=== PATIENT | female | born 1970 | race Caucasian/White ===

== ENCOUNTER → 2018-05-23 15:45 | Outpatient (CLI) | payer BC, SELFPAY ==
[2014-07-20 16:23] VITALS: BMI 32.9
--- NOTE | 2018-05-23 15:52 | RAD_ITS ---
STUDY: X-RAY - RIGHT KNEE REASON FOR EXAM: Female, 48 years old. Pain TECHNIQUE: Three view(s) of the knee were obtained. COMPARISON: None. FINDINGS: The distal femur is unremarkable. The proximal tibia is unremarkable. There is mild narrowing of the medial femorotibial compartment. Normal lateral femorotibial compartment. Normal patellofemoral articulation. There is no fullness above the patella. The soft tissue structures are unremarkable. RAD/Knee 4 or More Views IMPRESSION: There are mild degenerative changes in the medial compartment. No evidence of joint effusion. Electronically Signed: Katlyn Sands MD at 0:15 EST Tel Direct: [phone], Service support ,
--- NOTE | 2018-05-23 15:52 | RAD_ITS ---
STUDY: X-RAY - LEFT KNEE REASON FOR EXAM: Female, 48 years old. Pain TECHNIQUE: Three view(s) of the knee were obtained. COMPARISON: None. FINDINGS: The distal femur is unremarkable. The proximal tibia is unremarkable. There is mild narrowing of the medial femorotibial compartment. Normal lateral femorotibial compartment. Normal patellofemoral articulation. There is no fullness above the patella. The soft tissue structures are unremarkable. RAD/Knee 4 or More Views IMPRESSION: There are mild degenerative changes in the medial compartment. There is no evidence of joint effusion. Electronically Signed: Katlyn Sands MD at 0:16 EST Tel Direct: [phone], Service support ,
== END ==
PROVIDERS: Family Provider Family Medicine; PCP Family Medicine; Referring Provider Family Medicine; Visit Provider Family Medicine
DX: M23.8X2 Other internal derangements of left knee (principal); M23.8X1 Other internal derangements of right knee
CPT/HCPCS: 73564

== ENCOUNTER 2019-02-26 13:24 | Emergency (ER) | payer BC, SELFPAY ==
[2019-02-26 13:24] VITALS: BP 115/65; PULSE 103; RESP 18; TEMP 36.6; O2SAT 97; BMI 31.8
--- NOTE | 2019-02-26 13:52 | CT_ITS ---
STUDY: CT ABDOMEN AND PELVIS WITH CONTRAST REASON FOR EXAM: Female, 48 years old. Right lower quadrant pain. Prior tubal ligation. RADIATION DOSAGE (If Supplied By Facility): CTDIvol = ( 14.88 ) mGy, DLP = ( 1126.65 ) mGycm TECHNIQUE: Transaxial images were obtained from the dome of the diaphragm to the symphysis pubis with oral contrast. IV/Oral Isovue 300 100 was administered. Sagittal and coronal images were reconstructed. Individualized dose optimization techniques were used for this CT. COMPARISON: Comparison is made with prior study dated July 20, 2014. FINDINGS: The visualized lung bases are unremarkable. The visualized portions of the heart are within normal limits. Normal liver. Normal gallbladder and extrahepatic biliary system. Normal spleen. Normal pancreas. Normal bilateral adrenal glands. Normal right kidney. 2.9 cm x 2.9 cm cyst in the lower pole of the left kidney. Normal visualized stomach. Normal small intestine. Normal colon. The appendix is visualized and appears normal. Normal abdominal aorta. Normal inferior vena cava. There is borderline retroperitoneal lymphadenopathy with enlarged nodes no greater than 10mm in the short axis diameter. Normal urinary bladder. Normal abdominal wall. There are mild degenerative changes of the visualized lumbar spine. CT/Abdomen/Pelvis WITH Contrast IMPRESSION: Stable cyst in lower pole of the left kidney. Electronically Signed: Navjot Aldana, at 15:45 EDT , Service support ,
--- NOTE | 2019-02-26 13:54 | ED.DCSUM_ITS ---
History of Present Illness Informant: Patient Onset: Days Context: Gradual Onset Timing: Continuous Current Severity: Moderate Maximum Severity: Moderate Narrative: The patient presents to the emergency department abdominal pain. Patient was in her normal state of health. States on , she had a dull ache in her right lower quadrant. Over the weekend, is gotten worse. She states today, she began to have fever and chills. She has been nauseated with a few bouts of dry heaves. Patient does have a history of 3 prior C-sections and a tubal ligation. She had no other abdominal surgery. She is otherwise been in her normal state of health. She was seen by her primary care physician in the office today and sent over for further evaluation. Prior similar symptoms: No Recent Illness/Hospitalization: No <David Young - Last Filed: 02/26/19 13:54> <Jamar Tamayo - Last Filed: 02/26/19 15:59> Chief Complaint: Abd Pain Past Medical History Prior records reviewed: Yes Past Medical History: None Surgical History: - - by 3 Smoking Status: Never smoker <David Young - Last Filed: 02/26/19 13:54> <Jamar Tamayo - Last Filed: 02/26/19 15:59> - Allergies and Home Meds Allergies/Adverse Reactions: Allergies No Known Allergies Allergy (Verified 02/26/19 13:26) Primary Care Physician: Reilly Elena MD [Primary Care Provider] - Review of Systems General: Reports: Fever. Denies: Chills, Sweats Eyes: Denies: Visual changes - bilaterally, Diplopia ENT: Denies: Rhinorrhea, Sore throat Cardiovascular: Denies: Chest pain, Palpitations Respiratory: Denies: Dyspnea, Cough, Dyspnea on exertion Gastrointestinal: Reports: Abdominal pain, Nausea. Denies: Vomiting, Diarrhea, Melena, Hematochezia Genitourinary: Denies: Dysuria, Hematuria, Frequency Musculoskeletal: Denies: Back pain, Extremity Pain Skin: Denies: Rash, Wounds Neurological: Denies: Headache, Weakness, Numbness <David Young - Last Filed: 02/26/19 13:54> Physical Exam Vital Signs/Narrative: Vital Signs Temp Pulse Resp BP Pulse Ox 02/26/19 13:24 98 F 103 H 18 115/65 97 Inital Vital Signs reviewed: Yes General: Well nourished, Well developed, No Acute Distress Head: Normocephalic, Atraumatic Eyes: Perrl, EOMI ENT: Moist mucous membranes, No rhinorrhea Neck: Supple, Nontender Cardiovascular: Regular rate, Regular rhythm, No murmurs Respiratory: No distress, CTA bilaterally, Chest nontender Abdomen: Soft, Nondistended, Normal bowel sounds, Tender. Negative for: Guarding, Rebound tenderness Back: Nontender, Normal Inspection Extremities: Nontender, No edema Skin: Normal color, No rash Neurological: Alert, Oriented x3, Cranial nerves II-XII grossly intact, Normal Strength, Normal Sensation Psychological: Normal affect, Normal Mood <David Young - Last Filed: 02/26/19 13:54> Vital Signs/Narrative: Vital Signs Temp Pulse Resp BP Pulse Ox 02/26/19 13:24 98 F 103 H 18 115/65 97 <RoniJamar - Last Filed: 02/26/19 15:59> Diagnostic/Tx/Re-eval Impressions Abdomen/Pelvis CT 02/26/19 13:52 IMPRESSION: Stable cyst in lower pole of the left kidney. Electronically Signed: Navjot Aldana, at 15:45 EDT , Service support , 02/26/19 13:52 Abdomen/Pelvis WITH Contrast [CT] Stat Laboratory Results 02/26/19 02/26/19 02/26/19 14:05 14:05 15:20 WBC 5.7 RBC 4.80 Hgb 14.2 Hct 42.9 MCV 89.4 MCH 29.6 MCHC 33.1 RDW Std Deviation 43.4 RDW Coeff of David 13.2 Plt Count 210 MPV 9.7 Immature Gran % (Auto) 0.500 Neut % (Auto) 80.0 H Lymph % (Auto) 8.0 L [place] % (Auto) 9.2 Eos % (Auto) 1.9 Baso % (Auto) 0.4 Absolute Neuts (auto) 4.5 Absolute Lymphs (auto) 0.45 L Nucleated RBC % 0 Differential Comment SCANNED Sodium 136 Potassium 4.1 Chloride 103 Carbon Dioxide 25.0 Anion Gap 8 BUN 9 Creatinine 1.07 H Estim Creat Clear Calc 49.75 Est GFR (MDRD) Af Amer 70 Est GFR (MDRD) Non-Af 58 L BUN/Creatinine Ratio 8.4 L Glucose 96 Calcium 8.6 Total Bilirubin 0.30 AST 14 L ALT 29 Alkaline Phosphatase 79 Total Protein 7.7 Albumin 3.8 Globulin 3.9 Albumin/Globulin Ratio 1.0 Lipase 77 Urine Color Straw Urine Clarity Clear Urine pH 7.0 Ur Specific [place] 1.005 Urine Protein Negative Urine Glucose (UA) Normal Urine Ketones Negative Urine Occult Blood Negative Urine Nitrite Negative Urine Bilirubin Negative Urine Urobilinogen Normal Ur Leukocyte Esterase 25 H Urine RBC 0 SEEN Urine WBC 0 SEEN Ur Squamous Epith Cells 0 SEEN Urine Bacteria 0 SEEN Urine Mucus 0 SEEN CBC and differential are unremarkable. Comprehensive metabolic panel is unremarkable. UA is negative. CT reveals no acute pathology to explain patient's symptoms. Plan is to discharge to home with appropriate home-going instructions - Medical Decision Making Differential includes appendicitis, urologic pathology i.e. cystitis, ureteral stone also the differential is mesenteric adenitis. Did also consider malignancy. Since patient's work-up is negative she was discharged home. <Gianfranco Tamayoo - Last Filed: 02/26/19 15:59> ED Disposition <David Young - Last Filed: 02/26/19 13:54> <Jamar Tamayo - Last Filed: 02/26/19 15:59> - Plan for ED Patient: Disposition: Home or Assisted Living Diagnosis: Acute abdominal pain in right lower quadrant Instructions: ABDOMINAL PAIN, Unknown Cause, (Female) Referrals: Reilly Elena MD [Primary Care Provider] - As Needed
[2019-02-26] MEDS: 0.9% Normal Saline 1,000 ML 1000 ML IV (14:09)
[2019-02-26] MEDS: Ondansetron 4 MG/2 ML Vial IV (14:10)
[2019-02-26] MEDS: Morphine 4 MG/ML Syringe IV (14:11)
[2019-02-26 14:20] LABS: Absolute Lymphocyte Count 0.45 X10^3/uL (0.83-4.51); Absolute Neutrophil Count 4.5 X10^3/uL (2.0-7.7); Basophil# 0.02 X10^3/uL; Basophil% 0.4 % (0-1); Eosinophil# 0.11 X10^3/uL; Eosinophils% 1.9 % (0-5); Hematocrit 42.9 % (37-47); Hemoglobin 14.2 g/dL (12.0-15.0); Lymphocyte # 0.45 X10^3/ul (4.0); Mean Corp Hgb Conc 33.1 g/dL (32-36); Mean Corpuscular Hgb 29.6 pg (27.0-32.0); Mean Corpuscular Volume 89.4 fL (81-99); Mean Platelet Vol. 9.7 fl (6.2-12.0); Monocyte# 0.52 X10^3/uL; Monocyte% 9.2 % (0-10); NRBC Flagged by Analyzer 0 % (0-5); Neutrophil # 4.52 X10^3/uL (2.7-7.7); POSITIVE DIFFERENTIAL YES; Platelet Count 210 K/mm3 (150-450); RBC Distribution Width CV 13.2 % (11.6-14.6); RBC Distribution Width SD 43.4 fl (35.1-43.9); White Blood Count 5.7 K/mm3 (4.4-11.0)
[2019-02-26 14:22] LABS: Differential Indicated SCAN CRITERIA MET
[2019-02-26 14:38] LABS: AST(SGOT) 14 U/L (15-37); Alanine Aminotransfer ALT/SGPT 29 U/L (13-56); Albumin, Serum 3.8 g/dL (3.2-5.0); Alkaline Phosphatase 79 U/L (45-117); Anion Gap 8 (5-15); BUN 9 mg/dL (7-18); BUN/Creat Ratio 8.4 RATIO (10-20); Calcium,Total 8.6 mg/dL (8.5-10.1); Chloride 103 mmol/L (98-107); Creatinine, Serum 1.07 mg/dL (0.55-1.02); EST Glomerular Filtration Rate 58 mL/min (>60); Est Glom Filt Rate - Afr Amer 70 mL/min (>60); Estimated Creatinine Clearance 49.75 ml/min; Globulin 3.9 g/dL (2.2-4.2); Glucose 96 mg/dL (74-106); Lipase 77 U/L (73-393); Potassium 4.1 mmol/L (3.5-5.1); Protein, Total 7.7 g/dL (6.4-8.2); Sodium Level 136 mmol/L (136-145)
[2019-02-26 14:42] LABS: Differential Comment SCANNED
[2019-02-26 15:30] LABS: Bacteria 0 SEEN /hpf (None Seen); Mucous, Urine 0 SEEN /hpf (<or=2+); Red Blood Cells-Urine 0 SEEN /hpf (0-5); Squamous Epithelial Cells - UA 0 SEEN /hpf (5-10); White Blood Cells 0 SEEN /hpf (0-5)
[2019-02-26 15:40] LABS: Color, Urine Straw (Yellow); Glucose, Dipstick Normal (Normal); Ketone-Dipstick Negative (Negative); Leukocyte Esterase-Dipstick 25 /ul (Negative); Nitrite-Dipstick Negative (Negative); Occult Blood-Urine Negative /ul (Negative); Protein-Dipstick Negative (Negative); Specific Gravity, Urine 1.005 (1.002-1.030); Urine Bilirubin Dipstick Negative (Negative); Urine Clarity Clear (Clear); Urine Urobilinogen Normal (Normal)
[2019-02-26 16:33] VITALS: BP 111/64; PULSE 80; RESP 18; O2SAT 97
== END 2019-02-26 16:34 | disposition home or self-care (01) ==
PROVIDERS: Emergency Provider Emergency Medicine; Family Provider Family Medicine; PCP Family Medicine
DX: R10.31 Right lower quadrant pain (principal)
CPT/HCPCS: 74177; 80053; 81001; 83690; 85025; 96361; 96374; 96375; 99283; Q9967; J2405

== ENCOUNTER → 2020-06-15 12:55 | Outpatient (CLI) | payer BC, SELFPAY ==
--- NOTE | 2020-06-15 13:00 | RAD_ITS ---
STUDY: X-RAY CHEST REASON FOR EXAM: Female, 50 years old. COUGH AND CHEST CONGESTION, PAIN WHEN COUGHING -- SINUS DRAINAGE STARTED 1 MONTH AGO, NOW INTO CHEST TECHNIQUE: PA and lateral views of the chest. COMPARISON: None. FINDINGS: The lungs are clear and expanded. There is no demonstrated pleural abnormality. Normal size heart. Normal mediastinum and derik. Normal visualized pulmonary arteries. Normal visualized aortic arch and descending thoracic aorta. Normal visualized thoracic spine. Normal visualized ribs, clavicles, and shoulders. There is no demonstrated abnormality of the visualized soft tissue structures of the upper abdomen. RAD/Chest PA and Lateral IMPRESSION: Normal x-ray examination of the chest. Electronically Signed: Darci Lowe MD at 16:56 EST Tel , Service support ,
== END ==
PROVIDERS: PCP Family Medicine; Referring Provider Family Medicine; Visit Provider Family Medicine
DX: J40 Bronchitis, not specified as acute or chronic (principal)
CPT/HCPCS: 71046

== ENCOUNTER → 2021-05-05 | Outpatient (CLI) | payer BC, SELFPAY | END | disposition home or self-care (01) | LOC: LABSPEC 15:08 | PROVIDERS: PCP Family Medicine; Visit Provider Otolaryngology | DX: Z11.52 Encounter for screening for COVID-19 (principal) | CPT/HCPCS: 87635; U0005; U0003 ==

== ENCOUNTER → 2021-10-19 | Outpatient (CLI) | payer BC, SELFPAY | END | disposition home or self-care (01) | LOC: MFPLAB 08:23 | PROVIDERS: PCP Family Medicine; Visit Provider Family Medicine | DX: Z20.822 Contact with and (suspected) exposure to COVID-19 (principal) | CPT/HCPCS: 87635; U0003; U0005 ==

== ENCOUNTER → 2022-06-14 | Outpatient (CLI) | payer OTHER, SELFPAY ==
[2022-06-14 10:17] LABS: Absolute Lymphocyte Count 2.77 X10^3/uL (0.83-4.51); Absolute Neutrophil Count 6.1 X10^3/uL (2.0-7.7); Basophil# 0.02 X10^3/uL; Basophil% 0.2 % (0-1); Eosinophil# 0.08 X10^3/uL; Eosinophils% 0.8 % (0-5); Hemoglobin 13.5 g/dL (12.0-15.0); Lymphocyte # 2.77 X10^3/ul (0.83-4.51); Lymphocyte % 28.7 % (19-41); Mean Corp Hgb Conc 31.4 g/dL (32-36); Mean Corpuscular Hgb 28.8 pg (27.0-32.0); Mean Corpuscular Volume 91.7 fL (81-99); Mean Platelet Vol. 9.3 fl (6.2-12.0); Monocyte# 0.61 X10^3/uL; Monocyte% 6.3 % (0-10); NRBC Flagged by Analyzer 0 % (0-5); Neutrophil # 6.12 X10^3/uL (2.7-7.7); Neutrophil % 63.4 % (47-70); Platelet Count 274 K/mm3 (150-450); RBC Distribution Width CV 13.1 % (11.6-14.6); RBC Distribution Width SD 43.9 fl (35.1-43.9); Red Blood Count 4.69 M/mm3 (4.2-5.4); White Blood Count 9.7 K/mm3 (4.4-11.0)
[2022-06-14 10:52] LABS: Hemoglobin A1c 5.3 % (3.8-5.6)
[2022-06-14 11:15] LABS: AST(SGOT) 8 U/L (15-37); Alanine Aminotransfer ALT/SGPT 34 U/L (13-56); Albumin, Serum 3.4 g/dL (3.2-5.0); Alkaline Phosphatase 81 U/L (45-117); Anion Gap 9 (5-15); BUN 11 mg/dL (7-18); BUN/Creat Ratio 16.6 RATIO (10-20); Calcium,Total 8.4 mg/dL (8.5-10.1); Chloride 104 mmol/L (98-107); Cholesterol 267 mg/dL (200); Creatinine, Serum 0.66 mg/dL (0.55-1.02); EST Glomerular Filtration Rate 99 mL/min (>60); Est Glom Filt Rate - Afr Amer 119 mL/min (>60); Globulin 3.3 g/dL (2.2-4.2); Glucose 86 mg/dL (74-106); High Density Lipoprotein 71 mg/dL; Potassium 4.1 mmol/L (3.5-5.1); Protein, Total 6.7 g/dL (6.4-8.2); Sodium Level 140 mmol/L (136-145); Thyroid Stim Hormone (TSH) 3.43 uIU/mL (0.358-3.74); Triglycerides 110 mg/dL; Very Low Density Lipoprotein 22 mg/dL (5-40)
== END | disposition home or self-care (01) ==
PROVIDERS: PCP Family Medicine; Referring Provider Family Medicine; Visit Provider Family Medicine
DX: E78.00 Pure hypercholesterolemia, unspecified (principal); Z13.1 Encounter for screening for diabetes mellitus
CPT/HCPCS: 36415; 80053; 80061; 83036; 84443; 85025

== ENCOUNTER → 2022-07-01 | Outpatient (CLI) | payer OTHER, SELFPAY | END | disposition home or self-care (01) | LOC: LABSPEC 07-02 10:06 | PROVIDERS: PCP Family Medicine; Visit Provider Nurse Practitioner Family | DX: J02.9 Acute pharyngitis, unspecified (principal) ==

== ENCOUNTER → 2022-07-01 | Outpatient (CLI) | payer OTHER, SELFPAY | END | disposition home or self-care (01) | PROVIDERS: PCP Family Medicine; Visit Provider Nurse Practitioner Family | DX: J02.9 Acute pharyngitis, unspecified (principal) | CPT/HCPCS: 87070 ==

== ENCOUNTER → 2022-07-19 | Outpatient (CLI) | payer OTHER, SELFPAY ==
--- NOTE | 2022-07-19 14:37 | ECHOD_ITS ---
Reason For Study: Arrhythmia Procedure This was a 2D Doppler, Color Flow transthoracic echocardiogram. The exam was of adequate technical quality. Exam performed in department. Left Ventricle Normal left ventricle. Apical false tendon noted. Left ventricular systolic function is normal. The estimated ejection fraction is 60 %. No evidence for diastolic dysfunction. No regional wall motion abnormalities noted. Right Ventricle Normal RV size. Normal systolic function. Atria Normal left atrium. Normal right atrium. No doppler evidence for ASD. Mitral Valve There is no mitral annular calcification. Normal mitral valve. Trivial mitral valve insufficiency. Tricuspid Valve Normal tricuspid valve. Trivial tricuspid valve insufficiency. Unable to estimate RV systolic pressure due to insufficient tricuspid regurgitant envelope. Aortic Valve Trisinus/trileaflet aortic valve. Normal aortic valve. Pulmonic Valve The pulmonic valve is not well visualized. Great Vessels Normal sized aortic root. Pericardium/Pleural No pericardial effusion. MMode/2D Measurements & Calculations LVIDd: 4.3 cm IVSd: 1.0 cm Ao root diam: 3.2 cm LVIDs: 3.1 cm LVPWd: 0.91 cm LA dimension: 3.5 cm RVDd: 3.0 cm FS: 27.9 % LAV(MOD-bp): 30.3 ml LA A4 area: 12.9 cm2 RA A4 area: 10.2 cm2 LAV(MOD-bp) Indexed: 16.6 ml/m2 LAV(MOD-sp2): 31.8 ml LAV(MOD-sp4): 28.8 ml Time Measurements MV dec time: 0.15 sec Doppler Measurements & Calculations MV E max jan: 76.1 cm/sec Lat Peak E' Jan: 11.1 cm/sec Med Peak E' Jan: 9.4 cm/sec MV A max jan: 70.9 cm/sec E/E' lat: 6.8 E/E' med: 8.1 MV E/A: 1.1 MV V2 max: 93.9 cm/sec MV dec slope: 510.0 cm/sec2 Ao V2 max: 118.7 cm/sec MV max P.5 mmHg Ao max P.6 mmHg MV V2 mean: 57.9 cm/sec Ao V2 mean: 81.5 cm/sec MV mean P.5 mmHg Ao mean P.1 mmHg MV V2 VTI: 24.9 cm Ao V2 VTI: 27.5 cm AV (velocity ratio): 0.90 LV V1 max: 116.0 cm/sec PA V2 max: 104.9 cm/sec LV V1 max P.4 mmHg PA V2 mean: 68.6 cm/sec LV V1 mean P.6 mmHg LV V1 mean: 74.4 cm/sec LV V1 VTI: 24.8 cm ECHO/Echo Complete Interpretation Summary Left ventricular systolic function is normal. The estimated ejection fraction is 60 %. Apical false tendon noted. Trivial mitral valve insufficiency. Trivial tricuspid valve insufficiency. Unable to estimate RV systolic pressure due to insufficient tricuspid regurgita nt envelope. No evidence for diastolic dysfunction. Ordering Physician: Scarlett Barnhart Referring Physician: Scarlett Barnhart Performed By: Daniel Terry RCS
== END | disposition home or self-care (01) ==
LOC: CVS 14:35
PROVIDERS: PCP Family Medicine; Referring Provider Nurse Practitioner Family; Visit Provider Nurse Practitioner Family
DX: I49.8 Other specified cardiac arrhythmias (principal)
CPT/HCPCS: 93306

== ENCOUNTER → 2022-11-02 | Outpatient (CLI) | payer OTHER, SELFPAY ==
[2022-11-02 15:53] LABS: Cholesterol 220 mg/dL (200); High Density Lipoprotein 50 mg/dL; Triglycerides 113 mg/dL; Very Low Density Lipoprotein 23 mg/dL (5-40)
== END | disposition home or self-care (01) ==
LOC: LAB 14:09
PROVIDERS: PCP Family Medicine; Visit Provider Internal Medicine Cardiovascular Disease
DX: E78.5 Hyperlipidemia, unspecified (principal)
CPT/HCPCS: 36415; 80061

== ENCOUNTER → 2023-06-21 | Outpatient (CLI) | payer OTHER, SELFPAY ==
--- OUTSIDE RECORDS SUMMARY | 2023-06-21 11:18 | XMS RPT_ITS | CCD ---
Author Name Unknown Address [address] [place] [address] Organization [facility] Care Team Providers Care Production Checker Name Role Phone Reilly Elena MD Primary Care Provider [phone] Hang Ryan DO Primary Care Provider HANG RYAN Primary Care Unavailable HANG RYAN Primary Care Unavailable HANG RYAN Primary Care Unavailable Medications Current Medications Medication Drug Class(es) Dates Sig (Normalized) Sig (Original) cephalexin 500 mg oral capsule (2 sources) Cephalosporin Antibacterial Start: 05-08-2023 End: 05-15-2023 take 1 capsule by mouth three times daily cephALEXin (KEFLEX) 500 mg capsule Take 1 capsule by mouth three times a day for 7 days. 21 capsule 0 05/08/2023 05/15/2023 Active Completed/Discontinued Medications Medication Drug Class(es) Dates Sig (Normalized) Sig (Original) acetaminophen 250 mg / aspirin 250 mg / caffeine 65 mg oral tablet (4 sources) Platelet Aggregation Inhibitor, Nonsteroidal Anti-inflammatory Drug, Central Nervous System Stimulant, Methylxanthine take 1 tablet by mouth every six hours as needed Aspirin-Acetamino phen-Caffeine 250-250-65 mg per tablet Take 1 tablet by mouth every 6 hours as needed. 0 Active Problems Problem Classification Problem Date Documented Da te Episodic/Chronic Genitourinary symptoms and ill-defined conditions (1 source) Increased frequency of urination; Translations: [Frequency of micturition] 05-08-2023 Episodic Menstrual disorders (4 sources) Menorrhagia; Translations: [Excessive and frequent menstruation with regular cycle] Onset: 10-31-2012 10-31-2012 Chronic Other screening for suspected conditions (not mental disorders or infectious disease) (1 source) Patient encounter status; Translations: [Encounter for screening mammogram for malignant neoplasm of breast] Episodic Results Test Name Value Interpretation Reference Range Facil ity Vital Signs Date Time Vital Sign Value Performing Clinician Glenn masterson 05-08-2023 19:18-0500 Body temperature 97.81 [degF] William Echeverria BIT SHARPENER.TRUMPET TEACHER Work Phone: [facility] 05-08-2023 19:18-0500 Body weight 73.48 kg [facility] BIT [facility]ARPENER.TRUMPET TEACHER Work Phone: [facility] 05-08-2023 19:18-0500 Diastolic blood pressure 74 mm[Hg] [facility] BIT SHARPENER.TRUMPET TEACHER Work Phone: [facility] 05-08-2023 19:18-0500 Heart rate 76 /min Williammeaghan Pritcharddenisse BIT SHARPENER.TRUMPET TEACHER Work Phone: [facility] 05-08-2023 19:18-0500 Respiratory rate 16 /min [facility] BIT SHARPENER.TRUMPET TEACHER Work Phone: [facility] 05-08-2023 19:18-0500 SaO2% (BldA) [Mass fraction] 99 % [facility] BIT SHARPENER.TRUMPET TEACHER Work Phone: [facility] 05-08-2023 19:18-0500 Systolic blood pressure 122 mm[Hg] [facility] BIT SHARPENER.TRUMPET TEACHER Work Phone: [facility] Encounters Encounter Date Encounter Type Care Provider Facility Start: 05-10-2023 Telephone encounter Lianna Qiana Ingram BIT SHARPENER.TRUMPET TEACHER Work Phone: [facility] Procedures Date Procedure Procedure Detail Performing Clinician Start: 05-08-2023 Urnls dip stick/tabl et rgnt auto w/o microscopy Charu Baez PA-C Work Phone: Start: 09-01-2021 Mammography Mammograph y Coordinator Start: 06-28-2017 Mammography [facility] BIT SHARPENER.TRUMPET TEACHER Work Phone: Plan of Treatment Date Care Activity Detail Author Start: 02-03-2023 Influenza vaccination Influenza Vaccine (#1) [facility] Start: 09-01-2022 Mammography [facility] Start: 06-14-2022 HPV TESTING HPV TESTING [facility] Start: 06-14-2022 PAP TESTING PAP TESTING [facility] Start: 06-05-2022 Depression Assessment Depression Assessment [facility] Start: 02-03-2022 Influenza vaccination INFLUENZA (Season Ended) [facility] Start: 02-03-2021 Influenza vaccination INFLUENZA (#1) [facility] Start: 06-28-2018 Mammography MAMMOGRAM [facility] Start: 2018 SHINGRIX VACCINE (1 of 2) SHINGRIX VACCINE (1 of 2) [facility] Start: 2013 COLOGUARD (FIT-DNA) COLOGUARD (FIT-DNA) [facility] Start: 2013 Colonoscopy COLONOSCOPY [facility] Start: 2013 COLORECTAL CANCER SCREENING COLORECTAL CANCER SCREENING [facility] Start: [address] COLONOGRAPHY [facility] Start: 2013 DIABETES SCREEN DIABETES SCREEN [facility] Start: 2013 Diabetes Screening Diabetes Screening [facility] Start: 2013 FECAL OCCULT BLOOD FECAL OCCULT BLOOD [facility] Start: 2013 Lipid 1996 panel - Serum or Plasma Lipid Screening [facility] Start: 2013 LIPID SCREEN LIPID SCREEN [facility] Start: 2013 SIGMOIDOSCOPY SIGMOIDOSCOPY [facility] Start: 1987 Urine microalbumin profile [facility] Start: 1986 HEPATITIS C SCREENING HEPATITIS C SCREENING [facility] Start: 1986 HIV SCREENING HIV SCREENING [facility] Start: 1980 Adult depression screening assessment DEPRESSION SCREENING [facility] Start: 1973 COVID-19 VACCINE (1) COVID-19 VACCINE (1) [facility] Start: 1968 Covid-19 Vaccine (#1) Covid-19 Vaccine (#1) [facility] Start: 1968 Hepatitis B Vaccine (1 of 3 - 3-dose series) Hepatitis B Vaccine (1 of 3 - 3-dose series) [facility] Bacteria identified in Urine by Culture URINE CULTURE Microbiology Routine Urinary frequency 05/08/2023 7:43 PM EST [facility] Work Phone: End: 09-24-2022 YEIMY SCREENING W HYACINHT YEIMY SCREENING W HYACINTH Radiology Routine Encounter for screening mammogram for malignant neoplasm of breast 1 Occurrences starting 08/26/2021 until 09/24/2022 [facility] Work Phone: Payers Date Payer Category Payer Private Health Insurance YASMIN CALERO OAP [id number] 2022-Present [phone] [id number] [place] [id number] Open Access [id number] 2022 Private Health Insurance [id number] 2016 Unknown [id number] Social History Date Type Detail Facility Start: 11-19-2012 Tobacco smoking stat [facility] Never smoked tobacco [facility] Start: 06-14-2017 End: 05-08-2023 Alcohol intake Current non-drinker of alcohol (finding) [facility] Start: 1970 Sex Assigned At Not on file [facility] Start: 08-22-2021 End: 09-01-2021 Exposure to SARS-CoV-2 (event) Not sure [facility] Start: 11-19-2012 Tobacco use and exposure Smoke less tobacco non-user [facility] Start: 05-13-2020 End: 05-08-2023 History of Social function [facility] Start: 05-13-2020 End: 05-08-2023 Tobacco use panel [facility] National Score (1-10 0), lower number is lower risk Not on file [facility] Note 05-10-2023 Telephone Encounter - Emma Avila RN - 05/10/2023 3:51 PM ESTTelephone Encounter - Rachel Kaur - 05/10/2023 8:04 AM ESTTelephone Encounter - Sandra Alcazar MA - 05/10/2023 7:40 AM EST Note Date & Type Note Facility 05-10-2023 Miscellaneous Notes Formattin g of this note might be different from the original. Spoke with patient. Given message from provider's office. Patient verbalizes understanding. Emma Avila RN Left message for patient to call back and ask to talk to a triage nurse. Rachel Kaur ----- Message from Lianna Oropeza APRN.TRUMPET TEACHER sent at 05/10/2023 7:18 AM EST ----- Urine culture did not show clear evidence of infection. She may continue to take antibiotic if it has been helpful. If not improving, recommend follow up with PCP. Lianna Oropeza CNP documented in this encounter [facility] Progress note 05-08-2023 Note Date & Type Note Facility 05-08-2023 Note HNO ID: [id number] Author: William Echeverria APRN.JOANA Service: ? Author Type: Nurse Practitioner Type: Progress Notes Filed: 05/08/2023 7:39 PM Note Text: Subjective HPI Nontoxic-appearing female presents urgent care chief complaint possible UTI. Duration of symptoms 10 days. Associated symptoms urinary frequency and urgency. Has developed mild lower back discomfort in the last 2 days. Presents today to rule out UTI. States if she had a UTI it has been quite a few years. Has not used any OTC medications. Denies any trauma. No saddle anesthesia. No incontinence. Most bothersome symptom today is urinary frequency urgency. Has mild dysuria at times. Denies any fever body aches chills nausea vomiting abdominal pain or rashes. No vaginal discharge. Past medical history prescription medication use allergies reviewed. .Patient presents with: Urinary Frequency: x 10 days, low back pain x 2 days PAST MEDICAL HISTORY Diagnosis Date Migraines PAST SURGICAL HISTORY Procedure Laterality Date DELIVERY ONLY , low transverse DIVISN PLANTAR FASCIA/MUSCLE 1984 left HYSTEROSCOPY BX W/WO DANDC 11/2012 w/ polypectomy LIG/TRNSXJ FLP TUBE ABDL/VAG APPR UNI/BI Tubal ligation ALLERGIES Patient has no known allergies. MEDICATIONS psyllium husk (METAMUCIL ORAL) Take by mouth. (Patient not taking: Reported on 02/27/2023) loratadine (CLARITIN) 10 mg tablet Take 1 tablet by mouth once daily. (Patient not taking: Reported on 02/27/2023) clobetasol (TEMOVATE) 0.05 % ointment Apply 1 application to affected area twice daily. for 2 weeks then once a day for 1 week then 1-2 times/week (Patient not taking: Reported on 10/23/2022) Efyyvcu-Gugwwlkrlddin-Bueewxfe 250-250-65 mg per tablet Take 1 tablet by mouth every 6 hours as needed. (Patient not taking: Reported on 10/23/2022) ibuprofen (MOTRIN) 200 mg tablet Take 1-2 tablets by mouth every 2 hours as needed. FOR PAIN. (Patient not taking: Reported on 10/23/2022) FAMILY HISTORY Problem Relation Age of Onset Diabetes Mother Heart Father Cancer Maternal Grandfather leukemia Social History Tobacco Use Smoking status: Never Smokeless tobacco: Never Substance Use Topics Alcohol use: No Drug use: No BP 122/74 Pulse 76 Temp 36.6 ?C (97.8 ?F) Resp 16 Wt 73.5 kg (162 lb) LMP 05/19/2017 SpO2 99% BMI 30.61 kg/m? Review of Systems Constitutional: Negative for chills, fever and malaise/fatigue. HENT: Negative for congestion, ear discharge, ear pain, sinus pain and sore throat. Eyes: Negative for blurred vision, pain, discharge and redness. Respiratory: Negative for cough, hemoptysis, sputum production, shortness of breath, wheezing and stridor. Cardiovascular: Negative for chest pain. Gastrointestinal: Negative for abdominal pain, diarrhea, nausea and vomiting. Genitourinary: Positive for flank pain, frequency and urgency. Negative for dysuria and hematuria. Musculoskeletal: Negative for myalgias. Skin: Negative for itching and rash. Neurological: Negative for dizziness and headaches. Objective Physical Exam Constitutional: General: She is not in acute distress. Appearance: She is not diaphoretic. HENT: Head: Normocephalic. Jaw: No trismus, tenderness, swelling or pain on movement. Mouth/Throat: Mouth: Mucous membranes are moist. Pharynx: Oropharynx is clear. Uvula midline. No pharyngeal swelling, oropharyngeal exudate, posterior oropharyngeal erythema or uvula swelling. Eyes: Conjunctiva/sclera: Conjunctivae normal. Pupils: Pupils are equal, round, and reactive to light. Cardiovascular: Rate and Rhythm: Normal rate and regular rhythm. Heart sounds: Normal heart sounds. Pulmonary: Effort: Pulmonary effort is normal. No tachypnea, accessory muscle usage or respiratory distress. Breath sounds: Normal breath sounds. No stridor. No wheezing, rhonchi or rales. Abdominal: General: There is no distension. Palpations: Abdomen is soft. Tenderness: There is no abdominal tenderness. There is no right CVA tenderness, left CVA tenderness, guarding or rebound. Musculoskeletal: Cervical back: Normal range of motion and neck supple. No edema, erythema, rigidity or tenderness. No pain with movement. Normal range of motion. Lymphadenopathy: Cervical: No cervical adenopathy. Skin: General: Skin is warm and dry. Neurological: Mental Status: She is alert and oriented to person, place, and time. ASSESSMENT/PLAN: 1. Urinary frequency - ICD9: 788.41, ICD10: R35.0 - UA DIP, URINE (POC) - URINE CULTURE Small amount of leukocytes noted on urine dip. Treat for acute cystitis. No evidence of pyelonephritis noted. No evidence of acute abdomen. Patient was educated on supportive therapies. Patient will follow up with primary care provider as needed. Patient was instructed to immediately proceed to emergency room for any new, worsening, or symptoms lasting longer th (more content not included)... [facility] History of Present illness Narrative 05-08-2023 William Echeverria APRN.[facility] - 05/08/2023 7:24 PM EST Note Date & Type Note Facility 05-08-2023 History of Presen t illness Narrative Subjective HPI Nontoxic-appearing female presents urgent care chief complaint possible UTI. Duration of symptoms 10 days. Associated symptoms urinary frequency and urgency. Has developed mild lower back discomfort in the last 2 days. Presents today to rule out UTI. States if she had a UTI it has been quite a few years. Has not used any OTC medications. Denies any trauma. No saddle anesthesia. No incontinence. Most bothersome symptom today is urinary frequency urgency. Has mild dysuria at times. Denies any fever body aches chills nausea vomiting abdominal pain or rashes. No vaginal discharge. Past medical history prescription medication use allergies reviewed. .Patient presents with: Urinary Frequency: x 10 days, low back pain x 2 days PAST MEDICAL HISTORY Diagnosis Date Migraines PAST SURGICAL HISTORY Procedure Laterality Date DELIVERY ONLY , low transverse DIVISN PLANTAR FASCIA/MUSCLE 1984 left HYSTEROSCOPY BX W/WO D&C 11/2012 w/ polypectomy LIG/TRNSXJ FLP TUBE ABDL/VAG APPR UNI/BI Tubal ligation ALLERGIES Patient has no known allergies. MEDICATIONS psyllium husk (METAMUCIL ORAL) Take by mouth. (Patient not taking: Reported on 02/27/2023) loratadine (CLARITIN) 10 mg tablet Take 1 tablet by mouth once daily. (Patient not taking: Reported on 02/27/2023) clobetasol (TEMOVATE) 0.05 % ointment Apply 1 application to affected area twice daily. for 2 weeks then once a day for 1 week then 1-2 times/week (Patient not taking: Reported on 10/23/2022) Uqnvdep-Schzhsgpmumrb-Bhauwbdg 250-250-65 mg per tablet Take 1 tablet by mouth every 6 hours as needed. (Patient not taking: Reported on 10/23/2022) ibuprofen (MOTRIN) 200 mg tablet Take 1-2 tablets by mouth every 2 hours as needed. FOR PAIN. (Patient not taking: Reported on 10/23/2022) FAMILY HISTORY Problem Relation Age of Onset Diabetes Mother Heart Father Cancer Maternal Grandfather leukemia Social History Tobacco Use Smoking status: Never Smokeless tobacco: Never Substance Use Topics Alcohol use: No Drug use: No BP 122/74 Pulse 76 Temp 36.6 C (97.8 F) Resp 16 Wt 73.5 kg (162 lb) LMP 05/19/2017 SpO2 99% BMI 30.61 kg/m Review of Systems Constitutional: Negative for chills, fever and malaise/fatigue. HENT: Negative for congestion, ear discharge, ear pain, sinus pain and sore throat. Eyes: Negative for blurred vision, pain, discharge and redness. Respiratory: Negative for cough, hemoptysis, sputum production, shortness of breath, wheezing and stridor. Cardiovascular: Negative for chest pain. Gastrointestinal: Negative for abdominal pain, diarrhea, nausea and vomiting. Genitourinary: Positive for flank pain, frequency and urgency. Negative for dysuria and hematuria. Musculoskeletal: Negative for myalgias. Skin: Negative for itching and rash. Neurological: Negative for dizziness and headaches. Objective Physical Exam Constitutional: General: She is not in acute distress. Appearance: She is not diaphoretic. HENT: Head: Normocephalic. Jaw: No trismus, tenderness, swelling or pain on movement. Mouth/Throat: Mouth: Mucous membranes are moist. Pharynx: Oropharynx is clear. Uvula midline. No pharyngeal swelling, oropharyngeal exudate, posterior oropharyngeal erythema or uvula swelling. Eyes: Conjunctiva/sclera: Conjunctivae normal. Pupils: Pupils are equal, round, and reactive to light. Cardiovascular: Rate and Rhythm: Normal rate and regular rhythm. Heart sounds: Normal heart sounds. Pulmonary: Effort: Pulmonary effort is normal. No tachypnea, accessory muscle usage or respiratory distress. Breath sounds: Normal breath sounds. No stridor. No wheezing, rhonchi or rales. Abdominal: General: There is no distension. Palpations: Abdomen is soft. Tenderness: There is no abdominal tenderness. There is no right CVA tenderness, left CVA tenderness, guarding or rebound. Musculoskeletal: Cervical back: Normal range of motion and neck supple. No edema, erythema, rigidity or tenderness. No pain with movement. Normal range of motion. Lymphadenopathy: Cervical: No cervical adenopathy. Skin: General: Skin is warm and dry. Neurological: Mental Status: She is alert and oriented to person, place, and time. ASSESSMENT/PLAN: 1. Urinary frequency - ICD9: 788.41, ICD10: R35.0 - UA DIP, URINE (POC) - URINE CULTURE Small amount of leukocytes noted on urine dip. Treat for acute cystitis. No evidence of pyelonephritis noted. No evidence of acute abdomen. Patient was educated on supportive therapies. Patient will follow up with primary care provider as needed. Patient was instructed to immediately proceed to emergency room for any new, worsening, or symptoms lasting longer than anticipated. The patient's clinical presentation is otherwise unremarkable at this time. Based on exam and clinical finding, the patient is stable for discharge. Plan of care was discussed with patient. Patient verbalizes understanding and agrees to plan of care. This note was generated using Rise Art software. It may contain errors in wording, punctuation, or spelling. William Echeverria APRN.TRUMPET TEACHER documented in this encounter [facility] Progress note 02-27-2023 Note Date & Type Note Facility 02-27-2023 Note HNO ID: [id number] Author: Ivette Fam APRN.JOANA Service: ? Author Type: Nurse Practitioner Type: Progress Notes Filed: 02/27/2023 10:31 AM Note Text: This note was created using [employer]. Subjective Kanwal Johnston is a 52 year old female. 52 year old female with no PMH presents for complaints of illness. Acute onset 2 weeks ago +sinus pain +sinus pressure +drainage +mild non productive cough Denies SOB or dyspnea Denies CP. States 3 to 4 days ago developed left ear pain. Denies tobacco usage Has used OTC congestion medicines. History of recurrent sinus infection, has had balloon sinusplasty in past. The history is provided by the patient. No speech and language clinician was used. Sinus Problem This is a new problem. The current episode started 1 to 4 weeks ago. The problem occurs constantly. The problem has been gradually worsening. Associated symptoms include congestion, headaches and a sore throat. Pertinent negatives include no abdominal pain, anorexia, arthralgias, change in bowel habit, chest pain, chills, coughing, diaphoresis, fatigue, fever, joint swelling, myalgias, nausea, neck pain, numbness, rash, swollen glands, urinary symptoms, vertigo, visual change, vomiting or weakness. Nothing aggravates the symptoms. Treatments tried: OTC medicines. The treatment provided mild relief. PAST MEDICAL HISTORY Diagnosis Date Migraines PAST SURGICAL HISTORY Procedure Laterality Date DELIVERY ONLY , low transverse DIVISN PLANTAR FASCIA/MUSCLE 1984 left HYSTEROSCOPY BX W/WO DANDC 11/2012 w/ polypectomy LIG/TRNSXJ FLP TUBE ABDL/VAG APPR UNI/BI Tubal ligation ALLERGIES Patient has no known allergies. MEDICATIONS amoxicillin-clavulanic acid (AUGMENTIN) 875-125 mg per tablet Take 1 tablet by mouth twice daily for 7 days. psyllium husk (METAMUCIL ORAL) Take by mouth. (Patient not taking: Reported on 02/27/2023) loratadine (CLARITIN) 10 mg tablet Take 1 tablet by mouth once daily. (Patient not taking: Reported on 02/27/2023) clobetasol (TEMOVATE) 0.05 % ointment Apply 1 application to affected area twice daily. for 2 weeks then once a day for 1 week then 1-2 times/week (Patient not taking: Reported on 10/23/2022) Fiwgyaa-Ulcscptjbqgmi-Cvdiltzd 250-250-65 mg per tablet Take 1 tablet by mouth every 6 hours as needed. (Patient not taking: Reported on 10/23/2022) ibuprofen (MOTRIN) 200 mg tablet Take 1-2 tablets by mouth every 2 hours as needed. FOR PAIN. (Patient not taking: Reported on 10/23/2022) FAMILY HISTORY Problem Relation Age of Onset Diabetes Mother Heart Father Cancer Maternal Grandfather leukemia Social History Tobacco Use Smoking status: Never Smokeless tobacco: Never Substance Use Topics Alcohol use: No Drug use: No Review of Systems Constitutional: Negative for chills, diaphoresis, fatigue and fever. HENT: Positive for congestion, ear pain, postnasal drip, rhinorrhea, sinus pressure, sinus pain and sore throat. Negative for ear discharge. Eyes: Negative for photophobia, pain, discharge, redness, itching and visual disturbance. Respiratory: Negative for apnea, cough and chest tightness. Cardiovascular: Negative for chest pain. Gastrointestinal: Negative for abdominal pain, anorexia, change in bowel habit, nausea and vomiting. Musculoskeletal: Negative for arthralgias, joint swelling, myalgias and neck pain. Skin: Negative for color change, pallor and rash. Allergic/Immunologic: Negative for environmental allergies, food allergies and immunocompromised state. Neurological: Positive for headaches. Negative for dizziness, vertigo, facial asymmetry, weakness and numbness. Hematological: Negative for adenopathy. Does not bruise/bleed easily. Psychiatric/Behavioral: Negative for agitation and behavioral problems. Objective BP 108/68 Pulse 70 Temp 36.2 ?C (97.2 ?F) Resp 16 Wt 66.7 kg (147 lb) LMP 05/19/2017 SpO2 99% BMI 27.78 kg/m? Physical Exam Vitals and nursing note reviewed. Constitutional: General: She is not in acute distress. Appearance: Normal appearance. She is normal weight. She is not ill-appearing, toxic-appearing or diaphoretic. HENT: Head: Normocephalic and atraumatic. Comments: +frontal sinus pressure +maxillary sinus pressure Right Ear: Ear canal and external ear normal. Left Ear: Ear canal and external ear normal. Ears: Comments: TM's bilaterally with mild erythema. Nose: Nose normal. No congestion or rhinorrhea. Mouth/Throat: Mouth: Mucous membranes are moist. Pharynx: Posterior oropharyngeal erythema present. No oropharyngeal exudate. Eyes: General: Right eye: No discharge. Left eye: No discharge. Extraocular Movements: Extraocular movements intact. Conjunctiva/sclera: Conjunctivae normal. Pupils: Pupils are equal, round, and reactive to light. Cardiovascular: Rate and Rhythm: Normal rate and regular rhythm. Pulses: Normal pulse (more content not included)... [facility] Progress note 10-23-2022 Note Date & Type Note Facility 10-23-2022 Note HNO ID: [id number] Author: Teresa Mack APRN.TRUMPET TEACHER Service: ? Author Type: Nurse Practitioner Type: Progress Notes Filed: 10/23/2022 10:19 AM Note Text: CC: Patient presents with: Chest Congestion: cough, headache and chills x 4 days HPI: Kanwal Johnston is a 52 year old female who presents to the office with complaint of head congestion, cough, nonproductive, and chills for a few days. Symptoms are staying the same. Associated symptoms includes nasal congestion and facial pain/pressure, ear pain. Denies fever, nausea, vomiting , and diarrhea. Treatments tried include nothing so far. with no relief of symptoms. Sick contacts: unknown. History of asthma, frequent episodes of bronchitis, chronic bronchitis, bronchiectasis or COPD: No Smoker: No Seasonal/environmental allergies: No The ROS is otherwise negative. The patient's pmh, medications, allergies, and past visits are reviewed. PHYSICAL EXAM: BP 126/80 Pulse 68 Temp 37.1 ?C (98.7 ?F) Resp 16 Wt 78.9 kg (174 lb) LMP 05/19/2017 SpO2 96% BMI 32.88 kg/m? General appearance: alert, cooperative, pleasant, in no acute distress Head: Normocephalic Eyes: EOM's intact, conjunctiva pink and moist, no icterus, sclera white, non-injected Ears: Right ear: External ear/canal- Normal, TM - erythematous, bulging. Left ear: External ear/canal- Normal, TM - clear with good landmarks Oropharynx:moist without lesions, No erythema, exudates or tonsillar hypertrophy. Heart: Negative. RRR without obvious murmur, gallop, or rubs. No ectopy. Lungs: clear to auscultation, without rales or wheeze, good air exchange PAST MEDICAL HISTORY Diagnosis Date Migraines PAST SURGICAL HISTORY Procedure Laterality Date DELIVERY ONLY , low transverse DIVISN PLANTAR FASCIA/MUSCLE 1984 left HYSTEROSCOPY BX W/WO DANDC 11/2012 w/ polypectomy LIG/TRNSXJ FLP TUBE ABDL/VAG APPR UNI/BI Tubal ligation ALLERGIES Patient has no known allergies. MEDICATIONS psyllium husk (METAMUCIL ORAL) Take by mouth. amoxicillin (AMOXIL) 875 mg tablet Take 1 tablet by mouth twice daily for 7 days. benzonatate (TESSALON PERLES) 100 mg capsule Take 1 capsule by mouth three times daily as needed for up to 7 days. loratadine (CLARITIN) 10 mg tablet Take 1 tablet by mouth once daily. clobetasol (TEMOVATE) 0.05 % ointment Apply 1 application to affected area twice daily. for 2 weeks then once a day for 1 week then 1-2 times/week (Patient not taking: Reported on 10/23/2022) Bbduzmj-Cwhdkfuovqlgg-Ejefkymm 250-250-65 mg per tablet Take 1 tablet by mouth every 6 hours as needed. (Patient not taking: Reported on 10/23/2022) ibuprofen (MOTRIN) 200 mg tablet Take 1-2 tablets by mouth every 2 hours as needed. FOR PAIN. (Patient not taking: Reported on 10/23/2022) FAMILY HISTORY Problem Relation Age of Onset Diabetes Mother Heart Father Cancer Maternal Grandfather leukemia Social History Tobacco Use Smoking status: Never Smokeless tobacco: Never Substance Use Topics Alcohol use: No Drug use: No ASSESSMENT/PLAN: 1. Acute otitis media, right - ICD9: 382.9, ICD10: H66.91 (primary diagnosis) - AMOXICILLIN 875 MG TABLET 2. Acute cough - ICD9: 786.2, ICD10: R05.1 - BENZONATATE 100 MG CAPSULE 3. Sinus congestion - ICD9: 478.19, ICD10: R09.81 - LORATADINE 10 MG TABLET Teresa Mack APRN.CNP Prescription instructions reviewed with patient as applicable. Potential red flag symptoms discussed with the patient. Reviewed appropriate action plan to take if red flag symptoms occur. Patient agreeable to treatment plan. Teresa Mack APRN.CNP [facility] Note 09-02-2021 Letter - Mammography Coordinator - 09/02/2021 7:52 AM EDT Note Date & Type Note Facility 09-02-2021 Miscellaneous Notes September 02, 2021 PID: [id number] [place] Far[place] [address] [place] [id number] Dear Ms. Johnston, We are pleased to inform you that the results of your recent breast imaging exam on 09/01/2021 are normal. Early detection of cancer is very important. We also understand recommendations regarding breast cancer screening are controversial. Please discuss with your primary care provider which strategy is best for you and whether a mammogram is right for you. Your imaging studies and report will be kept on file at [facility] as part of your permanent medical record and are available for your continuing care. Thank you for allowing us to help in meeting your health care needs. Sincerely, Dr. Galdamez Interpreting Radiologist [facility] (Normal over 40) documented in this encounter [facility] Note 08-26-2021 Telephone Encounter - Linda Chirinos APRN.CNP - 08/26/2021 10:20 AM EDTTelephone Encounter - Araceli Da Silva - 08/25/2021 10:45 AM EDT Note Date & Type Note Facility 08-26-2021 Miscellaneous Notes Order filed. Linda Chirinos APRN.CNP Patient called in to schedule her annual mammogram screening, stating she knew it had been a while. Her last screening was in June of 2017. I scheduled her for 09/01/21 and have pending the order to Linda Chirinos because she order her last screening. Please contact patient is anything further is needed. Thank you Araceli Guerra Pss documented in this encounter [facility] Evaluation note Note Date & Type Note Facility documented in this encounter [facility] Evaluation note Note Date & Type Note Facility documented in this encounter [facility] Reason for referral (narrative) Diagnostic Procedure Only (Routine) - Authorized Note Date & Type Note Facility Referral ID Status Reason Start Date Expiration Date Visits Requested Visits Authorized [id number] Authorized Auto-Generat ed Referral 08/26/2021 09/24/2022 1 1 [facility] Summary Purpose Family History No Family History Records Found Advance Directives No Advanced Directives Records Found Additional Source Comments Source Comments (unrecognize d section and content) In the event this informatio n is protected by the Federal Confidentiality of Alcohol and Drug Abuse Patient Records regulations: The Federal rules restrict any use of the information to criminally investigate or prosecute any alcohol or drug abuse patient.[facility] the event this information is protected by the Federal Confidentiality of Alcohol and Drug Abuse Patient Records regulations: The Federal rules restrict any use of the information to criminally investigate or prosecute any alcohol or drug abuse patient.[facility] the event this information is protected by the Federal Confidentiality of Alcohol and Drug Abuse Patient Records regulations: The Federal rules restrict any use of the information to criminally investigate or prosecute any alcohol or drug abuse patient.[facility] the event this information is protected by the Federal Confidentiality of Alcohol and Drug Abuse Patient Records regulations: The Federal rules restrict any use of the information to criminally investigate or prosecute any alcohol or drug abuse patient.[facility] Reason for Visit (unrecogniz ed section and content) Reason Comments Urinary Frequency x 10 days, low back pain x 2 days Reason Comments Results Care Teams (unrecognized sec tion and content) Production Checker Relationship Specialty Start Date End Date Reilly Elena MD PCP - General 12/31/04 Production Checker Relationship Specialty Start Date End Date Hang Ryan DO [address] [phone] PCP - General Family Medicine 10/23/22 Production Checker Relationship Specialty Start Date End Date Hang Ryan DO [address] [facility] [address], [place] [phone] PCP - General Family Medicine 10/23/22 INFORMATION SOURCE (unrecogn ized section and content) FOR RECORDS PERTAINING TO PATIENTS WHO ARE OR HAVE BEEN ENROLLED IN A CHEMICAL DEPENDENCY/SUBSTANCEABUSE PROGRAM, SOME INFORMATION MAY BE OMITTED. This clinical summary was aggregated from multiple sources. Caution should be exercised in using it in the provision of clinical care. This summary normalizes information from multiple sources, and as a consequence, information in this document may materially change the coding, format and clinical context of patient data. In addition, data may be omitted in some cases. CLINICAL DECISIONS SHOULD BE BASED ON THE PRIMARY CLINICAL RECORDS. [facility] [employer] [facility]. provides no warranty or guarantee of the accuracy or completeness of information in this document.
--- NOTE | 2023-06-21 11:20 | RAD_ITS ---
HISTORY: osteoarthritis. TECHNIQUE: XR Knee Complete 4 Views or More. COMPARISON: 05/23/2018. FINDINGS: BONES : No acute fracture identified. Mineralization unremarkable. JOINTS: No dislocation. Small tricompartmental osteophytes. Moderate medial compartment joint space narrowing, progressed from prior. Mild joint effusion. RAD/Knee 4 or More Views IMPRESSION: Progression of osteoarthritis in the right knee . Mild joint effusion. Electronically Signed: Charu Britt MD at 13:47 EST ,
== END | disposition home or self-care (01) ==
PROVIDERS: PCP Family Medicine; Referring Provider Family Medicine; Visit Provider Family Medicine
DX: M17.11 Unilateral primary osteoarthritis, right knee (principal); M25.561 Pain in right knee
CPT/HCPCS: 73564

== ENCOUNTER 2024-04-19 07:30 | Outpatient (RCR) | payer OTHER, SELFPAY ==
--- NOTE | 2024-03-29 08:01 | HP.PTEVAL_ITS ---
Patient's Visit Information Visit Information Visit Information: VINH MARTINEZ is a 53 year old F referred to Physical Therapy by Dr. Jose J Murphy DO with a diagnosis of R IT band syndrome. Date of Evaluation: 03/29/24 Physical Therapist: Ag Anaya, PT, ATC Visit Plan Frequency: 2x /Week Duration: 3 Weeks Plan: R IT band DTR, stick rollout, Hawks spinning doffer tools. R LE stretching and strengthening, and core stab ex's Subjective Subjective: Pt reports she has had R leg pain for approximately 3 months. Pt notes she has had R knee pain for years, and has received many cortisone injections for her knee pain. Pt believes that because her knee is bone on bone, she has been walking differently which may have caused her R IT band to become sore. Pt reports she is unable to squat secondary to pain. Pt also notes she has to go down her stairs once per day to take care of her cat, which she has to negotiate one step at a time. 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 Pt denies any tingling or numbness in R LE. Pt notes she has a hard time getting to sleep at night secondary to pain. Pt reports she has had x-rays recently which shows significant degenerative changes in her R knee. Pt reports R leg pain ranges from 1-8/10. Pain R leg pain: Pain Intensity (Out of 10): 1 Pain Intensity Range: 8 Objective Objective: Neuro: B LE sensation is WNL to light touch. B patellar reflex= 1/3 Palpation: Pt is very sore along the middle portion of her R IT band. No obvious deformity noted at this date. ROM: R knee 0-10-112 degrees ; L knee 0-140 degrees MMT: R knee flex= 11, ext= 11 #F; L knee flex= 17, ext= 22 #F Special tests: Pos IT band test Balance/Special Test Scores Lower Extremity Functional Score: 51 Goals Goal 1:: Decrease R leg pain x 50% to aid with sleep Goal Time Frame: 2-4 Weeks Goal 2:: Increase R knee ROM x 20 degrees to aid with squatting Goal Time Frame: 2-4 Weeks Goal 3:: Increase R knee strength x 10 #F to aid with stair negotiation Goal Time Frame: 2-4 Weeks Goal 4:: I with HEP Goal Time Frame: 2-4 Weeks Rehabilitation Potential Physical Therapy Diagnosis: Pt has R leg pain, limited flexibility, and difficulty with stairs secondary to IT band syndrome Rehabilitation Potential: Good Anticipated Interventions Patient/Client Instruction: Educate patient on: Condition and Plan of Care For the Purpose of:: To improve self management Therapeutic Exercise to Include: Strength training, Flexibilty training and Dynamic Lumbar Stabilization For the Purpose of:: To decrease pain, To increase ROM and To improve muscle performance and motor function Manual Therapy Techniques to Include: Soft tissue mobilization For the Purpose of:: To decrease pain and To increase ROM Text: Thank you for the opportunity to evaluate your patient. For Medicare and Medicare HMO plans, please review the plan of care and approve it. It will need to be FAXED BACK to us at [phone] for Medicare purposes. For Medicare only, by signing this I certify the plan of care. Please let me know if there are questions or concerns regarding this plan of care. Physician Signature: Date:
--- NOTE | 2024-04-19 07:55 | HP.PTDCSUM_ITS ---
Discharge Summary D/C summary: It has been my pleasure to treat VINH MARTINEZ referred by Dr. Jose J Murphy DO, with the diagnosis of R IT band syndrome for a total of 6 visit(s). Discharge Date: Please see the following information for a summary of their discharge status. Subjective Subjective: Pt reports she is doing much better now. Pain R leg pain: Pain Intensity (Out of 10): 1 Overall Improvement % Improvement: 80 Objective Objective/Function: R leg pain is 1/10 today. Pt feels 80% improved Pt is I with HEP R knee ROM: 0-125 degrees R knee MMT: flex= 21, ext= 28 #F Goals Goal 1:: Decrease R leg pain x 50% to aid with sleep Goal Progress: Goal Met Goal 2:: Increase R knee ROM x 20 degrees to aid with squatting Goal Progress: Goal Met Goal 3:: Increase R knee strength x 10 #F to aid with stair negotiation Goal Progress: Goal Met Goal 4:: I with HEP Goal Progress: Goal Met Plan Plan: [facility]charge to [facility] D/C Information d/c sentence: If there are questions or concerns regarding this patient's physical therapy, please feel free to call me at [phone]. Thank you for the referral of this patient. Sincerely, Ag Anaya, PT, ATC Balance/Gait/Functional tests Balance/Special Test Scores Lower Extremity Functional Score: 73 Improvement % Improvement: 80
== END 2024-04-19 19:00 | disposition home or self-care (01) ==
LOC: PT 07:30
PROVIDERS: Referring Provider Orthopaedic Surgery; Visit Provider Orthopaedic Surgery
DX: M76.30 Iliotibial band syndrome, unspecified leg (principal)
CPT/HCPCS: 97110; 97140; 97161; 97530

== ENCOUNTER → 2024-09-23 | Outpatient (CLI) | payer BC, SELFPAY ==
[2024-09-23 12:19] LABS: Absolute Lymphocyte Count 3.21 X10^3/uL (0.83-4.51); Absolute Neutrophil Count 4.5 X10^3/uL (2.0-7.7); Basophil# 0.04 X10^3/uL; Basophil% 0.5 % (0-1); Eosinophil# 0.09 X10^3/uL; Eosinophils% 1.1 % (0-5); Hematocrit 41.5 % (37-47); Hemoglobin 13.8 g/dL (12.0-15.0); Lymphocyte # 3.21 X10^3/ul (0.83-4.51); Lymphocyte % 38.4 % (19-41); Mean Corp Hgb Conc 33.3 g/dL (32-36); Mean Corpuscular Hgb 29.4 pg (27.0-32.0); Mean Corpuscular Volume 88.3 fL (81-99); Mean Platelet Vol. 9.6 fl (6.2-12.0); Monocyte# 0.47 X10^3/uL; Monocyte% 5.6 % (0-10); NRBC Flagged by Analyzer 0 % (0-5); Neutrophil # 4.52 X10^3/uL (2.7-7.7); Platelet Count 270 K/mm3 (150-450); RBC Distribution Width CV 13.1 % (11.6-14.6); RBC Distribution Width SD 42.5 fl (35.1-43.9); White Blood Count 8.4 K/mm3 (4.4-11.0)
[2024-09-23 13:28] LABS: ALB/GLOB Ratio 1.5 RATIO (0.9-2.4); AST(SGOT) 17 U/L (<=31); Alanine Aminotransfer ALT/SGPT 19 U/L (<=34); Alkaline Phosphatase 72 U/L (35-104); Anion Gap 9 (5-15); BUN 13 mg/dL (4-19); BUN/Creat Ratio 19.8 RATIO (10-20); Calcium,Total 8.8 mg/dL (7.6-11.0); Carbon Dioxide 27.2 mmol/L (21.0-32.0); Chloride 105 mmol/L (98-108); Cholesterol 243 mg/dL (<=200); Creatinine, Serum 0.67 mg/dL (0.70-1.20); EST Glomerular Filtration Rate 102 (>60); Globulin 2.7 g/dL (2.2-4.2); Glucose 88 mg/dL (70-99); High Density Lipoprotein 63 mg/dL; Low Density Lipoprotein Calc. 164 mg/dL; Potassium 3.9 mmol/L (3.3-5.1); Protein, Total 6.7 g/dL (5.9-8.4); Sodium Level 141 mmol/L (133-145); Total Bilirubin 0.27 mg/dL (0.00-1.30); Triglycerides 76 mg/dL; Very Low Density Lipoprotein 15 mg/dL (5-40); Vitamin D,25 Hydroxy 13.9 ng/mL (30-100); cholesterol:hdl ratio screen 3.83
[2024-09-23 13:48] LABS: Hemoglobin A1c 5.3 % (<=5.6)
== END | disposition home or self-care (01) ==
LOC: MFPLAB 10:37
PROVIDERS: PCP Family Medicine; Referring Provider Family Medicine; Visit Provider Family Medicine
DX: Z13.1 Encounter for screening for diabetes mellitus (principal); E78.00 Pure hypercholesterolemia, unspecified; I49.8 Other specified cardiac arrhythmias
CPT/HCPCS: 36415; 80053; 80061; 82306; 83036; 85025

== ENCOUNTER → 2024-09-26 | Outpatient (CLI) | payer BC, SELFPAY ==
[2024-09-26 08:52] LABS: International Normalized Ratio 0.9; Partial Thromboplast Time 25.1 Seconds (24.1-36.2); Prothrombin Time (Protime)PT. 12.4 SECONDS (11.7-14.9)
[2024-09-26 09:23] LABS: Magnesium 2.2 mg/dL (1.5-2.2)
[2024-09-27 05:07] LABS: Fructosamine 198 umol/L (0-285)
== END | disposition home or self-care (01) ==
LOC: LAB 08:03
PROVIDERS: PCP Family Medicine; Referring Provider Orthopaedic Surgery; Visit Provider Orthopaedic Surgery
DX: Z01.818 Encounter for other preprocedural examination (principal)
CPT/HCPCS: 36415; 82985; 83735; 85610; 85730; 86850; 86900; 86901; 87081

== ENCOUNTER → 2024-10-01 | Outpatient (CLI) | payer BC, SELFPAY ==
--- NOTE | 2024-10-01 07:55 | CT_ITS ---
PROCEDURE: EXTREMITY LOWER WITHOUT CONTRA 10/01/2024 REASON FOR EXAM: TEMPLATING FOR RIGHT TKA TECHNIQUE: Axial CT images of the right knee obtained without intravenous contrast. Coronal and Sagittal reconstruction series were provided. CONTRAST: None One or more dose reduction techniques were used (e.g., Automated exposure control, adjustment of the mA and/or kV according to patient size, use of iterative reconstruction technique). RADIATION DOSE SUMMARY: DLP: 1147.39 mGycm COMPARISON: None FINDINGS: There is severe osteoarthritis in the medial compartment of the right knee with loss of the joint space, subcortical cyst formation, and marginal osteophytes. There is no acute fracture or dislocation. There is a large joint effusion. Muscular structures appear intact. There is no visible atherosclerosis. CT/Extremity Lower without Contra IMPRESSION: There is osteoarthritis which is most severe in the medial compartment. There is a large joint effusion. Reading Location: [facility]
== END | disposition home or self-care (01) ==
LOC: CT 07:55
PROVIDERS: PCP Family Medicine; Referring Provider Orthopaedic Surgery; Visit Provider Orthopaedic Surgery
DX: M17.11 Unilateral primary osteoarthritis, right knee (principal); Z96.651 Presence of right artificial knee joint
CPT/HCPCS: 73700

== ENCOUNTER 2024-10-08 05:24 | Day surgery (SDC) | payer BC, SELFPAY ==
--- NOTE | 2024-09-24 18:19 | PAT.ANE_ITS ---
Pre-Assessment Diagnosis/Proposed Procedure Planned Operative Procedure(s): R KNEE REPLACEMENT, ROBOT ASSISTED Anesthesia History Anesthesia History - analytical research program manager: Anesthesia History - analytical research program manager Hx Hospitalization No 09/24/24 09:14 Any Problems With Anesthesia No 09/24/24 09:14 Cholinesterase deficiency No 09/24/24 09:14 You/Your Family Experience No 09/24/24 09:14 fever (hyperthermia) with Relationship Recent Exposure to Contagious Disease Does patient have nerve No 09/24/24 09:14 stimulator Patient instructed to have device shut off --Does patient have Pacemaker or ICD? When Was Last Pacemaker Check QUESTION #4 FULL TEXT: You/Your Family Experience fever (hyperthermia) with Anesthesia Last Oral Intake Last Oral intake: Last Oral Intake NPO since Meds taken in AM with sips of water? Meds patient instructed to take am of surgery PONV PONV - analytical research program manager: PONV - analytical research program manager Female No 09/24/24 09:14 HX of Motion Sickness Yes 09/24/24 09:14 HX of N/V After Surgery No 09/24/24 09:14 Non-Smoker Yes 09/24/24 09:14 Duration of Surgery greater No 09/24/24 09:14 than 60 minutes Number of Risk Factors 2 09/24/24 09:14 PONV Score Moderate Risk 09/24/24 09:14 Height & Weight Height & Weight: Anesthesia: Height & Weight Height 5 ft 2 in 09/09/24 13:36 Respiratory Assessment Respiratory Assessment - analytical research program manager: Respiratory Tract Infection Hx - analytical research program manager Hx Respiratory Tract Infection No 09/24/24 09:14 STOP Sleep Apnea STOP Sleep Apnea - analytical research program manager: STOP Sleep Apnea - analytical research program manager Hx Hypertension No 09/24/24 09:14 Hx Sleep Apnea No 09/24/24 09:14 CPAP BIPAP Do you snore loudly (louder No 09/24/24 09:14 than talking or can be heard Do you often feel tired/ No 09/24/24 09:14 fatigued/ sleepy during daytime? Has anyone observed you stop No 09/24/24 09:14 breathing during sleep? STOP Results Negative 09/24/24 09:14 QUESTION #5 FULL TEXT : Do you snore loudly (louder than talking or can be heard through closed doors)? Tobacco Use History Tobacco Use History - analytical research program manager: Tobacco Use History - analytical research program manager Tobacco Use Smoking Status Never smoker 09/24/24 09:14 Hx Tobacco Use No 09/24/24 09:14 Years Smoking Packs Smoked per Day Smoking Cessation Date was within the last 15 years Hx Smoking Cessation Date Hx Smoking Cessation Counseling Hematologic Medial History Hematologic Hx - analytical research program manager: Hematologic Medical Hx - data management engineer Hx of Blood Transfusion No 09/24/24 09:14 Hx of Transfusion in last 3 No 09/24/24 09:14 Months Date of Last Transfusion (if within last 3 months) Ever experience any problems No 09/24/24 09:14 with transfusion(s)? Specify any problems Hx of Preganancy in last 3 No 09/24/24 09:14 Months Nurse Filling Out Transfusion VLEHMAN 09/24/24 09:14 & Questions: Date: 09/24/24 09/24/24 09:14 Time: :09/24/24 09:14 Patient unable to answer at this time (ie. confused, unrespo /Reproduction History /Reproductive History - analytical research program manager: /Reproductive Hx- analytical research program manager Hx Now No 09/24/24 09:14 Gestational Age (in weeks): EDC: Hx Hx Para Hx Section SAB No 09/24/24 09:14 [facility] Medical History (Updated 09/24/24 @ 09:22 by Johana Chávez) Wears glasses Cancer Arthritis High cholesterol Migraine headache Non-smoker History of echocardiogram Cardiology follow-up encounter Sinus arrhythmia Palpitations Home Medications ?Medication ?Instructions ?Recorded ?Last Taken ?Type NK 03/25/24 Unknown History Allergy/AdvReac Type Severity Reaction Status Date / Time No Known Allergies Allergy Verified 09/24/24 09:13 Family History Father Atrial fibrillation Cardiomegaly Heart disease Surgical History (Updated 09/24/24 @ 09:14 by Johana Chávez) History of tubal ligation History of Social History Smoking Status: Never smoker alcohol intake: never substance use type: does not use Audit: Pertinent Findings Pertinent Findings EKG Perinent findings: November 02, 2022. Sinus rhythm within normal limits. Echo (EF%) pertinent findings: July 19, 2022. Ejection fraction 60%. Normal tricuspid valve. Normal aortic valve. Consult pertinent findings: November 02, 2022. Dr. Ceja. 1. Njkmejotxqxu-eklrg-kgjvqk due to stress and sinus arrhythmia. Reassured patient continue medical therapy. Recommendation Anesthesia Recommendation Anesthesia recommendation: OPTIMIZED for anesthesia
[2024-10-08] VITALS (12 sets, daily range): BP systolic 92–114; BP diastolic 39–66; PULSE 59–87; RESP 14–18; TEMP 36–36.9; O2SAT 97–100; BMI 32.2
[2024-10-08] MEDS: Lactated Ringers 1,000 ML 15 ML IV (06:11)
[2024-10-08] MEDS: Scopolamine 1mg/72hr Patch 1 PATCH TD (06:16)
[2024-10-08] MEDS: Celecoxib 200 MG Capsule 400 MG PO (06:16)
[2024-10-08] MEDS: Gabapentin 600 MG Tablet PO (06:16)
[2024-10-08] MEDS: Acetaminophen 500 MG Tablet 1000 MG PO ×2 (06:16→13:54)
[2024-10-08] MEDS: Magnesium 1 GM over 15 mins IV (06:19)
--- NOTE | 2024-10-08 06:59 | PCM.PRE.AN2 ---
ASA Classification* ASA Classification ASA Classification: 2 Assessment & Plan Anesthesia* Anesthesia Assessment Anesthesia Assessment: Discussed sedation and/or anesthesia options, risks, benefits, and alternatives with patient/parents/legal guardian/POA. Questions invited. The patient/parents/legal guardian/POA seems to understand and agrees to proceed with anesthesia plan. Reviewed the physical assessment, medical history, allergy history and patient home medications list prior to surgery/procedure/anesthetic and documented any changes. Performed airway and anesthesia risk assessments. Anesthesia Type Anesthesia Type: Spinal and Block (Patient is consented for adductor canal block.) History Source History Obtained from:: Patient and Chart Anesthesia Focused Assessment* Temperature: 97.7 F Pulse Rate: 79 Blood Pressure: 110/66 Respiratory Rate: 18 Pulse Ox: 100 Oxygen Delivery Method: Room Air Airway Assessment Mouth opens: >3 cm Mallampati Score: III Teeth Condition: Intact Neck Range of motion (ROM): Full ROM Focused Labs Anesthesia Preop lab: CBC WBC 8.4 K/mm3 (4.4-11.0) 09/23/24 10:37 09/23/24 RBC 4.70 M/mm3 (4.2-5.4) 09/23/24 10:37 09/23/24 Hgb 13.8 g/dL (12.0-15.0) 09/23/24 10:37 09/23/24 Hct 41.5 % (37-47) 09/23/24 10:37 09/23/24 Plt Count 270 K/mm3 (150-450) 09/23/24 10:37 09/23/24 CHEMISTRY Potassium 3.9 mmol/L (3.3-5.1) 09/23/24 10:37 09/23/24 Sodium 141 mmol/L (133-145) 09/23/24 10:37 09/23/24 Magnesium 2.2 mg/dL (1.5-2.2) 09/26/24 08:09 09/26/24 BUN 13 mg/dL (4-19) 09/23/24 10:37 09/23/24 Creatinine 0.67 mg/dL (0.70-1.20) L 09/23/24 10:37 09/23/24 Glucose 88 mg/dL (70-99) 09/23/24 10:37 09/23/24 TSH 3.43 uIU/mL (0.358-3.74) 06/14/22 07:36 06/14/22 COAG PT 12.4 SECONDS (11.7-14.9) 09/26/24 08:09 09/26/24 Pre-Assessment Diagnosis/Proposed Procedure Planned Operative Procedure(s): R KNEE REPLACEMENT, ROBOT ASSISTED Anesthesia History 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 When Was Last Pacemaker Check QUESTION #4 FULL TEXT: You/Your Family Experience fever (hyperthermia) with Anesthesia Last Oral Intake Last Oral intake: Last Oral Intake NPO since 03:30 10/08/24 06:00 Meds taken in AM with sips of No 10/08/24 06:00 water? Meds patient instructed to take am of surgery Any additional information?: Yes NPO since: 03:30 (Patient had preop Ensure at 3:30 AM.) Meds taken in AM with sips of water?: Yes PONV PONV - general merchandise salesperson: PONV - general merchandise salesperson Female No 09/24/24 09:14 HX of Motion Sickness Yes 09/24/24 09:14 HX of N/V After Surgery No 09/24/24 09:14 Non-Smoker Yes 09/24/24 09:14 Duration of Surgery greater No 09/24/24 09:14 than 60 minutes Number of Risk Factors 2 09/24/24 09:14 PONV Score Moderate Risk 09/24/24 09:14 Height & Weight Height & Weight: Anesthesia: Height & Weight Height 5 ft 2 in 10/08/24 06:00 Weight: 80 kg 10/08/24 06:00 Body Mass Index (BMI) 32.2 10/08/24 06:00 Respiratory Assessment Respiratory Assessment - general merchandise salesperson: Respiratory Tract Infection Hx - general merchandise salesperson Hx Respiratory Tract Infection No 09/24/24 09:14 STOP Sleep Apnea STOP Sleep Apnea - general merchandise salesperson: STOP Sleep Apnea - general merchandise salesperson Hx Hypertension No 09/24/24 09:14 Hx Sleep Apnea No 09/24/24 09:14 CPAP BIPAP Do you snore loudly (louder No 09/24/24 09:14 than talking or can be heard Do you often feel tired/ No 09/24/24 09:14 fatigued/ sleepy during daytime? Has anyone observed you stop No 09/24/24 09:14 breathing during sleep? STOP Results Negative 09/24/24 09:14 QUESTION #5 FULL TEXT : Do you snore loudly (louder than talking or can be heard through closed doors)? Tobacco Use History Tobacco Use History - general merchandise salesperson: Tobacco Use History - general merchandise salesperson Tobacco Use Smoking Status Never smoker 09/24/24 09:14 Hx Tobacco Use No 09/24/24 09:14 Years Smoking Packs Smoked per Day Smoking Cessation Date was within the last 15 years Hx Smoking Cessation Date Hx Smoking Cessation Counseling Hematologic Medial History Hematologic Hx - general merchandise salesperson: Hematologic Medical Hx - general merchandise salesperson Hx of Blood Transfusion No 09/24/24 09:14 Hx of Transfusion in last 3 No 09/24/24 09:14 Months Date of Last Transfusion (if within last 3 months) Ever experience any problems No 09/24/24 09:14 with transfusion(s)? Specify any problems Hx of Preganancy in last 3 No 09/24/24 09:14 Months Nurse Filling Out Transfusion VLEHLARSLAN 09/24/24 09:14 & Questions: Date: 09/24/24 09/24/24 09:14 Time: 09:26 09/24/24 09:14 Patient unable to answer at this time (ie. confused, unrespo /Reproduction History /Reproductive History - general merchandise salesperson: /Reproductive Hx- general merchandise salesperson Hx Now No 09/24/24 09:14 Gestational Age (in weeks): EDC: Hx Hx Para Hx Section SAB No 09/24/24 09:14 Active Medications Active Medications: Current Medications Generic Name Dose Route Start Last Admin Trade Name Freq PRN Reason Stop Dose Admin Acetaminophen 1,000 mg 10/08/24 07:30 10/08/24 06:16 Acetaminophen 500 Mg Tablet PO 10/08/24 07:31 1,000 mg PREOP ONE Administration Celecoxib 400 mg 10/08/24 07:30 10/08/24 06:16 Celecoxib 200 Mg Capsule PO 10/08/24 07:31 400 mg PREOP ONE Administration Dexamethasone Sodium Phosphate 10 mg 10/08/24 07:30 Dexamethasone 10 Mg/Ml Vial IV 10/08/24 07:31 INTRAOP ONE Gabapentin 600 mg 10/08/24 07:30 10/08/24 06:16 Gabapentin 600 Mg Tablet PO 10/08/24 07:31 600 mg PREOP ONE Administration Cefazolin Sodium 2 gm/ Sodium 110 mls @ 150 mls/hr 10/08/24 07:30 Chloride IV 10/08/24 08:13 INTRAOP ONE Tranexamic Acid 1,000 mg/ 110 mls @ 660 mls/hr 10/08/24 07:30 Sodium Chloride IV 10/08/24 07:39 X1 ONE Tranexamic Acid 1,000 mg/ 110 mls @ 660 mls/hr 10/08/24 07:30 Sodium Chloride IV 10/08/24 07:39 X1 ONE Lactated Ringer's 1,000 mls @ 125 mls/hr 10/08/24 07:30 IV 10/08/24 15:29 .Q8H BRONSON Magnesium Sulfate 1 gm/ 102 mls @ 408 mls/hr 10/08/24 07:30 10/08/24 06:19 Dextrose IV 10/08/24 07:44 408 mls/hr INTRAOP ONE Administration Lactated Ringer's 1,000 mls @ 15 mls/hr 10/08/24 05:45 10/08/24 06:11 IV 15 mls/hr .Q48H BRONSON Administration Insulin Human Lispro 1 - 6 unit 10/08/24 07:30 Insulin Lispro 100 Unit/Ml Insuln.Pen SC 10/08/24 18:00 Q4H PRN PRN BG>/= 180, SEE PROTOCOL Protocol Scopolamine HBr 1 patch 10/08/24 07:30 10/08/24 06:16 Scopolamine 1mg/72hr Patch TD 10/08/24 07:31 1 patch PREOP ONE Administration PFSH Medical History Wears glasses Cancer Arthritis High cholesterol Migraine headache Non-smoker History of echocardiogram Cardiology follow-up encounter Sinus arrhythmia Palpitations Home Medications ?Medication ?Instructions ?Recorded ?Last Taken ?Type cholecalciferol (vitamin D3) 1,250 1,250 mcg PO QMONTH 10/08/24 10/03/24 History mcg (50,000 unit) tablet Allergy/AdvReac Type Severity Reaction Status Date / Time No Known Allergies Allergy Verified 10/08/24 05:53 Family History Father Atrial fibrillation Cardiomegaly Heart disease Surgical History (Updated 10/08/24 @ 07:[address] Mehran Robbins MD) History of ankle surgery History of tubal ligation History of Social History Smoking Status: Never smoker alcohol intake: never substance use type: does not use Review of Systems (Anesthesia) ROS Narrative System reviewed and no additional complaints, except as documented.
--- NOTE | 2024-10-08 07:17 | PCM.HP.BLA ---
History and Physical Date of Admission: 10/08/24 [facility] [address] [place] [address] OFFICE VISIT Date of Service: 09/09/24 MR#: [id number] Acct: [id number] Name: VINH MARTINEZ Rep #: [id number] : 1970 Provider: Dr. Jose J Murphy DO Age/Sex: 54/F Location: [facility] [place] Status: Signed Intake Vital Signs 03/25/2413:28 09/09/2512:36 Height 5 ft 2 in 5 ft 2 in Weight: 171 lb 6 oz BMI 31.3 Intake Visit Reasons: RIGHT KNEE Chief Complaint: Right Knee Pain Accompanied by: Self Is patient in pain?: Yes Pain scale (1-10): 4 Allergies No Known Allergies Allergy (Verified 09/09/24 13:36) Medications ?Medication ?Instructions ?Recorded ?Confirmed ?Type NK 03/25/24 09/09/24 History PFSH Medical History Sinus arrhythmia Palpitations Surgical History History of Family History Father Atrial fibrillation Cardiomegaly Heart disease Social History Smoking Status: Never smoker alcohol intake: never substance use type: does not use HPI RIGHT KNEE Details: This documentation accurately reflects the service provided and the decisions made by me, Dr. Jose J Murphy, 09/09/24 0756. Part of today?s visit was documented by [ ], acting as scribe. VINH MARTINEZ is a 54 year old F here today for right knee pain. Patient rates her pain a 4/10 today and wants to discuss the next steps. Patient did have Euflexxa injections and states they gave her some mild relief. Patient denies any recent falls or injuries to the knee. She describes the pain around the patella and over the lateral aspect of the top of the knee. She states the knee will occasionally grind and pinch. She states when she is walking it feels like the knee wants to go the wrong direction. Patient finished physical therapy and the pain/inflammation she was having with the IT band is gone and she states feels great. She states they didn't focus much on the knee they specifically focused on the IT band. She will take Tylenol/Ibuprofen PRN for the pain. 05/31/2024: Third Euflexxa right knee 1216 2023: second Euflexxa right knee 05/13/2024: First Euflexxa right knee 03/25/2024 visit:53 year old F here today NEW patient for her right knee. She states that she has had pain for a years but recently it it has gotten worse. She has been getting injections by Dr. Hirsch which use to help but they no longer help. Her last injection was about 4 months ago and it didn't give her any relief. Her pain is mostly anterior and is tender to touch. She states that the pain radiates up into her hip and low back that she thinks is from compensating. The knee pain started first and she started having lateral thigh pain. Denies numbness, tingling or other associated symptoms. She denies previous surgery on the knee. She does have Ibuprofen 600mg that Dr Hirsch gave her that she takes when the pain gets really bad. She does feel a grinding in the knee. She denies instability. She has tried an OTC velcro hinged knee brace that wasn't helpful. She denies PT. Plan: Patient is here today for the right knee pain. Educated patient on anatomy and etiology. Reviewed xrays that she does have advanced arthritis of the knee, however this is mostly medial. Spoke with her that her treatment options are do nothing, steroid injection, viscosupplementation injection, weight loss, glucosamine chondroitin, knee bracing, physical therapy, anti-inflammatories, or a TKA. Spoke with patient that I do have a concern of her IT band being inflamed. And explained she could continue to have this pain after surgery and the recommended treatment for it would be formal physical therapy she thinks it started after her gait was altered from her knee pain which is very possible. She would like us to submit for the gel injections along with physical therapy and a steroid injection today. Follow up after approval for viscosupplementation injections or sooner if pain, swelling, numbness or associated symptoms, or concerns develop. All questions answered. Patient in agreement of plan. Ortho Exam General General: Yes no acute distress and Yes well groomed Neurologic: Yes alert and Yes oriented x3 Psychologic: Yes reasonable and appropriate Right Knee Skin/Wound: Yes CDI, No erythema, No ecchymosis and No swelling Knee ROM: Yes ROM-Extension -20 to 0 and No ROM-Flexion 0-140 (115) Examination: No Med jt line tenderness and Yes Crepitus Stability: NML: Anterior Drawer, NML: Posterior Drawer, NML: Valgus 0, NML: Valgus 30, NML: Varus 0 and NML: Varus 30 Patella Translation: 1 KNEE: loose body shifting on the upper anterior lateral aspect of the knee painful when snapping no joint effusion Head: Normocephalic Atraumatic Chest: symmetrical rise, non-labored breathing, no audible wheeze Abdomen: no guarding, non-rigid Left Knee Patella Translation: 1 Supplemental Info 09/09/2024 x-ray right knee:advanced medial compartment narrowing [id number], moderate patellofemoral spurring 06/21/2023 x-ray right knee: advanced medial compartment narrowing [id number], moderate patellofemoral spurring Coding Level of Care Code Off vis,est,level 4 Diagnoses Primary osteoarthritis of right knee M17.11 Osteoarthritis type: primary Loose body in knee, right knee M23.41 Assessment and Plan Assessment and Plan (1) Osteoarthritis of right knee: Status: Acute Qualifiers: Osteoarthritis type: primary Qualified Code(s): M17.11 - Unilateral primary osteoarthritis, right knee (2) Loose body in knee, right knee: Status: Acute Orders: Orders Knee 4 or More Views Today M17.11 - Unilateral primary osteoarthritis, right knee Plan Reviewed imaging with the patient. She does have advanced knee arthrosis particularly of the medial compartment [id number] she does have pain mostly however over the superior lateral knee with what feels like a loose body. Her options would be: do nothing, continue with nonoperative treatment options, knee MRI to evaluate for any loose body that may be present in the knee, arthroscopic procedure to clean out the knee or TKA. Risks, benefits and alternatives of surgery reviewed including but not limited to bleeding, infection, nerve, artery and/or tissue damage, fracture, VTE, mechanical feel of the knee, continued pain, stiffness and expected post-operative course. Explained the importance of physical therapy after surgery. Spoke to patient about the Iovera treatment that is offered and it is recommended if it is approved with insurance. Patient would like to proceed with a right TKA. Explained that she cannot take any Ibuprofen/Aleve 7 days prior to surgery. She will need medical clearance and CT scan prior to surgery she will need medical clearance and CT scan prior to surgery Tentative surgery date October 08, 2024 same-day surgery Follow up for the Iovera treatment if approved with insurance or sooner if pain, swelling, numbness or associated symptoms, or concerns develop. All questions answered. Patient in agreement of plan. 09/09/24 1629 <Electronically signed by Jose J Murphy DO> Date Jose J Murphy DO I have examined the patient and the H&P has been reviewed. There are no clinical changes since date of exam.
--- NOTE | 2024-10-08 07:30 | KNEE_PTH ---
PATIENT: VINH MARTINEZ [place] [facility] [place][id number] AGE/SX: 54/F ROOM: RE10/08/[address]: Dr. Jose J Murphy DO : 1970 BED: DIS: 10/08/2024 SPEC #: [id number] RECD: 10/08/24 11:20 STATUS: REESE REAnshu #: [id number] RUBY: 10/08/24 07:[address]: Jose J Murphy DEPT: SURGICAL PATHOLOGY RECD BY: Eliceo Delgado ENTERED: 10/08/24 11:39 SP TYPE: TOTAL KNEE OTHR DR: Adelina Torres MD Tissues: A - Knee, NOS Procedures: Decalcification bone/plaque Surgery Specimen Level III HEADER OPERATION: ERAS, right total knee replacement robotic arm assisted PRE-OP DIAGNOSIS: Osteoarthritis of right knee TISSUE SUBMITTED: A- Debrided right knee bone and tissue MICROSCOPIC DIAGNOSIS A. Right knee, total arthroplasty: * Benign cartilage and bone with degenerative changes MICROSCOPIC DESCRIPTION Slides are reviewed. GROSS DESCRIPTION A. Received in formalin in a container labeled with the patient's name, date of , and debrided bone and tissue right knee are multiple red-robledo, firm, and irregular fragments of bone with minimal soft tissue measuring 7.8 x 6.7 x 3.5 cm in aggregate. The specimen consists of, but is not limited to, medial/lateral condyle and tibial plateau. The resection margins are smooth and firm and the cortical surfaces are pitted and granular with smooth areas of eburnation. Sectioning reveals unremarkable firm surfaces. Lab Specialist sections submitted in A1 following decalcification. [facility] 10-08-2024 CPT:26358,67631
[2024-10-08] MEDS: Cefazolin 2 GM in 0.9% Normal Saline (100mL Bag) 100 ML IV ×2 (07:42→14:26)
[2024-10-08] MEDS: dexAMETHasone 10 MG/ML Vial IV (07:45)
[2024-10-08] MEDS: TXA 1000mg in NS100 100ml (IVPB at Incision) 660 MG IV (07:50)
[2024-10-08 07:54] LABS: Bedside Glucose 81 mg/dL (74-106)
[2024-10-08] MEDS: TXA 1000mg in NS100 100ml (IVPB at Closure) 660 MG IV (08:15)
[2024-10-08] MEDS: dexAMETHasone 4 MG/ML Vial (08:44)
[2024-10-08] MEDS: Epinephrine (1 mg/ml) 1 MG/ML VIAL (08:44)
[2024-10-08] MEDS: Bupivacaine 0.5% PF 10 ML VIAL (08:44)
[2024-10-08] MEDS: 0.9% Normal Saline (Pres. free 10 ML Vial (08:44)
--- NOTE | 2024-10-08 09:49 | RAD_ITS ---
PROCEDURE: KNEE 1 OR 2 VIEWS 10/08/2024 REASON FOR EXAM: POSTOP PACU TECHNIQUE: Two views right knee FINDINGS: Status post right knee replacement appears intact and anatomic without fracture or dislocation. Intra-articular and soft tissue air with overlying skin marley. RAD/Knee 1 or 2 Views IMPRESSION: Study appears within limits as above. Reading Location: [id number]
--- NOTE | 2024-10-08 09:51 | PCM.OPRPT ---
Operative Report (Standard) Operative Information Date of Procedure: 10/08/24 Pre-Operative Diagnosis: Right knee DJD Post-Operative Diagnosis: Same Surgery/Procedure Performed: Right total knee arthroplasty logistics engineering manager: Yes Rocket Engine Tester: Marck Tidwell Tasks completed by promotional advertising assistant: Opening & closing Type of Anesthesia: Spinal RN Documented Start/Stop Times: Operation Date: 10/08/24 07:30 Case Time Into Pre-Op 10/08/24 05:43 Anesthesia Start 10/08/24 07:37 Into Room 10/08/24 07:37 Out of Pre-Op 10/08/24 07:38 Procedure Start 10/08/24 08:03 Procedure End 10/08/24 09:44 Procedure Start Time: 08:03 Procedure Stop Time: 09:44 Select all DRAINS/GRAFTS/IMPLANTS that apply: Prosthetic device Prosthetic device details: Ale triathlon Estimated Blood Loss: 150 Specimen collected: Yes Description of specimen(s) removed: Bone and soft tissue Description of surgery: Preoperative diagnosis: Right knee DJD Postoperative diagnosis: Same Procedure: Right total knee arthroplasty CT guided Robotic Assisted Implant: Ale triathlon press fit, femoral component size2, tibial baseplate size 2, asymmetric patella size 29, polyethylene X3 size 9 CS Anesthesia: Spinal with adductor canal block Tourniquet time: 11 minutes at 300 mmHg Complications: None Condition: Stable to PACU Estimated blood loss: 150 cc Indication for procedure: This is a 54-year-old female with long standing degenerative joint disease of the knee who has failed conservative treatment and wished to proceed with elective total knee arthroplasty. In addition the patient felt she had a loose body in the superior lateral portion of her knee it was not identified on preoperative CT scan. .risk benefits and alternatives were reviewed including; risk of bleeding, infection, nerve artery and tissue damage, continued pain, postoperative stiffness, venous thromboembolism, need for postoperative rehabilitation, mechanical feel to the knee, and expected postoperative course. The pre- operative CT and templating was performed with component sizing. Procedure: The patient was met in the preoperative holding area. The operative extremity was identified by both patient and physician and was marked. Patient was met by anesthesia. An adductor canal block was placed by anesthesia postoperatively the patient was brought back to the operating room on a wheeled cart and transferred to the operating table in the supine position. Anesthesia was started. A well-padded tourniquet was placed on the operative extremity. The patient was prepped and draped in the usual sterile fashion. A timeout was called to ensure the proper patient procedure and extremity were being contemplated. An esmarch was used to exsanguinate the extremity. The tourniquet was inflated. A 10 blade scalpel was used to make a midline incision down through the skin and subcutaneous tissue. Skin retractors placed. Bovie and Aquamantis were used to perform meticulous hemostasis. full-thickness flaps were elevated medial and lateral along the joint capsule. A deep blade scalpel was used to perform a medial parapatellar arthrotomy. The knee was brought to full extension. A bovie was used to release the soft tissues off the most proximal aspect of the medial tibial plateau, a three-quarter inch curved osteotome was also used in this process. The infrapatellar fat pad was excised. The suprapatellar fat pad was excised partially anteriorolateraly and portion the anterioromedial pad was elevated from the femur. Thorough investigation of the synovium around the patella and the lateral side of the knee did not reveal any loose body or intrasynovial body this was checked now and throughout the case there was some thickening of the synovium in this area which may be what patient interpreted as a loose body the plica band was removed. With electrocautery. at this point our intra-articular femoral array was placed at a 45 degree angle proximal and posterior to the medial epicondyle. femoral checkpoint was placed at this time. Our tibial array was placed partially intra incisional 1 stab incision was made for the inferior pin with a 15 blade scaple, and pins were placed and attached to the tibial array , tibial checkpoint was placed in the proximal tibial metaphysis. Tourniquet was let down. At this point registration chin were taken throughout the knee . Once the knee was registered we then tensioned the medial and lateral ligaments in extension and 90 degrees of flexion. We then used these numbers to adjust our components within parameters to balance the knee in both flexion and extension once this was done on our monitor we then proceeded with using the robotic arm to make our tibial plateau cut, anterior and posterior chamfer and distal femur cuts. we removed the cut fragments with the use of a bovie and Bubba, we did use a lamina food trades assistants to insure we visualized and removed all posterior osteophytes and at this time also used the Aquamantis on the posterior joint capsule. we then trialed and achieved the desired plan with a well-balanced knee. we used the green probe to ervin the corresponding tibial rotation based on our CT template. Lug holes were drilled in the femur the tibia preparation was completed with the appropriate sized base plate pinned based on previous rotation ervin. An appropriate sized fin punch was used on the tibia and 4 corner drill was used for the press fit component and the patella was prepared by first using a caliper to ensure sufficient bone stock and a patellar reamer to remove the desired amount of bone. lug holes drilled for an asymmetric poly. We then brought the knee through range of motion with excellent patellar tracking. We thoroughly irrigated the knee. Trial components were removed a posterior capsular injection was preformed with our standard cocktail. In addition the aqua Mantis was also used to aid in hemostasis. Betadine rinse was allowed to sit and washed out completely. Components were press-fit into place. Aricept rinse was then used followed by several more liters of irrigation after it was allowed to sit. The joint capsule was closed with #1 Ethibond [id number] in the upper part of the arthrotomy and #1 Vicryl in the lower part of the arthrotomy. , Followed by 2-0 Vicryl in the subcutaneous tissues with marley in the skin. Arrays and checkpoints were removed prior to closure all counts were correct stab incisions were closed with a staple standard dressing in the form of Mepilex AG for the main incision and a small Mepilex over the pin holes. Thigh-high WILLIAMS hose applied over top of dressing. Patient tolerated the procedure well and was directed to PACU in stable condition . There were no intraoperative complications. Surgical Findings: DJD knee Complications Complications: No
--- NOTE | 2024-10-08 09:57 | DCINST_ITS ---
Discharge Instructions Diet Discharge Diet: No restrictions Dressing / Incision Call your doctor if you observe: Shortness of breath and Chest pain Additional Dressing/Incision Instructions:: Ice and elevate lower extremities 2 weeks while not ambulating. Ambulation is encouraged. Weight bearing as tolerated. Use assistive devise for stability. Encourage FULL knee extension and flexion 1 time EVERY time you get up and down and MULTIPLE times per day. No showering until 72 hours after surgery. May begin showering postop day #3. Remove the dressing prior to shower and gently wash with warm water and antibacterial soap then pat dry and place abdominal pad (or plain gauze) and WILLIAMS hose over top. If you decide not to begin showering 72 hrs post operatively and wish to sponge bath only, then you may leave dressing undisturbed for up to 1 week, but must remove prior to first shower. Do not submerge for 3 weeks. If not showering daily after the initial dressing is removed you must clean incision and change dressing daily after the dressing comes off, must come off by 7 days postop. Do not allow animals near the incision area. Keep clean. Follow anti-coagulation recommendations as prescribed. Do not take any NSAIDs while on blood thinner. Do not take any additional narcotic pain medication other than what was prescribed on your surgery day without discussing with physician. Narcotic medication can be addictive. Do not drink alcohol while taking narcotics. Supplement narcotic prescription with acetaminophen 1000 mg 4 times a day. Start physical therapy. If you are not currently scheduled for physical therapy or you are unsure of appointment time please call office [facility] to arrange. Call Dr. Murphy's office ) with any concerns. Follow Up Care Please Follow Up With: Jose J Murphy DO When: 2 weeks Test Results: Test results from this visit will be discussed in further detail at your follow- up appointment, if applicable. Discharge Plan Admission Primary Reason for Your Visit: Right total knee arthroplasty Attending Provider: Jose J Murphy Primary Care Provider: Adelina Torres Instructions Print Language: Egyptian Discharge Orders/Prescriptions Prescriptions: New acetaminophen 500 mg tablet 1,000 mg PO Q6H Qty: 100 0RF cephalexin 500 mg capsule 1,000 mg PO Q8H Qty: 4 0RF Rx Instructions: Take 2 tabs before you go to bed and 2 tabs after 5 AM morning after surgery when you wake up Eliquis 2.5 mg tablet 2.5 mg PO BID Qty: 28 0RF Rx Instructions: Begin morning after surgery. oxycodone 5 mg tablet 5 - 10 mg PO Q4H PRN (Reason: pain) 7 Days Qty: 60 0RF Continued cholecalciferol (vitamin D3) 1,250 mcg (50,000 unit) tablet 1,250 mcg PO QMONTH Referrals / Follow Up: Adelina Torres MD [Primary Care Provider] - Disposition Disposition (needs filled in before D/C Order can be placed): Home, Self Care
--- NOTE | 2024-10-08 10:01 | PCM.POST.ANE ---
Anesthesia: Postop Eval I Current Vital Signs Temperature: 97 F Pulse Rate: 75 Blood Pressure: 114/54 Respiratory Rate: 16 Pulse Ox: 100 Oxygen Delivery Method: Room Air Assessment Airway patent: Yes Spontaneous unlabored respirations: Yes Mental status: Awake and Calm nausea: No Vomiting: No Anesthesia Complication: No Fluid Hydration Crystalloid volume administer (ml): 800 Total IV fluid infused: 800 Progress Note Anesthesia document: Postop Eval 1 completed: Yes
--- NOTE | 2024-10-08 11:59 | POSTOPAN2_ITS ---
Anesthesia Postop Eval I Sum Postop Eval Completion status Anesthesia document: Postop Eval 1 completed: Yes Anesthesia Postop Eval I Summary Anesthesia Postop Eval I Summary: Anesthesia Postop Eval I: Assessment Summary Airway patent Yes 10/08/24 10:02 FOAM [email or web address] [email or web address] Spontaneous unlabored Yes 10/08/24 10:02 FOAM RUBBER [email or web address] respirations Mental status Awake,Calm 10/08/24 10:02 FOAM RUBBER [email or web address].SOBR nausea No 10/08/24 10:02 FOAM RUBBER [email or web address].SOBR Vomiting No 10/08/24 10:02 FOAM RUBBER [email or web address].SOBR Anesthesia Postop Eval I: Fluid Summary Crystalloid volume administer 800 10/08/24 10:02 FOAM RUBBER [email or web address].SOBR (ml) Colloids volume administered ( ml) Blood Product volume administered (ml) Total IV fluid infused 800 10/08/24 10:02 FOAM RUBBER [email or web address] Anesthesia Postop Eval I: Summary Notes Anesthesia Complication No 10/08/24 10:02 FOAM RUBBER [email or web address].SOBR Anesthesia Complication Comment: Post-operative progress note Anesthesia: Postop Eval II Evaluation Mental status: Awake and Calm Pain Level: 0 nausea: No Vomiting: No Complications Anesthesia Complication: No
--- NOTE | 2024-10-08 11:59 | PCM.POSTANE2 ---
Anesthesia Postop Eval I Sum Postop Eval Completion status Anesthesia document: Postop Eval 1 completed: Yes Anesthesia Postop Eval I Summary Anesthesia Postop Eval I Summary: Anesthesia Postop Eval I: Assessment Summary Airway patent Yes 10/08/24 10:02 INSPECTOR [email or web address] Spontaneous unlabored Yes 10/08/24 10:02 INSPECTOR [email or web address] respirations Mental status Awake,Calm 10/08/24 10:02 INSPECTOR [email or web address] nausea No 10/08/24 10:02 INSPECTOR [email or web address] Vomiting No 10/08/24 10:02 INSPECTOR [email or web address] Anesthesia Postop Eval I: Fluid Summary Crystalloid volume administer 800 10/08/24 10:02 INSPECTOR [email or web address] (ml) Colloids volume administered ( ml) Blood Product volume administered (ml) Total IV fluid infused 800 10/08/24 10:02 INSPECTOR [email or web address] Anesthesia Postop Eval I: Summary Notes Anesthesia Complication No 10/08/24 10:02 INSPECTOR [email or web address] Anesthesia Complication Comment: Post-operative progress note Anesthesia: Postop Eval II Evaluation Mental status: Awake and Calm Pain Level: 0 nausea: No Vomiting: No Complications Anesthesia Complication: No
[2024-10-08] MEDS: Ketorolac 15 MG/ML Vial IV (14:26)
== END 2024-10-08 16:37 | disposition home or self-care (01) ==
LOC: SDC 05:25 → AC 05:28
PROVIDERS: PCP Family Medicine; Referring Provider Orthopaedic Surgery; Visit Provider Orthopaedic Surgery
PROC: 0SRC0JZ Replacement of Right Knee Joint with Synthetic Substitute, Open Approach (ICD-10-PCS; CPT 27447; principal; 2024-10-08 07:00)
DX: M17.11 Unilateral primary osteoarthritis, right knee (principal); M23.41 Loose body in knee, right knee; E78.00 Pure hypercholesterolemia, unspecified
CPT/HCPCS: 27447; S2900; 01402; 64447; 73560; 82962; 88304; 88305; 88311; 97162; C1776; J2405; J3475

== ENCOUNTER → 2024-10-14 | Outpatient (CLI) | payer BC, SELFPAY ==
--- NOTE | 2024-10-14 15:06 | VDLE_ITS ---
Reason For Study Reason For Study: Pain RIGHT LEFT GSV is normal. CFV is compressible, spontaneous, phasic, competent, CFV is compressible, spontaneous, phasic, competent and demonstrates normal augmentation. and demonstrates normal augmentation. FV is compressible, spontaneous, phasic, competent and demonstrates normal augmentation. POP V is compressible, spontaneous, phasic, competent and demonstrates normal augmentation. T/P Trunk is compressible. PTV is compressible. RT PerV is compressible. Procedure This is a venous duplex using B-mode, color flow and spectral Doppler. Exam performed in department. A preliminary report was called and/or faxed to Renetta Roque NP. VL/Venous Duplex US, Unilateral Interpretation Summary Deep veins of the right lower extremity are patent and compressible segmentally . There is no evidence of right lower extremity deep vein thrombosis. The right great saphenous vein appears patent a nd compressible segmentally. Ordering Physician: Renetta Roque Referring Physician: Renetta Roque Performed By: Tracie Stevens RVT
== END | disposition home or self-care (01) ==
LOC: CVS 15:04
PROVIDERS: PCP Family Medicine; Referring Provider Nurse Practitioner Family; Visit Provider Nurse Practitioner Family
DX: M79.89 Other specified soft tissue disorders (principal); G89.18 Other acute postprocedural pain
CPT/HCPCS: 93971

== ENCOUNTER 2024-11-19 05:47 | Day surgery (SDC) | payer BC, SELFPAY ==
--- NOTE | 2024-11-18 13:33 | PAT.ANESEVAL ---
Pre-Assessment Diagnosis/Proposed Procedure Planned Operative Procedure(s): MANIPULATION KNEE UNDER ANERSTHESIA Anesthesia History Anesthesia History - research specialist: Anesthesia History - research specialist Hx Hospitalization No 11/18/24 12:16 Any Problems With Anesthesia No 11/18/24 12:16 Cholinesterase deficiency No 11/18/24 12:16 You/Your Family Experience No 11/18/24 12:16 fever (hyperthermia) with Relationship Recent Exposure to Contagious No 10/14/24 14:04 Disease Does patient have nerve No 11/18/24 12:16 stimulator Patient instructed to have device shut off --Does patient have Pacemaker or ICD? When Was Last Pacemaker Check QUESTION #4 FULL TEXT: You/Your Family Experience fever (hyperthermia) with Anesthesia Last Oral Intake Last Oral intake: Last Oral Intake NPO since Meds taken in AM with sips of water? Meds patient instructed to take am of surgery PONV PONV - research specialist: PONV - research specialist Female Yes 11/18/24 12:16 HX of Motion Sickness Yes 11/18/24 12:16 HX of N/V After Surgery No 11/18/24 12:16 Non-Smoker Yes 11/18/24 12:16 Duration of Surgery greater No 11/18/24 12:16 than 60 minutes Number of Risk Factors 3 11/18/24 12:16 PONV Score Moderate Risk 11/18/24 12:16 Height & Weight Height & Weight: Anesthesia: Height & Weight Height 5 ft 2 in 10/21/24 11:25 Respiratory Assessment Respiratory Assessment - research specialist: Respiratory Tract Infection Hx - research specialist Hx Respiratory Tract Infection No 11/18/24 12:16 STOP Sleep Apnea STOP Sleep Apnea - research specialist: STOP Sleep Apnea - research specialist Hx Hypertension No 11/18/24 12:16 Hx Sleep Apnea No 11/18/24 12:16 CPAP BIPAP Do you snore loudly (louder No 11/18/24 12:16 than talking or can be heard Do you often feel tired/ No 11/18/24 12:16 fatigued/ sleepy during daytime? Has anyone observed you stop No 11/18/24 12:16 breathing during sleep? STOP Results Negative 11/18/24 12:16 QUESTION #5 FULL TEXT : Do you snore loudly (louder than talking or can be heard through closed doors)? 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 Specify any problems Hx of Preganancy in last 3 No 11/18/24 12:16 Months Nurse Filling Out Transfusion VCHRISTIN 11/18/24 12:16 & Questions: Date: 11/18/24 11/18/24 12:16 Time: 12:17 11/18/24 12:16 Patient unable to answer at this time (ie. confused, unrespo /Reproduction History /Reproductive History - research specialist: /Reproductive Hx- research specialist Hx Now No 11/18/24 12:16 Gestational Age (in weeks): EDC: Hx Hx Para Hx Section SAB No 11/18/24 12:16 PFSH Medical History (Updated 11/18/24 @ 08:[address] Jose J Murphy, DO) Wears glasses Cancer Arthritis High cholesterol Migraine headache Non-smoker History of echocardiogram Cardiology follow-up encounter Sinus arrhythmia Palpitations Home Medications ?Medication ?Instructions ?Recorded ?Last Taken ?Type cholecalciferol (vitamin D3) 1,250 1,250 mcg PO QMONTH 10/08/24 10/03/24 History mcg (50,000 unit) tablet oxycodone 5 mg tablet 5 - 10 mg (1 - 2 x 5 mg) PO Q4H 10/08/24 Unknown Rx PRN pain 7 days #60 tabs acetaminophen 500 mg tablet 1,000 mg PO Q6H PRN pain 11/18/24 Unknown History Allergy/AdvReac Type Severity Reaction Status Date / Time No Known Allergies Allergy Verified 11/18/24 12:14 Family History Father Atrial fibrillation Cardiomegaly Heart disease Surgical History (Updated 11/18/24 @ 12:16 by Annamaria Freeman) History of total knee replacement (TKR) History of ankle surgery History of tubal ligation History of Social History Smoking Status: Never smoker alcohol intake: never substance use type: does not use Audit: Pertinent Findings Pertinent Findings EKG Perinent findings: November 02, 2022. Sinus rhythm within normal limits. Echo (EF%) pertinent findings: July 19, 2022. Ejection fraction 60%. No aortic stenosis noted. Consult pertinent findings: November 02, 2022. Dr. Ceja. 1. Palpitations?acute-likely due to stress and sinus arrhythmia. Patient reassured. Continue current medications. Additional pertinent findings: July 01, 2022. Event recorder. Predominant rhythm is normal sinus rhythm. 2 episodes of atrial tachycardia. PAC burden was 1.32%. PVC burden is 0.01%. Recommendation Anesthesia Recommendation Anesthesia recommendation: OPTIMIZED for anesthesia
[2024-11-19] VITALS (10 sets, daily range): BP systolic 96–115; BP diastolic 53–70; PULSE 57–82; RESP 14–18; TEMP 36.5–36.9; O2SAT 91–100; BMI 31.8
--- OUTSIDE RECORDS SUMMARY | 2024-11-19 05:49 | XMS RPT_ITS | CCD ---
Author Organization [facility] Care Team Providers Care Direct Support Professional Name Role Phone Reilly Elena MD Primary Care Provider DO Hang Ryan Primary Care Provider Dr. Sung Frias Attending Provider Hang Ryan DO Primary Care Provider [phone] Hang Ryan DO Primary Care Provider [phone] Hang Ryan DO Primary Care Provider Hang Ryan DO Primary Care Provider JAIRON KINNEY Referring Unavailable CONNORHANG HERNANDEZ Primary Care Unavailabl e CONNOR, HANG TYESHA Primary Care Unavailabl e CONNOR, HANG TYESHA Primary Care Unavailabl e JAIRON KINNEY Attending Unavailable SELF Referring Unavailable CONNOR, HANG ARAMBULA Primary Care Unavailabl e CONNOR, HANG ARAMBULA Primary Care Unavailabl e CONNOR, HANG TYESHA Primary Care Unavailabl e CONNOR, HANG TYESHA Primary Care Unavailabl e Care Physician, No Primary Primary Care Provider Unavailable Care Physician, No Primary Referring Provider Un available Dr. Jose J Murphy DO Attending Provider Dr. Tad Ceja MD Attending Provider [phone] Adelina Torres MD Primary Care Provider [phone] Adelina Torres MD Attending Provider [phone] Adelina Torres MD Referring Provider [phone] Dr. Jose J Murphy DO Referring Provider Care Physician, No Primary Primary Care Provider Unavailable Care Physician, No Primary Referring Provider Un available Jeffrey NOLAND, Dr. Lux Attending Provider Dr. Jose J Murphy DO Other Provider Jude RESIDENTIAL [employer] ESTATE SALES MANAGER-C, Renetta Attending Provider Jude [employer]IDENTIAL [employer] ESTATE SALES MANAGER-C, Renetta Referring Provider [phone] Elizabeth KLEIN, Dr. Beckman Attending Provider Jose J Murphy Attending Unavailable Melissa, Chalon Referring Unavailable Melissa, Chalon Primary Care Unavailable Renetta Roque Attending Unavailable Melissa, Chalon Primary Care Unavailable Melissa, Chalon Referring Unavailable Melissa, Chalon Primary Care Unavailable Melissa, Chalon Referring Unavailable Borlowell, Jose J Attending Unavailable Jose J Murphy Referring Unavailable Melissa, Chalon Primary Care Unavailable Jose J Murphy Attending Unavailable Jose J Murphy Consulting Unavailable Care Physician, No Primary Primary Care Unava ilable Care Physician, No Primary Referring Unava ilable Jose J Murphy Attending Unavailable Tad Ceja Attending Unavailable Care Physician, No Primary Primary Care Unava ilable Jose J Murphy Attending Unavailable Renetta Roque Referring Unavailable Rk Johnson Attending Unavailable Melissa, Chalon Primary Care Unavailable Jose J Murphy Referring Unavailable Melissa, Chalon Primary Care Unavailable Jose J Murphy Attending Unavailable Tad Ceja Attending Unavailable Melissa, Chalon Primary Care Unavailable BorJose J etienne Attending Unavailable Jose J Murphy Referring Unavailable Melissa, Chalon Primary Care Unavailable Melissa, Chalon Referring Unavailable Melissa, Sujeyon Attending Unavailable Renetta Roque Attending Unavailable Melissa, Chalon Primary Care Unavailable Renetta Roque Referring Unavailable Jose J Murphy Referring Unavailable Jose J Murphy Attending Unavailable Care Physician, No Primary Primary Care Unava ilable Melissa, Chalon Primary Care Unavailable Jose J Murphy Attending Unavailable Jose J Murphy Referring Unavailable Melissa, Chalon Primary Care Unavailable Jose J Murphy Attending Unavailable Jose J Murphy Referring Unavailable Care Physician, No Primary Referring Unava ilable Jose J Murphy Attending Unavailable Care Physician, No Primary Primary Care Unava ilable Care Physician, No Primary Referring Unava ilable Jose J Murphy Attending Unavailable Care Physician, No Primary Primary Care Unava ilable Care Physician, No Primary Primary Care Unava ilable Care Physician, No Primary Referring Unava ilable Jose J Murphy Attending Unavailable Adelina Torres Primary Care Unavailable Adelina Torres Referring Unavailable Jose J Murphy Attending Unavailable Medications Current Medications Medication Drug Class(es) Dates Sig (Normalized) Sig (Original) acetaminophen 500 mg oral tablet (6 sources) Start: 10-08-2024 take 2 tablets by mouth every six hours Acetaminophen 500 mg tablet Active 1000 mg PO EVERY 6 HOURS 100 October 08, 2024 12:00am benzonatate 100 mg oral capsule (4 sources) Non-narcotic Antitussive Start: 04-20-2024 take 1 capsule by mouth every eight hours as needed benzonatate (TESSALON PERLE) 100 mg capsule Take 1 capsule by mouth three times a day as needed. 21 capsule 04/20/2024 Active Start: 10-14-2023 End: 10-24-2023 take 2 capsules by mouth every eight hours as needed for cough and cough benzonatate (TESSALON PERLE) 100 mg capsule Indications: Acute cough Take 2 capsules by mouth three times a day as needed for up to 10 days. 60 capsule 10/14/2023 10/24/2023 Cholecalciferol (6 sources) Vitamin D Start: 10-08-2024 take 1 tablet by mouth every month Cholecalciferol (Vitamin D3) 1,250 mcg (50,000 unit) tablet Active 1250 ug PO EVERY MONTH October 08, 2024 12:00am doxycycline hyclate 100 mg oral tablet (2 sources) Tetracycline-c lass Drug Start: 04-20-2024 End: 04-27-2024 take 1 tablet by mouth twice daily doxycycline (VIBRA-TABS) 100 mg tablet Take 1 tablet by mouth two times a day for 7 days. 14 tablet 04/20/2024 04/27/2024 Active Start: 07-22-2023 End: 07-29-2023 take 1 tablet by mouth twice daily doxycycline (VIBRA-TABS) 100 mg tablet Take 1 tablet by mouth two times a day for 7 days. 14 tablet 0 07/22/2023 07/29/2023 Active Comment on above: Take 1 tablet by garett two times a day for 7 days. Dickson (Nk) (1 source) Start: 03-25-2024 Dickson (Nk) Active March 25, 2024 12:00am oxyCODONE hydrochloride 5 mg oral tablet (6 sources) Opioid Agonist Start: 10-08-2024 take 5-10 mg by mouth every four hours as needed for pain Oxycodone 5 mg tablet Active 5 - 10 mg PO Q4H as needed for pain 60 7 October 08, 2024 predniSONE 20 mg oral tablet (1 source) Start: 10-21-2023 End: 10-26-2023 take 2 tablets by mouth once daily predniSONE (DELTASONE) 20 mg tablet Indications: Acute cough Take 2 tablets by mouth once daily for 5 days. 10 tablet 0 10/21/2023 10/26/2023 Active Completed/Discontinued Medications Medication Drug Class(es) Dates [...] every 6 hours as needed. 0 Active Comment on above: Take 1 tablet by garett th every 6 hours as needed. acetaminophen 325 mg / HYDROcodone bitartrate 5 mg oral tablet (20 sources) Opioid Agonist Start: 04-13-2013 End: 09-19-2022 Hydrocodone-Aceta minophen 1 TABLET tablet Discontinued 1 - 2 {tbl} PO EVERY 4 HOURS NEEDED as needed for Pain July 20, 2014 1:00am September 19, 2022 11:24am Start: 04-13-2013 End: 09-19-2022 take 1 tablet by mouth every four hours as needed Hydrocodone-Acetaminophen Discontinued 1 - 2 TABLET PO EVERY 4 HOURS NEEDED July 20, 2014 12:00am September 19, 2022 10:24am amoxicillin 875 mg / clavulanate 125 mg oral tablet (3 sources) Penicillin-class Antibacterial Start: 10-14-2023 End: 10-21-2023 take 1 tablet by mouth twice daily amoxicillin-clavulanate potassium (AUGMENTIN) 875-125 mg per tablet Indications: Bacterial sinusitis Take 1 tablet by mouth two times a day for 7 days. 14 tablet 10/14/2023 10/21/2023 apixaban 2.5 mg oral tablet (6 sources) Factor Xa Inhibitor Start: 10-08-2024 End: 11-18-2024 take 1 tablet by mouth twice daily in the morning Apixaban (Eliquis) 2.5 mg tablet Discontinued 2.5 mg PO TWICE A DAY October 08, 2024 12:00am November 18, 2024 8:04am Begin morning after surgery. cephalexin 500 mg oral capsule (8 sources) Cephalosporin Antibacterial Start: 10-08-2024 End: 11-18-2024 Cephalexin 500 mg capsule Discontinued 1000 mg PO Q8H October 08, 2024 12:00am November 18, 2024 8:05am Take 2 tabs before you go to bed and 2 tabs after 5 AM morning after surgery when you wake up Start: 05-08-2023 End: 05-15-2023 take 1 capsule by mouth three times daily cephALEXin (KEFLEX) 500 mg capsule Take 1 capsule by mouth three times a day for 7 days. 21 capsule 0 05/08/2023 05/15/2023 Active Comment on above: Take 1 capsule by mo [facility] three times a day for 7 days. clobetasol propionate 0.0005 mg/mg topical ointment (4 sources) Corticosteroid Start: 06-14-19 18 clobetasol (TEMOVATE) 0.05 % ointment Apply 1 application to affected area twice daily. for 2 weeks then once a day for 1 week then 1-2 times/week 30 g 1 06/14/2017 Active Comment on above: Apply 1 application to affected area twice daily. for 2 weeks then once a day for 1 week then 1-2 times/week ibuprofen 200 mg oral tablet (4 sources) Nonsteroidal Anti-inflammatory Drug Start: 12-08-19 11 take 200-400 mg by mouth every two hours as needed ibuprofen (MOTRIN) 200 mg tablet Take 1-2 tablets by mouth every 2 hours as needed. FOR PAIN. 0 12/07/2010 Active Comment on above: Take 1-2 tablets by mouth every 2 hours as needed. FOR PAIN. loratadine 10 mg oral tablet (2 sources) Start: 10-24-19 23 take 1 tablet by mouth once daily loratadine (CLARITIN) 10 mg tablet Indications: Sinus congestion Take 1 tablet by mouth once daily. 30 tablet 11 10/23/2022 Active Comment on above: Take 1 tablet by garett th once daily. ondansetron 4 mg disintegrating oral tablet (13 sources) Serotonin-3 Receptor Antagonist Start: 07-20-19 End: 09-20-19 take 1 tablet by mouth every eight hours as needed for nausea Ondansetron 4 MG tablet Discontinued 4 mg PO EVERY 8 HOURS NEEDED as needed for Nausea July 20, 2014 1:00am September 19, 2022 11:24am psyllium husk (METAMUCIL ORAL) (2 sources) psyllium husk (METAMUCIL ORAL) Take by mouth. 0 Active Comment on above: Take by mouth. Problems Active Problems Problem Classification Problem Date Documented Date Episodic/Chronic Abdominal pain (13 sources) Right lower quadrant pain; Translations: [Right lower quadrant pain] 02-27-2019 Episodic Cardiac dysrhythmias (8 sources) Kandi rhythm disorder; Translations: [Other specified cardiac arrhythmias] 09-19-2022 Chronic Cardiac dysrhythmias (8 sources) Palpitations; Translations: [Palpitations] 09-19-2022 Episodic Disorders of lipid metabolism (8 sources) Hyperlipidemia; Translations: [Hyperlipidemia, unspecified] 11-02-2022 Chronic Genitourinary symptoms and ill-defined conditions (1 source) Increased frequency of urination; Translations: [Frequency of micturition] 05-08-2023 Episodic Joint disorders and dislocations; trauma-related (14 sources) Loose body in knee; Translations: [Loose body in knee, right knee] 09-09-2024 Chronic Menstrual disorders (9 sources) Menorrhagia; Translations: [Excessive and frequent menstruation with regular cycle] Onset: 10-31-2012 10-31-2012 Chronic Osteoarthritis (16 sources) Osteoarthritis of right knee joint; Translations: [Unilateral primary osteoarthritis, right knee] Onset: 10-09-2024 03-25-2024 Chronic Other aftercare (4 sources) Follow-up status; Translations: [Encounter for other orthopedic aftercare] 10-21-2024 Episodic Other connective tissue disease (8 sources) History of total knee arthroplasty; Translations: [Presence of right artificial knee joint] 10-14-2024 Chronic Other connective tissue disease (7 sources) Iliotibial band friction syndrome; Translations: [Iliotibial band syndrome, unspecified leg] 03-25-2024 Episodic Other connective tissue disease (8 sources) Pain of right lower leg; Translations: [Pain in right lower leg] 10-14-2024 Episodic Other connective tissue disease (1 source) Other specified soft tissue disorders; Translations: [Other specified soft tissue disorders] Onset: 10-18-2024 Episodic Other lower respiratory disease (3 sources) Cough; Translations: [Acute cough] 10-14-2023 Episodic Other nervous system disorders (1 source) Other chronic pain; Translations: [Other chronic pain] Onset: 09-24-2024 Chronic Other nervous system disorders (10 sources) Acute postoperative pain; Translations: [Other acute postprocedural pain] 10-08-2024 Episodic Other non-traumatic joint disorders (15 sources) Pain in right knee; Translations: [Chronic pain of right knee] Onset: 10-22-2024 09-23-2024 Episodic Other screening for suspected conditions (not mental disorders or infectious disease) (2 sources) Patient encounter status; Translations: [Encounter for screening mammogram for malignant neoplasm of breast] Onset: 09-26-2024 Episodic Other upper respiratory infections (3 sources) Frontal sinusitis; Translations: [Chronic frontal sinusitis] 07-22-2023 Chronic Unclassified (1 source) Acute cough; Translations: [Acute cough] Onset: 10-21-2023 Past or Other Problems Problem Classification Problem Date Documented Da te Episodic/Chronic Other connective tissue disease (1 source) Iliotibial band syndrome, unspecified leg; Translations: [Iliotibial band syndrome, unspecified leg] Onset: 04-23-2024 Episodic Results Test Name Value Interpretation Reference Range Facility Re-Evaluation - PT (1)on Re-Evaluation - PT (1) [facility] Physical [facility] [address] [place] [address]. [address] [place] [address] / REEVALUATION / MEDICARE RECERTIFICATION PHYSICAL THERAPY MR#: [id number] Acct: [id number] Name: KANWAL MARTINEZ Rep #: [id number] : 1970 54 From: Reji Browning DPT Referring Dr.: Dr. Jose J Murphy, DO Status:REG RCR Insurance: [employer] SELF PAY INSURANCE Re-Evaluation Intro: Dr. Jose J Murphy, DO, It has been my pleasure to treat KANWAL MARTINEZ over the last 12 visits for R TKA DOS: 10/08/24. Please see the progress note below for an update on the physical therapy plan of care! Subjective Subjective: Pt. is here today for her re assessment. Pt. reports being sore after last visit during deep squats. Pt. reports have 3/10 pain currently. Pt. reports being 80% better overall. Objective Objective/Function: ROM: PROM: 0-0-113deg, AROM; 0-3-105 MMT: R knee: ext 13.1#, flex 17.8#. L knee: ext 36.7#, flex 27.3# GAIT: Pt. ambulates with out AD. Pt. has lack TKE during stance phase with RLE. STAIRS: Pt. does well with reciprocal pattern with 2 HR TU.1 sec Functionally she is doing well. I would like her to have better knee flexion and extension during her gait pattern as well as better ROM both into extension and flexion. Once we have improved her ROM progress strengthening. Plan Plan Plan: I am extending her POC for another 4 weeks. Work on restoring ROM to 0-0-120deg then progress strengthening as able. Balance/Gait/Functional tests Balance/Special Test Scores Lower Extremity Functional Score: 22 TUG Test Time Seconds: 28.3 Tug Test: 20-30sec.=variable mobility 30 Second Chair Rise Test Seconds: 10 Goals Goals Goal 1:: LTG: Pt. to be I with HEP. Goal Time Frame: 4-6 Weeks Goal Progress: Progressing Goal 2:: STG: Pt. to have increased R knee ROM to 0-0-120deg. Goal Time Frame: 2-4 Weeks Goal Progress: Progressing Goal 3:: LTG: Pt. to ambulate without AD with normal gait pattern and no increase in R knee pain. Goal Time Frame: 6-8 Weeks Goal Progress: Progressing Goal 4:: LTG: pt. to have symmetrical strength of BLEs. Goal Time Frame: 4-6 Weeks Goal Progress: Progressing Goal 5:: LTG: Pt. to have TUG time less than 10seconds. Goal Time Frame: 4-6 Weeks Goal Progress: Goal Met Goal 6:: LTG: Pt. to negotiate 1 flight of stairs with 1 HR with reciprocal pattern. Goal Time Frame: 4-6 Weeks Goal Progress: Progressing Anticipated Interventions Anticipated Interventions Patient/Client Instruction: Educate patient on: Condition, Plan of Care, Risk Factors and Benefits of Fitness Program For the Purpose of:: To facilitate caregiver knowledge, To improve self management, To prevent re- injury, To improve ability to perform tasks related to life management and To improve tolerance to ADL's Therapeutic Exercise to Include: Strength training, Power training, Endurance training, Passive ROM and Active ROM For the Purpose of:: To foster healthy habits, To improve decision making, To facilitate caregiver knowledge, To improve self management, To prevent re-injury and To improve ability to perform tasks related to life management Manual Therapy Techniques to Include: Mobilization and Soft tissue mobilization For the Purpose of:: To decrease pain, To decrease swelling/inflammation, To increase ROM, To improve nutrient delivery to tissue and To increase oxygenation perfusion Cryotherapy (ice pack, ice massage): Yes Vasopneumatic device: Yes For the Purpose of:: To decrease pain, To decrease swelling/inflammation and To increase ROM Re-Evaluation Ending Re-evaluation ending: Please do not hesitate to contact me at [phone] by phone or if you have questions or concerns regarding this new plan of care! Sincerely, Reji Browning, DPT 11/08/24 7583 CC: Dr. Adelina Torres MD; Dr. Jose J Murphy DO CLS Signed For Medicare only, by signing this I certify the plan of care. Physicians Signature Date Normal [facility] Orthopedic Visit Reporton Orthopedic Visit Report [facility] [address] [place] [id number] OFFICE VISIT Date of Service: 10/21/24 MR#: [id number] Acct: [id number] Name: KANWAL MARTINEZ Rep #: [id number] : 1970 Provider: Dr. Jose J Borru so, DO Age/Sex: 54/F Location: [facility] Status: Signed Intake Vital Signs 09/09/24 13:36 10/14/24 14:06 10/21/24 11:25 Height 5 ft 2 in 5 ft 2 in 5 ft 2 in Weight: 175 lb BMI 32.0 Intake Visit Reasons: right knee Chief Complaint: 2 week post op right knee Accompanied by: Self Is patient in pain?: Yes Pain scale (1-10): 3 Allergies No Known Allergies Allergy (Verified 10/21/24 11:27) Medications ???Medication ???Instructions ???Recorded ???Confirmed ???Type acetaminophen 500 mg tablet 1,000 mg (2 x 500 mg) PO Q6H #100 10/08/24 10/21/24 Rx tabs apixaban 2.5 mg tablet (Eliquis) 2.5 mg PO BID #28 tabs 10/08/24 Rx cephalexin 500 mg capsule 1,000 mg (2 x 500 mg) PO Q8H #4 10/21/24 Rx caps cholecalciferol (vitamin D3) 1,250 1,250 mcg PO QMONTH 10/08/24 History mcg (50,000 unit) tablet oxycodone 5 mg tablet 5 - 10 mg (1 - 2 x 5 mg) PO Q4H 10/21/24 Rx PRN pain 7 days #60 tabs Have you fallen in the past year?: No PFSH Medical History Wears glasses Cancer Arthritis High cholesterol Migraine headache Non-smoker History of echocardiogram Cardiology follow-up encounter Sinus arrhythmia Palpitations Surgical History History of ankle surgery History of tubal ligation History of Family History Father Atrial fibrillation Cardiomegaly Heart disease Social History Smoking Status: Never smoker alcohol intake: never substance use type: does not use HPI right knee Details: This documentation accurately reflects the service provided and the decisions made by me, Dr. Jose J Murphy, DO 10/21/24 0803. Part of today???s visit was documented by Claude Mccormack MA, acting as scribe. KANWAL MARTINEZ is a 54 year old F here today for 2 week post op right total knee arthroplasty. Patient is currently doing physical therapy at [facility]. She states that that she is improving and getting her strength back. Patient has been doing physical therapy for 2 weeks now. She would like to know when he can drive again. Patient would like to know when she can get rid of the tight socks. She ices her knee at home sometimes when it gets sore. She states she is doing very well in physical therapy is very impressed with her progress. Ortho Exam General General: Yes no acute distress Neurologic: Yes alert and Yes oriented x3 Psychologic: Yes reasonable and appropriate Right Knee Skin/Wound: No erythema, Yes ecchymosis and Yes swelling Homans Sign: No Knee ROM: Yes ROM-Extension -20 to 0 and No ROM-Flexion 0-140 (95) Stability: NML: Valgus 0, NML: Valgus 30, NML: Varus 0 and NML: Varus 30 KNEE: Incision well-approximated no signs of infection or DVT your marley were removed today. She is neurovascular intact her compartments are soft Supplemental Info 10/08/2024 right total knee arthroplasty: Dr. Murphy 09/09/2024 x-ray right knee:advanced medial compartment narrowing [id number], moderate patellofemoral spurring 06/21/2023 x-ray right knee: advanced medial compartment narrowing [id number], moderate patellofemoral spurring Coding Level of Care Code Global Post Op Diagnoses Orthopedic aftercare Z47.89 Assessment and Plan Assessment and Plan (1) Orthopedic aftercare: Status: Acute Plan Patient is 2-week status post right total knee arthroplasty she is doing well she is not taking any pain medication and does not need any more. She we will continue with physical therapy her marley were removed today I encouraged her to work on her knee range of motion to obtain at least 120 degrees of knee flexion she will follow-up in 4 weeks or sooner if there is any questions or concerns. Counseled her that she should continue to wash incision daily but refrain from any lotions directly on the incision for another 10 days. Follow-up in 4 weeks with x-rays Clinical Quality Measures Falls Risk Screening/Assistive Devices Have you fallen in the past year?: No 10/21/24 1250 Date Jose J Murphy DO Cosigner Signature: Date (if applicable) CC: Normal [facility] Venous duplex ultrasound rep ortOrdered By: Rk Johnson on 10-15-2024 US Vein [facility] [address] [place] [address] Venous Duplex US, Unilateral 10/14/24 1511 MR#: [id number] Acct: [id number] Name: KANWAL MARTINEZ Rep #:[id number] : 1970 54 From: Rk Durán Attending Dr: ELÍAS StoneC Status: REG CLI Ordering Dr: Renetta Roque Date: 10/14/24 Location: [facility] Sex: F C Admitted: Reason For Study Reason For Study: Pain RIGHT LEFT GSV is normal. CFV is compressible, spontaneous, phasic, competent, CFV is compressible, spontaneous, phasic, competent and demonstrates normal augmentation. and demonstrates normal augmentation. FV is compressible, spontaneous, phasic, competent and demonstrates normal augmentation. POP V is compressible, spontaneous, phasic, competent and demonstrates normal augmentation. T/P Trunk is compressible. PTV is compressible. RT PerV is compressible. Procedure This is a venous duplex using B-mode, color flow and spectral Doppler. Exam performed in department. A preliminary report was called and/or faxed to Renetta Roque NP. VL/Venous Duplex US, Unilateral Interpretation Summary Deep veins of the right lower extremity are patent and compressible segmentally.There is no evidence of right lower extremity deep vein thrombosis. The right great saphenous vein appears patent and compressible segmentally. Ordering Physician: Renetta Roque Referring Physician: Renetta Roque Performed By: Tracie Stevens RVT 10/15/24728 Date _ Rk Johnson MD CC: RESIDENTIAL REAL ESTATE SALES MANAGERSuzie Roque; Dr. Adelina Torres MD ~ Date Dictated: 10/14/24 1511 Date Transcribed: 10/15/24728 Medical Records Administrator: Signed [facility] Work Phone: Inital Evaluation (1) - PTon 10-14-2024 Inital Evaluation (1) - PT [facility] Physical Therapy [address] [place] [address] / REHABILITATION SERVICES INITIAL EVALUATION MR#: [id number] Acct: [id number] Name: KANWAL MARTINEZ Rep #: [id number] : 1970 54 From: Reji LAINEZT Referring DrFanny: Dr. Jose J Murphy DO Status: R EG RCR Insurance: [employer] SELF PAY INSURANCE Patient's Visit Information Visit Information Visit Information: KANWAL MARTINEZ is a 54 year old F referred to Physical Therapy by Dr. Jose J Murphy DO with a diagnosis of R TKA DOS: 10/08/24. Date of Evaluation: 10/11/24 Physical Therapist: MIGEL De PazT Visit Plan Frequency: 2x /Week Duration: 6 Weeks Plan: 1) R knee ROM progressing towards end ranges 2) vaso and ice for edema control. 3) quad and glute strengthening 4) functional mobility, stair negotiation Subjective Subjective: Pt. is here today for her initial evaluation with diagnosis of R TKA, DOS: 10/08/24. Pt. reports tolerating the surgery well. No major issues currently. 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 Pt. reports no N/T, no calf pain and no chest pain. Pt. has been doing her HEP as prescribed, but is having issues iwth SLR. Pt. is sleeping okay. Icing frequently. I saw a picture of her knee with good healing, no signs of infection. Knee was bandaged up today. Pt. is hopeful to increase her ROM and strenght in order to get back to all work and recreational activiteis without limitations. Pain R knee: Pain Intensity (Out of 10): 4 Pain Intensity Range: 2 and 6 Objective Objective: POSTURE: Pt. has increased wt. shift to L side in stance. Off loading RLE. PALPATUON: Pt. has marked swelling, 3 cm difference at mid patella. NEURO: normal achilles DTR. Normal sensation throughout. ROM: R knee: 0-5-91deg. Pt. has empty end feel, pain as limiting factor. Tightness noted in B HS. MMT: RLE: ankle 5/5 throughout; knee: ext 3#, flexion 7#; hip: 0#. GAIT: pt. is able to ambulate with FWW with good tolerance. She does lack TKE during stance phase and limited swing phase noted. Balance/Special Test Scores Lower Extremity Functional Score: 22 TUG Test Time Seconds: 28.3 30 Second Chair Rise Test Seconds: 10 Goals Goal 1:: LTG: Pt. to be I with HEP. Goal Time Frame: 4-6 Weeks Goal 2:: STG: Pt. to have increased R knee ROM to 0-0-120deg. Goal Time Frame: 2-4 Weeks Goal 3:: LTG: Pt. to ambulate without AD with normal gait pattern and no increase in R knee pain. Goal Time Frame: 6-8 Weeks Goal 4:: LTG: pt. to have symmetrical strength of BLEs. Goal Time Frame: 4-6 Weeks Goal 5:: LTG: Pt. to have TUG time less than 10seconds. Goal Time Frame: 4-6 Weeks Goal 6:: LTG: Pt. to negotiate 1 flight of stairs with 1 HR with reciprocal pattern. Goal Time Frame: 4-6 Weeks Rehabilitation Potential Physical Therapy Diagnosis: Pt. has signs and symptoms consistent with R TKA, DOS: 10/08/24. Pt. has marked hypomobility, weakness, increased swelling, difficulty walking and increased pain. Pt. would benefit from PT to address the above limitations progressing back to all previous levels of function. Rehabilitation Potential: Excellent Anticipated Interventions Patient/Client Instruction: Educate patient on: Condition, Plan of Care, Risk Factors and Benefits of Fitness Program For the Purpose of:: To facilitate caregiver knowledge, To improve self management, To prevent re- injury, To improve ability to perform tasks related to life management and To improve tolerance to ADL's Therapeutic Exercise to Include: Strength training, Power training, Endurance training, Passive ROM and Active ROM For the Purpose of:: To foster healthy habits, To improve decision making, To facilitate caregiver knowledge, To improve self management, To prevent re-injury and To improve ability to perform tasks related to life management Manual Therapy Techniques to Include: Mobilization and Soft tissue mobilization For the Purpose of:: To decrease pain, To decrease swelling/inflammation, To increase ROM, To improve nutrient delivery to tissue and To increase oxygenation perfusion Cryotherapy (ice pack, ice massage): Yes Vasopneumatic device: Yes For the Purpose of:: To decrease pain, To decrease swelling/inflammation and To increase ROM Text: Thank you for the opportunity to evaluate your patient. For Medicare and Medicare HMO plans, please review the plan of care and approve it. It will need to be FAXED BACK to us at [phone] for Medicare purposes. For Medicare only, by signing this I certify the plan of care. Please let me know if there are questions or concerns regarding this plan of care. Physician Signature: Date: 10/14/24 1130 CC: Dr. Adelina Torres MD; Dr. Jose J Murphy DO DT: 10/03 (more content not included)... [facility] Orthopedic Visit Reporton Orthopedic Visit Report [facility] [facility] [facility] [address] [place] [address] OFFICE VISIT Date of Service: 10/14/24 MR#: [id number] Acct: [id number] Name: KANWAL MARTINEZ Rep #: [id number] : 1970 Provider: MEGHAN solorio Age/Sex: 54/F Location[place] [facility] [place] [facility] [place] Status: Signed Intake Vital Signs 10/08/24 06:00 10/14/24 14:04 10/14/24 14:06 Height 5 ft 2 in 5 ft 2 in 5 ft 2 in Weight: 175 lb BMI 32.0 Intake Visit Reasons: RIGHT KNEE Chief Complaint: Right calf pain Accompanied by: Self Is patient in pain?: Yes Pain scale (1-10): 7 Allergies No Known Allergies Allergy (Verified 10/14/24 14:08) Medications ???Medication ???Instructions ???Recorded ???Confirmed ???Type acetaminophen 500 mg tablet 1,000 mg (2 x 500 mg) PO Q6H #100 10/08/24 10/14/24 Rx tabs apixaban 2.5 mg tablet (Eliquis) 2.5 mg PO BID #28 tabs 10/08/24 Rx cephalexin 500 mg capsule 1,000 mg (2 x 500 mg) PO Q8H #4 10/14/24 Rx caps cholecalciferol (vitamin D3) 1,250 1,250 mcg PO QMONTH 10/08/2405/29 History mcg (50,000 unit) tablet oxycodone 5 mg tablet 5 - 10 mg (1 - 2 x 5 mg) PO Q4H 10/14/24 Rx PRN pain 7 days #60 tabs Have you fallen in the past year?: No PFSH Medical History Wears glasses Cancer Arthritis High cholesterol Migraine headache Non-smoker History of echocardiogram Cardiology follow-up encounter Sinus arrhythmia Palpitations Surgical History History of ankle surgery History of tubal ligation History of Family History Father Atrial fibrillation Cardiomegaly Heart disease Social History Smoking Status: Never smoker alcohol intake: never substance use type: does not use HPI RIGHT KNEE Details: This documentation accurately reflects the service provided and the decisions made by me, Renetta Roque, RESIDENTIAL REAL ESTATE SALES MANAGER-C 10/14/24 7372. Part of today???s visit was documented by Claude Mccormack MA, acting as scribe. KANWAL MARTINEZ is a 54 year old F here today for right calf pain. Patient states that she was in physical therapy today. She was having rally bad calf pain today. This pain in the calf has been going on since surgery. The physical therapist was feeling her calf, and they stated that it was warm. Patient states that she feels tingly around the leg. Agree with above. Kanwal is a pleasant 54-year-old female presenting today from outpatient PT where she was recommended to come for evaluation of leg swelling and pain. She is status post right TKA from 10/08/[address] Murphy. Patient states she has had swelling and pain since surgery. Pain is also present in the calf with a tight sensation. No recent changes but symptoms are aggravated with PT today and 3 days ago was the initial PT eval and treat. Slightly more activity over the weekend but continues with frequent rest and elevation, icing the anterior portion of the knee. No history of DVT and is compliant with twice daily Eliquis postop. ROS Const All systems reviewed are unremarkable except as noted in H and other (A O x 3, no apparent distress. No recent illness.) ENT Denies dizziness Card Denies chest pain, Denies dyspnea, Denies edema and Reports other (No palpitations) Resp Denies cough, Denies dyspnea and Reports other (No recent URI) GI Reports system reviewed and no additional complaints, except as documented, Denies nausea and Denies vomiting Musc Reports as per HPI and Reports arthralgias Neuro No dizziness Psych Reports system reviewed and no additional complaints, except as documented Brady/Lymph Denies easy bleeding and Denies easy bruising Ortho Exam Right Knee Date of Surgery: 10/08/24 Skin/Wound: Yes CDI Contralateral Normal: Yes KNEE: Left knee with moderate amount of swelling and deep purpleish brownish ecchymosis most noted at the medial aspect and extending approximately mid lower leg. He has a dressing to the right knee that is clean dry and intact, wearing thigh-high compression stockings. There is no redness, warmth, streaking, fever or chills Range of motion 0 to 90 degree with mild aggravation of symptoms Tender on palpation over popliteal fossa through lower calf as well as medial joint line. Homans indeterminate, positive increased tightness with performing Opposite knee at baseline Full range of distal joints with no symptom aggravation Distal motor or sensory intact with brisk cap refill at 2 seconds Supplemental Info Reviewed operative note from 10/08/2024 and today's PT note on date of visi (more content not included)... Normal [facility] Venous Duplex US, Unilateral on 10-14-2024 Venous Duplex US, Unilateral [facility] [address] [place] [address] Venous Duplex US, Unilateral 10/14/24 1511 MR#: [id number] Acct: [id number] Name: KANWAL MARTINEZ Rep #: [id number] : 1970 54 From: Rk Johnson MD Attending Dr: MEGHAN Stone Status: REG CLI Ordering Dr: Renetta Roque Date: 10/14/24 Location: [facility] Sex: F C Admitted: Reason For Study Reason For Study: Pain RIGHT LEFT GSV is normal. CFV is compressible, spontaneous, phasic, competent, CFV is compressible, spontaneous, phasic, competent and demonstrates normal augmentation. and demonstrates normal augmentation. FV is compressible, spontaneous, phasic, competent and demonstrates normal augmentation. POP V is compressible, spontaneous, phasic, competent and demonstrates normal augmentation. T/P Trunk is compressible. PTV is compressible. RT PerV is compressible. Procedure This is a venous duplex using B-mode, color flow and spectral Doppler. Exam performed in department. A preliminary report was called and/or faxed to Renetta Roque NP. VL/Venous Duplex US, Unilateral Interpretation Summary Deep veins of the right lower extremity are patent and compressible segmentally. There is no evidence of right lower extremity deep vein thrombosis. The right great saphenous vein appears patent and compressible segmentally. Ordering Physician: Renetta Roque Referring Physician: Renetta Roque Performed By: Tracie Stevens RVT 10/15/24728 Date Rk Johnson MD CC: RESIDENTIAL REAL ESTATE SALES MANAGER-C Renetta Roque; Dr. Adelina Torres MD Date Dictated: 10/14/24 1511 Date Transcribed: 10/15/24728 Medical Records Administrator: Signed Normal [facility] Bedside Glucoseon 10-08-2024 FINGERSTICK GLU 81 mg/dL Normal 74-106 [facility] Comment on above: Result Comment: MARYCARMEN RICH OF PATIENT CARE PER NURSING PROTOCOL Performed By: #### L 501.080 ####[facility] [id number] [place], [address] Decalcification bone/plaqueo n 10-08-2024 Decalcification bone/plaque Patient Age/Sex Location Account Attending Physician ROMANKANWAL MARCIAL 54/F [facility] [id number] Dr. Jose J Murphy, Specimen: [id number] Received: 10/08/24 Status: REESE Lila Num: [id number] Spec Type: TOTAL KNEE Subm Dr: Dr. Jose J Murphy DO HEADER OPERATION: ERAS, right total knee replacement robotic arm assisted PRE-OP DIAGNOSIS: Osteoarthritis of right knee TISSUE SUBMITTED: A- Debrided right knee bone and tissue MICROSCOPIC DIAGNOSIS A. Right knee, total arthroplasty: * Benign cartilage and bone with degenerative changes MICROSCOPIC DESCRIPTION Slides are reviewed. GROSS DESCRIPTION A. Received in formalin in a container labeled with the patient's name, date of , and debrided bone and tissue right knee are multiple red-robledo, firm, and irregular fragments of bone with minimal soft tissue measuring 7.8 x 6.7 x 3.5 cm in aggregate. The specimen consists of, but is not limited to, medial/lateral condyle and tibial plateau. The resection margins are smooth and firm and the cortical surfaces are pitted and granular with smooth areas of eburnation. Sectioning reveals unremarkable firm surfaces. Manager Sharepoint sections submitted in A1 following decalcification. [facility] 10-08-2024 CPT:75869,57664 Patient Age/Sex Location Account Attending Physician KANWAL MARTINEZ 54/F [facility] [id number] Dr. Jose J Murphy, Signed (signature on file) Dr. Kiki Inman DO 10/10/24 1310 Normal [facility] Comment on above: Performed By: #### P DEC ####[facility] [id number] [place], [address] Discharge Instructionon 05-0 Discharge Instruction [facility] Medical Records Department [address] [place] [address] Instructions for Home/Discharge Instructions 10/08/24 0957 MR#: [id number] Acct: [id number] Name: KANWAL MARTINEZ Rep #: [id number] : 1970 54 From: Jose J Murphy DO PCP: Dr. Adelina Torres MD Status:REG [facility] Discharge Instructions Diet Discharge Diet: No restrictions Dressing / Incision Call your doctor if you observe: Shortness of breath and Chest pain Additional Dressing/Incision Instructions:: Ice and elevate lower extremities 2 weeks while not ambulating. Ambulation is encouraged. Weight bearing as tolerated. Use assistive devise for stability. Encourage FULL knee extension and flexion 1 time EVERY time you get up and down and MULTIPLE times per day. No showering until 72 hours after surgery. May begin showering postop day #3. Remove the dressing prior to shower and gently wash with warm water and antibacterial soap then pat dry and place abdominal pad (or plain gauze) and WILLIAMS hose over top. If you decide not to begin showering 72 hrs post operatively and wish to sponge bath only, then you may leave dressing undisturbed for up to 1 week, but must remove prior to first shower. Do not submerge for 3 weeks. If not showering daily after the initial dressing is removed you must clean incision and change dressing daily after the dressing comes off, must come off by 7 days postop. Do not allow animals near the incision area. Keep clean. Follow anti-coagulation recommendations as prescribed. Do not take any NSAIDs while on blood thinner. Do not take any additional narcotic pain medication other than what was prescribed on your surgery day without discussing with physician. Narcotic medication can be addictive. Do not drink alcohol while taking narcotics. Supplement narcotic prescription with acetaminophen 1000 mg 4 times a day. Start physical therapy. If you are not currently scheduled for physical therapy or you are unsure of appointment time please call office COR[facility] to arrange. Call Dr. Murphy's office ) with any concerns. Follow Up Care Please Follow Up With: Jose J Murphy DO When: 2 weeks Test Results: Test results from this visit will be discussed in further detail at your follow-up appointment, if applicable. Discharge Plan Admission Primary Reason for Your Visit: Right total knee arthroplasty Attending Provider: Jose J Murphy Primary Care Provider: Adelina Torres Instructions Print Language: Vietnamese Discharge Orders/Prescriptions Prescriptions: New acetaminophen 500 mg tablet 1,000 mg PO Q6H Qty: 100 0RF cephalexin 500 mg capsule 1,000 mg PO Q8H Qty: 4 0RF Rx Instructions: Take 2 tabs before you go to bed and 2 tabs after 5 AM morning after surgery when you wake up Eliquis 2.5 mg tablet 2.5 mg PO BID Qty: 28 0RF Rx Instructions: Begin morning after surgery. oxycodone 5 mg tablet 5 - 10 mg PO Q4H PRN (Reason: pain) 7 Days Qty: 60 0RF Continued cholecalciferol (vitamin D3) 1,250 mcg (50,000 unit) tablet 1,250 mcg PO QMONTH Referrals / Follow Up: Adelina Torres MD [Primary Care Provider] - Disposition Disposition (needs filled in before D/C Order can be placed): Home, Self Care 10/08/24 1000 Jose J Murphy DO CC: Dr. Adelina Torres MD Signed Normal [facility] deOrdered By: Jose J Murphy on 10-08-2024 [facility] 81 mg/dL 74-106 [facility] Comment on above: MANAGEMENT OF PATIEN T CARE PER NURSING PROTOCOL Glucose [Mass/Vol] 81 mg/dL 74-106 [facility] Comment on above: MANAGEMENT OF PATIEN T CARE PER NURSING PROTOCOL Knee 1 or 2 Viewson 10-09-19 25 Knee 1 or 2 Views [facility] Imaging Services [address] [place], [place] [id number] Knee 1 or 2 Views MR#: [id number] Acct: [id number] Name: KANWAL MARTINEZ Rep #: [id number] : 1970 F 54 From: Niels Rutledge MD PCP: Dr. Adelina Torres MD Status: [facility] Study: Knee 1 or 2 Views Date of Exam: 10/08/24 Exam# [id number] Ordering Dr: Jose J Murphy DO PROCEDURE: KNEE 1 OR 2 VIEWS 10/08/2024 REASON FOR EXAM: POSTOP PACU TECHNIQUE: Two views right knee FINDINGS: Status post right knee replacement appears intact and anatomic without fracture or dislocation. Intra-articular and soft tissue air with overlying skin marley. RAD/Knee 1 or 2 Views IMPRESSION: Study appears within limits as above. Reading Location: [id number] CC: Dr. Adelina Torres MD; Dr. Jose J Murphy DO Medical Records Administrator: Signed [facility] MR/POSTOP.[facility] 10-08-2024 MR/POSTOP.[facility] Medical Records Department [address] [place] [address] Anesthesia Postop Eval I 10/08/24 1001 MR#: [id number] Acct: [id number] Name: KANWAL MARTINEZ Rep #: [id number] : 1970 54 From: Ag Avery MUD MIXER PCP: Dr. Adelina Torres MD Status:REG SDC Y Race: C Location: [place] [address] Anesthesia: Postop Eval I Current Vital Signs Temperature: 97 F Pulse Rate: 75 Blood Pressure: 114/54 Respiratory Rate: 16 Pulse Ox: 100 Oxygen Delivery Method: Room Air Assessment Airway patent: Yes Spontaneous unlabored respirations: Yes Mental status: Awake and Calm nausea: No Vomiting: No Anesthesia Complication: No Fluid Hydration Crystalloid volume administer (ml): 800 Total IV fluid infused: 800 Progress Note Anesthesia document: Postop Eval 1 completed: Yes 10/08/24 1002 Date Ag Avery MUD MIXER Cosigner Signature: Date CC: Signed [facility] MR/IHFCBNHA0rd 10-08-2024 MR/POSTOPAN2 [facility] Medical Records Department [address] [place] [address] Anesthesia Postop Eval II 10/08/24 1159 MR#: [id number] Acct: [id number] Name: KANWAL MARTINEZ Rep #: [id number] : 1970 54 From: Iwona Ruiz PCP: Dr. Adelina Torres MD Status:REG SDC Y Race: C Location: [facility] Anesthesia Postop Eval I Sum Postop Eval Completion status Anesthesia document: Postop Eval 1 completed: Yes Anesthesia Postop Eval I Summary Anesthesia Postop Eval I Summary: Anesthesia Postop Eval I: Assessment Summary Airway patent Yes 10/08/24 10:02 MUD [email or web address] Spontaneous unlabored Yes 10/08/24 10:02 MUD [email or web address].SOBR respirations Mental status Awake,Calm 10/08/24 10:02 MUD [email or web address].SOBR nausea No 10/08/24 10:02 MUD [email or web address].SOBR Vomiting No 10/08/24 10:02 MUD [email or web address].SOBR Anesthesia Postop Eval I: Fluid Summary Crystalloid volume administer 800 10/08/24 10:02 MUD [email or web address].SOBR (ml) Colloids volume administered ( ml) Blood Product volume administered (ml) Total IV fluid infused 800 10/08/24 10:02 MUD [email or web address].SOBR Anesthesia Postop Eval I: Summary Notes Anesthesia Complication No 10/08/24 10:02 MUD [email or web address].SOBR Anesthesia Complication Comment: Post-operative progress note Anesthesia: Postop Eval II Evaluation Mental status: Awake and Calm Pain Level: 0 nausea: No Vomiting: No Complications Anesthesia Complication: No 10/08/24 1159 Date Iwona Joel Signature: Date CC: Signed Normal [facility] Operative Reporton Operative Report [facility] Medical Records Department [address] [place] [address] Operative Report 10/08/24 0951 MR#: [id number] Acct: [id number] Name: KANWAL MARTINEZ Rep #: [id number] : 1970 54 From: Jose J Murphy DO PCP: Dr. Adelina Torres MD Status:[facility] Location: [place] [address] Operative Report (Standard) Operative Information Date of Procedure: 10/08/24 Pre-Operative Diagnosis: Right knee DJD Post-Operative Diagnosis: Same Surgery/Procedure Performed: Right total knee arthroplasty hazardous materials waste technician: Yes Department Store General Manager: Marck Tidwell Tasks completed by lpn medical assistant: Opening closing Type of Anesthesia: Spinal RN Documented Start/Stop Times: Operation Date: 10/08/24 07:30 Case Time Into Pre-Op 10/08/24 05:43 Anesthesia Start 10/08/24 07:37 Into Room 10/08/24 07:37 Out of Pre-Op 10/08/24 07:38 Procedure Start 10/08/24 08:03 Procedure End 10/08/24 09:44 Procedure Start Time: 08:03 Procedure Stop Time: 09:44 Select all DRAINS/GRAFTS/IMPLANTS that apply: Prosthetic device Prosthetic device details: Ale triathlon Estimated Blood Loss: 150 Specimen collected: Yes Description of specimen(s) removed: Bone and soft tissue Description of surgery: Preoperative diagnosis: Right knee DJD Postoperative diagnosis: Same Procedure: Right total knee arthroplasty CT guided Robotic Assisted Implant: Packwood triathlon press fit, femoral component size2, tibial baseplate size 2, asymmetric patella size 29, polyethylene X3 size 9 CS Anesthesia: Spinal with adductor canal block Tourniquet time: 11 minutes at 300 mmHg Complications: None Condition: Stable to PACU Estimated blood loss: 150 cc Indication for procedure: This is a 54-year-old female with long standing degenerative joint disease of the knee who has failed conservative treatment and wished to proceed with elective total knee arthroplasty. In addition the patient felt she had a loose body in the superior lateral portion of her knee it was not identified on preoperative CT scan. .risk benefits and alternatives were reviewed including; risk of bleeding, infection, nerve artery and tissue damage, continued pain, postoperative stiffness, venous thromboembolism, need for postoperative rehabilitation, mechanical feel to the knee, and expected postoperative course. The pre- operative CT and templating was performed with component sizing. Procedure: The patient was met in the preoperative holding area. The operative extremity was identified by both patient and physician and was marked. Patient was met by anesthesia. An adductor canal block was placed by anesthesia postoperatively the patient was brought back to the operating room on a wheeled cart and transferred to the operating table in the supine position. Anesthesia was started. A well-padded tourniquet was placed on the operative extremity. The patient was prepped and draped in the usual sterile fashion. A timeout was called to ensure the proper patient procedure and extremity were being contemplated. An esmarch was used to exsanguinate the extremity. The tourniquet was inflated. A 10 blade scalpel was used to make a midline incision down through the skin and subcutaneous tissue. Skin retractors placed. Bovie and Aquamantis were used to perform meticulous hemostasis. full-thickness flaps were elevated medial and lateral along the joint capsule. A deep blade scalpel was used to perform a medial parapatellar arthrotomy. The knee was brought to full extension. A bovie was used to release the soft tissues off the most proximal aspect of the medial tibial plateau, a three-quarter inch curved osteotome was also used in this process. The infrapatellar fat pad was excised. The suprapatellar fat pad was excised partially anteriorolateraly and portion the anterioromedial pad was elevated from the femur. Thorough investigation of the synovium around the patella and the lateral side of the knee did not reveal any loose body or intrasynovial body this was checked now and throughout the case there was some thickening of the synovium in this area which may be what patient interpreted as a loose body the plica band was removed. With electrocautery. at this point our intra-articular femoral array was placed at a 45 degree angle proximal and posterior to the medial epicondyle. femoral checkpoint was placed at this time. Our tibial array was placed partially intra incisional 1 stab incision was made for the inferior pin with a 15 blade scaple, and pins were placed and attached to the tibial array , tibial checkpoint was placed in the proximal tibial metaphysis. Tourniquet was let down. At this point registration chin were taken throughout the knee . Once the knee was registered we then tensioned the medial and lateral ligaments in extension and 90 degrees of flexion. We then used these numb (more content not included)... Normal [facility] Extremity Lower without Cont raon 10-01-2024 Extremity Lower without Contra [facility] Imaging Services [address] [place] [address] Extremity Lower without Contra MR#: [id number] Acct: [id number] Name: KANWAL MARTINEZ Rep #: [id number] : 1970 F 54 From: Jeffrey Oshea MD PCP: Dr. Adelina Torres MD Status: REG CLI Study: Extremity Lower without Contra Date of Exam: 0 10/01/24 Exam# [id number] Ordering Dr: Jose J Murphy DO PROCEDURE: EXTREMITY LOWER WITHOUT CONTRA 10/01/2024 REASON FOR EXAM: TEMPLATING FOR RIGHT TKA TECHNIQUE: Axial CT images of the right knee obtained without intravenous contrast. Coronal and Sagittal reconstruction series were provided. CONTRAST: None One or more dose reduction techniques were used (e.g., Automated exposure control, adjustment of the mA and/or kV according to patient size, use of iterative reconstruction technique). RADIATION DOSE SUMMARY: DLP: 1147.39 mGycm COMPARISON: None FINDINGS: There is severe osteoarthritis in the medial compartment of the right knee with loss of the joint space, subcortical cyst formation, and marginal osteophytes. There is no acute fracture or dislocation. There is a large joint effusion. Muscular structures appear intact. There is no visible atherosclerosis. CT/Extremity Lower without Contra IMPRESSION: There is osteoarthritis which is most severe in the medial compartment. There is a large joint effusion. Reading Location: [facility] CC: Dr. Adelina Torres MD; Dr. Jose J Murphy DO Medical Records Administrator: Signed Normal [facility] Fructosamineon 09-27-2024 FRUCTOSAMINE 198 umol/L Normal 0-285 [facility] Comment on above: Result Comment: Publ ished reference interval for apparently healthy subjects between age 20 and 60 is 205 - 285 umol/L and in a poorly controlled diabetic population is 228 - 563 umol/L with a mean of 396 umol/L. Performed at: [facility] [address] [place], [place] [id number] Still Runner: Real Patel PhD, Phone: [phone] Performed By: #### L 300.4310, L501.5200, M100.651, L300.3900, L3400.0100, BTSPAT ####[facility] [address] [place], [address] MRSA/SAID NASAL SCREENon MRSA+SAID SCRN Reason for Exam: SURGERY MRSA MRSA Negative S. AUREUS S. aureus Negative Normal [facility] Comment on above: Performed By: #### L 300.4310, L501.5200, M100.651, L300.3900, L3400.0100, BTSPAT ####[facility] [address] [facility] [place], [address] Activated partial thrombopla stin time (aPTT) in platelet poor plasma by coagulation aOrdered By: Jose J Murphy on 09-26-2024 aPTT Coag (PPP) [Time] 25.1 s 24.1-36.2 [facility] FructosamineOrdered By: Jovani Murphy on 09-26-2024 Fructosamine 198 umol/L 0-285 [facility] Comment on above: Published reference interval for apparently healthysubjects between age 20 and 60 is 205 - 285 umol/L and in apoorly controlled diabetic population is 228 - 563 umol/Lwith a mean of 396 umol/L.Performed at: [facility] [place], [place] [id number] Director: Real Patel PhD, Phone: [phone] International normalized rat io (INR) calculationOrdered By: Jose J Murphy on 09-26-2024 INR Coag (Bld) [Relative time] 0.9 {INR} [facility] MRSA screenOrdered By: Joseph Murphy on 09-26-2024 MRSA DNA JUANY+probe Ql (Unsp spec) [facility] Nasal Screen MRSA/MSSA [facility] Magnesiumon 09-26-2024 Magnesium [Mass/Vol] 2.2 mg/dL Normal 1.5-2.2 [facility] Comment on above: Performed By: #### L 300.4310, L501.5200, M100.651, L300.3900, L3400.0100, BTSPAT ####[facility] [address] [place], [address] Magnesium (Unsp spec) [Mass/ Vol]Ordered By: Jose J Murphy on 09-26-2024 Magnesium [Mass/Vol] 2.2 mg/dL 1.5-2.2 [facility] Magnesium measurement (mass/ volume)Ordered By: Jose J Murphy on 09-26-2024 Magnesium (Unsp spec) [Mass/Vol] 2.2 mg/dL 1.5-2.2 [facility] Partial Thromboplast Timeon 09-26-2024 aPTT Coag (Bld) [Time] 25.1 s Normal 24.1-36.2 [facility] Comment on above: Performed By: #### L 300.4310, L501.5200, M100.651, L300.3900, L3400.0100, BTSPAT ####[facility] [address] [place], [address] Prothrombin Time w/INRon INR Coag (PPP) [Relative time] 0.9 {INR} Normal [facility] Comment on above: Performed By: #### L 300.4310, L501.5200, M100.651, L300.3900, L3400.0100, BTSPAT ####[facility] [address] [place], [address] PT Coag (PPP) [Time] 12.4 s Normal 11.7-14.9 [facility] Comment on above: Performed By: #### L 300.4310, L501.5200, M100.651, L300.3900, L3400.0100, BTSPAT ####[facility] [address] [place], [address] Prothrombin timeOrdered By: Jose J Murphy on 09-26-2024 PT Coag (PPP) [Time] 12.4 s 11.7-14.9 [facility] Type AND Screen - PAT ONLYon 09-26-2024 Ab SCREEN GEL Negative Normal [facility] Comment on above: Order Comment: Surge ry Date: 10/08/24Reason for Laboratory Test [id number] Performed By: #### L 300.4310, L501.5200, M100.651, L300.3900, L3400.0100, BTSPAT ####[facility] [address] [place], [address] aPTT Coag (PPP) [Time]Ordere d By: Jose J Murphy on 09-26-2024 aPTT Coag (Bld) [Time] 25.1 s 24.1-36.2 [facility] MR/PAT.ANEon 09-24-2024 MR/PAT.ANE [facility] Medical Records Department [address] [place] [address] PAT - Anesthesia 09/24/24 1819 MR#: [id number] Acct: [id number] Name: KANWAL MARTINEZ Rep #: [id number] : 1970 54 From: Mehran Robbins MD PCP: Dr. 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 When Was Last Pacemaker Check QUESTION #4 FULL TEXT: You/Your Family Experience fever (hyperthermia) with Anesthesia Last Oral Intake Last Oral intake: Last Oral Intake NPO since Meds taken in AM with sips of water? Meds patient instructed to take am of surgery PONV PONV - press brake operator: PONV - press brake operator Female No 09/24/24 09:14 HX of Motion Sickness Yes 09/24/24 09:14 HX of N/V After Surgery No 09/24/24 09:14 Non-Smoker Yes 09/24/24 09:14 Duration of Surgery greater No 09/24/24 09:14 than 60 minutes Number of Risk Factors 2 09/24/24 09:14 PONV Score Moderate Risk 09/24/24 09:14 Height Weight Height Weight: Anesthesia: Height Weight Height 5 ft 2 in 09/09/24 13:36 Respiratory Assessment Respiratory Assessment - press brake operator: Respiratory Tract Infection Hx - press brake operator Hx Respiratory Tract Infection No 09/24/24 09:14 STOP Sleep Apnea STOP Sleep Apnea - press brake operator: STOP Sleep Apnea - press brake operator Hx Hypertension No 09/24/24 09:14 Hx Sleep Apnea No 09/24/24 09:14 CPAP BIPAP Do you snore loudly (louder No 09/24/24 09:14 than talking or can be heard Do you often feel tired/ No 09/24/24 09:14 fatigued/ sleepy during daytime? Has anyone observed you stop No 09/24/24 09:14 breathing during sleep? STOP Results Negative 09/24/24 09:14 QUESTION #5 FULL TEXT : Do you snore loudly (louder than talking or can be heard through closed doors)? 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 Specify any problems Hx of Preganancy in last 3 No 09/24/24 09:14 Months Nurse Filling Out Transfusion [facility] 09/24/24 09:14 Questions: Date: 09/24/24 09/24/24 09:14 Time: 09/24/24 09:14 Patient unable to answer at this time (ie. 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 Now No 09/24/24 09:14 Gestational Age (in weeks): EDC: Hx Hx Para Hx Section SAB No 09/24/24 09:14 [facility], [facility] Medical History (Updated 09/24/24 @ 09:22 by Johana Chávez) Wears glasses Cancer Arthritis High cholesterol Migraine headache Non-smoker History of echocardiogram Cardiology follow-up encounter Sinus arrhythmia Palpitations Home Medications ???Medication ???Instructions ???Recorded ???Last Taken ???Type NK 03/25/24 Unknown History Allergy/AdvReac Type Severity Reaction Status Date / Time No Known Allergies Allergy Verified 09/24/24 09:13 Family History Father Atrial fibrillation Cardiomegaly Heart disease Surgical History (Updated 09/24/24 @ 09:14 by Johana Chávez) History of tubal ligation History of Social History Smoking Status: Never smoker alcohol intake: never substance use type: does not use Audit: Pertinent Findings Pertinent Findings EKG Perinent findings: November 02, 2022. Sinus rhythm (more content not included)... Normal [facility] Absolute lymphocyte countOrd ered By: Adelina Torres on 09-23-2024 Lymphocytes Auto (Unsp spec) [#/Vol] 3.21 10*3/uL 0.83-4.51 [facility] Absolute neutrophil countOrd ered By: Adelina Torres on 09-23-2024 Neutrophils (Bld) [#/Vol] 4.5 10*3/uL 2.0-7.7 [facility] Anion gap in Serum or Plasma Ordered By: Adelina Torres on 09-23-2024 Anion gap [Moles/Vol] 9 mmol/L 5-15 [facility] Automated lymphocyte count a s percentage of total leukocytesOrdered By: Adelina Torres on 09-23-2024 Lymphocytes/100 WBC Auto (Unsp spec) 38.4 % - [facility] BUN/creatinine ratioOrdered By: [facility]ika Torres on 09-23-2024 Urea nitrogen/Creatinine [Mass ratio] 19.8 mg/mg 10- [facility] Basophil percentageOrdered B y: Adelina Torres on 09-23-2024 Basophils/100 WBC (Bld) 0.5 % 0-1 [facility] Bilirubin, totalOrdered By: [facility] Hamilton[facility]ika Trores on 09-23-2024 Bilirubin [Mass/Vol] 0.27 mg/dL 0.00-1.30 [facility] CBC W/Diff, Automatedon 09-04 Absolute Lymph 3.21 X10 3/uL Normal 0.83-4.51 [facility] Comment on above: Order Comment: Order Date: 09/23/24 Order Info: [id number] - CBCD Performed By: #### L 501.9985, L100.0100, L500.4100, L500.4050 #### [facility] [address] [place], [address] Absolute Neut 4.5 X10 3/uL Normal 2.0-7.7 [facility] Comment on above: Order Comment: Order Date: 09/23/24 Order Info: [id number] - CBCD Performed By: #### L 501.9985, L100.0100, L500.4100, L500.4050 #### [facility] [address] [place], [address] Basophils/100 WBC (Bld) 0.5 % Normal 0-1 [facility] Comment on above: Order Comment: Order Date: 09/23/24 Order Info: [id number] - CBCD Performed By: #### L 501.9985, L100.0100, L500.4100, L500.4050 #### [facility] [address] [place], [address] Eosinophils/100 WBC (Bld) 1.1 % Normal 0-5 [facility] Comment on above: Order Comment: Order Date: 09/23/24 Order Info: 0184-1 - CBCD Performed By: #### L 501.9985, L100.0100, L500.4100, L500.4050 #### [facility] [address] [place], [address] Erythrocyte distribution width (RBC) [Ratio] 13.1 % Normal 11.6-14.6 [facility] Comment on above: Order Comment: Order Date: 09/23/24 Order Info: 0184-1 - CBCD Performed By: #### L 501.9985, L100.0100, L500.4100, L500.4050 #### [facility] [address] [place], [address] Hematocrit (Bld) [Volume fraction] 41.5 % Normal 37-47 [facility] Comment on above: Order Comment: Order Date: 09/23/24 Order Info: 0184-1 - CBCD Performed By: #### L 501.9985, L100.0100, L500.4100, L500.4050 #### [facility] [address] [place], [address] Hemoglobin (Bld) [Mass/Vol] 13.8 g/dL Normal 12.0-15.0 [facility] Comment on above: Order Comment: Order Date: 09/23/24 Order Info: 0184-1 - CBCD Performed By: #### L 501.9985, L100.0100, L500.4100, L500.4050 #### [facility] [address] [place], [address] IG% 0.400 Normal 0.0-0.9 [facility] Comment on above: Order Comment: Order Date: 09/23/24 Order Info: [id number] - CBCD Result Comment: IG% - Immature Granulocytes (promyelocytes, myelocytes and metamyelocytes) > 1% indicates that a LEFT SHIFT is Present. Performed By: #### L 501.9985, L100.0100, L500.4100, L500.4050 #### [facility] [address] [place], [address] Lymphocytes/100 WBC (Bld) 38.4 % Normal 19-41 [facility] Comment on above: Order Comment: Order Date: 09/23/24 Order Info: 0184-1 - CBCD Performed By: #### L 501.9985, L100.0100, L500.4100, L500.4050 #### [facility] [address] [place], [address] MCH (RBC) [Entitic mass] 29.4 pg Normal 27.0-32.0 [facility] Comment on above: Order Comment: Order Date: 09/23/24 Order Info: [id number]- - CBCD Performed By: #### L 501.9985, L100.0100, L500.4100, L500.4050 #### [facility] [address] [place], [address] MCHC (RBC) [Mass/Vol] 33.3 g/dL Normal 32-36 [facility] Comment on above: Order Comment: Order Date: 09/23/24 Order Info: 0184-1 - CBCD Performed By: #### L 501.9985, L100.0100, L500.4100, L500.4050 #### [facility] [address] [place], [address] MCV (RBC) [Entitic vol] 88.3 fL Normal 81-99 [facility] Comment on above: Order Comment: Order Date: 09/23/24 Order Info: 0184-1 - CBCD Performed By: #### L 501.9985, L100.0100, L500.4100, L500.4050 #### [facility] [address] [place], [address] Monocytes/100 WBC (Bld) 5.6 % Normal 0-10 [facility] Comment on above: Order Comment: Order Date: 09/23/24 Order Info: 0184-1 - CBCD Performed By: #### L 501.9985, L100.0100, L500.4100, L500.4050 #### [facility] [address] [place], [address] Neutrophils/100 WBC (Bld) 54.0 % Normal 47-70 [facility] Comment on above: Order Comment: Order Date: 09/23/24 Order Info: 0184-1 - CBCD Performed By: #### L 501.9985, L100.0100, L500.4100, L500.4050 #### [facility] [address] [place], [address] Nucleated RBC (Bld) [#/Vol] 0 10*3/uL Normal 0-5 [facility] Comment on above: Order Comment: Order Date: 09/23/24 Order Info: 0184-1 - CBCD Performed By: #### L 501.9985, L100.0100, L500.4100, L500.4050 #### [facility] [address] [place], [address] Platelet mean volume (Bld) [Entitic vol] 9.6 fL Normal 6.2-12.0 [facility] Comment on above: Order Comment: Order Date: 09/23/24 Order Info: 0184-1 - CBCD Performed By: #### L 501.9985, L100.0100, L500.4100, L500.4050 #### [facility] [address] [place], [address] Platelets (Bld) [#/Vol] 270 10*3/uL Normal 150-450 [facility] Comment on above: Order Comment: Order Date: 09/23/24 Order Info: 0184-1 - CBCD Performed By: #### L 501.9985, L100.0100, L500.4100, L500.4050 #### [facility] [address] [place], [address] RBC (Bld) [#/Vol] 4.70 10*6/uL Normal 4.2-5.4 [facility] Comment on above: Order Comment: Order Date: 09/23/24 Order Info: 0184-1 - CBCD Performed By: #### L 501.9985, L100.0100, L500.4100, L500.4050 #### [facility] [address] [place], [address] RDW SD 42.5 fl Normal 35.1-43.9 [facility] Comment on above: Order Comment: Order Date: 09/23/24 Order Info: 0184-1 - CBCD Performed By: #### L 501.9985, L100.0100, L500.4100, L500.4050 #### [facility] [address] [place], [address] WBC (Bld) [#/Vol] 8.4 10*3/uL Normal 4.4-11.0 [facility] Comment on above: Order Comment: Order Date: 09/23/24 Order Info: [id number] - CBCD Performed By: #### L 501.9985, L100.0100, L500.4100, L500.4050 #### [facility] [address] [place], [address] Calculated very low density lipoprotein (VLDL) cholesterol measurementOrdered By: Adelina Torres on 09-23-2024 Calculated very low density lipoprotein (VLDL) cholesterol measurement 15 mg/dL 5-40 [facility] VLDL Cholesterol 15 mg/dL -40 [facility] Carbon dioxide, total [Moles /volume] in Central venous bloodOrdered By: Adelina Torres on 09-23-2024 CO2 [Moles/Vol] 27.2 mmol/L 21.0-32.0 [facility] Chloride assayOrdered By: Kimberley Torres on 09-23-2024 Chloride [Moles/Vol] 105 mmol/L 98-108 [facility] Comprehensive Metabolic Prof ilon 09-23-2024 Albumin [Mass/Vol] 4.0 g/dL Normal 3.5-5.0 [facility] Comment on above: Order Comment: Order Date: 09/23/24 Order Info: [id number] - CMP Order Info: [id number] - LIPID Performed By: #### L 501.9985, L100.0100, L500.4100, L500.4050 #### [facility] [address] [place], [address] Albumin/Globulin [Mass ratio] 1.5 {ratio} Normal 0.9-2.4 [facility] Comment on above: Order Comment: Order Date: 09/23/24 Order Info: [id number] - CMP Order Info: [id number] - LIPID Performed By: #### L 501.9985, L100.0100, L500.4100, L500.4050 #### [facility] [address] [place], [address] ALK PHOS 72 U/L Normal 35-104 [facility] Comment on above: Order Comment: Order Date: 09/23/24 Order Info: [id number] - CMP Order Info: [id number] - LIPID Performed By: #### L 501.9985, L100.0100, L500.4100, L500.4050 #### [facility] [address] [place], [address] ALT [Catalytic activity/Vol] 19 U/L Normal <=34 [facility] Comment on above: Order Comment: Order Date: 09/23/24 Order Info: [id number] - CMP Order Info: [id number] - LIPID Performed By: #### L 501.9985, L100.0100, L500.4100, L500.4050 #### [facility] [address] [place], [address] AST [Catalytic activity/Vol] 17 U/L Normal <=31 [facility] Comment on above: Order Comment: Order Date: 09/23/24 Order Info: [id number] - CMP Order Info: [id number] - LIPID Performed By: #### L 501.9985, L100.0100, L500.4100, L500.4050 #### [facility] [address] [place], [address] Bilirubin [Mass/Vol] 0.27 mg/dL Normal 0.00-1.30 [facility] Comment on above: Order Comment: Order Date: 09/23/24 Order Info: [id number] - CMP Order Info: [id number] - LIPID Performed By: #### L 501.9985, L100.0100, L500.4100, L500.4050 #### [facility] [address] [place], [address] BUN/CRE 19.8 RATIO Normal 10-20 [facility] Comment on above: Order Comment: Order Date: 09/23/24 Order Info: [id number]- - CMP Order Info: [id number] - LIPID Performed By: #### L 501.9985, L100.0100, L500.4100, L500.4050 #### [facility] [address] [place], [address] Calcium [Mass/Vol] 8.8 mg/dL Normal 7.6-11.0 [facility] Comment on above: Order Comment: Order Date: 09/23/24 Order Info: [id number] - CMP Order Info: [id number] - LIPID Performed By: #### L 501.9985, L100.0100, L500.4100, L500.4050 #### [facility] [address] [place], [address] Chloride [Moles/Vol] 105 mmol/L Normal 98-108 [facility] Comment on above: Order Comment: Order Date: 09/23/24 Order Info: [id number] - CMP Order Info: [id number] - LIPID Performed By: #### L 501.9985, L100.0100, L500.4100, L500.4050 #### [facility] [address] [place], [place], [address] CO2 [Moles/Vol] 27.2 mmol/L Normal 21.0-32.0 [facility] Comment on above: Order Comment: Order Date: 09/23/24 Order Info: [id number] - CMP Order Info: [id number] - LIPID Performed By: #### L 501.9985, L100.0100, L500.4100, L500.4050 #### [facility] [address] [place], [address] Creatinine [Mass/Vol] 0.67 mg/dL Low 0.70-1.20 [facility] Comment on above: Order Comment: Order Date: 09/23/24 Order Info: [id number] - CMP Order Info: [id number] - LIPID Performed By: #### L 501.9985, L100.0100, L500.4100, L500.4050 #### [facility] [address] [place], [place], [address] GAP 9 Normal 5-15 [facility] Comment on above: Order Comment: Order Date: 09/23/24 Order Info: [id number] - CMP Order Info: [id number] - LIPID Performed By: #### L 501.9985, L100.0100, L500.4100, L500.4050 #### [facility] [address] [place], [place], [address] GFR/1.73 sq M.predicted among non-blacks MDRD (S/P/Bld) [Vol rate/Area] 102 mL/min/{1.73_m2} Normal >60 [facility] Comment on above: Order Comment: Order Date: 09/23/24 Order Info: [id number] - CMP Order Info: [id number] - LIPID Result Comment: mL/m in/1.73m2 CKD-EPI Creatinine Equation (2020) Performed By: #### L 501.9985, L100.0100, L500.4100, L500.4050 #### [facility] [address] [place], [address] Globulin (S) [Mass/Vol] 2.7 g/dL Normal 2.2-4.2 [facility] Comment on above: Order Comment: Order Date: 09/23/24 Order Info: [id number]- - CMP Order Info: [id number] - LIPID Performed By: #### L 501.9985, L100.0100, L500.4100, L500.4050 #### [facility] [address] [place], [address] Glucose [Mass/Vol] 88 mg/dL Normal 70-99 [facility] Comment on above: Order Comment: Order Date: 09/23/24 Order Info: [id number] - CMP Order Info: [id number] - LIPID Performed By: #### L 501.9985, L100.0100, L500.4100, L500.4050 #### [facility] [address] [place], [address] Potassium [Moles/Vol] 3.9 mmol/L Normal 3.3-5.1 [facility] Comment on above: Order Comment: Order Date: 09/23/24 Order Info: [id number] - CMP Order Info: [id number] - LIPID Performed By: #### L 501.9985, L100.0100, L500.4100, L500.4050 #### [facility] [address] [place], [address] Sodium [Moles/Vol] 141 mmol/L Normal 133-145 [facility] Comment on above: Order Comment: Order Date: 09/23/24 Order Info: [id number] - CMP Order Info: [id number] - LIPID Performed By: #### L 501.9985, L100.0100, L500.4100, L500.4050 #### [facility] [address] [place], [place], [address] T PROT 6.7 g/dL Normal 5.9-8.4 [facility] Comment on above: Order Comment: Order Date: 09/23/24 Order Info: [id number] - CMP Order Info: [id number] - LIPID Performed By: #### L 501.9985, L100.0100, L500.4100, L500.4050 #### [facility] [address] [place], [address] Urea nitrogen [Mass/Vol] 13 mg/dL Normal 4-19 [facility] Comment on above: Order Comment: Order Date: 09/23/24 Order Info: [id number] - CMP Order Info: [id number] - LIPID Performed By: #### L 501.9985, L100.0100, L500.4100, L500.4050 #### [facility] [address] [place], [address] Eosinophil percentageOrdered By: Adelina Torres on 09-23-2024 Eosinophils/100 WBC (Bld) 1.1 % 0-5 [facility] Erythrocyte distribution wid th (RBC) [Ratio]Ordered By: Adelina Torres on 09-23-2024 Erythrocyte distribution width (RBC) [Entitic vol] 42.5 fL 35.1-43.9 [facility] Erythrocyte distribution wid th ratioOrdered By: Adelina Torres on 09-23-2024 Erythrocyte distribution width (RBC) [Ratio] 13.1 % 11.6-14.6 [facility] Erythrocyte distribution wid th standard deviationOrdered By: Adelina Torres on 09-23-2024 Erythrocyte distribution width (RBC) [Ratio] 42.5 fl 35.1-43.9 [facility] GFR/1.73 sq M.predicted umair g non-blacks MDRD (S/P/Bld) [Vol rate/Area]Ordered By: Adelina Torres on 09-23-2024 Estimated GFR (MDRD) Non-Af Amer 102 >60 [facility] Comment on above: mL/min/1.73m2 CKD-EP I Creatinine Equation (2020) Glomerular filtration rate ( GFR) estimation/1.73 sq m using serum, plasma, or whole bOrdered By: Adelina Torres on 09-23-2024 GFR/1.73 sq M.predicted among non-blacks MDRD (S/P/Bld) [Vol rate/Area] 102 mL/min/{1.73_m2} >60 [facility] Comment on above: mL/min/1.73m2 CKD-EP I Creatinine Equation (2020) Hematocrit Auto (Bld) [Volum e fraction]Ordered By: Adelina Torres on 09-23-2024 Hematocrit (Bld) [Volume fraction] 41.5 % 37-47 [facility] Hemoglobin A1con 09-23-2024 HbA1c (Bld) [Mass fraction] 5.3 % Normal <=5.6 [facility] Comment on above: Order Comment: Order Date: 09/23/24Order Info: [id number] - A1C Result Comment: Norm al < 5.7 % Prediabetic 5.7 - 6.4 % Diabetic >or= 6.5 % Please note range changes. Performed By: #### L 501.9985, L100.0100, L500.4100, L500.4050 ####[facility] [id number] [place], [place], [id number] Hemoglobin A1c percentageOrd ered By: Adelina Torres on 09-23-2024 HbA1c (Bld) [Mass fraction] 5.3 % <5.7 [facility] Comment on above: Normal < 5.7 % Predi abetic 5.7 - 6.4 % Diabetic >or= 6.5 % Please note range changes. Hemoglobin measurementOrdere d By: Adelina Torres on 09-23-2024 Hemoglobin (Bld) [Mass/Vol] 13.8 g/dL 12.0-15.0 [facility] Immature granulocytes/100 WB C Auto (Bld)Ordered By: Adelina Torres on 09-23-2024 Immature granulocytes/100 WBC (Bld) 0.400 % 0.0-0.9 [facility] Comment on above: IG% - Immature Granu locytes (promyelocytes, myelocytes and metamyelocytes) > 1% indicates that a LEFT SHIFT is Present. LDL calc ser/plasOrdered By: Adelina Torres on 09-23-2024 Cholesterol in LDL [Mass/Vol] 164 mg/dL [facility] Comment on above: Rkilzczlkc=105-445 m g/dL & Higher Bgxr=082 mg/dL or greater LDL Cholesterol, Calculated 164 mg/dL [facility] Comment on above: Tfnrvfowcq=036-735 m g/dL & Higher Sjyg=175 mg/dL or greater Laboratory - Chemistry and C hemistry - challengeOrdered By: Adelina Torres on 09-23-2024 AST [Catalytic activity/Vol] 17 U/L <32 [facility] Lipid Profileon 09-23-2024 CHOL:HDL 3.83 Normal [facility] Comment on above: Order Comment: Order Date: 09/23/24 Order Info: [id number] - CMP Order Info: [id number] - LIPID Performed By: #### L 501.9985, L100.0100, L500.4100, L500.4050 #### [facility] [address] [place], [address] Cholesterol [Mass/Vol] 243 mg/dL High <=200 [facility] Comment on above: Order Comment: Order Date: 09/23/24 Order Info: [id number] - CMP Order Info: [id number] - LIPID Result Comment: Chol esterol level, Desirable <200 mg/dL Borderline high cholesterol 200-239 mg/dL High cholesterol >=240 mg/dL Recommendations of the NCEP Adult Treatment Panel for the following risk-cutoff thresholds for the [place] population. Performed By: #### L 501.9985, L100.0100, L500.4100, L500.4050 #### [facility] [address] [place], [address] Cholesterol in HDL [Mass/Vol] 63 mg/dL Normal [facility] Comment on above: Order Comment: Order Date: 09/23/24 Order Info: [id number] - CMP Order Info: [id number] - LIPID Result Comment: Shayna onal Cholesterol Education Program (NCEP) guidelines: <40 mg/dL: Low HDL-cholesterol (major risk factor for CHD) >= 60 mg/dL: High HDL-cholesterol (negative risk factor for CHD) HDL-cholesterol is affected by a number of factors, e.g. smoking, exercise, hormones, sex and age. Performed By: #### L 501.9985, L100.0100, L500.4100, L500.4050 #### [facility] [address] [place], [address] Cholesterol in LDL [Mass/Vol] 164 mg/dL Normal [facility] Comment on above: Order Comment: Order Date: 09/23/24 Order Info: [id number] - CMP Order Info: [id number] - LIPID Result Comment: Bord wqymvv=728-547 mg/dL Higher Vuzg=160 mg/dL or greater Performed By: #### L 501.9985, L100.0100, L500.4100, L500.4050 #### [facility] [address] [place], [address] Cholesterol in VLDL [Mass/Vol] 15 mg/dL Normal 5-40 [facility] Comment on above: Order Comment: Order Date: 09/23/24 Order Info: [id number] - CMP Order Info: [id number] - LIPID Performed By: #### L 501.9985, L100.0100, L500.4100, L500.4050 #### [facility] [address] [place], [address] Triglyceride [Mass/Vol] 76 mg/dL Normal [facility] Comment on above: Order Comment: Order Date: 09/23/24 Order Info: [id number] - CMP Order Info: [id number] - LIPID Result Comment: The drugs N-Acetylcysteine and Metamizole may falsely depress this assay. Normal range: <150 mg/dL Borderline High: 150-199 mg/dL High: 200-499 mg/dL Very High: >500 mg/dL Performed By: #### L 501.9985, L100.0100, L500.4100, L500.4050 #### [facility] [address] [place], [address] Lymphocytes Auto (Unsp spec) [#/Vol]Ordered By: Adelina Torres on 09-23-2024 Lymphocytes (Bld) [#/Vol] 3.21 10*3/uL 0.83-4.51 [facility] Lymphocytes/100 WBC Auto (Un sp spec)Ordered By: Adelina Torres on 09-23-2024 Lymphocytes/100 WBC (Bld) 38.4 % 19-41 [facility] MCV (mean corpuscular volume ) determinationOrdered By: Adelina Torres on 09-23-2024 MCV (RBC) [Entitic vol] 88.3 fL 81-99 [facility] Mean corpuscular hemoglobin (MCH) determinationOrdered By: Adelina Torres on 09-23-2024 MCH (RBC) [Entitic mass] 29.4 pg 27.0-32.0 [facility] Mean corpuscular hemoglobin concentration (MCHC) determinationOrdered By: Adelina Torres on 09-23-2024 MCHC (RBC) [Mass/Vol] 33.3 g/dL 32-36 [facility] Mean platelet volume determi nationOrdered By: Adelina Torres on 09-23-2024 Platelet mean volume (Bld) [Entitic vol] 9.6 fL 6.2-12.0 [facility] Monocyte percentageOrdered B y: Adelina Torres on 09-23-2024 Monocytes/100 WBC (Bld) 5.6 % 0-10 [facility] Neutrophil percentageOrdered By: Adelina Torres on 09-23-2024 Neutrophils/100 WBC (Bld) 54.0 % 47-70 [facility] Nucleated red blood cell per centageOrdered By: Adelina Torres on 09-23-2024 Nucleated RBC/100 WBC (Bld) [Ratio] 0 % 0-5 [facility] Orthopedic Visit Reporton Orthopedic Visit Report [facility] [address] [place] [address] OFFICE VISIT Date of Service: 09/23/24 MR#: [id number] Acct: [id number] Name: KANWAL MARTINEZ Rep #: [id number] : 1970 Provider: Dr. Jose J dinh DO Age/Sex: 54/F Location: [facility] [place] [facility] [place] Status: Signed Intake Vital Signs 09/09/24 13:36 Height 5 ft 2 in Weight: 171 lb 6 oz BMI 31.3 Intake Visit Reasons: right knee Chief Complaint: Right Knee Pain Allergies No Known Allergies Allergy (Verified 09/23/24 14:58) Medications ???Medication ???Instructions ???Recorded ???Confirmed ???Type NK 03/25/24 09/23/24 History PFSH Medical History Sinus arrhythmia Palpitations Surgical History History of Family History Father Atrial fibrillation Cardiomegaly Heart disease Social History Smoking Status: Never smoker alcohol intake: never substance use type: does not use HPI right knee Details: This documentation accurately reflects the service provided and the decisions made by me, Dr. Jose J Murphy, 09/23/24 0805. Part of today???s visit was documented by Sara HOLMAN, acting as scribe. KANWAL MARTINEZ is a 54 year old F here today for right knee Iovera procedure. Ortho Exam General General: Yes no acute distress and Yes well groomed Neurologic: Yes alert and Yes oriented x3 Psychologic: Yes reasonable and appropriate Right Knee Skin/Wound: Yes CDI, No erythema, No ecchymosis and No swelling Knee ROM: Yes ROM-Extension -20 to 0 and No ROM-Flexion 0-140 (115) Examination: No Med jt line tenderness and Yes Crepitus Stability: NML: Anterior Drawer, NML: Posterior Drawer, NML: Valgus 0, NML: Valgus 30, NML: Varus 0 and NML: Varus 30 Patella Translation: 1 KNEE: loose body shifting on the upper anterior lateral aspect of the knee painful when snapping no joint effusion Left Knee Patella Translation: 1 Office Procedures Iovera Procedure Details:: Preoperative diagnosis :chronic knee pain Postoperative diagnosis: Same Procedure: Cryotherapy with Iovera device to anterior femoral cutaneous nerve and 2 branches of the infrapatellar saphenous nerve. Three nerves in total. Description of procedure: Patient was brought back to the procedure room the operative extremity was identified by both patient and physician. Entire extremity was cleaned with alcohol. The superior inferior and medial lateral borders of the patella were marked followed by the center of the patella. We then measured 12 cm proximal to this and with the knee in flexion marked the medial and lateral edges of the patella continuing proximally to give us our proximal treatment line.This was our treatment line for the anterior femoral cutaneous nerve. A second treatment line was made 5 cm medial to the inferior pole of the patella and 5 cm distally. The treatment lines were then prepped with Betadine and 1 last time with alcohol. Lidocaine 1% with epi was injected subcutaneously along the treatment lines. Using the Iovera device on the marked treatment lines device was activated allowing it to freeze and defrost with 1 minute cycles. Once all 3 nerve branches were treated across the 2 treatment lines patient was cleaned and a light dressing with 4 x 4 and Humphrey wrap was applied. Patient tolerated the procedure without complication. Supplemental Info 09/09/2024 x-ray right knee:advanced medial compartment narrowing [id number], moderate patellofemoral spurring 06/21/2023 x-ray right knee: advanced medial compartment narrowing [id number], moderate patellofemoral spurring Coding Level of Care Code Attention Aleksandra Diagnoses Chronic pain of right knee M25.561; G89.29 Assessment and Plan Assessment and Plan (1) Chronic pain of right knee: Status: Chronic Orders: Orders Iovera Today M17.11 - Unilateral primary osteoarthritis, right knee Plan Iovera procedure performed today. 09/23/24 1542 Date Jose J Lopez Signature: Date (if applicable) CC: Normal [facility] Platelet countOrdered By: Kimberley Torres on 09-23-2024 Platelets (Bld) [#/Vol] 270 10*3/uL 150-450 [facility] Potassium (Unsp spec) [Mass/ Vol]Ordered By: Adelina Torres on 09-23-2024 Potassium [Moles/Vol] 3.9 mmol/L 3.3-5.1 [facility] Potassium measurement (mass/ volume)Ordered By: Adelina Torres on 09-23-2024 Potassium (Unsp spec) [Mass/Vol] 3.9 mmol/L 3.3-5.1 [facility] RBC Auto (Bld) [#/Vol]Ordere d By: Adelina Torres on 09-23-2024 RBC (Bld) [#/Vol] 4.70 10*6/uL 4.2-5.4 [facility] Screening total cholesterol/ high density lipoprotein (HDL) cholesterol ratioOrdered By: Adelina Torres on 09-23-2024 Cholesterol.total/Trixie sterol in HDL [Mass ratio] 3.83 {ratio} [facility] Serum creatinine measurement (mass/volume)Ordered By: Adelina Torres on 09-23-2024 Creatinine [Mass/Vol] 0.67 mg/dL Low 0.70-1.20 [facility] Serum globulin measurementOr dered By: Adelina Torres on 09-23-2024 Globulin (S) [Mass/Vol] 2.7 g/dL 2.2-4.2 [facility] Serum glucose measurement (m ass/volume)Ordered By: Adelina Torres on 09-23-2024 Glucose [Mass/Vol] 88 mg/dL 70-99 [facility] Serum or plasma alanine garcia otransferase (ALT) measurementOrdered By: Adelina Torres on 09-23-2024 ALT [Catalytic activity/Vol] 19 U/L <35 [facility] Serum or plasma albumin caren urement (mass/volume)Ordered By: Adelina Torres on 09-23-2024 Albumin [Mass/Vol] 4.0 g/dL 3.5-5.0 [facility] Serum or plasma albumin/glob ulin mass ratioOrdered By: Adelina Torres on 09-23-2024 Albumin/Globulin [Mass ratio] 1.5 {ratio} 0.9-2.4 [facility] Serum or plasma alkaline suzie sphatase measurementOrdered By: Adelina Torres on 09-23-2024 ALP [Catalytic activity/Vol] 72 U/L 35-104 [facility] Serum or plasma calcium caren urement (mass/volume)Ordered By: Adelina Torres on 09-23-2024 Calcium [Mass/Vol] 8.8 mg/dL 7.6-11.0 [facility] Serum or plasma cholesterol in HDL measurement (mass/volume)Ordered By: Adelina Torres on 09-23-2024 Cholesterol in HDL [Mass/Vol] 63 mg/dL >40 [facility] Comment on above: National Cholesterol Education Program (NCEP) guidelines:<40 mg/dL: Low HDL-cholesterol (major risk factor for CHD)>= 60 mg/dL: High HDL-cholesterol (negative risk factor for CHD)HDL-cholesterol is affected by a number of factors, e.g. smoking, exercise, hormones, sex and age. Serum or plasma cholesterol measurement (mass/volume)Ordered By: Adelina Torres on 09-23-2024 Cholesterol [Mass/Vol] 243 mg/dL High <201 [facility] Comment on above: Cholesterol level, D esirable <200 mg/dLBorderline high cholesterol 200-239 mg/dLHigh cholesterol >=240 mg/dLRecommendations of the NCEP Adult Treatment Panel for the following risk-cutoff thresholds for the [place] population. Serum or plasma urea nitroge n measurement (mass/volume)Ordered By: Adelina Torres on 09-23-2024 Urea nitrogen [Mass/Vol] 13 mg/dL 4-19 [facility] Sodium levelOrdered By: Sujey Torres on 09-23-2024 Sodium [Moles/Vol] 141 mmol/L 133-145 [facility] Total proteinOrdered By: Kady Torres on 09-23-2024 Protein [Mass/Vol] 6.7 g/dL 5.9-8.4 [facility] Triglycerides measurementOrd ered By: Adelina Torres on 09-23-2024 Triglyceride [Mass/Vol] 76 mg/dL <199 [facility] Comment on above: The drugs N-Acetylcy steine and Metamizole may falsely depress this assay. Normal range: <150 mg/dLBorderline High: 150-199 mg/dLHigh: 200-499 mg/dLVery High: >500 mg/dL Vitamin D, 25-hydroxyOrdered By: Adelina Torres on 09-23-2024 Vitamin D 25-Hydroxy 13.9 ng/mL Low 30-100 [facility] Comment on above: Vitamin D StatusDefi ciency: <20 ng/mL (50nmol/L)Insufficiency: 20-30 ng/mL (50-75 nmol/L)Sufficiency: 30-100 ng/mL (75-250 nmol/L)Toxicity: >100 ng/mL (>250 nmol/L) Vitamin D,25 Hydroxyon 09-23 Vitamin D 25-OH 13.9 ng/mL Low 30-100 [facility] Comment on above: Order Comment: Order Date: 09/23/24Order Info: [id number] - CMPOrder Info: [id number] - LIPID Result Comment: Sallie min D Status Deficiency: <20 ng/mL (50nmol/L) Insufficiency: 20-30 ng/mL (50-75 nmol/L) Sufficiency: 30-100 ng/mL (75-250 nmol/L) Toxicity: >100 ng/mL (>250 nmol/L) Performed By: #### L 506.1001 ####[facility] [address] [place], [address] White blood cell (WBC) count Ordered By: Adelina Torres on 09-23-2024 WBC (Bld) [#/Vol] 8.4 10*3/uL 4.4-11.0 [facility] Knee 4 or More Viewson 09-09 Knee 4 or More Views [facility] Imaging Services [address] [place], [place] [id number] Knee 4 or More Views MR#: [id number] Acct: [id number] Name: KANWAL MARTINEZ Rep #: [id number] : 1970 F 54 From: Les Jordan i, DO PCP: Care Physician,No Primary Status: DEP AMB Study: Knee 4 or More Views Date of Exam: 09/09/24 Exam# [id number] Ordering Dr: Jose J Murphy DO PROCEDURE: Right knee radiographs, four views 09/09/2024 REASON FOR EXAM: KNEE ARTHRITIS, CONTINUED PAIN TECHNIQUE: Four views of the right knee were obtained. COMPARISON: None available FINDINGS: Four views of the right knee were obtained. Bones are osteopenic. No acute fracture or dislocation of the right knee. Moderate tricompartmental degenerative changes of the right knee, greatest involving the medial compartment. Small suprapatellar effusion. RAD/Knee 4 or More Views IMPRESSION: Osteopenia. No acute bony abnormality of the right knee. Moderate tricompartmental degenerative changes of the right knee, greatest involving the medial compartment. Small suprapatellar effusion. Reading Location: [facility] CC: Dr. Jose J Murphy DO; No Primary Care Physician Medical Records Administrator: Signed Normal [facility] Orthopedic Visit Reporton Orthopedic Visit Report [facility] [address] [place] [address] OFFICE VISIT Date of Service: 09/09/24 MR#: [id number] Acct: [id number] Name: KANWAL MARTINEZ Rep #: [id number] : 1970 Provider: Dr. Jose J dinh DO Age/Sex: 54/F Location: [facility] [place] Status: Signed Intake Vital Signs 03/25/24 13:28 09/09/24 13:36 Height 5 ft 2 in 5 ft 2 in Weight: 171 lb 6 oz BMI 31.3 Intake Visit Reasons: RIGHT KNEE Chief Complaint: Right Knee Pain Accompanied by: Self Is patient in pain?: Yes Pain scale (1-10): 4 Allergies No Known Allergies Allergy (Verified 09/09/24 13:36) Medications ???Medication ???Instructions ???Recorded ???Confirmed ???Type NK 03/25/24 09/09/24 History PFSH Medical History Sinus arrhythmia Palpitations Surgical History History of Family History Father Atrial fibrillation Cardiomegaly Heart disease Social History Smoking Status: Never smoker alcohol intake: never substance use type: does not use HPI RIGHT KNEE Details: This documentation accurately reflects the service provided and the decisions made by me, Dr. Jose J Murphy, DO 09/09/24 0756. Part of today???s visit was documented by [ ], acting as scribe. KANWAL MARTINEZ is a 54 year old F here today for right knee pain. Patient rates her pain a 4/10 today and wants to discuss the next steps. Patient did have Euflexxa injections and states they gave her some mild relief. Patient denies any recent falls or injuries to the knee. She describes the pain around the patella and over the lateral aspect of the top of the knee. She states the knee will occasionally grind and pinch. She states when she is walking it feels like the knee wants to go the wrong direction. Patient finished physical therapy and the pain/inflammation she was having with the IT band is gone and she states feels great. She states they didn't focus much on the knee they specifically focused on the IT band. She will take Tylenol/Ibuprofen PRN for the pain. 05/31/2024: Third Euflexxa right knee 1216 2023: second Euflexxa right knee 05/13/2024: First Euflexxa right knee 03/25/2024 visit:53 year old F here today NEW patient for her right knee. She states that she has had pain for a years but recently it it has gotten worse. She has been getting injections by Dr. Hirsch which use to help but they no longer help. Her last injection was about 4 months ago and it didn't give her any relief. Her pain is mostly anterior and is tender to touch. She states that the pain radiates up into her hip and low back that she thinks is from compensating. The knee pain started first and she started having lateral thigh pain. Denies numbness, tingling or other associated symptoms. She denies previous surgery on the knee. She does have Ibuprofen 600mg that Dr Hirsch gave her that she takes when the pain gets really bad. She does feel a grinding in the knee. She denies instability. She has tried an [facility] velcro hinged knee brace that wasn't helpful. She denies PT. Plan: Patient is here today for the right knee pain. Educated patient on anatomy and etiology. Reviewed xrays that she does have advanced arthritis of the knee, however this is mostly medial. Spoke with her that her treatment options are do nothing, steroid injection, viscosupplementation injection, weight loss, glucosamine chondroitin, knee bracing, physical therapy, anti- inflammatories, or a TKA. Spoke with patient that I do have a concern of her IT band being inflamed. And explained she could continue to have this pain after surgery and the recommended treatment for it would be formal physical therapy she thinks it started after her gait was altered from her knee pain which is very possible. She would like us to submit for the gel injections along with physical therapy and a steroid injection today. Follow up after approval for viscosupplementation injections or sooner if pain, swelling, numbness or associated symptoms, or concerns develop. All questions answered. Patient in agreement of plan. Ortho Exam General General: Yes no acute distress and Yes well groomed Neurologic: Yes alert and Yes oriented x3 Psychologic: Yes reasonable and appropriate Right Knee Skin/Wound: Yes CDI, No erythema, No ecchymosis and No swelling Knee ROM: Yes ROM-Extension -20 to 0 and No ROM-Flexion 0-140 (115) Examination: No Med jt line tenderness and Yes Crepitus Stability: NML: Anterior Drawer, NML: Posterior Drawer, NML: Valgus 0, NML: Valgus 30, NML: Varus 0 and NML: Varus 30 Patella Translation: 1 KNEE: loose body shifting (more content not included)... Normal [facility] Orthopedic Visit Reporton Orthopedic Visit Report [facility] [place] [address] OFFICE VISIT Date of Service: 05/31/24 MR#: [id number] Acct: [id number] Name: KANWAL MARTINEZ Rep #: [id number] : 1970 Provider: Dr. Jose J dinh DO Age/Sex: 54/F Location: [facility] [place] Status: Signed Intake Vital Signs 03/25/24 13:28 Height 5 ft 2 in Intake Visit Reasons: RIGHT KNEE Chief Complaint: Right Knee 3rd Euflexxa Allergies No Known Allergies Allergy (Verified 05/31/24 08:05) Medications ???Medication ???Instructions ???Recorded ???Confirmed ???Type NK 03/25/24 05/31/24 History PFSH Medical History Sinus arrhythmia Palpitations Surgical History History of Family History Father Atrial fibrillation Cardiomegaly Heart disease Social History Smoking Status: Never smoker alcohol intake: never substance use type: does not use HPI RIGHT KNEE Details: This documentation accurately reflects the service provided and the decisions made by me, Dr. Jose J Murphy, DO 05/31/24 0801. Part of today???s visit was documented by Sara HOLMAN, acting as scribe. KANWAL MARTINEZ is a 54 year old F here today for her 3rd right knee Euflexxa injection. Ortho Exam General General: Yes no acute distress Neurologic: Yes alert and Yes oriented x3 Psychologic: Yes reasonable and appropriate Right Knee Skin/Wound: No erythema, No ecchymosis and No swelling Homans Sign: No Knee ROM: Yes ROM-Extension -20 to 0 (-3) and Yes ROM-Flexion 0-140 (120) Examination: No Med jt line tenderness, No Lat jt line tenderness, Yes Crepitus, Yes Pain with flexion, No TTP Tibial tubercle, No TTP Pes Anserine and Yes Illiotibial band tenderness Stability: NML: Anterior Drawer, NML: Posterior Drawer, NML: Valgus 0, NML: Valgus 30, NML: Varus 0 and NML: Varus 30 Patella Translation: 1 Patellar Tilt Normal: No Patella Grind: Yes KNEE: tenderness over lateral femoral condyle there is some crepitation over the lateral patella with knee range of motion Left Knee Patella Translation: 1 Office Procedures Euflexxa Procedure Details:: Obtained consent for injection. Under sterile conditions, injected the patients right knee with 20mg/2mL. The patient tolerated the injection well without any noted complication. Patient should call our office if redness develops, pain worsens or if they have any concerns. Is this Buy Bill?: Yes Office Meds Euflexxa 10 mg/mL (mw 2.4-3.6 million) intra-articular syringe Performing Provider: Jose J Murphy DO Performing Location: [facility] Administered by: Jose J Murphy DO on 05/31/24 08:09 Dose Route Admin Location Dispensed Lot Number Expiration Date [facility] Man ufacturer 20 mg intra-articular right knee 2 mL [id number] 04/27/25 [address]-4 [employer] Supplemental Info 06/21/2023 x-ray right knee advanced medial compartment narrowing [id number], moderate patellofemoral spurring Coding Level of Care Code Off vis,est,level 3 Diagnoses Primary osteoarthritis of right knee M17.11 Osteoarthritis type: primary Assessment and Plan Assessment and Plan (1) Osteoarthritis of right knee: Status: Acute Qualifiers: Osteoarthritis type: primary Qualified Code(s): M17.11 - Unilateral primary osteoarthritis, right knee Orders: Orders Euflexxa Injection Today M17.11 - Unilateral primary osteoarthritis, right knee Plan Explained it may take up to 6 weeks after the last injection for her to know if she will have any relief from the visco injections. Follow up in 1 week for 3rd Euflexxa injection or sooner if pain, swelling, numbness or associated symptoms, or concerns develop. All questions answered. Patient in agreement of plan. 05/31/24 0914 Date Jose J Murphy DO Cosigner Signature: Date (if applicable) CC: Normal [facility] Orthopedic Visit Reporton Orthopedic Visit Report [facility] [address] [place] [address] [address] [place] [address] OFFICE VISIT Date of Service: 05/20/24 MR#: [id number] Acct: [id number] Name: KANWAL MARTINEZ Rep #: [id number] : 1970 Provider: Dr. Jose J dinh DO Age/Sex: 54/F Location: [facility] [place] [facility] [place] Status: Signed Intake Vital Signs 03/25/24 13:28 Height 5 ft 2 in Weight: 171 lb 6 oz BMI 31.3 Intake Visit Reasons: RIGHT KNEE Is patient in pain?: Yes Allergies No Known Allergies Allergy (Verified 05/13/24 08:38) FOR[facility] Medical History Sinus arrhythmia Palpitations Surgical History History of Family History Father Atrial fibrillation Cardiomegaly Heart disease Social History Smoking Status: Never smoker alcohol intake: never substance use type: does not use HPI RIGHT KNEE Details: This documentation accurately reflects the service provided and the decisions made by me, Dr. Jose J Murphy, 05/20/24 0730. Part of today???s visit was documented by [ ], acting as scribe. KANWAL MRATINEZ is a 54 year old F here today for right knee 2nd Euflexxa injection. Patient states that she has had no improvement but denies any adverse reactions. She notes that she might have some increased stiffness in her knee. She continues to ambulate with an antalgic gait. Ortho Exam General General: Yes no acute distress Neurologic: Yes alert and Yes oriented x3 Psychologic: Yes reasonable and appropriate Right Knee Skin/Wound: No erythema, No ecchymosis and No swelling Homans Sign: No Knee ROM: Yes ROM-Extension -20 to 0 (-3) and Yes ROM-Flexion 0-140 (120) Examination: No Med jt line tenderness, No Lat jt line tenderness, Yes Crepitus, Yes Pain with flexion, No TTP Tibial tubercle, No TTP Pes Anserine and Yes Illiotibial band tenderness Stability: NML: Anterior Drawer, NML: Posterior Drawer, NML: Valgus 0, NML: Valgus 30, NML: Varus 0 and NML: Varus 30 Patella Translation: 1 Patellar Tilt Normal: No Patella Grind: Yes KNEE: tenderness over lateral femoral condyle there is some crepitation over the lateral patella with knee range of motion Left Knee Patella Translation: 1 Office Procedures Euflexxa Procedure Details:: Obtained consent for injection. Under sterile conditions, injected the patients right knee with 2nd Euflexxa injection. The patient tolerated the injection well without any noted complication. Patient should call our office if redness develops, pain worsens or if they have any concerns. Is this Buy Bill?: Yes Office Meds Euflexxa 10 mg/mL (mw 2.4-3.6 million) intra-articular syringe Performing Provider: Jose J Murphy DO Performing Location: [facility] Administered by: Jose J Murphy DO on 05/20/24 08:05 Dose Route Admin Location Dispensed Lot Number Expiration Date N[facility] Man ufacturer 20 mg intra-articular right knee 2 mL [id number] 04/27/25 [address]-6 [employer] Supplemental Info 06/21/2023 x-ray right knee advanced medial compartment narrowing [id number], moderate patellofemoral spurring Coding Level of Care Code Off vis,est,level 3 Diagnoses Primary osteoarthritis of right knee M17.11 Osteoarthritis type: primary Assessment and Plan Assessment and Plan (1) Osteoarthritis of right knee: Status: Acute Qualifiers: Osteoarthritis type: primary Qualified Code(s): M17.11 - Unilateral primary osteoarthritis, right knee Orders: Orders Euflexxa Injection Today Plan Explained it may take up to 6 weeks after the last injection for her to know if she will have any relief from the visco injections. Follow up in 1 week for 3rd Euflexxa injection or sooner if pain, swelling, numbness or associated symptoms, or concerns develop. All questions answered. Patient in agreement of plan. 05/20/24 0843 Date Jose J Murphy DO Cosigner Signature: Date (if applicable) CC: Normal [facility] Orthopedic Visit Reporton Orthopedic Visit Report [facility] [address] [place] [address] OFFICE VISIT Date of Service: 05/13/24 MR#: [id number] Acct: [id number] Name: KANWAL MARTINEZ Markie Rep #: [id number] : 1970 Provider: Dr. Jose J dinh DO Age/Sex: 54/F Location: [facility] [place] Status: Signed Intake Vital Signs 03/25/24 13:28 Height 5 ft 2 in Weight: 171 lb 6 oz BMI 31.3 Intake Visit Reasons: RIGHT KNEE Chief Complaint: Right Knee 1st Euflexxa Accompanied by: Self Is patient in pain?: Yes Pain scale (1-10): 3 Allergies No Known Allergies Allergy (Verified 05/13/24 08:38) Medications ???Medication ???Instructions ???Recorded ???Confirmed ???Type NK 03/25/24 05/13/24 History PFSH Medical History Sinus arrhythmia Palpitations Surgical History History of Family History Father Atrial fibrillation Cardiomegaly Heart disease Social History Smoking Status: Never smoker alcohol intake: never substance use type: does not use HPI RIGHT KNEE Details: This documentation accurately reflects the service provided and the decisions made by me, Dr. Jose J Murphy DO 05/13/24 0747. Part of today???s visit was documented by Marisol Herman ATC, acting as scribe. KANWAL MARTINEZ is a 54 year old F here today for right knee 1st Euflexxa injection. Patient rates her pain a 3/10 today and says the knee always bothers her especially when walking on uneven surfaces. Ortho Exam General General: Yes no acute distress Neurologic: Yes alert and Yes oriented x3 Psychologic: Yes reasonable and appropriate Right Knee Skin/Wound: No erythema, No ecchymosis and No swelling Homans Sign: No Knee ROM: Yes ROM-Extension -20 to 0 (-3) and Yes ROM-Flexion 0-140 (120) Examination: No Med jt line tenderness, No Lat jt line tenderness, Yes Crepitus, Yes Pain with flexion, No TTP Tibial tubercle, No TTP Pes Anserine and Yes Illiotibial band tenderness Stability: NML: Anterior Drawer, NML: Posterior Drawer, NML: Valgus 0, NML: Valgus 30, NML: Varus 0 and NML: Varus 30 Patella Translation: 1 Patellar Tilt Normal: No Patella Grind: Yes KNEE: tenderness over lateral femoral condyle there is some crepitation over the lateral patella with knee range of motion Left Knee Patella Translation: 1 Office Procedures Euflexxa Procedure Details:: Obtained consent for injection. Under sterile conditions, injected the patients right knee with 1st Euflexxa injection. The patient tolerated the injection well without any noted complication. Patient should call our office if redness develops, pain worsens or if they have any concerns. Is this Buy Bill?: Yes Office Meds Euflexxa 10 mg/mL (mw 2.4-3.6 million) intra-articular syringe Performing Provider: Jose J Murphy DO Performing Location: [facility] Administered by: Jose J Murphy DO on 05/13/24 08:41 Dose Route Admin Location Dispensed Lot Number Expiration Date NDC Man ufacturer 20 mg intra-articular Right Knee 2 mL [id number] 04/27/25 [address]-7 [employer] Supplemental Info 06/21/2023 x-ray right knee advanced medial compartment narrowing [id number], moderate patellofemoral spurring Coding Level of Care Code Off vis,est,level 3 Diagnoses Primary osteoarthritis of right knee M17.11 Osteoarthritis type: primary Iliotibial band syndrome of right side M76.31 Laterality: right Assessment and Plan Assessment and Plan (1) Osteoarthritis of right knee: Status: Acute Qualifiers: Osteoarthritis type: primary Qualified Code(s): M17.11 - Unilateral primary osteoarthritis, right knee (2) IT band syndrome: Status: Acute Qualifiers: Laterality: right Qualified Code(s): M76.31 - Iliotibial band syndrome, right leg Orders: Orders Euflexxa Injection Today M17.11 - Unilateral primary osteoarthritis, right knee Plan Follow up in a week for the second Euflexxa injection or sooner if pain, swelling, numbness or associated symptoms, or concerns develop. All questions answered. Patient in agreement of plan. 05/13/24 0900 Date Jose J Murphy DO [facility] Signature: Date (if applicable) CC: [facility] 04-20-2024 [facility] Office Visit (UCWSTR ) KANWAL MARTINEZ ([id number]) 1970 F Date Time Provider Department 04/20/24 8:30 AM [facility] During your visit today, we recorded the following information about you: Temperature Pulse Respiration Blood pressure 98.6 degrees 75/minute 16/minute 115/80 Weight 78.7 kg Ludy Ferrer PA 04/20/2024 8:29 AM Signed This note was created using NuoDB. Subjective Kanwal Martinez is a 54 year old female. HPI 54-year-old female presents for cough, nasal congestion, sinus headache, sinus pain for over 1 week. Patient states she is taking sick a little over a week ago with sinus congestion. She has having yellow nasal drainage. She states she has a lot of sinus pain in her face and under her eyes. She has had a cough that got worse yesterday. She states that she has a little bit of sore throat with coughing. Cough is dry. She denies any chest pain or shortness of breath. No history of COPD or asthma. She is also reporting left ear pain. She has been taking DayQuil and NyQuil with minimal improvement in symptoms. PAST MEDICAL HISTORY Diagnosis Date Migraines PAST SURGICAL HISTORY Procedure Laterality Date DELIVERY ONLY , low transverse DIVISN PLANTAR FASCIA/MUSCLE 1984 left HYSTEROSCOPY BX W/WO DANDC 11/2012 w/ polypectomy LIG/TRNSXJ FLP TUBE ABDL/VAG APPR UNI/BI Tubal ligation ALLERGIES Patient has no known allergies. MEDICATIONS doxycycline (VIBRA-TABS) 100 mg tablet Take 1 tablet by mouth two times a day for 7 days. benzonatate (TESSALON PERLE) 100 mg capsule Take 1 capsule by mouth three times a day as needed. FAMILY HISTORY Problem Relation Age of Onset Diabetes Mother Heart Father Cancer Maternal Grandfather leukemia Social History Tobacco Use Smoking status: Never Smokeless tobacco: Never Substance Use Topics Alcohol use: No Drug use: No Review of Systems Constitutional: Negative for chills and fever. HENT: Positive for congestion, ear pain, sinus pressure and sinus pain. Negative for sore throat. Respiratory: Positive for cough. Negative for shortness of breath. Cardiovascular: Negative for chest pain. Gastrointestinal: Negative for diarrhea and vomiting. Neurological: Positive for headaches. Objective BP 115/80 Pulse 75 Temp 37 ?C (98.6 ?F) (Right Tympanic) Resp 16 Wt 78.7 kg (173 lb 8 oz) LMP 06/20/2023 (Exact Date) SpO2 98% BMI 32.78 kg/m? Physical Exam Vitals and nursing note reviewed. Constitutional: General: She is not in acute distress. Appearance: Normal appearance. She is not toxic-appearing. HENT: Right Ear: Tympanic membrane and ear canal normal. Tympanic membrane is not erythematous. Left Ear: Tympanic membrane and ear canal normal. Tympanic membrane is not erythematous. Ears: Comments: Mild amount of clear fluid behind TMs bilaterally Nose: Mucosal edema and congestion present. Right Sinus: Maxillary sinus tenderness present. Left Sinus: Maxillary sinus tenderness present. Mouth/Throat: Mouth: Mucous membranes are moist. Eyes: Conjunctiva/sclera: Conjunctivae normal. Cardiovascular: Rate and Rhythm: Normal rate and regular rhythm. Pulmonary: Effort: Pulmonary effort is normal. Breath sounds: Normal breath sounds. No wheezing, rhonchi or rales. Skin: General: Skin is warm and dry. Neurological: Mental Status: She is alert. Assessment and Plan ASSESSMENT/PLAN: 1. Sinobronchitis - ICD9: 473.9, 490, ICD10: J32.9, J40 - Will begin treatment with Doxycycline - rx tessalon perles - The patient should also be given OTC cough and cold meds as needed for the first 5-7 days of treatment. - Supportive care with plenty of fluids, rest, and analgesia prn. Diagnosis and treatment plan were discussed and questions were answered to the patient's satisfaction. Pt acknowledged understanding of concepts and follow up plan. Specific signs and symptoms that would indicate the need for higher level of care were discussed in detail warranting prompt ER evaluation. CLAUDIA Khan Allergies As of Date: 04/20/2024 (No Known Allergies) Date Reviewed: 04/20/2024 Reviewed by: Saba Sanders MA - Fully Assessed Reason for Visit: Cough [28] Cmt: sinus congestion, left ear pain x1 week with sore throat x1 day Primary Visit Diagnosis:Sinobronchiti s [J32.9, J40] Order(s):doxycycline (VIBRA-TABS) 100 mg tabletTake 1 tablet by mouth two times a day for 7 days.Disp: 14 tabletRfl: 0 benzonatate (TESSALON PERLE) 100 mg capsuleTake 1 capsule by mouth three times a day as needed.Disp: 21 capsuleRfl: 0 Prescriptions as of 04/20/2024 - doxycycline (VIBRA-TABS) 100 mg tablet Take 1 tablet by mouth two times a day for 7 days. - benzonatate (TESSALON PERLE) 100 mg capsule Take 1 capsule by mouth three times a day as needed. Pro (more content not included)... Normal [facility] PT D/C Summary (1)on 024 PT D/C Summary (1) [facility] Physical Therapy [facility] [address] [place] [address] / REHABILITATION SERVICES DISCHARGE SUMMARY MR#: [id number] Acct: [id number] Name: KANWAL MARTINEZ Rep #: [id number] : 1970 54 From: Ag Anaya PT, ATC Referring Dr.: Dr. Jose J Murphy DO Status: R EG RCR Insurance: [employer] SELF PAY INSURANCE Discharge Summary D/C summary: It has been my pleasure to treat KANWAL MARTINEZ referred by Dr. Jose J Murphy DO, with the diagnosis of R IT band syndrome for a total of 6 visit(s). Discharge Date: Please see the following information for a summary of their discharge status. Subjective Subjective: Pt reports she is doing much better now. Pain R leg pain: Pain Intensity (Out of 10): 1 Overall Improvement % Improvement: 80 Objective Objective/Function: R leg pain is 1/10 today. Pt feels 80% improved Pt is I with HEP R knee ROM: 0-125 degrees R knee MMT: flex= 21, ext= 28 #F Goals Goal 1:: Decrease R leg pain x 50% to aid with sleep Goal Progress: Goal Met Goal 2:: Increase R knee ROM x 20 degrees to aid with squatting Goal Progress: Goal Met Goal 3:: Increase R knee strength x 10 #F to aid with stair negotiation Goal Progress: Goal Met Goal 4:: I with HEP Goal Progress: Goal Met Plan Plan: Discharge to HEP D/C Information d/c sentence: If there are questions or concerns regarding this patient's physical therapy, please feel free to call me at [phone]. Thank you for the referral of this patient. Sincerely, Ag Anaya, PT, ATC Balance/Gait/Functional tests Balance/Special Test Scores Lower Extremity Functional Score: 73 Improvement % Improvement: 80 04/19/24 1495 CC: Dr. Jose J Murphy DO; No Primary Care Physician [facility] Signed Normal [facility] Inital Evaluation (1) - PTon 03-29-2024 Inital Evaluation (1) - PT [facility] [address] [place] [address] / REHABILITATION SERVICES INITIAL EVALUATION MR#: [id number] Acct: [id number] Name: KANWAL MARTINEZ Rep #: [id number] : 1970 53 From: Ag Anaya PT, ATC Referring Dr.: Dr. Jose J Murphy DO Status: R EG RCR Insurance: [employer] SELF PAY INSURANCE Patient's Visit Information Visit Information Visit Information: KANWAL MARTINEZ is a 53 year old F referred to Physical Therapy by Dr. Jose J Murphy DO with a diagnosis of R IT band syndrome. 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 R LE stretching and strengthening, and core stab ex's Subjective Subjective: Pt reports she has had R leg pain for approximately 3 months. Pt notes she has had R knee pain for years, and has received many cortisone injections for her knee pain. Pt believes that because her knee is bone on bone, she has been walking differently which may have caused her R IT band to become sore. Pt reports she is unable to squat secondary to pain. Pt also notes she has to go down her stairs once per day to take care of her cat, which she has to negotiate one step at a time. 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 Pt denies any tingling or numbness in R LE. Pt notes she has a hard time getting to sleep at night secondary to pain. Pt reports she has had x-rays recently which shows significant degenerative changes in her R knee. Pt reports R leg pain ranges from 1-8/10. Pain R leg pain: Pain Intensity (Out of 10): 1 Pain Intensity Range: 8 Objective Objective: Neuro: B LE sensation is WNL to light touch. B patellar reflex= 1/3 Palpation: Pt is very sore along the middle portion of her R IT band. No obvious deformity noted at this date. ROM: R knee 0-10-112 degrees ; L knee 0-140 degrees MMT: R knee flex= 11, ext= 11 #F; L knee flex= 17, ext= 22 #F Special tests: Pos IT band test Balance/Special Test Scores Lower Extremity Functional Score: 51 Goals Goal 1:: Decrease R leg pain x 50% to aid with sleep Goal Time Frame: 2-4 Weeks Goal 2:: Increase R knee ROM x 20 degrees to aid with squatting Goal Time Frame: 2-4 Weeks Goal 3:: Increase R knee strength x 10 #F to aid with stair negotiation Goal Time Frame: 2-4 Weeks Goal 4:: I with HEP Goal Time Frame: 2-4 Weeks Rehabilitation Potential Physical Therapy Diagnosis: Pt has R leg pain, limited flexibility, and difficulty with stairs secondary to IT band syndrome Rehabilitation Potential: Good Anticipated Interventions Patient/Client Instruction: Educate patient on: Condition and Plan of Care For the Purpose of:: To improve self management Therapeutic Exercise to Include: Strength training, Flexibilty training and Dynamic Lumbar Stabilization For the Purpose of:: To decrease pain, To increase ROM and To improve muscle performance and motor function Manual Therapy Techniques to Include: Soft tissue mobilization For the Purpose of:: To decrease pain and To increase ROM Text: Thank you for the opportunity to evaluate your patient. For Medicare and Medicare HMO plans, please review the plan of care and approve it. It will need to be FAXED BACK to us at [phone] for Medicare purposes. For Medicare only, by signing this I certify the plan of care. Please let me know if there are questions or concerns regarding this plan of care. Physician Signature: Date: 03/29/24 0801 CC: Dr. Jose J Murphy, DO; No Primary Care Physician [facility] Signed Normal [facility] Knee 4 or More Viewson 03-25 Knee 4 or More Views [facility] [address] [place] [address] Knee 4 or More Views MR#: [id number] Acct: [id number] Name: KANWAL MARTINEZ Rep #: [id number] : 1970 F 53 From: Abdoul Tolentino DO PCP: Status: DEP AMB Study: Knee 4 or More Views Date of Exam: 03/25/24 Exam# [id number] Ordering Dr: [place] [id number] INDICATION: pain EXAMINATION/TECHNIQUE: X-RAY - RIGHT XR Knee Complete 4 Views or More 4 VIEWS COMPARISON: FINDINGS: SOFT TISSUES: No soft tissue swelling or gas. No radiopaque foreign body. Mild suprapatellar effusion. BONES/JOINTS: No acute fracture or subluxation.. Degenerative spurring and narrowing of the medial femoral tibial compartment. .. No sclerotic or destructive changes observed. RAD/Knee 4 or More Views IMPRESSION: Degenerative changes and mild effusion. Electronically Signed: Abdoul Tolentino DO at 16:16 EDT Reading Location ID and State: [facility] / [place] Tel [phone], Service support , CC: Dr. Jose J Murphy DO Medical Records Administrator: Signed Normal [facility] Orthopedic Visit Reporton Orthopedic Visit Report [facility] [place] [address] OFFICE VISIT Date of Service: 03/25/24 MR#: [id number] Acct: [id number] Name: KANWAL MARTINEZ Rep #: [id number] : 1970 Provider: Dr. Jose J Borru so, DO Age/Sex: 53/F Location: [facility] Status: Signed Intake Vital Signs 11/02/22 08:37 03/04/24 10:23 03/25/24 13:28 Height 5 ft 2 in 5 ft 2 in 5 ft 2 in Weight: 171 lb 6 oz BMI 31.3 Intake Visit Reasons: RIGHT KNEE Allergies No Known Allergies Allergy (Verified 03/25/24 13:29) Medications ???Medication ???Instructions ???Recorded ???Confirmed ???Type NK 03/25/24 03/25/24 History PFSH Medical History Sinus arrhythmia Palpitations Surgical History History of Family History Father Atrial fibrillation Cardiomegaly Heart disease Social History Smoking Status: Never smoker alcohol intake: never substance use type: does not use HPI RIGHT KNEE Details: This documentation accurately reflects the service provided and the decisions made by me, Dr. Jose J Murphy, DO 03/25/24 0957. Part of today???s visit was documented by Sara HOLMAN, acting as scribe. KANWAL MARTINEZ is a 53 year old F here today NEW patient for her right knee. She states that she has had pain for a years but recently it it has gotten worse. She has been getting injections by Dr. Hirsch which use to help but they no longer help. Her last injection was about 4 months ago and it didn't give her any relief. Her pain is mostly anterior and is tender to touch. She states that the pain radiates up into her hip and low back that she thinks is from compensating. The knee pain started first and she started having lateral thigh pain. Denies numbness, tingling or other associated symptoms. She denies previous surgery on the knee. She does have Ibuprofen 600mg that Dr Hirsch gave her that she takes when the pain gets really bad. She does feel a grinding in the knee. She denies instability. She has tried an OTC velcro hinged knee brace that wasn't helpful. She denies PT. Ortho Exam General General: Yes no acute distress Neurologic: Yes alert and Yes oriented x3 Psychologic: Yes reasonable and appropriate Right Knee Skin/Wound: No erythema, No ecchymosis and No swelling Homans Sign: No Knee ROM: Yes ROM-Extension -20 to 0 (-3) and Yes ROM-Flexion 0-140 (120) Examination: No Med jt line tenderness, No Lat jt line tenderness, Yes Crepitus, Yes Pain with flexion, No TTP Tibial tubercle, No TTP Pes Anserine and Yes Illiotibial band tenderness Stability: NML: Anterior Drawer, NML: Posterior Drawer, NML: Valgus 0, NML: Valgus 30, NML: Varus 0 and NML: Varus 30 Patella Translation: 1 Patellar Tilt Normal: No Patella Grind: Yes KNEE: tenderness over lateral femoral condyle there is some crepitation over the lateral patella with knee range of motion Left Knee Patella Translation: 1 Office Procedures Ortho Injections Injections Yes Knee Right Is this a patient provided medication?: No Details: Obtained consent for injection. Under sterile conditions, injected the patients right knee with 1.5cc bupivacaine 1.5cc lidocaine 1.5cc depo-medrol. The patient tolerated the injection well without any noted complication. Patient should call our office if redness develops, pain worsens or if they have any concerns. Office Meds Depo-Medrol 40 mg/mL suspension for injection Performing Provider: Jose J Murphy DO Performing Location: [facility] Administered by: Makayla Earl on 03/25/24 14:14 Dose Route Admin Location Dispensed Lot Number Expiration Date [facility] Man ufacturer 60 mg intra-articular right knee 1.5 mL [id number] 03/05/25 1069-7030-95 [facility] Supplemental Info 06/21/2023 x-ray right knee advanced medial compartment narrowing [id number], moderate patellofemoral spurring Coding Level of Care Code Off vis,new,level 3 Diagnoses Primary osteoarthritis of right knee M17.11 Osteoarthritis type: primary Iliotibial band syndrome of right side M76.31 Laterality: right 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 [facility] 10-21-2023 [facility] Office Visit ([facility]WSTR ) KANWAL MARTINEZ ([id number]) 1970 F Date Time Provider Department 10/21/23 10:30 AM JAIRON KINNEY [facility] During your visit today, we recorded the following information about you: Temperature Pulse Respiration Blood pressure 97.4 degrees 76/minute 16/minute 110/72 Weight 80.2 kg Jairon Kinney APRN.WIRE BRUSH OPERATOR 10/21/2023 11:18 AM Signed CC: Patient presents with: Cough: treated last week with augmentin for sinus infection still has cough HPI: Kanwal Martinez is a 53 year old female who presents to the office with complaint of chest congestion and cough, nonproductive for 2 weeks. Symptoms are staying the same. Associated symptoms includes cough. Denies fever, nausea, vomiting , and diarrhea. Treatments tried include nothing so far. with no relief of symptoms. Sick contacts: unknown. History of asthma, frequent episodes of bronchitis, chronic bronchitis, bronchiectasis or COPD: No Smoker: No Seasonal/environmental allergies: No The ROS is otherwise negative. The patient's pmh, medications, allergies, and past visits are reviewed. PHYSICAL EXAM: BP 110/72 Pulse 76 Temp 36.3 ?C (97.4 ?F) Resp 16 Wt 80.2 kg (176 lb 12.9 oz) LMP 06/20/2023 (Exact Date) SpO2 98% BMI 33.41 kg/m? General appearance: alert, cooperative, pleasant, in no acute distress Head: Normocephalic Eyes: EOM's intact, conjunctiva pink and moist, no icterus, sclera white, non-injected Ears: Right ear: External ear/canal- Normal, TM - clear with good landmarks. Left ear: External ear/canal- Normal, TM - clear with good landmarks Oropharynx:moist without lesions, No erythema, exudates or tonsillar hypertrophy. Heart: Negative. RRR without obvious murmur, gallop, or rubs. No ectopy. Lungs: wheezing left, lower base PAST MEDICAL HISTORY Diagnosis Date Migraines PAST SURGICAL HISTORY Procedure Laterality Date DELIVERY ONLY , low transverse DIVISN PLANTAR FASCIA/MUSCLE 1984 left HYSTEROSCOPY BX W/WO DANDC 11/2012 w/ polypectomy LIG/TRNSXJ FLP TUBE ABDL/VAG APPR UNI/BI Tubal ligation ALLERGIES Patient has no known allergies. MEDICATIONS amoxicillin-clavulanate potassium (AUGMENTIN) 875-125 mg per tablet Take 1 tablet by mouth two times a day for 7 days. benzonatate (TESSALON PERLE) 100 mg capsule Take 2 capsules by mouth three times a day as needed for up to 10 days. FAMILY HISTORY Problem Relation Age of Onset Diabetes Mother Heart Father Cancer Maternal Grandfather leukemia Social History Tobacco Use Smoking status: Never Smokeless tobacco: Never Substance Use Topics Alcohol use: No Drug use: No ASSESSMENT/PLAN: 1. Acute cough - ICD9: 786.2, ICD10: R05.1 - XR CHEST 2V FRONTAL/LAT * * * * Physician Interpretation * * * * EXAMINATION: CHEST RADIOGRAPH (2 VIEW FRONTAL AND LATERAL) CLINICAL HISTORY: Acute cough MQ: XC2_6 EXAM DATE/TIME: 10/21/2023 11:08 AM COMPARISON: No relevant prior studies available. RESULT: Lines, tubes, and devices: None. Lungs and pleura: No consolidation. No lung mass. No pleural effusion. No pneumothorax. Cardiomediastinal silhouette: Normal cardiomediastinal silhouette. Bones and soft tissues: Unremarkable. IMPRESSION IMPRESSION: No acute radiographic abnormality. Medical Records Administrator: DOMINGUEZ Transcribe Date/Time: Oct 21 2023 11:14A Dictated by : ANASTACIO BUSTILLO MD - PREDNISONE 20 MG TABLET Prescription instructions reviewed with patient as applicable. Potential red flag symptoms discussed with the patient. Reviewed appropriate action plan to take if red flag symptoms occur. Patient agreeable to treatment plan. Jairon Kinney APRN.WIRE BRUSH OPERATOR Allergies As of Date: 10/21/2023 (No Known Allergies) Date Reviewed: 10/21/2023 Reviewed by: Angelica Huff MA - Fully Assessed Reason for Visit: Cough [28] Cmt: treated last week with augmentin for sinus infection still has cough Primary Visit Diagnosis:Acute cough [R05.1] Order(s):XR CHEST 2V FRONTAL/LAT [[id number]] Order #: [id number] FUTURE predniSONE (DELTASONE) 20 mg tabletTake 2 tablets by mouth once daily for 5 days.Disp: 10 tabletRfl: 0 Prescriptions as of 10/21/2023 - predniSONE (DELTASONE) 20 mg tablet Take 2 tablets by mouth once daily for 5 days. - amoxicillin-clavulanate potassium (AUGMENTIN) 875-125 mg per tablet Take 1 tablet by mouth two times a day for 7 days. - benzonatate (TESSALON PERLE) 100 mg capsule Take 2 capsules by mouth three times a day as needed for up to 10 days. Problem List As Of Date 10/21/2023 Noted Resolved Heavy menses [N92.0] 10/31/2012 Prescriptions ordered this encounter Disp Refills Start End PREDNISONE 20 MG TABLET 10 t* 0 10/21/2023 10/26/2023 Route: ORAL Sig: Take 2 tablets by mouth once daily for 5 days. Encounter Status:Closed by JAIRON KINNEY on 10/21/23 Normal [facility] XR CHEST 2V FRONTAL/LATon XR CHEST 2V FRONTAL/LAT * * *Final Repor t* * * DATE OF EXAM: Oct 21 2023 11:08AM WOX [id number] - XR CHEST 2V FRONTAL/LAT / PROCEDURE REASON: Acute cough * * * * Physician Interpretation * * * * EXAMINATION: CHEST RADIOGRAPH (2 VIEW FRONTAL and LATERAL) CLINICAL HISTORY: Acute cough MQ: XC2_6 EXAM DATE/TIME: 10/21/2023 11:08 AM COMPARISON: No relevant prior studies available. RESULT: Lines, tubes, and devices: None. Lungs and pleura: No consolidation. No lung mass. No pleural effusion. No pneumothorax. Cardiomediastinal silhouette: Normal cardiomediastinal silhouette. Bones and soft tissues: Unremarkable. IMPRESSION: No acute radiographic abnormality. Medical Records Administrator: [facility] Transcribe Date/Time: Oct 21 2023 11:14A Dictated by : ANASTACIO BUSTILLO MD This examination was interpreted and the report reviewed and electronically signed by: ANASTACIO BUSTILLO MD on Oct 21 2023 11:14AM EST [id number] Normal [facility] XR Chest PA and Lateralon IMPRESSION: No acute radiographic abnormality. Medical Records Administrator: [facility] Transcribe Date/Time: Oct 21 2023 11:14A Dictated by : ANASTACIO BUSTILLO MD This examination was interpreted and the report reviewed and electronically signed by: ANASTACIO BUSTILLO MD on Oct 21 2023 11:14AM EST DIVISION OF RADIOLOGY * * *Final Report* * * DATE OF EXAM: Oct 21 2023 11:08AM WOX [id number] - XR CHEST 2V FRONTAL/LAT / PROCEDURE REASON: Acute cough * * * * Physician Interpretation * * * * EXAMINATION: CHEST RADIOGRAPH (2 VIEW FRONTAL & LATERAL) CLINICAL HISTORY: Acute cough MQ: XC2_6 EXAM DATE/TIME: 10/21/2023 11:08 AM COMPARISON: No relevant prior studies available. RESULT: Lines, tubes, and devices: None. Lungs and pleura: No consolidation. No lung mass. No pleural effusion. No pneumothorax. Cardiomediastinal silhouette: Normal cardiomediastinal silhouette. Bones and soft tissues: Unremarkable. DIVISION OF RADIOLOGY Provider, [facility] - 10/21/2023 * * *Final Report* * * DATE OF EXAM: Oct 21 2023 11:08AM WOX [id number] - XR CHEST 2V FRONTAL/LAT / PROCEDURE REASON: Acute cough * * * * Physician Interpretation * * * * EXAMINATION: CHEST RADIOGRAPH (2 VIEW FRONTAL & LATERAL) CLINICAL HISTORY: Acute cough MQ: XC2_6 EXAM DATE/TIME: 10/21/2023 11:08 AM COMPARISON: No relevant prior studies available. RESULT: Lines, tubes, and devices: None. Lungs and pleura: No consolidation. No lung mass. No pleural effusion. No pneumothorax. Cardiomediastinal silhouette: Normal cardiomediastinal silhouette. Bones and soft tissues: Unremarkable. IMPRESSION IMPRESSION: No acute radiographic abnormality. Medical Records Administrator: [facility] Transcribe Date/Time: Oct 21 2023 11:14A Dictated by : ANASTACIO BUSTILLO MD This examination was interpreted and the report reviewed and electronically signed by: ANASTACIO BUSTILLO MD on Oct 21 2023 11:14AM EST [facility] Radiology Study observation (narrative) Irasema durán [facility] XR Chest PA and LateralOrder ed By: [facility] Provider on 10-21-2023 [facility] CNOVon 10-14-2023 CNOV Office Visit (UCWSTR ) KANWAL MARTINEZ ([id number]) 1970 F Date Time Provider Department 10/14/23 8:15 AM LIANNA OROPEZA [facility] During your visit today, we recorded the following information about you: Temperature Pulse Respiration Blood pressure 97.9 degrees 85/minute 18/minute 118/80 Weight Last Period 79 kg 06/20/23 Lianna Oropeza APRN.[facility] 10/14/2023 8:33 AM Signed ASSESSMENT/PLAN: 1. Bacterial sinusitis - ICD9: 473.9, 041.9, ICD10: J32.9, B96.89 (primary diagnosis) - Will begin treatment with as per antibiotic as written, see orders - The patient should also be given flonase nasal spray for the first 5-7 days of treatment. - Supportive care with plenty of fluids, rest, and analgesia prn. - AMOXICILLIN 875 MG-POTASSIUM CLAVULANATE 125 MG TABLET 2. Acute cough - ICD9: 786.2, ICD10: R05.1 - BENZONATATE 100 MG CAPSULE - Follow-up with your PCP in 3-5 days if symptoms have not improved or sooner if symptoms worsen - Discussed red flags and need for immediate medical evaluation if any occur. - Discussed supportive care treatment with fluids, rest and analgesia. - Discussed expected course of illness Lianna Oropeza APRN.WIRE BRUSH OPERATOR [facility] C[facility] PATIENT INFO ACUTE SINUSITIS OVERVIEW Rhinosinusitis, or more commonly sinusitis, is the medical term for inflammation (swelling) of the lining of the sinuses and nose. The sinuses are the hollow areas within the facial bones that are connected to the nasal openings. The sinuses are lined with mucous membranes, similar to the inside of the nose. There are two main types of sinusitis: acute and chronic. Acute sinusitis is inflammation that lasts for less than four weeks while chronic sinusitis lasts for more than 12 weeks. Acute sinusitis is common, affecting approximately one million people per year in the [place]. ACUTE SINUSITIS CAUSES The most common cause of acute sinusitis is a viral infection associated with the common cold. Bacterial sinusitis occurs much less commonly, in only 0.5 to 2 percent of cases, usually as a complication of viral sinusitis. Because antibiotics are effective only against bacterial, and not viral, infections, most people do not need antibiotics for acute sinusitis. ACUTE SINUSITIS SYMPTOMS Symptoms of acute sinusitis include: Nasal congestion or blockage Thick, yellow to green discharge from the nose Pain in the teeth Pain or pressure in the face that is worse when bending forwards Other acute sinusitis symptoms can include fever (temperature greater than 100.4?F or 38?C), fatigue, cough, difficulty or inability to smell, ear pressure or fullness, headache, and bad breath. In most cases, these symptoms develop over the course of one day and begin to improve within seven to 10 days. DO I NEED TO BE EXAMINED? It is difficult to know if you have a viral or bacterial sinus infection initially. However, most people with a viral infection improve without treatment within seven to 10 days after symptoms begin. Bacterial sinusitis also sometimes improves without treatment, although it can also worsen and require treatment. If one or more of the following bothersome symptoms last more than seven days, an examination by a healthcare provider is recommended: Thick, yellow to green discharge from the nose Face or tooth pain, especially if it is only on one side Tenderness over the maxillary sinuses (located on the left and right side of the nose, inside the cheekbones) Symptoms that initially improve and then worsen When to seek immediate help -- If you have one or more of the following symptoms, you should seek medical attention immediately (even if symptoms have been present for less than seven days): High fever (>102.5? F or 39.2? C) Sudden, severe pain in the face or head Double vision or difficulty seeing Confusion or difficulty thinking clearly Swelling or redness around one or both eyes Stiff neck, shortness of breath ACUTE SINUSITIS TREATMENT Initial treatment of a sinus infection aims to relieve symptoms since almost everyone will improve within the first seven to 10 days. Experts recommend avoiding antibiotics during this time unless there is clear evidence of a severe bacterial infection. Initial treatment Pain relief -- Non-prescription pain medications, such as acetaminophen (eg, Tylenol?) or ibuprofen (eg, Motrin?, Advil?) are recommended for pain. Nasal irrigation and saline sprays -- Rinsing the nose with a salt-water (saline) solution is called nasal irrigation or nasal lavage. Saline is also available in a standard nasal spray, although this is not as effective as using larger amounts of water in an irrigation. Nasal irrigation is particularly useful for treating drainage down the back of the throat, sneezing, nasal dryness, and congestion. The treatment helps (more content not included)... Normal [facility] CNOVon 07-22-2023 CNOV Office Visit (UCWSTR ) KANWAL MARTINEZ Markie ([id number]) 1970 F Date Time Provider Department 07/22/23 9:15 AM LUDY FERRER [facility] During your visit today, we recorded the following information about you: Temperature Pulse Respiration Blood pressure 97.3 degrees 77/minute 20/minute 114/74 Weight Last Period 76.7 kg 06/20/23 Ludy Ferrer PA 07/22/2023 9:30 AM Signed This note was created using StepOner[employer]. Subjective Kanwal Martinez is a 53 year old female. HPI 53-year-old female presents for sinus congestion, cough., Chills. Patient states that she has had nasal congestion for a few weeks now. She was seen here 07/01 and diagnosed with sinusitis. She was treated with Augmentin. She states that she feels like the congestion never fully went away. She states that this week this congestion started getting worse. She has frontal sinus pressure and pain. She states that she has had a cough. She feels like she has some congestion in her chest. No fevers. She has had some chills. PAST MEDICAL HISTORY Diagnosis Date Migraines PAST SURGICAL HISTORY Procedure Laterality Date DELIVERY ONLY , low transverse DIVISN PLANTAR FASCIA/MUSCLE 1984 left HYSTEROSCOPY BX W/WO DANDC 11/2012 w/ polypectomy LIG/TRNSXJ FLP TUBE ABDL/VAG APPR UNI/BI Tubal ligation ALLERGIES Patient has no known allergies. MEDICATIONS doxycycline (VIBRA-TABS) 100 mg tablet Take 1 tablet by mouth two times a day for 7 days. FAMILY HISTORY Problem Relation Age of Onset Diabetes Mother Heart Father Cancer Maternal Grandfather leukemia Social History Tobacco Use Smoking status: Never Smokeless tobacco: Never Substance Use Topics Alcohol use: No Drug use: No Review of Systems Constitutional: Positive for chills. Negative for fever. HENT: Positive for congestion and sinus pressure. Negative for ear pain and sore throat. Respiratory: Positive for cough. Negative for shortness of breath. Cardiovascular: Negative for chest pain. Gastrointestinal: Negative for diarrhea and vomiting. Objective BP 114/74 Pulse 77 Temp 36.3 ?C (97.3 ?F) Resp 20 Wt 76.7 kg (169 lb) LMP 06/20/2023 (Exact Date) SpO2 98% BMI 31.93 kg/m? Physical Exam Vitals and nursing note reviewed. Constitutional: General: She is not in acute distress. Appearance: Normal appearance. She is not toxic-appearing. HENT: Right Ear: Tympanic membrane and ear canal normal. Left Ear: Tympanic membrane and ear canal normal. Nose: Congestion present. Right Sinus: Frontal sinus tenderness present. Left Sinus: Frontal sinus tenderness present. Mouth/Throat: Mouth: Mucous membranes are moist. Pharynx: No oropharyngeal exudate or posterior oropharyngeal erythema. Eyes: Conjunctiva/sclera: Conjunctivae normal. Cardiovascular: Rate and Rhythm: Normal rate and regular rhythm. Pulmonary: Effort: Pulmonary effort is normal. Breath sounds: Normal breath sounds. No wheezing, rhonchi or rales. Neurological: Mental Status: She is alert. Assessment and Plan ASSESSMENT/PLAN: 1. Frontal sinusitis, unspecified chronicity - ICD9: 473.1, ICD10: J32.1 -Treated with Augmentin 2 weeks ago. Patient states congestion never went away. Will treat with doxycycline. -Recommend using Flonase. -Follow-up with PCP in 5 to 7 days if no improvement. -Declines COVID/flu/RSV swab. - Supportive care with plenty of fluids, rest, and analgesia prn. Diagnosis and treatment plan were discussed and questions were answered to the patient's satisfaction. Pt acknowledged understanding of concepts and follow up plan. Specific signs and symptoms that would indicate the need for higher level of care were discussed in detail warranting prompt ER evaluation. CLAUDIA Khan Referring Provider: SELF [200] Allergies As of Date: 07/22/2023 (No Known Allergies) Date Reviewed: 07/22/2023 Reviewed by: Yennifer Shell LPN - Fully Assessed Reason for Visit: Nasal Congestion [235] Cmt: Chest congestion, cough, fatigue, nausea, body aches, chills x 3 days Primary Visit Diagnosis:Frontal sinusitis, unspecified chronicity [J32.1] Order(s):doxycycline (VIBRA-TABS) 100 mg tabletTake 1 tablet by mouth two times a day for 7 days.Disp: 14 tabletRfl: 0 Prescriptions as of 07/22/2023 - doxycycline (VIBRA-TABS) 100 mg tablet Take 1 tablet by mouth two times a day for 7 days. Problem List As Of Date 07/22/2023 Noted Resolved Heavy menses [N92.0] 10/31/2012 Prescriptions ordered this encounter Disp Refills Start End DOXYCYCLINE HYCLATE 100 MG TABLET 14 t* 0 07/22/2023 07/29/2023 Route: ORAL Sig: Take 1 tablet by mouth two times a day for 7 days. Encounter Status:Closed by LUDY FERRER on 07/22/23 [facility] CNOVon 07-01-2023 CNOV Office Visit (UCWSTR ) KANWAL MARTINEZ ([id number]) 1970 F Date Time Provider Department 07/01/23 1:15 PM LINDA LAURENT [facility] During your visit today, we recorded the following information about you: Temperature Pulse Respiration Blood pressure 97.5 degrees 72/minute 16/minute 126/80 Weight 76.2 kg Linda Luarent APRN.CNP 07/01/2023 1:30 PM Signed This note was created using [employer] Mobile [employer]. Subjective Kanwal Martinez is a 53 year old female. HPI pt states that she started with symptoms about 7 days ago. She has been using OTC cough/cold/congestion meds with no relief. She denies any fevers. Review of Systems HENT: Positive for congestion, postnasal drip, rhinorrhea, sinus pressure and sore throat. Respiratory: Positive for chest tightness. Objective BP 126/80 Pulse 72 Temp 36.4 ?C (97.5 ?F) Resp 16 Wt 76.2 kg (168 lb) LMP 05/19/2017 SpO2 97% BMI 31.74 kg/m? Physical Exam HENT: Nose: Congestion and rhinorrhea present. Mouth/Throat: Mouth: Mucous membranes are moist. Cardiovascular: Rate and Rhythm: Normal rate. Pulmonary: Effort: Pulmonary effort is normal. Skin: General: Skin is warm. Neurological: Mental Status: She is alert. Assessment and Plan ASSESSMENT/PLAN: 1. Bacterial sinusitis - ICD9: 473.9, 041.9, ICD10: J32.9, B96.89 - Will begin treatment with Augmentin 875 mg PO BID for 5 days - The patient should also be given OTC cough and cold meds as needed, behind the counter Pseudoephedrine, warm salt water gargles, throat lozenges and/or OTC throat spray as needed, and nasal saline gtts and suction prn for the first 5-7 days of treatment. - Supportive care with plenty of fluids, rest, and analgesia prn. - Follow up in 3-5 days if symptoms persist or worsen. Linda Laurent APRN.CNP Medical Decision Making: Problems: Low: Acute, uncomplicated illness or injury Risk: Moderate: Drug management Medical Decision Making Level: 3 - Low Allergies As of Date: 07/01/2023 (No Known Allergies) Date Reviewed: 07/01/2023 Reviewed by: Angelica Huff - Fully Assessed Reason for Visit: Pain, Sinus [857] Cmt: sinus pressure x 1 week Primary Visit Diagnosis:Bacterial sinusitis [J32.9, B96.89] Order(s):amoxicillin-cl avulanate potassium (AUGMENTIN) 875-125 mg per tabletTake 1 tablet by mouth two times a day for 5 days.Disp: 10 tabletRfl: 0 Prescriptions as of 07/01/2023 - amoxicillin-clavulanate potassium (AUGMENTIN) 875-125 mg per tablet Take 1 tablet by mouth two times a day for 5 days. Problem List As Of Date 07/01/2023 Noted Resolved Heavy menses [N92.0] 10/31/2012 Prescriptions ordered this encounter Disp Refills Start End AMOXICILLIN 875 MG-POTASSIUM CLAVULA* 10 t* 0 07/01/2023 07/06/2023 Route: ORAL Sig: Take 1 tablet by mouth two times a day for 5 days. Medications Discontinued During This Encounter Prescriptions - clobetasol (TEMOVATE) 0.05 % ointment (Discontinued) Reported on 10/23/2022 - Aycrcgx-Qddslsqjntayt-Z affeine 250-250-65 mg per tablet (Discontinued) Reported on 10/23/2022 - loratadine (CLARITIN) 10 mg tablet (Discontinued) Reported on 02/27/2023 - ibuprofen (MOTRIN) 200 mg tablet (Discontinued) Reported on 10/23/2022 - psyllium husk (METAMUCIL ORAL) (Discontinued) Reported on 02/27/2023 Encounter Status:Closed by LINDA LAURENT on 07/01/23 [facility] ROMANKANWAL MARCIAL ([id number]) 1970 F Date Time Provider Department 05/10/23 LIANNA OROPEZA During your visit today, we recorded the following information about you: Sandra Alcazar MA 05/10/2023 7:40 AM Signed ----- Message from Lianna Oropeza APRN.WIRE BRUSH OPERATOR sent at 05/10/2023 7:18 AM EST ----- Urine culture did not show clear evidence of infection. She may continue to take antibiotic if it has been helpful. If not improving, recommend follow up with PCP. JOANA Austin Roxann 05/10/2023 8:04 AM Signed Left message for patient to call back and ask to talk to a triage nurse. Jhoana ePdroza RN 05/10/2023 3:51 PM Signed Spoke with patient. Given message from provider's office. Patient verbalizes understanding. Jhoana Avila RN Allergies As of Date: 05/10/2023 (No Known Allergies) Date Reviewed: 05/08/2023 Reviewed by: William Echeverria APRN.WIRE BRUSH OPERATOR - Fully Assessed Reason for Visit: Results [95] Prescriptions as of 05/10/2023 - cephALEXin (KEFLEX) 500 mg capsule Take 1 capsule by mouth three times a day for 7 days. - psyllium husk (METAMUCIL ORAL) Take by mouth. - loratadine (CLARITIN) 10 mg tablet Take 1 tablet by mouth once daily. - clobetasol (TEMOVATE) 0.05 % ointment Apply 1 application to affected area twice daily. for 2 weeks then once a day for 1 week then 1-2 times/week - Ncbvfds-Rncxakpsvctit-U affeine 250-250-65 mg per tablet Take 1 tablet by mouth every 6 hours as needed. - ibuprofen (MOTRIN) 200 mg tablet Take 1-2 tablets by mouth every 2 hours as needed. FOR PAIN. Problem List As Of Date 05/10/2023 Noted Resolved Heavy menses [N92.0] 10/31/2012 Encounter Status:Closed by JHOANA AVILA on 05/10/23 Normal [facility] Bacteria Ur Culton 3 Bacteria identified Cx Nom (U) CULTURE, URINE: No growth (<1,000 CFU/ml) Normal [facility] Comment on above: Performed By: #### 6 30-4 ####[facility] LABCLIA [id number] [address] STATES OF [facility] CNOVon 05-08-2023 CNOV Office Visit (UCWSTR ) KANWAL MARTINEZ ([id number]) 1970 F Date Time Provider Department 05/08/23 7:15 PM [facility] During your visit today, we recorded the following information about you: Temperature Pulse Respiration Blood pressure 97.8 degrees 76/minute 16/minute 122/74 Weight 73.5 kg William Echeverria APRN.WIRE BRUSH OPERATOR 05/08/2023 7:39 PM Signed Subjective HPI Nontoxic-appearing female presents urgent care [...] times/week (Patient not taking: Reported on 10/23/2022) Mmwkbwm-Fyvqvrdytrhwg-N affeine 250-250-65 mg per tablet Take 1 tablet [...] urine dip. Treat for acute cystitis. No evidenc (more content not included)... Normal [facility] UA DIP, URINE (POC)on 2022 BILIRUBIN UA (POCT) Negative Negative [facility] CLARITY UA (POCT) Clear [facility] COLOR UA (POCT) Yellow [facility] GLUCOSE UA (POCT) Negative Negative mg/dL [facility] Hemoglobin Ql (U) Negative Negative [facility] KETONE UA (POCT) Negative Negative mg/dL [facility] LEUKOCYTES UA (POCT) Small Abnormal Negative [facility] NITRITE UA (POCT) Negative [facility] UA (POCT) 6.5 4.5 - 8.0 [facility] Protein Ql (U) Negative Negative mg/dL [facility] SPECIFIC GRAVITY UA (POCT) 1.010 1.005 - 1.030 [facility] UROBILINOGEN UA (POCT) 0.2 E.U./dL Nicki l E.U./dL [facility] Throat specimen bacteria yon ntification by cultureOrdered By: Scarlett Barnhart on 07-03-2022 Bacteria identified Cx Nom (Throat) streptococcus isolated. [facility] Absolute lymphocyte countOrd ered By: Hang Ryan on 06-14-2022 Lymphocytes Auto (Unsp spec) [#/Vol] 2.77 10*3/uL 0.83-4.51 [facility] Basophil percentageOrdered B y: Hang Connor on 06-14-2022 Basophils/100 WBC (Bld) 0.2 % 0-1 [facility] Bilirubin [Mass/Vol] 0.40 mg/dL 0.20-1.00 [facility] Comment on above: For patients on eltr ombopag therapy, use of Dimension [place] TBIL is not recommended. Chloride [Moles/Vol] 104 mmol/L 98-107 [facility] Cholesterol [Mass/Vol] 267 mg/dL <200 [facility] Comment on above: <200 mg/dL Desirable 200-240 mg/dL Borderline >240 mg/dL High Risk Eosinophils/100 WBC (Bld) 0.8 % 0-5 [facility] Glucose [Mass/Vol] 86 mg/dL 74-106 [facility] Neutrophils (Bld) [#/Vol] 6.1 10*3/uL 2.0-7.7 [facility] Neutrophils/100 WBC (Bld) 63.4 % 47-70 [facility] Potassium [Moles/Vol] 4.1 mmol/L 3.5-5.1 [facility] Protein [Mass/Vol] 6.7 g/dL 6.4-8.2 [facility] Sodium [Moles/Vol] 140 mmol/L 136-145 [facility] Triglyceride [Mass/Vol] 110 mg/dL <199 [facility] Comment on above: The drugs N-Acetylcy steine and Metamizole may falsely depress this assay.Serum Triglycerides Reference Interval Normal <150 mg/dL Borderline high 150 - 199 mg/dL High 200 - 499 mg/dL Very High > or = 500 mg/dL WBC (Bld) [#/Vol] 9.7 10*3/uL 4.4-11.0 [facility] Blood erythrocytes count (nu mber/volume)Ordered By: Hang Ryan on 06-14-2022 RBC (Bld) [#/Vol] 4.69 10*6/uL 4.2-5.4 [facility] Blood hemoglobin measurement (mass/volume)Ordered By: Hang Ryan on 06-14-2022 Hemoglobin (Bld) [Mass/Vol] 13.5 g/dL 12.0-15.0 [facility] Blood lymphocytes/100 leukoc ytesOrdered By: Hang Ryan on 06-14-2022 Lymphocytes/100 WBC (Bld) 28.7 % 19-41 [facility] Blood monocytes/100 leukocyt esOrdered By: Hang Ryan on 06-14-2022 Monocytes/100 WBC (Bld) 6.3 % 0-10 [facility] Blood platelet mean volumeOr dered By: Hang Ryan on 06-14-2022 Platelet mean volume (Bld) [Entitic vol] 9.3 fL 6.2-12.0 [facility] Determination of erythrocyte mean corpuscular volume (MCV)Ordered By: Hang Ryan on 06-14-2022 MCV (RBC) [Entitic vol] 91.7 fL 81-99 [facility] Hematocrit Auto (Bld) [Volum e fraction]Ordered By: Hang Ryan on 06-14-2022 Hematocrit (Bld) [Volume fraction] 43.0 % 37-47 [facility] Laboratory - Chemistry and C hemistry - challengeOrdered By: Hang Ryan on 06-14-2022 ALP [Catalytic activity/Vol] 81 U/L 45-117 [facility] ALT [Catalytic activity/Vol] 34 U/L 13-56 [facility] CO2 [Moles/Vol] 27.0 mmol/L 21.0-32.0 [facility] Globulin (S) [Mass/Vol] 3.3 g/dL 2.2-4.2 [facility] Urea nitrogen/Creatinine [Mass ratio] 16.6 mg/mg 10-20 [facility] Laboratory - Hematology and Cell countsOrdered By: Hang Ryan on 06-14-2022 Erythrocyte distribution width (RBC) [Entitic vol] 43.9 fL 35.1-43.9 [facility] Erythrocyte distribution width (RBC) [Ratio] 13.1 % 11.6-14.6 [facility] Immature granulocytes/100 WBC (Bld) 0.600 % 0.0-0.9 [facility] Comment on above: IG% - Immature Granu locytes (promyelocytes, myelocytes and metamyelocytes) > 1% indicates that a LEFT SHIFT is Present. MCH (RBC) [Entitic mass] 28.8 pg 27.0-32.0 [facility] Nucleated RBC/100 WBC (Bld) [Ratio] 0 % 0-5 [facility] MCHC Auto (RBC) [Mass/Vol]Or dered By: Hang Ryan on 06-14-2022 MCHC (RBC) [Mass/Vol] 31.4 g/dL 32-36 [facility] No Panel InformationOrdered By: Hang Ryan on 06-14-2022 Estimated GFR (MDRD) Amer 119 mL/min >60 [facility] Comment on above: GFR Calc Estimated GFR (MDRD) Non-Af Amer 99 mL/min >60 [facility] Comment on above: Non- GFR Calc Thyroid Stimulating Hormone (TSH) 3.43 uIU/mL 0.358-3.74 [facility] Platelets bldOrdered By: Baldemar Ryan on 06-14-2022 Platelets (Bld) [#/Vol] 274 10*3/uL 150-450 [facility] Serum or plasma albumin caren urement (mass/volume)Ordered By: Hang Ryan on 06-14-2022 Albumin [Mass/Vol] 3.4 g/dL 3.2-5.0 [facility] Serum or plasma albumin/glob ulin mass ratioOrdered By: Hang Ryan on 06-14-2022 Albumin/Globulin [Mass ratio] 1.0 {ratio} 0.9-2.4 [facility] Serum or plasma calcium caren urement (mass/volume)Ordered By: Hang Ryan on 06-14-2022 Calcium [Mass/Vol] 8.4 mg/dL 8.5-10.1 [facility] Serum or plasma cholesterol in HDL measurement (mass/volume)Ordered By: Hang Ryan on 06-14-2022 Cholesterol in HDL [Mass/Vol] 71 mg/dL >40 [facility] Comment on above: The drugs N-Acetylcy steine and Metamizole may falsely depress this assay. Reference Range HDL <40 mg/dL Low HDL Cholesterol HDL >or= 60 mg/dL High HDL Cholesterol Serum or plasma cholesterol in VLDL measurement (mass/volume)Ordered By: Hang Ryan on 06-14-2022 Cholesterol in VLDL [Mass/Vol] 22 mg/dL 5-40 [facility] Serum or plasma creatinine m easurement (mass/volume)Ordered By: aHng Ryan on 06-14-2022 Creatinine [Mass/Vol] 0.66 mg/dL 0.55-1.02 [facility] Comment on above: The validity of the calculated GFR & GFRAA in patients over 70 years has not been determined. Clinical correlation is essential. Serum or plasma low density lipoprotein (LDL) cholesterol measurement (mass/volume)Ordered By: Hang Ryan on 06-14-2022 Cholesterol in LDL [Mass/Vol] 174 mg/dL 0-130 [facility] Serum or plasma urea nitroge n measurement (mass/volume)Ordered By: Hang Ryan on 06-14-2022 Urea nitrogen [Mass/Vol] 11 mg/dL 7-18 [facility] Thin prep Papanicolaou smear with manual screeningOrdered By: Hang Ryan on 06-14-2022 Thin prep Papanicolaou smear with manual screening 8 U/L 15-37 [facility] Thin prep Papanicolaou smear with manual screening 9 5-15 [facility] Whole blood hemoglobin A1c/t otal hemoglobin ratio (mass fraction)Ordered By: Hang Ryan on 06-14-2022 HbA1c (Bld) [Mass fraction] 5.3 % 3.8-5.6 [facility] Comment on above: Normal < 5.7 % Predi abetic 5.7 - 6.4 % Diabetic >or= 6.5 % Please note range changes. Laboratory - Microbiology an d Antimicrobial susceptibilityon 10-18-2021 SARS-CoV-2 (COVID-19) RNA JUANY+probe Ql (Unsp spec) Not detected Not Detect [facility] Work Phone: Comment on above: Normal Reference Ran ge: Not DetectedMethod:(RT-PCR) real-time reverse transcriptase PCRLuminex KYLEIGH Instrument*The Food and Drug Administration (FDA) has issued an Emergency Use Authorization (EAU) for the KYLEIGH SARS-CoV-2 Assay for the rapid detection of the virus that causes COVID-19. This test has been validated, but the FDAs independent review of this validation is pending.*Negative results do not preclude infection and should not be used as the sole basis for treatment or patient management. Optimum specimen types and timing for peak viral levels during infections caused by SARS-CoV-2 have not been determined. Collection of multiple specimens from the same patient may be necessary to detect the virus. The possibility of a false negative result should be considered if the patient has clinical presentation or has had recent exposure. Vital Signs Date Time Vital Sign Value Performing Clinician Facility 10-21-2024 11:25-0400 Body height 157.48 cm No Primary Care Physician [facility] 10-21-2024 11:25-0400 Body mass index (BMI) [Ratio] 32 kg/m2 No Primary Care Physician [facility] 10-21-2024 11:25-0400 Body weight 79.37 kg No Primary Care Physician [facility] 10-14-2024 14:06-0400 Body height 157.48 cm No Primary Care Physician [facility] 10-14-2024 14:06-0400 Body mass index (BMI) [Ratio] 32 kg/m2 No Primary Care Physician [facility] 10-14-2024 14:06-0400 Body weight 79.37 kg No Primary Care Physician [facility] 10-08-2024 16:30-0400 Body temperature 98.5 [degF] No Primary Care Physician [facility] 10-08-2024 16:30-0400 Diastolic blood pressure 60 mm[Hg] No Primary Care Physician [facility] 10-08-2024 16:30-0400 Heart rate 87 /min No Primary Care Physician [facility] 10-08-2024 16:30-0400 Respiratory rate 16 /min No Primary Care Physician [facility] 10-08-2024 16:30-0400 SaO2% (BldA) [Mass fraction] 97 % No Primary Care Physician [facility] 10-08-2024 16:30-0400 Systolic blood pressure 92 mm[Hg] No Primary Care Physician [facility] 10-08-2024 10:30-0400 Inhaled oxygen flow rate 4 L/min No Primary Care Physician [facility] 10-08-2024 06:00-0400 Body height 157.48 cm No Primary Care Physician [facility] 10-08-2024 06:00-0400 Body mass index (BMI) [Ratio] 32.2 kg/m2 No Primary Care Physician [facility] 10-08-2024 06:00-0400 Body weight 80 kg No Primary Care Physician [facility] 09-09-2024 13:36-0400 Body height 157.48 cm No Primary Care Physician [facility] 09-09-2024 13:36-0400 Body mass index (BMI) [Ratio] 31.3 kg/m2 No Primary Care Physician [facility] 09-09-2024 13:36-0400 Body weight 77.73 kg No Primary Care Physician [facility] 04-20-2024 08:19-0500 Body mass index (BMI) [Ratio] 32.78 kg/m2 Krislyn Aberegg PA Work Phone: [facility] 04-20-2024 08:19-0500 Body temperature 98.6 [degF] Krislyn Aberegg PA Work Phone: [facility] 04-20-2024 08:19-0500 Body weight 78.7 kg Krislyn Aberegg PA Work Phone: [facility] 04-20-2024 08:19-0500 Diastolic blood pressure 80 mm[Hg] Krislyn Aberegg PA Work Phone: [facility] 04-20-2024 08:19-0500 Heart rate 75 /min Krislyn Aberegg PA Work Phone: [facility] 04-20-2024 08:19-0500 Respiratory rate 16 /min Krislyn Aberegg PA Work Phone: [facility] 04-20-2024 08:19-0500 SaO2% (BldA) [Mass fraction] 98 % Ludy TAYLOR Work Phone: [facility] 04-20-2024 08:19-0500 Systolic blood pressure 115 mm[Hg] Ludy Ferrer PA Work Phone: [facility] 10-21-2023 10:47-0400 Body mass index (BMI) [Ratio] 33.41 kg/m2 Jairon Kinney APRN.WIRE BRUSH OPERATOR Work Phone: [facility] 10-21-2023 10:47-0400 Body temperature 97.39 [degF] Jairon Kinney APRN.WIRE BRUSH OPERATOR Work Phone: [facility] 10-21-2023 10:47-0400 Body weight 80.2 kg Jairon Kinney APRN.WIRE BRUSH OPERATOR Work Phone: [facility] 10-21-2023 10:47-0400 Diastolic blood pressure 72 mm[Hg] Jairon Kinney APRN.WIRE BRUSH OPERATOR Work Phone: [facility] 10-21-2023 10:47-0400 Heart rate 76 /min Jairon Kinney APRN.WIRE BRUSH OPERATOR Work Phone: [facility] 10-21-2023 10:47-0400 Respiratory rate 16 /min Jairon Kinney APRN.WIRE BRUSH OPERATOR Work Phone: [facility] 10-21-2023 10:47-0400 SaO2% (BldA) [Mass fraction] 98 % Jairon Kinney APRN.WIRE BRUSH OPERATOR Work Phone: [facility] 10-21-2023 10:47-0400 Systolic blood pressure 110 mm[Hg] Jairon Kinney APRN.WIRE BRUSH OPERATOR Work Phone: [facility] 10-14-2023 08:19-0400 Body mass index (BMI) [Ratio] 32.91 kg/m2 Lianna Oropeza APRN.WIRE BRUSH OPERATOR Work Phone: [facility] 10-14-2023 08:19-0400 Body temperature 97.9 [degF] Lianna Praisler-Wood ELECTRICAL ENGINEERING TECHNOLOGIST.WIRE BRUSH OPERATOR Work Phone: [facility] 10-14-2023 08:19-0400 Body weight 79 kg Lianna Praisler-Wood ELECTRICAL ENGINEERING TECHNOLOGIST.WIRE BRUSH OPERATOR Work Phone: [facility] 10-14-2023 08:19-0400 Diastolic blood pressure 80 mm[Hg] Lianna Praisler-Wood ELECTRICAL ENGINEERING TECHNOLOGIST.WIRE BRUSH OPERATOR Work Phone: [facility] 10-14-2023 08:19-0400 Heart rate 85 /min Lianna Praisler-Wood ELECTRICAL ENGINEERING TECHNOLOGIST.WIRE BRUSH OPERATOR Work Phone: [facility] 10-14-2023 08:19-0400 Respiratory rate 18 /min Lianna Praisler-Wood ELECTRICAL ENGINEERING TECHNOLOGIST.WIRE BRUSH OPERATOR Work Phone: [facility] 10-14-2023 08:19-0400 SaO2% (BldA) [Mass fraction] 97 % Lianna Praisler-Wood ELECTRICAL ENGINEERING TECHNOLOGIST.WIRE BRUSH OPERATOR Work Phone: [facility] 10-14-2023 08:19-0400 Systolic blood pressure 118 mm[Hg] Lianna Praisler-Wood ELECTRICAL ENGINEERING TECHNOLOGIST.WIRE BRUSH OPERATOR Work Phone: [facility] 07-22-2023 09:07-0500 Body temperature 97.3 [degF] Krislyn Aberegg PA Work Phone: [facility] 07-22-2023 09:07-0500 Body weight 76.66 kg Krislyn Aberegg PA Work Phone: [facility] 07-22-2023 09:07-0500 Diastolic blood pressure 74 mm[Hg] Krislyn Aberegg PA Work Phone: [facility] 07-22-2023 09:07-0500 Heart rate 77 /min Krislyn Aberegg PA Work Phone: [facility] 07-22-2023 09:07-0500 Respiratory rate 20 /min Krislyn Aberegg PA Work Phone: [facility] 07-22-2023 09:07-0500 SaO2% (BldA) [Mass fraction] 98 % Ludy Ferrer PA Work Phone: [facility] 07-22-2023 09:07-0500 Systolic blood pressure 114 mm[Hg] Ludy Ferrer PA Work Phone: [facility] 05-08-2023 19:18-0500 Body temperature 97.81 [degF] William Pendlebury ELECTRICAL ENGINEERING TECHNOLOGIST.WIRE BRUSH OPERATOR Work Phone: [facility] 05-08-2023 19:18-0500 Body weight 73.48 kg William Pendlebury ELECTRICAL ENGINEERING TECHNOLOGIST.WIRE BRUSH OPERATOR Work Phone: [facility] 05-08-2023 19:18-0500 Diastolic blood pressure 74 mm[Hg] William Pendlebury ELECTRICAL ENGINEERING TECHNOLOGIST.WIRE BRUSH OPERATOR Work Phone: [facility] 05-08-2023 19:18-0500 Heart rate 76 /min William Pendlebury ELECTRICAL ENGINEERING TECHNOLOGIST.WIRE BRUSH OPERATOR Work Phone: [facility] 05-08-2023 19:18-0500 Respiratory rate 16 /min William Pendlebury ELECTRICAL ENGINEERING TECHNOLOGIST.WIRE BRUSH OPERATOR Work Phone: [facility] 05-08-2023 19:18-0500 SaO2% (BldA) [Mass fraction] 99 % [facility] ELECTRICAL ENGINEERING TECHNOLOGIST.WIRE BRUSH OPERATOR Work Phone: [facility] 05-08-2023 19:18-0500 Systolic blood pressure 122 mm[Hg] [facility] ELECTRICAL ENGINEERING TECHNOLOGIST.WIRE BRUSH OPERATOR Work Phone: [facility] Encounters Encounter Date Encounter Type Care Provider Facility Start: 11-18-2024 End: 11-18-2024 ambulatory Chalon Melissa Facility:[facility] Start: 11-18-2024 End: 11-18-[address] Tad Ceja MD -[facility] Start: 11-18-[address] Jose J parsons DO -Physical Therapy Work Phone: Start: 11-15-2024 ambulatory Chalon Melissa Facility:[facility] Start: 10-22-2024 Encounter for other preprocedural examination [facility] Start: 10-21-2024 End: 10-21-[address] Jose J Murphy DO -[facility] Work Phone: Start: 10-21-2024 End: 10-21-2024 ambulatory No Primary Care Physician [facility] Work Phone: Start: 10-21-[address] Jose J parsons DO -Physical Therapy Work Phone: Start: 10-18-[address] Jose J parsons DO -Physical Therapy Work Phone: Start: 10-14-2024 Non-patient / Non-visit Dr. Rk ortiz MD -[facility] Start: 10-14-2024 End: 10-14-2024 Patient encounter procedure Renetta Roque RESIDENTIAL REAL ESTATE SALES MANAGER-C -[facility] Work Phone: Start: 10-14-2024 End: 10-14-2024 ambulatory No Primary Care Physician [facility] Work Phone: Start: 10-14-2024 End: 10-14-2024 ambulatory Renetta Roque Facility:[facility] Start: 10-08-2024 ambulatory Jose J Murphy Facility :[facility] Start: 10-08-2024 Non-patient / Non-visit Dr. Jose J ross DO -[facility] Start: 10-08-2024 End: 10-08-2024 Admission to same day surgery center Dr. Jose J Murphy DO -[facility] Start: 10-08-2024 End: 10-08-2024 ambulatory No Primary Care Physician [facility] Work Phone: Start: 10-02-2024 Encounter for other preprocedural examination [facility] Start: 10-01-2024 End: 10-01-2024 ambulatory No Primary Care Physician [facility] Work Phone: Start: 10-01-2024 End: 10-01-[address] Jose J Murphy DO -[facility] Andre, [facility] Work Phone: Start: 10-01-2024 End: 10-01-2024 ambulatory Chalyesika Melissa Facility:[facility] Start: 09-26-2024 End: 09-26-[address] Jose J Murphy DO -Laboratory Work Phone: Start: 09-26-2024 End: 09-26-2024 ambulatory Jose J Bannerlowell Facility:[facility] Start: 09-23-2024 End: 09-23-[address] Jose J Murphy DO -[facility] Work Phone: Start: 09-23-2024 End: 09-23-2024 ambulatory [facility] Facility:[facility] Start: 09-23-2024 End: 09-23-2024 ambulatory No Primary Care Physician [facility] Work Phone: Start: 09-23-2024 End: 09-23-[address] [facility] Start: 09-23-2024 End: 09-23-2024 [facility] Start: 09-09-2024 End: 09-09-[address] Tad Ceja MD -[facility] Start: 09-09-2024 End: 09-09-2024 ambulatory Tad Ceja Facility:[facility] Start: 05-31-2024 End: 05-31-[address] Jose J Murphy DO -[facility] Work Phone: Start: 05-31-2024 End: 05-31-2024 ambulatory No Primary Care Physician Facility:[facility] Start: 05-20-2024 End: 05-20-2024 ambulatory No Primary Care Physician Facility:[facility] Start: 05-13-2024 End: 05-13-2024 ambulatory No Primary Care Physician Facility:[facility] Start: 04-20-2024 End: 04-20-2024 Patient encounter procedure Ludy TAYLOR Work Phone: [facility] Comment on above: Sinobronchitis (Prim bev Dx) Start: 04-20-2024 End: 04-20-2024 ambulatory [facility] Facility:[facility] Start: 04-19-2024 End: 04-19-2024 ambulatory [facility] Facility:[facility] Start: 03-25-2024 End: 03-25-2024 ambulatory [facility] Facility:[facility] [place] Start: 10-21-2023 End: 10-21-2023 Subsequent hospital visit by physician [facility] Work Phone: Radiology Comment on above: Acute cough [R05.1] Start: 10-21-2023 End: 10-21-2023 ambulatory [facility] Facility:[facility] Start: 10-21-2023 End: 10-21-2023 Patient encounter procedure Jairon Kinney APRN.WIRE BRUSH OPERATOR Work Phone: [facility] Comment on above: Acute cough (Primary Dx) Start: 10-14-2023 End: 10-14-2023 ambulatory [facility] Facility:[facility] Start: 10-14-2023 End: 10-14-2023 Patient encounter procedure Lianna Oropeza APRN.WIRE BRUSH OPERATOR Work Phone: [facility] Comment on above: Bacterial sinusitis (Primary Dx); Acute cough Start: 07-22-2023 End: 07-22-2023 ambulatory JAIRON KINNEY Facility:[facility] Start: 07-22-2023 End: 07-22-2023 Patient encounter procedure Ludy TAYLOR Work Phone: [facility] Comment on above: Frontal sinusitis, u nspecified chronicity (Primary Dx) Start: 07-01-2023 End: 07-01-2023 [facility] Start: 06-21-2023 End: 06-21-2023 ambulatory [facility] Work Phone: Start: 06-21-2023 End: 06-21-2023 Patient encounter procedure [facility]-Radiology, [place] Work Phone: Start: 05-10-2023 Telephone encounter Lianna Ingram APRN.WIRE BRUSH OPERATOR Work Phone: [facility] Comment on above: Results Start: 05-08-2023 End: 05-08-2023 ambulatory HANG RYAN Facility:[facility] Start: 05-08-2023 End: 05-08-2023 Office outpatient visit 25 minutes William Nationdenisse ELECTRICAL ENGINEERING TECHNOLOGIST.WIRE BRUSH OPERATOR Work Phone: [facility] Comment on above: Urinary frequency (P rimary Dx) Start: 07-19-2022 Non-patient / Non-visit DO Baldemar polo Connor Work Phone: [facility] Start: 07-19-2022 End: 07-19-2022 ambulatory DO Hang Aden Connor Work Phone: [facility] Work Phone: Start: 07-19-2022 End: 07-19-2022 Patient encounter procedure DO Hang Ryan Work Phone: [facility]-Cardiovascul ar Services Start: 07-01-2022 End: 07-01-2022 ambulatory [facility] Work Phone: Start: 07-01-2022 End: 07-01-2022 Patient encounter procedure [facility]-Laboratory, Specimen Start: 07-01-2022 End: 07-01-2022 ambulatory DO Hang Oropezanger Work Phone: [facility] Work Phone: Start: 07-01-2022 End: 07-01-2022 Patient encounter procedure [facility]-Cardiovascul ar Services Start: 06-14-2022 End: 06-14-2022 ambulatory [facility] Work Phone: Start: 06-14-2022 End: 06-14-2022 Patient encounter procedure [facility] Start: 10-19-2021 End: 10-19-2021 Patient encounter procedure [facility] Start: 09-02-2021 Documentation procedure Mammog michelle Coordinator [facility] Start: 09-02-2021 Letter encounter Mammography Coordinator [facility] Department Start: 08-25-2021 Telephone encounter Linda Albarran viraj GONZALEZ Work Phone: Hematology/Oncology Comment on above: Orders (screening ma mmogram order) Procedures Date Procedure Procedure Detail Performing Clinician Start: 10-08-2024 X-ray of knee, one o r two views No Primary Care Physician Start: 10-08-2024 Total replacement of right knee joint No Primary Care Physician Start: 10-01-2024 MRI of lower extremity No Primary Care Physician Start: 09-26-2024 Methicillin resistan t Staphylococcus aureus screening test No Primary Care Physician Start: 09-26-2024 Serum fructosamine measurement No Primary Care Physician Comment on above: Published reference interval for apparently healthysubjects between age 20 and 60 is 205 - 285 umol/L and in apoorly controlled diabetic population is 228 - 563 umol/Lwith a mean of 396 umol/L.Performed at: [facility] Director: Real Patel PhD, Phone: [phone] Start: 09-23-2024 Vitamin D, 25-hydrox y measurement No Primary Care Physician Comment on above: Vitamin D StatusDefi ciency: <20 ng/mL (50nmol/L)Insufficiency: 20-30 ng/mL (50-75 nmol/L)Sufficiency: 30-100 ng/mL (75-250 nmol/L)Toxicity: >100 ng/mL (>250 nmol/L) Start: 09-09-2024 X-ray of knee, four or more views No Primary Care Physician Start: 10-21-2023 Radiologic exam ches t 2 views Jairon Kinney APRN.CNP Work Phone: Start: 06-21-2023 Radiologic examinati on of knee Start: 05-08-2023 Urnls dip stick/tabl et rgnt auto w/o microscopy Charu Baez PA-C Work Phone: Start: 09-01-2021 Mammography Mammograph y Coordinator Start: 06-28-2017 Mammography Linda Albarran viraj GONZALEZ Work Phone: Bacteria identificat ion test Bacteria identificat ion test Plan of Treatment Date Care Activity Detail Author Start: 11-18-2024 XR Knee 3 Views [facility] Start: 11-18-2024 XR knee, 3 views Knee 3 Views [facility] Start: 10-08-2024 Anesth open/surg art hrs total knee arthroplasty ANESTH KNEE ARTHROPLASTY [facility] Start: 10-08-2024 Arthrp kne condyle&p latu medial&lat compartments TOTAL KNEE ARTHROPLASTY [facility] Start: 10-08-2024 Injection aa&/strd femoral nerve NJX AA&/STRD FEMORAL NRV IMG [facility] Start: 10-08-2024 X-ray of knee, one o r two views Knee 1 or 2 Views [facility] Start: 10-08-2024 XR Knee 1 or 2 Views [facility] Start: 10-08-2024 Application of ice collar, cap or bag [facility] Start: 10-08-2024 Exercises [facility] Start: 10-08-2024 Incentive spirometry [facility] Start: 10-08-2024 Neurovascular assessment [facility] Start: 10-08-2024 Patient discharge [facility] Start: 10-08-2024 Patient education [facility] Start: 10-08-2024 Provision of activit y privileges [facility] Start: 10-08-2024 Recommendation to continue with treatment [facility] Start: 10-08-2024 Referral to service [facility] Start: 10-08-2024 Vital signs measurements [facility] Start: 10-08-2024 Wound care [facility] Start: 10-08-2024 [facility] Start: 09-26-2024 Nasal Screen MRSA/MSSA Nasal Screen MRSA/MSSA [facility] Start: 02-04-2024 Covid-19 Vaccine ( season) Covid-19 Vaccine ( season) [facility] Start: 02-04-2024 Covid-19 Vaccine ( season) Covid-19 Vaccine ( season) [facility] Start: 02-04-2024 Influenza vaccination C [facility] Start: 06-05-2023 Behavioral Health Screening Behavioral Health Screening [facility] Start: 06-05-2023 Depression Assessment Depression Ass essment [facility] Start: 02-03-2023 Covid-19 Vaccine ( season) Covid-19 Vaccine ( season) [facility] Start: 02-03-2023 Influenza vaccination Influenza Vacc ine (#1) [facility] Start: 09-01-2022 Mammography [facility] Start: 09-01-2022 Screening for malign ant neoplasm of breast Mammogram Screening [facility] Start: 06-14-2022 HPV TESTING HPV TESTING [facility] Start: 06-14-2022 PAP TESTING PAP TESTING [facility] Start: 06-14-2022 Screening for malign ant neoplasm of cervix [facility] Start: 06-05-2022 Depression Assessment [facility] Start: 02-03-2022 Influenza vaccination INFLUENZ A (Season Ended) [facility] Start: 02-03-2021 Influenza vaccination INFLUENZA (#1) [facility] Start: 06-28-2018 Mammography MAMMOGRAM [facility] Start: 2018 SHINGRIX VACCINE (1 of 2) SHINGRIX VACCINE (1 of 2) [facility] Start: 2013 COLOGUARD (FIT-DNA) COLOGUARD (FIT-D NA) [facility] Start: 2013 Colonoscopy COLONOSCOPY [facility] Start: 2013 COLORECTAL CANCER SCREENING COLORECTAL CANCER SCREENING [facility] Start: [address] COLONOGRAPHY [facility] Start: 2013 DIABETES SCREEN DIABETES SCREEN [facility] Start: 2013 Diabetes Screening Diabetes Screenin g [facility] Start: 2013 FECAL OCCULT BLOOD FECAL OCCULT BLOO D [facility] Start: 2013 Lipid 1996 panel - S michel or Plasma Lipid Screening [facility] Start: 2013 Lipid panel Lipid Screening [facility] Start: 2013 LIPID SCREEN LIPID SCREEN [facility] Start: 2013 Screening for malign ant neoplasm of colon [facility] Start: 2013 [facility] Start: 1987 Hepatitis B Vaccine (1 of 3 - 19+ 3-dose series) Hepatitis B Vaccine (1 of 3 - 19+ 3-dose series) [facility] Start: 1987 Urine microalbumin profile [facility] Start: 1986 Anxiety Screening Anxiety Screening [facility] Start: 1986 Depression Screening Depression Scre ening [facility] Start: 1986 HEPATITIS C SCREENING HEPATITIS C [facility] Start: 1986 Hepatitis C screening Hepatitis C [facility] Start: 1986 HIV SCREENING HIV SCREENING [facility] Start: 1986 HIV screening HIV Screening [facility] Start: 1980 Adult depression screening assessment DEPRESSION SCREENING [facility] Start: 1973 COVID-19 VACCINE (1) COVID-19 VACCIN E (1) [facility] Start: 1968 Covid-19 Vaccine (#1) Covid-19 Vacci ne (#1) [facility] Start: 1968 Hepatitis B Vaccine (1 of 3 - 3-dose series) Hepatitis B Vaccine (1 of 3 - 3-dose series) [facility] Bacteria identified in Urine by Culture URINE CULTURE Microbiology Routine Urinary frequency 05/08/2023 7:43 PM EST [facility] Work Phone: Fructosamine [Moles/volume] in Serum or Plasma [facility] End: 09-24-2022 YEIMY SCREENING W HYACINTH YEIMY SCREENING W HYACINTH Radiology Routine Encounter for screening mammogram for malignant neoplasm of breast 1 Occurrences starting 08/26/2021 until 09/24/2022 [facility] Work Phone: Comment on above: 1 Occurrences starti ng 08/26/2021 until 09/24/2022 Methicillin resistan t Staphylococcus aureus screening test [facility] Patient referral [facility] Work Phone: [facility] Payers Date Payer Category Payer Self-pay [id number] 2022 Private Health Insurance YASMIN CALERO OAP [id number] 2022-Present [phone] [facility] [id number] [place] [address] Open Access [id number] 2022 Private Health Insurance [id number] 2021 Unknown [id number] 2016 Unknown [id number] 2003 Unknown [id number] 2003 Unknown [id number] Unknown [id number] [id number] .462 Unknown [id number] 2.16.840.1.611950.3.579.2 .462 Unknown [id number] 2.16.840.1.081113.3.579.2 .462 Unknown [id number] 2.16.840.1.726429.3.579.2 .462 Unknown [id number] 2.16.840.1.177521.3.579.2 .462 Unknown [id number] 2.16.840.1.803402.3.579.2 .462 Unknown [id number] 2.16.840.1.952402.3.579.2 .462 Unknown [id number] 2.16.840.1.805033.3.579.2 .462 Unknown [id number] 2.16.840.1.239776.3.579.2 .462 Unknown [id number] 2.16.840.1.391886.3.579.2 .462 Unknown [id number] 2.16.840.1.520351.3.579.2 .462 Unknown [id number] 2.16.840.1.354506.3.579.2 .462 Unknown [id number] 2.16.840.1.314181.3.579.2 .462 Unknown [id number] 2.16.840.1.421952.3.579.2 .462 Unknown [id number] 2.16.840.1.193922.3.579.2 .462 Unknown [id number] 2.16.840.1.201867.3.579.2 .462 Unknown [id number] 2.16.840.1.712000.3.579.2 .462 Unknown [id number] 2.16.840.1.276224.3.579.2 .462 Unknown [id number] 2.16.840.1.206872.3.579.2 .462 Unknown [id number] 2.16.840.1.399703.3.579.2 .462 Social History Date Type Detail Facility Start: 11-19-2012 End: 10-14-2024 Tobacco smoking status NHIS Never smoked tobacco [facility] Start: 06-14-2017 End: 04-20-2024 Alcohol intake Current non-drinker of alcohol (finding) [facility] Start: 1970 Sex Assigned At Not on file [facility] Start: 08-22-2021 End: 09-01-2021 Exposure to SARS-CoV-2 (event) Not sure [facility] Start: 02-26-2019 End: 11-02-2022 Tobacco smoking status ILIS Unknown if ever smoked [facility] Start: 1970 Sex Assigned At Female [facility] Start: 11-19-2012 Tobacco use and exposure Smokeless tobacco non-user [facility] Start: 05-13-2020 End: 05-08-2023 History of Social function [facility] Start: 05-13-2020 End: 05-08-2023 Tobacco use panel [facility] National Score (1-100), lower number is lower risk Not on file [facility] Start: 09-26-2024 End: 10-08-2024 Sex Female (finding) [facility] NEGATED: Highlighted row Not [facility] Medical Equipment Procedure Code Equipment Code Equipment Origin al Text Equipment Identifier Dates ([id number]) Metal-backed pat leopoldo prosthesis [id number] FDA Start: 10-08-2024 ([id number]) Coated knee femu r prosthesis [id number] FDA Start: 10-08-2024 ([id number]) Coated knee tibi a prosthesis [id number] FDA Start: 10-08-2024 ([id number]) Tibial insert [id number] FDA Start: 10-08-2024 Goals Date Patient Goal Desired Activity /State Mental Status Date Assessment Result Facility 10-08-2024 Cognitive function Level Of Consciousness Sedated [facility] Work Phone: Clinical Notes 08-26-2021 to 10-08-2024 Note Date & Type Note Facility 10-08-2024 Consult note [facility] 10-08-2024 Consult note Note Date/Time October 08, 2024 4:37pm [facility] Medical Records Department [address] [place] [address] Anesthesia Postop Eval II 10/08/24 1159 MR#: [id number] Acct: [id number] Name: KANWAL MARTINEZ Rep #:[id number] : 1970 54 From: Iwona Ruiz PCP: Dr. Adelina Torres MD Status:REG SD C Y Race: C Location: [place] [address] Anesthesia Postop Eval I Sum Postop Eval Completion status Anesthesia document: Postop Eval 1 completed: Yes Anesthesia Postop Eval I Summary Anesthesia Postop Eval I Summary: Anesthesia Postop Eval I: Assessment Summary Airway patent Yes 10/08/24 10:02 MUD [email or web address].SOBR Spontaneous unlabored Yes 10/08/24 10:02 MUD [email or web address].SOBR respirations Mental status Awake,Calm 10/08/24 10:02 MUD [email or web address].SOBR nausea No 10/08/24 10:02 MUD [email or web address].SOBR Vomiting No 10/08/24 10:02 MUD [email or web address].SOBR Anesthesia Postop Eval I: Fluid Summary Crystalloid volume administer 800 10/08/24 10:02 MUD [email or web address].SOBR (ml) Colloids volume administered ( ml) Blood Product volume administered (ml) Total IV fluid infused 800 10/08/24 10:02 MUD [email or web address].SOBR Anesthesia Postop Eval I: Summary Notes Anesthesia Complication No 10/08/24 10:02 MUD [email or web address].SOBR Anesthesia Complication Comment: Post-operative progress note Anesthesia: Postop Eval II Evaluation Mental status: Awake and Calm Pain Level: 0 nausea: No Vomiting: No Complications Anesthesia Complication: No 10/08/24 3389 <Electronically signed by Iwona Riuz > Date _ Iwona Ruiz Cosigner Signature: Date CC: ~ Signed [facility] Work Phone: 1(908) 371-186605-06-2025 Consult note Author Ag LaneLittle Neck [facility] Note Date/Time October 08, 2024 10:02[facility] Medical Records Department [address] [place] [address] Anesthesia Postop Eval I 10/08/24 1001 MR#: [id number] Acct: [id number] Name: KANWAL MARTINEZ Rep #:[id number] : 1970 54 From: Ag MONTANO PCP: Dr. Adelina Torres MD Status:REG SD C Y Race: C Location: [place] [address] Anesthesia: Postop Eval I Current Vital Signs Temperature: 97 F Pulse Rate: 75 Blood Pressure: 114/54 Respiratory Rate: 16 Pulse Ox: 100 Oxygen Delivery Method: Room Air Assessment Airway patent: Yes Spontaneous unlabored respirations: Yes Mental status: Awake and Calm nausea: No Vomiting: No Anesthesia Complication: No Fluid Hydration Crystalloid volume administer (ml): 800 Total IV fluid infused: 800 Progress Note Anesthesia document: Postop Eval 1 completed: Yes 10/08/24 1002 <Electronically signed by Ag Avery CRNA> Date _ Ag Avery CRNA Cosigner Signature: Date CC: ~ Signed [facility] Work Phone: 1(797) 557-991005-06-2025 [facility] Note Date/Time October 08, 2024 10:00a m [facility] Medical Records Department [address] [place] [address] Instructions for Home/Discharge Instructions 10/08/24 0957 MR#: [id number] Acct: [id number] Name: KANWLA MARTINEZ Rep #:[id number] : 1970 54 From: Jose J Murphy DO PCP: Dr. Adelina Torres MD Status:REG SD C Discharge Instructions Diet Discharge Diet: No restrictions Dressing / Incision Call your doctor if you observe: Shortness of breath and Chest pain Additional Dressing/Incision Instructions:: Ice and elevate lower extremities 2 weeks while not ambulating. Ambulation is encouraged. Weight bearing as tolerated. Use assistive devise for stability. Encourage FULL knee extension and flexion 1 time EVERY time you get up and down and MULTIPLE times per day. No showering until 72 hours after surgery. May begin showering postop day #3. Remove the dressing prior to shower and gently wash with warm water and antibacterial soap then pat dry and place abdominal pad (or plain gauze) and TEDhose over top. If you decide not to begin showering 72 hrs post operatively and wish to sponge bath only, then you may leave dressing undisturbed for up to 1 week, but must remove prior to first shower. Do not submerge for 3 weeks. If not showering daily after the initial dressing is removed you must clean incision and change dressing daily after the dressing comes off, must come off by 7 days postop. Do not allow animals near the incision area. Keep clean. Follow anti-coagulation recommendations as prescribed. Do not take any NSAIDs while on blood thinner. Do not take any additional narcotic pain medication other than what was prescribed on your surgery day without discussing with physician. Narcotic medication can be addictive. Do not drink alcohol while taking narcotics. Supplement narcotic prescription with acetaminophen 1000 mg 4 times a day. Start physical therapy. If you are not currently scheduled for physical therapy or you are unsure of appointment time please call office [facility] to arrange. Call Dr. Murphy's office ) with any concerns. Follow Up Care Please Follow Up With: Jose J Murphy DO When: 2 weeks Test Results: Test results from this visit will be discussed in further detail at your follow- up appointment, if applicable. Discharge Plan Admission Primary Reason for Your Visit: Right total knee arthroplasty Attending Provider: Jose J Murphy Primary Care Provider: Adelina Torres Instructions Print Language: Vietnamese Discharge Orders/Prescriptions Prescriptions: New acetaminophen 500 mg tablet 1,000 mg PO Q6H Qty: 100 0RF cephalexin 500 mg capsule 1,000 mg PO Q8H Qty: 4 0RF Rx Instructions: Take 2 tabs before you go to bed and 2 tabs after 5 AM morning after surgery when you wake up Eliquis 2.5 mg tablet 2.5 mg PO BID Qty: 28 0RF Rx Instructions: Begin morning after surgery. oxycodone 5 mg tablet 5 - 10 mg PO Q4H PRN (Reason: pain) 7 Days Qty: 60 0RF Continued cholecalciferol (vitamin D3) 1,250 mcg (50,000 unit) tablet 1,250 mcg PO QMONTH Referrals / Follow Up: Adelina Torres MD [Primary Care Provider] - Disposition Disposition (needs filled in before D/C Order can be placed): Home, Self Care 10/08/24 1000<Electronically signed by Jose J Murphy DO>Jose J Murphy DO CC: Dr. Adelina Torres MD ~ Signed [facility] Work Phone: 1(807) 415-373605-06-2025 Consult note [facility] Medical Records Department [address] [place] [address] Anesthesia Postop Eval I 10/08/24 1001 MR#: [id number] Acct: [id number] Name: KANWAL MARTINEZ Rep #:[id number] : 1970 54 From: Ag GLASS NA PCP: Dr. Adelina Torres MD Status:REG SD C Y Race: C Location: [place] [address] Anesthesia: Postop Eval I Current Vital Signs Temperature: 97 F Pulse Rate: 75 Blood Pressure: 114/54 Respiratory Rate: 16 Pulse Ox: 100 Oxygen Delivery Method: Room Air Assessment Airway patent: Yes Spontaneous unlabored respirations: Yes Mental status: Awake and Calm nausea: No Vomiting: No Anesthesia Complication: No Fluid Hydration Crystalloid volume administer (ml): 800 Total IV fluid infused: 800 Progress Note Anesthesia document: Postop Eval 1 completed: Yes 10/08/24 1002 MUD MIXER> Date _ Ag Avery MUD MIXER Cosigner Signature: Date CC: ~ Signed [facility]05-06-2025 Discharge summary [facility] Medical Records Department [address] [place] [address] Instructions for Home/Discharge Instructions 10/08/24 0957 MR#: [id number] Acct: [id number] Name: KANWAL MARTINEZ Rep #:[id number] : 1970 54 From: Jose J Murphy DO PCP: Dr. Adelina Torres MD Status:REG SD C Discharge Instructions Diet Discharge Diet: No restrictions Dressing / Incision Call your doctor if you observe: Shortness of breath and Chest pain Additional Dressing/Incision Instructions:: Ice and elevate lower extremities 2 weeks while not ambulating. Ambulation is encouraged. Weight bearing as tolerated. Use assistive devise for stability. Encourage FULL knee extension and flexion 1 time EVERY time you get up and down and MULTIPLE times per day. No showering until 72 hours after surgery. May begin showering postop day #3. Remove the dressing prior to shower and gently wash with warm water and antibacterial soap then pat dry and place abdominal pad (or plain gauze) and TEDhose over top. If you decide not to begin showering 72 hrs post operatively and wish to sponge bath only, then youmay leave dressing undisturbed for up to 1 week, but must remove prior to first shower. Do not submerge for 3 weeks. If not showering daily after the initial dressing is removed you must clean incision and change dressing daily after the dressing comes off, must come off by 7 days postop. Do not allow animals near the incision area. Keep clean. Follow anti-coagulation recommendations as prescribed. Do not take any NSAIDs while on blood thinner. Do not take any additional narcotic pain medication other than what was prescribed on your surgery day without discussing with physician. Narcotic medication can be addictive. Do not drink alcohol while taking narcotics. Supplement narcotic prescription with acetaminophen 1000 mg 4 times a day. Start physical therapy. If you are not currently scheduled for physical therapy or you are unsure of appointment time please call office [facility] to arrange. Call Dr. Murphy's office ) with any concerns. Follow Up Care Please Follow Up With: Jose J Murphy DO When: 2 weeks Test Results: Test results from this visit will be discussed in further detail at your follow- up appointment, if applicable. Discharge Plan Admission Primary Reason for Your Visit: Right total knee arthroplasty Attending Provider: Jose J Murphy Primary Care Provider: Adelina Torres Instructions Print Language: Vietnamese Discharge Orders/Prescriptions Prescriptions: New acetaminophen 500 mg tablet 1,000 mg PO Q6H Qty: 100 0RF cephalexin 500 mg capsule 1,000 mg PO Q8H Qty: 4 0RF Rx Instructions: Take 2 tabs before you go to bed and 2 tabs after 5 AM morning after surgery when you wake up Eliquis 2.5 mg tablet 2.5 mg PO BID Qty: 28 0RF Rx Instructions: Begin morning after surgery. oxycodone 5 mg tablet 5 - 10 mg PO Q4H PRN (Reason: pain) 7 Days Qty: 60 0RF Continued cholecalciferol (vitamin D3) 1,250 mcg (50,000 unit) tablet 1,250 mcg PO QMONTH Referrals / Follow Up: Adelina Torres MD [Primary Care Provider] - Disposition Disposition (needs filled in before D/C Order can be placed): Home, Self Care 10/08/24 1000Josebonita Murphy DO CC: Dr. Adelina Torres MD ~ Signed [facility]05-06-2025 Procedure note [facility] Medical Records Department [address] [place] [address] Operative Report 10/08/24 0951 MR#: [id number] Acct: [id number] Name: KANWAL MARTINEZ Rep #:[id number] : 1970 54 From: Jose J Murphy DO PCP: Dr. Adelina Torres MD Status:REG SD C Location: [place] [address] Operative Report (Standard) Operative Information Date of Procedure: 10/08/24 Pre-Operative Diagnosis: Right knee DJD Post-Operative Diagnosis: Same Surgery/Procedure Performed: Right total knee arthroplasty hazardous materials waste technician: Yes Department Store General Manager: Marck Tidwell Tasks completed by lpn medical assistant: Opening & closing Type of Anesthesia: Spinal RN Documented Start/Stop Times: Operation Date: 10/08/24 07:30 Case Time Into Pre-Op 10/08/24 05:43 Anesthesia Start 10/08/24 07:37 Into Room 10/08/24 07:37 Out of Pre-Op 10/08/24 07:38 Procedure Start 10/08/24 08:03 Procedure End 10/08/24 09:44 Procedure Start Time: 08:03 Procedure Stop Time: 09:44 Select all DRAINS/GRAFTS/IMPLANTS that apply: Prosthetic device Prosthetic device details: Packwood triathlon Estimated Blood Loss: 150 Specimen collected: Yes Description of specimen(s) removed: Bone and soft tissue Description of surgery: Preoperative diagnosis: Right knee DJD Postoperative diagnosis: Same Procedure: Right total knee arthroplasty CT guided Robotic Assisted Implant: [employer] triathlon press fit, femoral component size2, tibial baseplate size 2, asymmetric patella size 29, polyethylene X3 size 9 CS Anesthesia: Spinal with adductor canal block Tourniquet time: 11 minutes at 300 mmHg Complications: None Condition: Stable to PACU Estimated blood loss: 150 cc Indication for procedure: This is a 54-year-old female with long standing degenerative joint disease of the knee who has failed conservative treatment andwished to proceed with elective total knee arthroplasty. In addition the patient felt she had a loose body in the superior lateral portion of herknee itwas not identified on preoperative CT scan. .risk benefits and alternatives werereviewed including; risk of bleeding, infection, nerve artery and tissue damage,continued pain, postoperative stiffness, venous thromboembolism, need for postoperative rehabilitation, mechanical feel to the knee,and expected postoperative course. The pre- operative CT and templating was performed with component sizing. Procedure: The patient was met in the preoperative holding area. The operative extremity was identified by both patient and physician and was marked. Patient was met by anesthesia. An adductor canal block was placed by anesthesia postoperatively the patient was brought back to the operating room pilar wheeled cart and transferred to the operating table in the supine position. Anesthesia was started. A well-padded tourniquet was placed on the operative extremity. The patient was prepped and draped in the usual sterile fashion. A timeout was called to ensure the proper patient procedure and extremity were being contemplated. An esmarch was used to exsanguinate the extremity. The tourniquet wasinflated. A 10 blade scalpel was used to make a midline incisiondown through the skin and subcutaneous tissue. Skin retractors placed. Bovie and Aquamantis were used to perform meticulous hemostasis.full-thickness flapswere elevated medial and lateral along the joint capsule. A deep blade scalpel was used to perform a medial parapatellar arthrotomy. The knee was brought to full extension. A bovie was used to release the soft tissues off the most proximal aspect of the medial tibial plateau, a three-quarter inch curved osteotome was also used in this process. The infrapatellar fat pad was excised. The suprapatellar fat pad was excised partially anteriorolateraly and portion the anterioromedial pad was elevated from the femur. Thorough investigation of the synovium around the patella and the lateral side of the knee did not reveal any loose body or intrasynovial body this was checked nowand throughout the case there was some thickening of the synovium in this area which may be what patient interpreted as a loose body the plica band was removed. With electrocautery. at this point ourintra-articular femoral array was placed at a 45 degree angle proximal and posterior to the medial epicondyle. femoral checkpoint was placed at this time. Our tibial array was placed partially intraincisional 1 stab incision was made for the inferior pin with a 15 blade scaple, and pins were placedand attached to the tibial array , tibial checkpoint was placed in the proximal tibial metaphysis. Tourniquet was let down. At this point registration chin were taken throughout the knee . Once the knee was registered we then tensioned the medial and lateral ligaments in extension and 90 degrees of flexion. We then used these numbers to adjust our components within parameters to balance the kneein both flexion and extension once this was done on our monitor we then proceeded with using the robotic arm to make our tibial plateau cut, anterior and posterior chamfer and distal femurcuts. we removed the cut fragments with the use of a bovie and Bubba, we did use a lamina bar machine operator production to insure we visualized and removed all posterior osteophytes and at this time also used the Aquamantis on the posterior joint capsule. we then trialed and achieved the desired plan with a well-balanced knee. weused the green probe to ervin the corresponding tibial rotation based onour CT template. Lug holes were drilled in the femur the tibia preparation wascompleted with the appropriate sized base plate pinned based on previous rotation ervin. An appropriate sized fin punch was used on the tibia and 4 corner drill was used for the press fit component and the patella was prepared by first using a caliperto ensure sufficient bone stock and a patellar reamer to remove the desired amount of bone. lug holes drilled for an asymmetric poly. We then brought the knee through range of motion with excellent patellar tracking. We thoroughly irrigated the knee. Trial components were removed a posterior capsular injection was preformed with our standard cocktail. In addition the aqua Mantis was also used to aid in hemostasis. Betadine rinse was allowed to sit and washed out completely. Components were press-fit into place. Aricept rinse was then used followed by several more liters of irrigation after itwas allowed to sit. The joint capsule was closed with #1 Ethibond [id number] in the upper part of the arthrotomy and #1 Vicryl in the lower part of the arthrotomy. , Followed by 2-0 Vicryl in the subcutaneous tissues with marley in the skin. Arrays and checkpoints were removed prior to closure all counts were correct stab incisions were closed with a staple standard dressing in the form of Mepilex AG for the main incision and a small Mepilex over the pin holes. Thigh-high WILLIAMS hose applied over top of dressing. Patient tolerated the procedure well and was directed to PACU in stable condition . There were no intraoperative complications. Surgical Findings: DJD knee Complications Complications: No 10/08/24 0957 Cosigner Signature (if applicable): CC: Dr. Adelina Torres MD; Dr. Jose J Murphy DO~ Signed [facility]05-06-2025 History and physical note Author Jose J [facility] Note Date/Time October 08, 2024 7:18am [facility] Medical Records Department [address] [place] [address] History & Physical Exam 10/08/24 0717 MR#: [id number] Acct: [id number] Name: JUANMARTÍNEZKANWAL M Rep #:[id number] : 1970 54 From: Jose J Murphy DO PCP: Dr. Adelina Torres MD Status:REG SD C Location: [place] [address] History and Physical Date of Admission: 10/08/24 [facility] [address] [place] [address] OFFICE VISIT Date of Service: 09/09/24 MR#: [id number] Acct: [id number] Name: ROMANMARTÍNEZ MARCIALYESIKA Aden Rep #: [id number] : 1970 Provider: Dr. Jose J Murphy DO Age/Sex: 54/F Location[place] [facility] [place] Status: Signed Intake Vital Signs 03/25/2413:28 09/09/2512:36 Height 5 ft 2 in 5 ft 2 in Weight: 171 lb 6 oz BMI 31.3 Intake Visit Reasons: RIGHT KNEE Chief Complaint: Right Knee Pain Accompanied by: Self Is patient in pain?: Yes Pain scale (1-10): 4 Allergies No Known Allergies Allergy (Verified 09/09/24 13:36) Medications ?Medication ?Instructions ?Recorded ?Confirmed ?Type NK 03/25/24 09/09/24 History PFSH Medical History Sinus arrhythmia Palpitations Surgical History History of Family History Father Atrial fibrillation Cardiomegaly Heart disease Social History Smoking Status: Never smoker alcohol intake: never substance use type: does not use HPI RIGHT KNEE Details: This documentation accurately reflects the service provided and the decisions made by me, Dr. Jose J Murphy, DO 09/09/24 0756. Part of today?s visit was documented by [ ], acting as scribe. KANWAL MARTINEZ is a 54 year old F here today for right knee pain. Patient rates her pain a 4/10 today and wants to discuss the next steps. Patient did have Euflexxa injections and states they gave her some mild relief. Patient denies any recent falls or injuries to the knee. She describes the pain around the patella and over the lateral aspect of the top of the knee. She states the knee will occasionally grind and pinch. She states when she is walking it feels like the knee wants to go the wrong direction. Patient finished physical therapy and the pain/inflammation she was having with the IT band is gone and she states feels great. She states they didn't focus much on the knee they specifically focused on the IT band. She will take Tylenol/Ibuprofen PRN for the pain. 05/31/2024: Third Euflexxa right knee 1216 2023: second Euflexxa right knee 05/13/2024: First Euflexxa right knee 03/25/2024 visit:53 year old F here today NEW patient for her right knee. She states that she has had pain for a years but recently it it has gotten worse. She has been getting injections by Dr. Hirsch which use to help but they no longer help. Her last injection was about 4 months ago and it didn't give her any relief. Her pain is mostly anterior and is tender to touch. She states that the pain radiates up into her hip and low back that she thinks is from compensating. The knee pain started first and she started having lateral thigh pain. Denies numbness, tingling or other associated symptoms. She denies previous surgery on the knee. She does have Ibuprofen 600mg that Dr Hirsch gave her that she takes when the pain gets really bad. She does feel a grinding in the knee. She denies instability. She has tried an OTC velcro hinged knee brace that wasn't helpful. She denies PT. Plan: Patient is here today for the right knee pain. Educated patient on anatomyand etiology. Reviewed xrays that she does have advanced arthritis of the knee, however this is mostly medial. Spoke with her that her treatment options are do nothing, steroid injection, viscosupplementation injection, weight loss, glucosamine chondroitin, knee bracing, physical therapy, anti-inflammatories, ora TKA. Spoke with patient that I do have a concern of her IT band being inflamed. And explained she could continue to have this pain after surgery and the recommended treatment for it would be formal physical therapy she thinks it started after her gait was altered from her knee pain which is very possible. She would like us to submit for the gel injections along with physical therapy and a steroid injection today. Follow up after approval for viscosupplementation injections or sooner if pain, swelling, numbness or associated symptoms, or concerns develop. All questions answered. Patient in agreement of plan. Ortho Exam General General: Yes no acute distress and Yes well groomed Neurologic: Yes alert and Yes oriented x3 Psychologic: Yes reasonable and appropriate Right Knee Skin/Wound: Yes CDI, No erythema, No ecchymosis and No swelling Knee ROM: Yes ROM-Extension -20 to 0 and No ROM-Flexion 0-140 (115) Examination: No Med jt line tenderness and Yes Crepitus Stability: NML: Anterior Drawer, NML: Posterior Drawer, NML: Valgus 0, NML: Valgus 30, NML: Varus 0 and NML: Varus 30 Patella Translation: 1 KNEE: loose body shifting on the upper anterior lateral aspect of the knee painful when snapping no joint effusion Head: Normocephalic Atraumatic Chest: symmetrical rise, non-labored breathing, no audible wheeze Abdomen: no guarding, non-rigid Left Knee Patella Translation: 1 Supplemental Info 09/09/2024 x-ray right knee:advanced medial compartment narrowing [id number], moderate patellofemoral spurring 06/21/2023 x-ray right knee: advanced medial compartment narrowing [id number], moderate patellofemoral spurring Coding Level of Care Code Off vis,est,level 4 Diagnoses Primary osteoarthritis of right knee M17.11 Osteoarthritis type: primary Loose body in knee, right knee M23.41 Assessment and Plan Assessment and Plan (1) Osteoarthritis of right knee: Status: Acute Qualifiers: Osteoarthritis type: primary Qualified Code(s): M17.11 - Unilateral primary osteoarthritis, right knee (2) Loose body in knee, right knee: Status: Acute Orders: Orders Knee 4 or More Views Today M17.11 - Unilateral primary osteoarthritis, right knee Plan Reviewed imaging with the patient. She does have advanced knee arthrosis particularly of the medial compartment [id number] she does have pain mostly however over the superior lateral knee with what feels like a loose body. Her options would be: do nothing, continue with nonoperative treatment options,knee MRI to evaluate for any loose body that may be present in the knee, arthroscopic procedure to clean out the knee or TKA. Risks, benefits and alternatives of surgery reviewed including but not limited to bleeding, infection, nerve, artery and/or tissue damage, fracture, VTE, mechanical feel ofthe knee, continued pain, stiffness and expected post-operative course. Explained the importance of physical therapy after surgery. Spoke to patient about the Iovera treatment that is offered and it is recommended if it is approved with insurance. Patient would like to proceed with a right TKA. Explained that she cannot take any Ibuprofen/Aleve 7 days prior to surgery. She will need medical clearance and CT scan prior to surgery she will need medical clearance and CT scan prior to surgery Tentative surgery date October 08, 2024 same-day surgery Follow up for the Iovera treatment if approved with insurance or sooner if pain,swelling, numbness or associated symptoms, or concerns develop. All questions answered. Patient in agreement of plan. 09/09/24 1629 <Electronically signed by Jose J Murphy DO> Date Jose J Murphy DO I have examined the patient and the H&P has been reviewed. There are no clinicalchanges since date of exam. 10/08/24 0718 <Electronically signed by Jose J Murphy DO> Cosigner Signature (if applicable): CC: Dr. Adelina Torres MD; Dr. Jose J Murphy DO~ Signed [facility] Work Phone: 1(253) 297-296605-06-2025 Consult note Author Mehran Robbins [facility] Note Date/Time October 08, 2024 7:10am [facility] Medical Records Department [address] [place] [address] Pre-Anesthesia Evaluation 10/08/24 0659 MR#: [id number] Acct: [id number] Name: KANWAL MARTINEZ Rep #:[id number] : 1970 54 From: Mehran Robbins MD PCP: Dr. Adelina Torres MD Status:REG SD C Y Race: C Location: [place] [address] ASA Classification* ASA Classification ASA Classification: 2 Assessment & Plan Anesthesia* Anesthesia Assessment Anesthesia Assessment: Discussed sedation and/or anesthesia options, risks, benefits, and alternatives with patient/parents/legal guardian/POA. Questions invited. The patient/parents/legal guardian/POA seems to understand and agrees to proceedwith anesthesia plan. Reviewed the physical assessment, medical history, allergy history and patient home medications list prior to surgery/procedure/anesthetic and documented any changes. Performed airway and anesthesia risk assessments. Anesthesia Type Anesthesia Type: Spinal and Block (Patient is consented for adductor canal block.) History Source History Obtained from:: Patient and Chart Anesthesia Focused Assessment* Temperature: 97.7 F Pulse Rate: 79 Blood Pressure: 110/66 Respiratory Rate: 18 Pulse Ox: 100 Oxygen Delivery Method: Room Air Airway Assessment Mouth opens: >3 cm Mallampati Score: III Teeth Condition: Intact Neck Range of motion (ROM): Full ROM Focused Labs Anesthesia Preop lab: CBC WBC 8.4 K/mm3 (4.4-11.0) 09/23/24 10:37 09/23/24 RBC 4.70 M/mm3 (4.2-5.4) 09/23/24 10:37 09/23/24 Hgb 13.8 g/dL (12.0-15.0) 09/23/24 10:37 09/23/24 Hct 41.5 % (37-47) 09/23/24 10:37 09/23/24 Plt Count 270 K/mm3 (150-450) 09/23/24 10:37 09/23/24 CHEMISTRY Potassium 3.9 mmol/L (3.3-5.1) 09/23/24 10:37 09/23/24 Sodium 141 mmol/L (133-145) 09/23/24 10:37 09/23/24 Magnesium 2.2 mg/dL (1.5-2.2) 09/26/24 08:09 09/26/24 BUN 13 mg/dL (4-19) 09/23/24 10:37 09/23/24 Creatinine 0.67 mg/dL (0.70-1.20) L 09/23/24 10:37 Glucose 88 mg/dL (70-99) 09/23/24 10:37 09/23/24 TSH 3.43 uIU/mL (0.358-3.74) 06/14/22 07:36 COAG PT 12.4 SECONDS (11.7-14.9) 09/26/24 08:09 Pre-Assessment Diagnosis/Proposed Procedure Planned Operative Procedure(s): R KNEE REPLACEMENT, ROBOT ASSISTED Anesthesia History 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 When Was Last Pacemaker Check QUESTION #4 FULL TEXT: You/Your Family Experience fever (hyperthermia) with Anesthesia Last Oral Intake Last Oral intake: Last Oral Intake NPO since 03:30 10/08/24 06:00 Meds taken in AM with sips of No 10/08/24 06:00 water? Meds patient instructed to take am of surgery Any additional information?: Yes NPO since: 03:30 (Patient had preop Ensure at 3:30 AM.) Meds taken in AM with sips of water?: Yes PONV PONV - press brake operator: PONV - press brake operator Female No 09/24/24 09:14 HX of Motion Sickness Yes 09/24/24 09:14 HX of N/V After Surgery No 09/24/24 09:14 Non-Smoker Yes 09/24/24 09:14 Duration of Surgery greater No 09/24/24 09:14 than 60 minutes Number of Risk Factors 2 09/24/24 09:14 PONV Score Moderate Risk 09/24/24 09:14 Height & Weight Height & Weight: Anesthesia: Height & Weight Height 5 ft 2 in 10/08/24 06:00 Weight: 80 kg 10/08/24 06:00 Body Mass Index (BMI) 32.2 10/08/24 06:00 Respiratory Assessment Respiratory Assessment - press brake operator: Respiratory Tract Infection Hx - press brake operator Hx Respiratory Tract Infection No 09/24/24 09:14 STOP Sleep Apnea STOP Sleep Apnea - press brake operator: STOP Sleep Apnea - press brake operator Hx Hypertension No 09/24/24 09:14 Hx Sleep Apnea No 09/24/24 09:14 CPAP BIPAP Do you snore loudly (louder No 09/24/24 09:14 than talking or can be heard Do you often feel tired/ No 09/24/24 09:14 fatigued/ sleepy during daytime? Has anyone observed you stop No 09/24/24 09:14 breathing during sleep? STOP Results Negative 09/24/24 09:14 QUESTION #5 FULL TEXT : Do you snore loudly (louder than talking or can be heard through closed doors)? 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 Specify any problems Hx of Preganancy in last 3 No 09/24/24 09:14 Months Nurse Filling Out Transfusion [facility] 09/24/24 09:14 & Questions: Date: 09/24/24 09/24/24 09:14 Time: 09:09/24/24 09:14 Patient unable to answer at this time (ie. 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 Now No 09/24/24 09:14 Gestational Age (in weeks): EDC: Hx Hx Para Hx Section SAB No 09/24/24 09:14 Active Medications Active Medications: Current Medications Generic Name Dose Route Start Last Admin Trade Name Freq PRN Reason Stop Dose Admin Acetaminophen 1,000 mg 10/08/24 07:30 10/08/24 06:16 Acetaminophen 500 Mg Tablet PO 10/08/24 07:31 1,000 mg PREOP ONE Administration Celecoxib 400 mg 10/08/24 07:30 10/08/24 06:16 Celecoxib 200 Mg Capsule PO 10/08/24 07:31 400 mg PREOP ONE Administration Dexamethasone Sodium Phosphate 10 mg 10/08/24 07:30 Dexamethasone 10 Mg/Ml Vial IV 10/08/24 07:31 INTRAOP ONE Gabapentin 600 mg 10/08/24 07:30 10/08/24 06:16 Gabapentin 600 Mg Tablet PO 10/08/24 07:31 600 mg PREOP ONE Administration Cefazolin Sodium 2 gm/ Sodium 110 mls @ 150 mls/hr 10/08/24 07:30 Chloride IV 10/08/24 08:13 INTRAOP ONE Tranexamic Acid 1,000 mg/ 110 mls @ 660 mls/hr 10/08/24 07:30 Sodium Chloride IV 10/08/24 07:39 X1 ONE Tranexamic Acid 1,000 mg/ 110 mls @ 660 mls/hr 10/08/24 07:30 Sodium Chloride IV 10/08/24 07:39 X1 ONE Lactated Ringer's 1,000 mls @ 125 mls/hr 10/08/24 07:30 IV 10/08/24 15:29 .Q8H BRONSON Magnesium Sulfate 1 gm/ 102 mls @ 408 mls/hr 10/08/24 07:30 10/08/24 06:19 Dextrose IV 10/08/24 07:44 408 mls/hr INTRAOP ONE Administration Lactated Ringer's 1,000 mls @ 15 mls/hr 10/08/24 05:45 10/08/24 06:11 IV 15 mls/hr .Q48H BRONSON Administration Insulin Human Lispro 1 - 6 unit 10/08/24 07:30 Insulin Lispro 100 Unit/Ml Insuln.Pen SC 10/08/24 18:00 Q4H PRN PRN BG>/= 180, SEE PROTOCOL Protocol Scopolamine HBr 1 patch 10/08/24 07:30 10/08/24 06:16 Scopolamine 1mg/72hr Patch TD 10/08/24 07:31 1 patch PREOP ONE Administration PFSH Medical History Wears glasses Cancer Arthritis High cholesterol Migraine headache Non-smoker History of echocardiogram Cardiology follow-up encounter Sinus arrhythmia Palpitations Home Medications ?Medication ?Instructions ?Recorded ?Last Taken ?Type cholecalciferol (vitamin D3) 1,250 1,250 mcg PO QMONTH 10/08/24 10/03/24 History mcg (50,000 unit) tablet Allergy/AdvReac Type Severity Reaction Status Date / Time No Known Allergies Allergy Verified 10/08/24 05:53 Family History Father Atrial fibrillation Cardiomegaly Heart disease Surgical History (Updated 10/08/24 @ 07:[address] Mehran Robbins MD) History of ankle surgery History of tubal ligation History of Social History Smoking Status: Never smoker alcohol intake: never substance use type: does not use Review of Systems (Anesthesia) ROS Narrative System reviewed and no additional complaints, except as documented. 10/08/24 0710 <Electronically signed by Mehran osman MD> Date _ Mehran Robbins MD Cosigner Signature: Date CC: ~ Signed [facility] Work Phone: 1(933) 730-171405-06-2025 History and physical note [facility] Medical Records Department [address] [facility] [place] [address] History & Physical Exam 10/08/24 0717 MR#: [id number] Acct: [id number] Name: KANWAL MARTINEZ Rep #:[id number] : 1970 54 From: Jose J Murphy DO PCP: Dr. Adelina Torres MD Status:REG SD C Location: [place] [address] History and Physical Date of Admission: 10/08/24 [facility] [address] [place] [address] [address] [place] [address] OFFICE VISIT Date of Service: 09/09/24 MR#: [id number] Acct: [id number] Name: KANWAL MARTINEZ Rep #: [id number] : 1970 Provider: Dr. Jose J Murphy DO Age/Sex: 54/F Location: [facility] Status: Signed Intake Vital Signs 03/25/2413:28 09/09/2512:36 Height 5 ft 2 in 5 ft 2 in Weight: 171 lb 6 oz BMI 31.3 Intake Visit Reasons: RIGHT KNEE Chief Complaint: Right Knee Pain Accompanied by: Self Is patient in pain?: Yes Pain scale (1-10): 4 Allergies No Known Allergies Allergy (Verified 09/09/24 13:36) Medications ?Medication ?Instructions ?Recorded ?Confirmed ?Type NK 03/25/24 09/09/24 History PFSH Medical History Sinus arrhythmia Palpitations Surgical History History of Family History Father Atrial fibrillation Cardiomegaly Heart disease Social History Smoking Status: Never smoker alcohol intake: never substance use type: does not use HPI RIGHT KNEE Details: This documentation accurately reflects the service provided and the decisions made by me, Dr. Jose J Murphy, DO 09/09/24 0756. Part of today?s visit was documented by [ ], acting as scribe. KANWAL MARTINEZ is a 54 year old F here today for right knee pain. Patient rates her pain a 4/10 today and wants to discuss the next steps. Patient did have Euflexxa injections and states they gave hersome mild relief. Patient denies any recent falls or injuries to the knee. She describes the pain around the patella and over the lateral aspect of the top of the knee. She states the knee will occasionally grind and pinch. She states when she is walking it feels like the knee wants to go the wrongdirection. Patient finished physical therapy and the pain/inflammation she was having with the IT band is gone and she states feels great. She states they didn't focus much on the knee they specifically focused on the IT band. She will take Tylenol/Ibuprofen PRN for the pain. 05/31/2024: Third Euflexxa right knee 1216 2023: second Euflexxa right knee 05/13/2024: First Euflexxa right knee 03/25/2024 visit:53 year old F here today NEW patient for her right knee. She states that she has had pain for a years but recently it it has gotten worse. She has been getting injections by Dr. Hirsch which use to help but they no longer help. Her last injection was about 4 months ago and it didn't give her any relief. Her pain is mostly anterior and is tender to touch. She states that the pain radiates up into her hip and low back that she thinks is from compensating. The knee pain started first and she started having lateral thigh pain. Denies numbness, tingling or other associated symptoms. She denies previous surgery on the knee. She does have Ibuprofen 600mg that Dr Hirsch gave her that she takes when the pain gets really bad. She does feel a grinding in the knee. She denies instability. She has tried an OTC velcro hinged knee brace that wasn't helpful. She denies PT. Plan: Patient is here today for the right knee pain. Educated patient on anatomyand etiology. Reviewed xrays that she does have advanced arthritis of the knee, however this is mostly medial. Spoke with her that her treatment options are do nothing, steroid injection, viscosupplementation injection,weight loss, glucosamine chondroitin, knee bracing, physical therapy, anti-inflammatories, ora TKA.Spoke with patient that I do have a concern of her IT band being inflamed. And explained she could continue to have this pain after surgery and the recommended treatment for it would be formal physical therapy she thinks it started after her gait was altered from her knee pain which is very possible. She would like us to submit for the gel injections along with physical therapy and a steroid injection today. Follow up after approval for viscosupplementation injections or sooner if pain, swelling, numbness or associated symptoms, or concerns develop. All questions answered. Patient in agreement of plan. Ortho Exam General General: Yes no acute distress and Yes well groomed Neurologic: Yes alert and Yes oriented x3 Psychologic: Yes reasonable and appropriate Right Knee Skin/Wound: Yes CDI, No erythema, No ecchymosis and No swelling Knee ROM: Yes ROM-Extension -20 to 0 and No ROM-Flexion 0-140 (115) Examination: No Med jt line tenderness and Yes Crepitus Stability: NML: Anterior Drawer, NML: Posterior Drawer, NML: Valgus 0, NML: Valgus 30, NML: Varus 0and NML: Varus 30 Patella Translation: 1 KNEE: loose body shifting on the upper anterior lateral aspect of the knee painful when snapping no joint effusion Head: Normocephalic Atraumatic Chest: symmetrical rise, non-labored breathing, no audible wheeze Abdomen: no guarding, non-rigid Left Knee Patella Translation: 1 Supplemental Info 09/09/2024 x-ray right knee:advanced medial compartment narrowing [id number], moderate patellofemoral spurring 06/21/2023 x-ray right knee: advanced medial compartment narrowing [id number], moderate patellofemoral spurring Coding Level of Care Code Off vis,est,level 4 Diagnoses Primary osteoarthritis of right knee M17.11 Osteoarthritis type: primary Loose body in knee, right knee M23.41 Assessment and Plan Assessment and Plan (1) Osteoarthritis of right knee: Status: Acute Qualifiers: Osteoarthritis type: primary Qualified Code(s): M17.11 - Unilateral primary osteoarthritis, right knee (2) Loose body in knee, right knee: Status: Acute Orders: Orders Knee 4 or More Views Today M17.11 - Unilateral primary osteoarthritis, right knee Plan Reviewed imaging with the patient. She does have advanced knee arthrosis particularly of the medial compartment [id number] she does have pain mostly however over the superior lateral knee with what feels like a loose body. Her options would be: do nothing, continue with nonoperative treatment options,knee MRI to evaluatefor any loose body that may be present in the knee, arthroscopic procedure to clean out the knee orTKA. Risks, benefits and alternatives of surgery reviewed including but not limited to bleeding, inf ection, nerve, artery and/or tissue damage, fracture, VTE, mechanical feel ofthe knee, continued pain, stiffness and expected post-operative course. Explained the importance of physical therapy aftersurgery. Spoke to patient about the Iovera treatment that is offered and it is recommended if it isapproved with insurance. Patient would like to proceed with a right TKA. Explained that she cannot take any Ibuprofen/Aleve 7 days prior to surgery. She will need medical clearance and CT scan prior to surgery she will need medical clearance and CTscan prior to surgery Tentative surgery date October 08, 2024 same-day surgery Follow up for the Iovera treatment if approved with insurance or sooner if pain,swelling, numbness or associated symptoms, or concerns develop. All questions answered. Patient in agreement of plan. 09/09/24 1629 Date Jose J Murphy DO I have examined the patient and the H&P has been reviewed. There are no clinicalchanges since date of exam. 10/08/24 07 Cosigner Signature (if applicable): CC: Dr. Adelina Torres MD; Dr. Jose J Murphy, DO~ Signed [facility]05-06-2025 [facility] Medical Records Department [address] [place] [address] History Physical Exam 10/08/24 0717 MR#: [id number] Acct: [id number] Name: KANWAL MARTINEZ Rep #: [id number] : 1970 54 From: Jose J Murphy DO PCP: Dr. Adelina Torres MD Status:REG [facility] [place] Location: [place] [address] History and Physical Date of Admission: 10/08/24 [facility] [address] [place] [address] [address] [place] [address] OFFICE VISIT Date of Service: 09/09/24 MR#: [id number] Acct: [id number] Name: KANWAL MARTINEZ Rep #: [id number] : 1970 Provider: Dr. Jose J Murphy DO Age/Sex: 54/F Location: [facility] [place] [facility] [place] Status: Signed Intake Vital Signs 03/25/2413:28 09/09/2512:36 Height 5 ft 2 in 5 ft 2 in Weight: 171 lb 6 oz BMI 31.3 Intake Visit Reasons: RIGHT KNEE Chief Complaint: Right Knee Pain Accompanied by: Self Is patient in pain?: Yes Pain scale (1-10): 4 Allergies No Known Allergies Allergy (Verified 09/09/24 13:36) Medications ???Medication ???Instructions ???Recorded ???Confirmed ???Type NK 03/25/24 09/09/24 History PFSH Medical History Sinus arrhythmia Palpitations Surgical History History of Family History Father Atrial fibrillation Cardiomegaly Heart disease Social History Smoking Status: Never smoker alcohol intake: never substance use type: does not use HPI RIGHT KNEE Details: This documentation accurately reflects the service provided and the decisions made by me, Dr. Jose J Murphy, DO 09/09/24 0756. Part of today???s visit was documented by [ ], acting as scribe. KANWAL MARTINEZ is a 54 year old F here today for right knee pain. Patient rates her pain a 4/10 today and wants to discuss the next steps. Patient did have Euflexxa injections and states they gave her some mild relief. Patient denies any recent falls or injuries to the knee. She describes the pain around the patella and over the lateral aspect of the top of the knee. She states the knee will occasionally grind and pinch. She states when she is walking it feels like the knee wants to go the wrong direction. Patient finished physical therapy and the pain/inflammation she was having with the IT band is gone and she states feels great. She states they didn't focus much on the knee they specifically focused on the IT band. She will take Tylenol/Ibuprofen PRN for the pain. 05/31/2024: Third Euflexxa right knee 1216 2023: second Euflexxa right knee 05/13/2024: First Euflexxa right knee 03/25/2024 visit:53 year old F here today NEW patient for her right knee. She states that she has had pain for a years but recently it it has gotten worse. She has been getting injections by Dr. Hirsch which use to help but they no longer help. Her last injection was about 4 months ago and it didn't give her any relief. Her pain is mostly anterior and is tender to touch. She states that the pain radiates up into her hip and low back that she thinks is from compensating. The knee pain started first and she started having lateral thigh pain. Denies numbness, tingling or other associated symptoms. She denies previous surgery on the knee. She does have Ibuprofen 600mg that Dr Hirsch gave her that she takes when the pain gets really bad. She does feel a grinding in the knee. She denies instability. She has tried an OTC velcro hinged knee brace that wasn't helpful. She denies PT. Plan: Patient is here today for the right knee pain. Educated patient on anatomy and etiology. Reviewed xrays that she does have advanced arthritis of the knee, however this is mostly medial. Spoke with her that her treatment options are do nothing, steroid injection, viscosupplementation injection, weight loss, glucosamine chondroitin, knee bracing, physical therapy, anti- inflammatories, or a TKA. Spoke with patient that I do have a concern of her IT band being inflamed. And explained she could continue to have this pain after surgery and the recommended treatment for it would be formal physical therapy she thinks it started after her gait was altered from her knee pain which is very possible. She would like us to submit for the gel injections along with physical therapy and a steroid injection today. Follow up after approval for viscosupplementation injections or sooner if pain, swelling, numbness or associated symptoms, or concerns develop. All questions answered. Patient in agreement of plan. (more content not included)...[facility]05-06-2025 Consult note [facility] Medical Records Department [address] [place] [address] Pre-Anesthesia Evaluation 10/08/24 0659 MR#: [id number] Acct: [id number] Name: KANWAL MARTINEZ Rep #:[id number] : 1970 54 From: Mehran Robbins MD PCP: Dr. Adelina Torres MD Status:REG SD C Y Race: C Location: [place] [address] ASA Classification* ASA Classification ASA Classification: 2 Assessment & Plan Anesthesia* Anesthesia Assessment Anesthesia Assessment: Discussed sedation and/or anesthesia options, risks, benefits, and alternatives with patient/parents/legal guardian/POA. Questions invited. The patient/parents/legal guardian/POA seems to understand and agrees to proceedwith anesthesia plan. Reviewed the physical assessment, medical history, allergy history and patient home medications list prior to surgery/procedure/anesthetic and documented any changes. Performed airway and anesthesia risk assessments. Anesthesia Type Anesthesia Type: Spinal and Block (Patient is consented for adductor canal block.) History Source History Obtained from:: Patient and Chart Anesthesia Focused Assessment* Temperature: 97.7 F Pulse Rate: 79 Blood Pressure: 110/66 Respiratory Rate: 18 Pulse Ox: 100 Oxygen Delivery Method: Room Air Airway Assessment Mouth opens: >3 cm Mallampati Score: III Teeth Condition: Intact Neck Range of motion (ROM): Full ROM Focused Labs Anesthesia Preop lab: CBC WBC 8.4 K/mm3 (4.4-11.0) 09/23/24 10:37 09/23/24 RBC 4.70 M/mm3 (4.2-5.4) 09/23/24 10:37 09/23/24 Hgb 13.8 g/dL (12.0-15.0) 09/23/24 10:37 09/23/24 Hct 41.5 % (37-47) 09/23/24 10:37 09/23/24 Plt Count 270 K/mm3 (150-450) 09/23/24 10:37 09/23/24 CHEMISTRY Potassium 3.9 mmol/L (3.3-5.1) 09/23/24 10:37 09/23/24 Sodium 141 mmol/L (133-145) 09/23/24 10:37 09/23/24 Magnesium 2.2 mg/dL (1.5-2.2) 09/26/24 08:09 09/26/24 BUN 13 mg/dL (4-19) 09/23/24 10:37 09/23/24 Creatinine 0.67 mg/dL (0.70-1.20) L 09/23/24 10:37 Glucose 88 mg/dL (70-99) 09/23/24 10:37 09/23/24 TSH 3.43 uIU/mL (0.358-3.74) 06/14/22 07:36 COAG PT 12.4 SECONDS (11.7-14.9) 09/26/24 08:09 Pre-Assessment Diagnosis/Proposed Procedure Planned Operative Procedure(s): R KNEE REPLACEMENT, ROBOT ASSISTED Anesthesia History 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 When Was Last Pacemaker Check QUESTION #4 FULL TEXT: You/Your Family Experience fever (hyperthermia) with Anesthesia Last Oral Intake Last Oral intake: Last Oral Intake NPO since 03:30 10/08/24 06:00 Meds taken in AM with sips of No 10/08/24 06:00 water? Meds patient instructed to take am of surgery Any additional information?: Yes NPO since: 03:30 (Patient had preop Ensure at 3:30 AM.) Meds takenin AM with sips of water?: Yes PONV PONV - press brake operator: PONV - press brake operator Female No 09/24/24 09:14 HX of Motion Sickness Yes 09/24/24 09:14 HX of N/V After Surgery No 09/24/24 09:14 Non-Smoker Yes 09/24/24 09:14 Duration of Surgery greater No 09/24/24 09:14 than 60 minutes Number of Risk Factors 2 09/24/24 09:14 PONV Score Moderate Risk 09/24/24 09:14 Height & Weight Height & Weight: Anesthesia: Height & Weight Height 5 ft 2 in 10/08/24 06:00 Weight: 80 kg 10/08/24 06:00 Body Mass Index (BMI) 32.2 10/08/24 06:00 Respiratory Assessment Respiratory Assessment - press brake operator: Respiratory Tract Infection Hx - press brake operator Hx Respiratory Tract Infection No 09/24/24 09:14 STOP Sleep Apnea STOP Sleep Apnea - press brake operator: STOP Sleep Apnea - press brake operator Hx Hypertension No 09/24/24 09:14 Hx Sleep Apnea No 09/24/24 09:14 CPAP BIPAP Do you snore loudly (louder No 09/24/24 09:14 than talking or can be heard Do you often feel tired/ No 09/24/24 09:14 fatigued/ sleepy during daytime? Has anyone observed you stop No 09/24/24 09:14 breathing during sleep? STOP Results Negative 09/24/24 09:14 QUESTION #5 FULL TEXT : Do you snore loudly (louder than talking or can be heard through closeddoors)? 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 Specify any problems Hx of Preganancy in last 3 No 09/24/24 09:14 Months Nurse Filling Out Transfusion [facility] 09/24/24 09:14 & Questions: Date: 09/24/24 09/24/24 09:14 Time: :09/24/24 09:14 Patient unable to answer at this time (ie. 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 Now No 09/24/24 09:14 Gestational Age (in weeks): EDC: Hx Hx Para Hx Section SAB No 09/24/24 09:14 Active Medications Active Medications: Current Medications Generic Name Dose Route Start Last Admin Trade Name Freq PRN Reason Stop Dose Admin Acetaminophen 1,000 mg 10/08/24 07:30 10/08/24 06:16 Acetaminophen 500 Mg Tablet PO 10/08/24 07:31 1,000 mg PREOP ONE Administration Celecoxib 400 mg 10/08/24 07:30 10/08/24 06:16 Celecoxib 200 Mg Capsule PO 10/08/24 07:31 400 mg PREOP ONE Administration Dexamethasone Sodium Phosphate 10 mg 10/08/24 07:30 Dexamethasone 10 Mg/Ml Vial IV 10/08/24 07:31 INTRAOP ONE Gabapentin 600 mg 10/08/24 07:30 10/08/24 06:16 Gabapentin 600 Mg Tablet PO 10/08/24 07:31 600 mg PREOP ONE Administration Cefazolin Sodium 2 gm/ Sodium 110 mls @ 150 mls/hr 10/08/24 07:30 Chloride IV 10/08/24 08:13 INTRAOP ONE Tranexamic Acid 1,000 mg/ 110 mls @ 660 mls/hr 10/08/24 07:30 Sodium Chloride IV 10/08/24 07:39 X1 ONE Tranexamic Acid 1,000 mg/ 110 mls @ 660 mls/hr 10/08/24 07:30 Sodium Chloride IV 10/08/24 07:39 X1 ONE Lactated Ringer's 1,000 mls @ 125 mls/hr 10/08/24 07:30 IV 10/08/24 15:29 .Q8H BRONSON Magnesium Sulfate 1 gm/ 102 mls @ 408 mls/hr 10/08/24 07:30 10/08/24 06:19 Dextrose IV 10/08/24 07:44 408 mls/hr INTRAOP ONE Administration Lactated Ringer's 1,000 mls @ 15 mls/hr 10/08/24 05:45 10/08/24 06:11 IV 15 mls/hr .Q48H BRONSON Administration Insulin Human Lispro 1 - 6 unit 10/08/24 07:30 Insulin Lispro 100 Unit/Ml Insuln.Pen SC 10/08/24 18:00 Q4H PRN PRN BG>/= 180, SEE PROTOCOL Protocol Scopolamine HBr 1 patch 10/08/24 07:30 10/08/24 06:16 Scopolamine 1mg/72hr Patch TD 10/08/24 07:31 1 patch PREOP ONE Administration PFS Medical History Wears glasses Cancer Arthritis High cholesterol Migraine headache Non-smoker History of echocardiogram Cardiology follow-up encounter Sinus arrhythmia Palpitations Home Medications ?Medication ?Instructions ?Recorded ?Last Taken ?Type cholecalciferol (vitamin D3) 1,250 1,250 mcg PO QMONTH 10/08/24 10/03/24 History mcg (50,000 unit) tablet Allergy/AdvReac Type Severity Reaction Status Date / Time No Known Allergies Allergy Verified 10/08/24 05:53 Family History Father Atrial fibrillation Cardiomegaly Heart disease Surgical History (Updated 10/08/24 @ 07:[address] Mehran Robbins MD) History of ankle surgery History of tubal ligation History of Social History Smoking Status: Never smoker alcohol intake: never substance use type: does not use Review of Systems (Anesthesia) ROS Narrative System reviewed and no additional complaints, except as documented. 10/08/24 Chelsey osman MD> Date _ Mehran Joel Signature: Date CC: ~ Signed [facility]04-29-2025 Radiology Diagnostic study note [facility] Imaging Services [address] [place] [address] Extremity Lower without Contra MR#: [id number] Acct: [id number] Name: KANWAL MARTINEZ Rep #: [id number] : 1970 F 54 From: Benigno Oshea MD PCP: Dr. Adelina Torres MD Status: REG CL I Study:Extremity Lower without Contra Date of Exam: 10/01/24 Exam# [id number] Ordering Dr: Jose J Murphy DO PROCEDURE: EXTREMITY LOWER WITHOUT CONTRA 10/01/2024 REASON FOR EXAM: TEMPLATING FOR RIGHT TKA TECHNIQUE: Axial CT images of the right knee obtained without intravenous contrast. [place] Sagittal reconstruction series were provided. CONTRAST: None One or more dose reduction techniques were used (e.g., Automated exposure control, adjustment of the mA and/or kV according to patient size, use of iterative reconstruction technique). RADIATION DOSE SUMMARY: DLP: 1147.39 mGycm COMPARISON: None FINDINGS: There is severe osteoarthritis in the medial compartment of the right knee with loss of the joint space, subcortical cyst formation, and marginal osteophytes. There is no acute fracture or dislocation. There is a large joint effusion. Muscular structures appear intact. There is no visible atherosclerosis. CT/Extremity Lower without Contra IMPRESSION: There is osteoarthritis which is most severe in the medial compartment. There is a large joint effusion. Reading Location: [facility] CC: Dr. Adelina Torres MD; Dr. Jose J Murphy DO ~ Medical Records Administrator: Signed [facility]04-07-2025 Evaluation note* Diagnosis Onset Date Resolution Status Admit Date Loose body in knee, right knee acute September 09, 2024 1:27pm Osteoarthritis of right knee acute September 09, 2024 1:27pm Chronic pain of right knee chronic September 23, 2024 2:49pm [facility] Work Phone: 1(258) 210-464004-07-2025 Evaluation note* Diagnosis Onset Date Resolution Status Admit Date Loose body in knee, right knee acute September 09, 2024 1:27pm Osteoarthritis of right knee acute September 09, 2024 1:27pm Chronic pain of right knee chronic September 23, 2024 2:49pm Other acute postprocedural pain acut e October 14, 2024 2:05pm Pain and swelling of right l ower leg acute October 14, 2024 2 :05pm Status post total knee replacement, right acute October 14 2:05pm [facility] Work Phone: 1(700) 949-287804-07-2025 Evaluation note* Diagnosis Onset Date Resolution Status Admit Date Loose body in knee, right knee acute September 09, 2024 1:27pm Osteoarthritis of right knee acute September 09, 2024 1:27pm Chronic pain of right knee chronic September 23, 2024 2:49pm Other acute postprocedural pain acut e October 14, 2024 2:05pm Pain and swelling of right l ower leg acute October 14, 2024 2 :05pm Status post total knee replacement, right acute October 14 2:05pm Orthopedic aftercare acute October 21, 2024 11:23am [facility] Work Phone: 1(868) 651-778212-27-2024 Evaluation note* Diagnosis Onset Date Resolution Status Admit Date Osteoarthritis of right knee acute May 31, 2024 7:57am Loose body in knee, right knee acute September 09, 2024 1:27pm Osteoarthritis of right knee acute September 09, 2024 1:27pm Chronic pain of right knee chronic September 23, 2024 2:49pm [facility] Work Phone: 1(227) 102-607611-16-2024 NoteHNO ID: [id number] Author: LUDY FERRER PA Service: ? Author Type: Physician Laundry Tech Type: Progress Notes Filed: 04/20/2024 08:29 Note Text: This note was created using NoteWriter. Subjective Kanwal Martinez is a 54 year old female. HPI 54-year-old female presents for cough, nasal congestion, sinus headache, sinus pain for over 1 week. Patient states she is taking sick a little over a week ago with sinus congestion. She has having yellow nasal drainage. She states she has a lot of sinus pain in her face and under her eyes. She has had a cough that got worse yesterday. She states that she has a little bit of sore throat with coughing. Cough is dry. She denies any chest pain or shortness of breath. No history of COPD or asthma. She is also reporting left ear pain. She has been taking DayQuil and NyQuil with minimal improvement in symptoms. PAST MEDICAL HISTORY Diagnosis Date Migraines PAST SURGICAL HISTORY Procedure Laterality Date DELIVERY ONLY , low transverse DIVISN PLANTAR FASCIA/MUSCLE 1984 left HYSTEROSCOPY BX W/WO DANDC 11/2012 w/ polypectomy LIG/TRNSXJ FLP TUBE ABDL/VAG APPR UNI/BI Tubal ligation ALLERGIES Patient has no known allergies. MEDICATIONS doxycycline (VIBRA-TABS) 100 mg tablet Take 1 tablet by mouth two times a day for 7 days. benzonatate (TESSALON PERLE) 100 mg capsule Take 1 capsule by mouth three times a day as needed. FAMILY HISTORY Problem Relation Age of Onset Diabetes Mother Heart Father Cancer Maternal Grandfather leukemia Social History Tobacco Use Smoking status: Never Smokeless tobacco: Never Substance Use Topics Alcohol use: No Drug use: No Review of Systems Constitutional: Negative for chills and fever. HENT: Positive for congestion, ear pain, sinus pressure and sinus pain. Negative for sore throat. Respiratory: Positive for cough. Negative for shortness of breath. Cardiovascular: Negative for chest pain. Gastrointestinal: Negative for diarrhea and vomiting. Neurological: Positive for headaches. Objective BP 115/80 Pulse 75 Temp 37 ?C (98.6 ?F) (Right Tympanic) Resp 16 Wt 78.7 kg (173 lb 8 oz) LMP 06/20/2023 (Exact Date) SpO2 98% BMI 32.78 kg/m? Physical Exam Vitals and nursing note reviewed. Constitutional: General: She is not in acute distress. Appearance: Normal appearance. She is not toxic-appearing. HENT: Right Ear: Tympanic membrane and ear canal normal. Tympanic membrane is not erythematous. Left Ear: Tympanic membrane and ear canal normal. Tympanic membrane is not erythematous. Ears: Comments: Mild amount of clear fluid behind TMs bilaterally Nose: Mucosal edema and congestion present. Right Sinus: Maxillary sinus tenderness present. Left Sinus: Maxillary sinus tenderness present. Mouth/Throat: Mouth: Mucous membranes are moist. Eyes: Conjunctiva/sclera: Conjunctivae normal. Cardiovascular: Rate and Rhythm: Normal rate and regular rhythm. Pulmonary: Effort: Pulmonary effort is normal. Breath sounds: Normal breath sounds. No wheezing, rhonchi or rales. Skin: General: Skin is warm and dry. Neurological: Mental Status: She is alert. Assessment and Plan ASSESSMENT/PLAN: 1. Sinobronchitis - ICD9: 473.9, 490, ICD10: J32.9, J40 - Will begin treatment with Doxycycline - rx tessalon perles - The patient should also be given OTC cough and cold meds as needed for the first 5-7 days of treatment. - Supportive care with plenty of fluids, rest, and analgesia prn. Diagnosis and treatment plan were discussed and questions were answered to the patient's satisfaction. Pt acknowledged understanding of concepts and follow up plan. Specific signs and symptoms that would indicate the need for higher level of care were discussed in detail warranting prompt ER evaluation. Ludy Ferrer [facility]11-16-2024 History of Present illness Narrative* Ludy Ferrer PA - 04/20/2024 8:27 AM EST This note was created using NoteWriter. Subjective Kanwal Martinez is a 54 year old female. HPI 54-year-old female presents for cough, nasal congestion, sinus headache, sinus pain for over 1 week. Patient states she is taking sick a little over a week ago with sinus congestion. She has having yellow nasal drainage. She states she has a lot of sinus pain in her face and under her eyes. Shehas had a cough that got worse yesterday. She states that she has a little bit of sore throat with coughing. Cough is dry. She denies any chest pain or shortness of breath. No history of COPD or asthma. She is also reporting left ear pain. She has been taking DayQuil and NyQuil with minimal improvement in symptoms. PAST MEDICAL HISTORY Diagnosis Date Migraines PAST SURGICAL HISTORY Procedure Laterality Date DELIVERY ONLY , low transverse DIVISN PLANTAR FASCIA/MUSCLE 1984 left HYSTEROSCOPY BX W/WO D&C 11/2012 w/ polypectomy LIG/TRNSXJ FLP TUBE ABDL/VAG APPR UNI/BI Tubal ligation ALLERGIES Patient has no known allergies. MEDICATIONS doxycycline (VIBRA-TABS) 100 mg tablet Take 1 tablet by mouth two times a day for 7 days. benzonatate (TESSALON PERLE) 100 mg capsule Take 1 capsule by mouth three times a day as needed. FAMILY HISTORY Problem Relation Age of Onset Diabetes Mother Heart Father Cancer Maternal Grandfather leukemia Social History Tobacco Use Smoking status: Never Smokeless tobacco: Never Substance Use Topics Alcohol use: No Drug use: No Review of Systems Constitutional: Negative for chills and fever. HENT: Positive for congestion, ear pain, sinus pressure and sinus pain. Negative for sore throat. Respiratory: Positive for cough. Negative for shortness of breath. Cardiovascular: Negative for chest pain. Gastrointestinal: Negative for diarrhea and vomiting. Neurological: Positive for headaches. Objective BP 115/80 Pulse 75 Temp 37 C (98.6 F) (Right Tympanic) Resp 16 Wt 78.7 kg (173 lb 8 oz) LMP 06/20/2023 (Exact Date) SpO2 98% BMI 32.78 kg/m Physical Exam Vitals and nursing note reviewed. Constitutional: General: She is not in acute distress. Appearance: Normal appearance. She is not toxic-appearing. HENT: Right Ear: Tympanic membrane and ear canal normal. Tympanic membrane is not erythematous. Left Ear: Tympanic membrane and ear canal normal. Tympanic membrane is not erythematous. Ears: Comments: Mild amount of clear fluid behind TMs bilaterally Nose: Mucosal edema and congestion present. Right Sinus: Maxillary sinus tenderness present. Left Sinus: Maxillary sinus tenderness present. Mouth/Throat: Mouth: Mucous membranes are moist. Eyes: Conjunctiva/sclera: Conjunctivae normal. Cardiovascular: Rate and Rhythm: Normal rate and regular rhythm. Pulmonary: Effort: Pulmonary effort is normal. Breath sounds: Normal breath sounds. No wheezing, rhonchi or rales. Skin: General: Skin is warm and dry. Neurological: Mental Status: She is alert. Assessment and Plan ASSESSMENT/PLAN: 1. Sinobronchitis - ICD9: 473.9, 490, ICD10: J32.9, J40 - Will begin treatment with Doxycycline - rx tessalon perles - The patient should also be given OTC cough and cold meds as needed for the first 5-7 days of treatment. - Supportive care with plenty of fluids, rest, and analgesia prn. Diagnosis and treatment plan were discussed and questions were answered to the patient's satisfaction. Pt acknowledged understanding of concepts and follow up plan. Specific signs and symptoms that would indicate the need for higher level of care were discussed in detail warranting prompt ER evaluation. CLAUDIA Khan [facility] History of Present illness Narrative* Dionne Walton RT([place]) - 10/21/2023 11:00 AM EDT Radiology Service Progress Note PATIENT NAME: Kanwal Martinez DATE OF SERVICE: October 21, 2023 TIME: 11:03 AM PATIENT IDENTITY VERIFICATION COMPLETED USING TWO (2) IDENTIFIERS: Name and Date of confirmedby patient verbally. FALL SCREENING: Has the patient had 2 falls in the last year or 1 fall with injury or currently using an Ambulatory Assistive Device (Walker, Cane, Wheelchair, Crutches, etc.)? No PATIENT GENDER DATA: Female. status: : No status: NO. PATIENT RELEVANT IMPLANT DATA REVIEWED: Not Applicable PATIENT PRESENTS WITH AN IMPLANTABLE OR ATTACHED LIBRARY SUPERVISOR: No RADIOLOGY DEPARTMENT: General X-ray: Exam(s) Completed: Chest X-Ray PERIPHERAL IV DATA: Not applicable SIGNED BY: RT Melia([place]) October 21, 2023 11:03 AM documented in this encounterProv[facility]05-18-[facility]24 NoteHNO ID: [id number] Author: DIONNE WALTON RT(R) Service: Radiology Author Type: Technologist Type: Progress Notes Filed: 10/21/2023 11:08 Note Text: Radiology Service Progress Note PATIENT NAME: Kanwal Martinez DATE OF SERVICE: October 21, 2023 TIME: 11:03 AM PATIENT IDENTITY VERIFICATION COMPLETED USING TWO (2) IDENTIFIERS: Name and Date of confirmed by patient verbally. FALL SCREENING: Has the patient had 2 falls in the last year or 1 fall with injury or currently using an Ambulatory Assistive Device (Walker, Cane, Wheelchair, Crutches, etc.)? No PATIENT GENDER DATA: Female. status: : No status: NO. PATIENT RELEVANT IMPLANT DATA REVIEWED: Not Applicable PATIENT PRESENTS WITH AN IMPLANTABLE OR ATTACHED LIBRARY SUPERVISOR: No RADIOLOGY DEPARTMENT: General X-ray: Exam(s) Completed: Chest X-Ray PERIPHERAL IV DATA: Not applicable SIGNED BY: RT Melia(R) October 21, 2023 11:03 [facility]05-18-2024 NoteHNO ID: [id number] Author: JAIRON KINNEY APRN.WIRE BRUSH OPERATOR Service: ? Author Type: Nurse Practitioner Type: Progress Notes Filed: 10/21/2023 11:18 Note Text: CC: Patient presents with: Cough: treated last week with augmentin for sinus infection still has cough HPI: Kanwal Martinez is a 53 year old female who presents to the office with complaint of chest congestion and cough, nonproductive for 2 weeks. Symptoms are staying the same. Associated symptoms includes cough. Denies fever, nausea, vomiting , and diarrhea. Treatments tried include nothing so far. with no relief of symptoms. Sick contacts: unknown. History of asthma, frequent episodes of bronchitis, chronic bronchitis, bronchiectasis or COPD: No Smoker: No Seasonal/environmental allergies: No The ROS is otherwise negative. The patient's pmh, medications, allergies, and past visits are reviewed. PHYSICAL EXAM: BP 110/72 Pulse 76 Temp 36.3 ?C (97.4 ?F) Resp 16 Wt 80.2 kg (176 lb 12.9 oz) LMP 06/20/2023 (Exact Date) SpO2 98% BMI 33.41 kg/m? General appearance: alert, cooperative, pleasant, in no acute distress Head: Normocephalic Eyes: EOM's intact, conjunctiva pink and moist, no icterus, sclera white, non-injected Ears: Right ear: External ear/canal- Normal, TM - clear with good landmarks. Left ear: External ear/canal- Normal, TM - clear with good landmarks Oropharynx:moist without lesions, No erythema, exudates or tonsillar hypertrophy. Heart: Negative. RRR without obvious murmur, gallop, or rubs. No ectopy. Lungs: wheezing left, lower base PAST MEDICAL HISTORY Diagnosis Date Migraines PAST SURGICAL HISTORY Procedure Laterality Date DELIVERY ONLY , low transverse DIVISN PLANTAR FASCIA/MUSCLE 1984 left HYSTEROSCOPY BX W/WO DANDC 11/2012 w/ polypectomy LIG/TRNSXJ FLP TUBE ABDL/VAG APPR UNI/BI Tubal ligation ALLERGIES Patient has no known allergies. MEDICATIONS amoxicillin-clavulanate potassium (AUGMENTIN) 875-125 mg per tablet Take 1 tablet by mouth two times a day for 7 days. benzonatate (TESSALON PERLE) 100 mg capsule Take 2 capsules by mouth three times a day as needed for up to 10 days. FAMILY HISTORY Problem Relation Age of Onset Diabetes Mother Heart Father Cancer Maternal Grandfather leukemia Social History Tobacco Use Smoking status: Never Smokeless tobacco: Never Substance Use Topics Alcohol use: No Drug use: No ASSESSMENT/PLAN: 1. Acute cough - ICD9: 786.2, ICD10: R05.1 - XR CHEST 2V FRONTAL/LAT * * * * Physician Interpretation * * * * EXAMINATION: CHEST RADIOGRAPH (2 VIEW FRONTAL AND LATERAL) CLINICAL HISTORY: Acute cough MQ: XC2_6 EXAM DATE/TIME: 10/21/2023 11:08 AM COMPARISON: No relevant prior studies available. RESULT: Lines, tubes, and devices: None. Lungs and pleura: No consolidation. No lung mass. No pleural effusion. No pneumothorax. Cardiomediastinal silhouette: Normal cardiomediastinal silhouette. Bones and soft tissues: Unremarkable. IMPRESSION IMPRESSION: No acute radiographic abnormality. Medical Records Administrator: PSCB Transcribe Date/Time: Oct 21 2023 11:14A Dictated by : ANASTACIO BUSTILLO MD - PREDNISONE 20 MG TABLET Prescription instructions reviewed with patient as applicable. Potential red flag symptoms discussed with the patient. Reviewed appropriate action plan to take if red flag symptoms occur. Patient agreeable to treatment plan. Jairon Kinney APRN.[facility]05-18-2024 History of Present illness Narrative* Jairon Kinney APRN.[facility] - 10/21/2023 10:49 AM EDT CC: Patient presents with: Cough: treated last week with augmentin for sinus infection still has cough HPI: Kanwal Martinez is a 53 year old female who presents to the office with complaint of chest congestion and cough, nonproductive for 2 weeks. Symptoms are staying the same. Associated symptoms includes cough. Denies fever, nausea, vomiting , and diarrhea. Treatments tried include nothing so far. with no relief of symptoms. Sick contacts: unknown. History of asthma, frequent episodes of bronchitis, chronic bronchitis, bronchiectasis or COPD: No Smoker: No Seasonal/environmental allergies: No The ROS is otherwise negative. The patient's pmh, medications, allergies, and past visits are reviewed. PHYSICAL EXAM: BP 110/72 Pulse 76 Temp 36.3 C (97.4 F) Resp 16 Wt 80.2 kg (176 lb 12.9 oz) LMP 06/20/2023 (Exact Date) SpO2 98% BMI 33.41 kg/m General appearance: alert, cooperative, pleasant, in no acute distress Head: Normocephalic Eyes: EOM's intact, conjunctiva pink and moist, no icterus, sclera white, non-injected Ears: Right ear: External ear/canal- Normal, TM - clear with good landmarks. Left ear: External ear/canal- Normal, TM - clear with good landmarks Oropharynx:moist without lesions, No erythema, exudates or tonsillar hypertrophy. Heart: Negative. RRR without obvious murmur, gallop, or rubs. No ectopy. Lungs: wheezing left, lower base PAST MEDICAL HISTORY Diagnosis Date Migraines PAST SURGICAL HISTORY Procedure Laterality Date DELIVERY ONLY , low transverse DIVISN PLANTAR FASCIA/MUSCLE 1984 left HYSTEROSCOPY BX W/WO D&C 11/2012 w/ polypectomy LIG/TRNSXJ FLP TUBE ABDL/VAG APPR UNI/BI Tubal ligation ALLERGIES Patient has no known allergies. MEDICATIONS amoxicillin-clavulanate potassium (AUGMENTIN) 875-125 mg per tablet Take 1 tablet by mouth two times a day for 7 days. benzonatate (TESSALON PERLE) 100 mg capsule Take 2 capsules by mouth three times a day as needed for up to 10 days. FAMILY HISTORY Problem Relation Age of Onset Diabetes Mother Heart Father Cancer Maternal Grandfather leukemia Social History Tobacco Use Smoking status: Never Smokeless tobacco: Never Substance Use Topics Alcohol use: No Drug use: No ASSESSMENT/PLAN: 1. Acute cough - ICD9: 786.2, ICD10: R05.1 - XR CHEST 2V FRONTAL/LAT * * * * Physician Interpretation * * * * EXAMINATION: CHEST RADIOGRAPH (2 VIEW FRONTAL & LATERAL) CLINICAL HISTORY: Acute cough MQ: XC2_6 EXAM DATE/TIME: 10/21/2023 11:08 AM COMPARISON: No relevant prior studies available. RESULT: Lines, tubes, and devices: None. Lungs and pleura: No consolidation. No lung mass. No pleural effusion. No pneumothorax. Cardiomediastinal silhouette: Normal cardiomediastinal silhouette. Bones and soft tissues: Unremarkable. IMPRESSION IMPRESSION: No acute radiographic abnormality. Medical Records Administrator: DOMINGUEZ Transcribe Date/Time: Oct 21 2023 11:14A Dictated by : ANASTACIO BUSTILLO MD - PREDNISONE 20 MG TABLET Prescription instructions reviewed with patient as applicable. Potential red flag symptoms discussed with the patient. Reviewed appropriate action plan to take if red flag symptoms occur. Patient agreeable to treatment plan. Jairon Kinney APRN.WIRE BRUSH OPERATOR documented in this encounterProv[facility]05-11-[facility]24 NoteHNO ID: [id number] Author: LIANNA OROPEZA APRN.[facility] Service: ? Author Type: Nurse Practitioner Type: Progress Notes Filed: 10/14/2023 08:59 Note Text: Subjective HPI Kanwal Martinez is a 53 year old female who presents with one week of head congestion, headache, cough, chest congestion. She heard herself wheezing at night last night. She has not had a fever. She denies shortness of breath. She has been taking dayquil and nyquil. No known sick contacts. Review of Systems Constitutional: Negative for chills and fever. HENT: Positive for congestion. Negative for ear pain and sore throat. Respiratory: Positive for cough, sputum production and wheezing. Negative for shortness of breath. Cardiovascular: Negative for chest pain. Musculoskeletal: Negative for myalgias. Neurological: Positive for headaches. BP 118/80 Pulse 85 Temp 36.6 ?C (97.9 ?F) Resp 18 Wt 79 kg (174 lb 2.6 oz) LMP 06/20/2023 (Exact Date) SpO2 97% BMI 32.91 kg/m? PAST MEDICAL HISTORY Diagnosis Date Migraines PAST SURGICAL HISTORY Procedure Laterality Date DELIVERY ONLY , low transverse DIVISN PLANTAR FASCIA/MUSCLE 1984 left HYSTEROSCOPY BX W/WO DANDC 11/2012 w/ polypectomy LIG/TRNSXJ FLP TUBE ABDL/VAG APPR UNI/BI Tubal ligation ALLERGIES Patient has no known allergies. MEDICATIONS amoxicillin-clavulanate potassium (AUGMENTIN) 875-125 mg per tablet Take 1 tablet by mouth two times a day for 7 days. benzonatate (TESSALON PERLE) 100 mg capsule Take 2 capsules by mouth three times a day as needed for up to 10 days. FAMILY HISTORY Problem Relation Age of Onset Diabetes Mother Heart Father Cancer Maternal Grandfather leukemia Social History Tobacco Use Smoking status: Never Smokeless tobacco: Never Substance Use Topics Alcohol use: No Drug use: No Objective Physical Exam Vitals and nursing note reviewed. Constitutional: General: She is not in acute distress. Appearance: Normal appearance. She is not ill-appearing. HENT: Right Ear: Tympanic membrane, ear canal and external ear normal. Left Ear: Tympanic membrane, ear canal and external ear normal. Nose: Mucosal edema, congestion and rhinorrhea present. Mouth/Throat: Mouth: Mucous membranes are moist. Pharynx: Oropharynx is clear. Uvula midline. No oropharyngeal exudate or posterior oropharyngeal erythema. Cardiovascular: Rate and Rhythm: Normal rate and regular rhythm. Heart sounds: Normal heart sounds. Pulmonary: Effort: Pulmonary effort is normal. No respiratory distress. Breath sounds: Normal breath sounds. No wheezing or rales. Musculoskeletal: Cervical back: Neck supple. Lymphadenopathy: Cervical: No cervical adenopathy. Skin: General: Skin is warm and dry. Findings: No erythema or rash. Neurological: Mental Status: She is alert. ASSESSMENT/PLAN: 1. Bacterial sinusitis - ICD9: 473.9, 041.9, ICD10: J32.9, B96.89 (primary diagnosis) - Will begin treatment with as per antibiotic as written, see orders - The patient should also be given flonase nasal spray for the first 5-7 days of treatment. - Supportive care with plenty of fluids, rest, and analgesia prn. - AMOXICILLIN 875 MG-POTASSIUM CLAVULANATE 125 MG TABLET 2. Acute cough - ICD9: 786.2, ICD10: R05.1 - BENZONATATE 100 MG CAPSULE - Follow-up with your PCP in 3-5 days if symptoms have not improved or sooner if symptoms worsen - Discussed red flags and need for immediate medical evaluation if any occur. - Discussed supportive care treatment with fluids, rest and analgesia. - Discussed expected course of illness Lianna Oropeza [facility] History of Present illness Narrative* Lianna Oropeza APRN.WIRE BRUSH OPERATOR - 10/14/2023 8:33 AM EDT Subjective HPI Kanwal Martinez is a 53 year old female who presents with one week of head congestion, headache, cough, chest congestion. She heard herself wheezing at night last night. She has not had a fever. She denies shortness of breath. She has been taking dayquil and nyquil. No known sick contacts. Review of Systems Constitutional: Negative for chills and fever. HENT: Positive for congestion. Negative for ear pain and sore throat. Respiratory: Positive for cough, sputum production and wheezing. Negative for shortness of breath. Cardiovascular: Negative for chest pain. Musculoskeletal: Negative for myalgias. Neurological: Positive for headaches. BP 118/80 Pulse 85 Temp 36.6 C (97.9 F) Resp 18 Wt 79 kg (174 lb 2.6 oz) LMP 06/20/2023 (Exact Date) SpO2 97% BMI 32.91 kg/m PAST MEDICAL HISTORY Diagnosis Date Migraines PAST SURGICAL HISTORY Procedure Laterality Date DELIVERY ONLY , low transverse DIVISN PLANTAR FASCIA/MUSCLE 1984 left HYSTEROSCOPY BX W/WO D&C 11/2012 w/ polypectomy LIG/TRNSXJ FLP TUBE ABDL/VAG APPR UNI/BI Tubal ligation ALLERGIES Patient has no known allergies. MEDICATIONS amoxicillin-clavulanate potassium (AUGMENTIN) 875-125 mg per tablet Take 1 tablet by mouth two times a day for 7 days. benzonatate (TESSALON PERLE) 100 mg capsule Take 2 capsules by mouth three times a day as needed for up to 10 days. FAMILY HISTORY Problem Relation Age of Onset Diabetes Mother Heart Father Cancer Maternal Grandfather leukemia Social History Tobacco Use Smoking status: Never Smokeless tobacco: Never Substance Use Topics Alcohol use: No Drug use: No Objective Physical Exam Vitals and nursing note reviewed. Constitutional: General: She is not in acute distress. Appearance: Normal appearance. She is not ill-appearing. HENT: Right Ear: Tympanic membrane, ear canal and external ear normal. Left Ear: Tympanic membrane, ear canal and external ear normal. Nose: Mucosal edema, congestion and rhinorrhea present. Mouth/Throat: Mouth: Mucous membranes are moist. Pharynx: Oropharynx is clear. Uvula midline. No oropharyngeal exudate or posterior oropharyngeal erythema. Cardiovascular: Rate and Rhythm: Normal rate and regular rhythm. Heart sounds: Normal heart sounds. Pulmonary: Effort: Pulmonary effort is normal. No respiratory distress. Breath sounds: Normal breath sounds. No wheezing or rales. Musculoskeletal: Cervical back: Neck supple. Lymphadenopathy: Cervical: No cervical adenopathy. Skin: General: Skin is warm and dry. Findings: No erythema or rash. Neurological: Mental Status: She is alert. ASSESSMENT/PLAN: 1. Bacterial sinusitis - ICD9: 473.9, 041.9, ICD10: J32.9, B96.89 (primary diagnosis) - Will begin treatment with as per antibiotic as written, see orders - The patient should also be given flonase nasal spray for the first 5-7 days of treatment. - Supportive care with plenty of fluids, rest, and analgesia prn. - AMOXICILLIN 875 MG-POTASSIUM CLAVULANATE 125 MG TABLET 2. Acute cough - ICD9: 786.2, ICD10: R05.1 - BENZONATATE 100 MG CAPSULE - Follow-up with your PCP in 3-5 days if symptoms have not improved or sooner if symptoms worsen - Discussed red flags and need for immediate medical evaluation if any occur. - Discussed supportive care treatment with fluids, rest and analgesia. - Discussed expected course of illness Lianna Oropeza APRN.WIRE BRUSH OPERATOR documented in this encounterProv[facility]05-11-[facility]24 Instructions* Patient Instructions* Lianna Oropeza APRN.W[employer] BRUSH OPERATOR - 10/14/2023 8:33 AM EDT ASSESSMENT/PLAN: 1. Bacterial sinusitis - ICD9: 473.9, 041.9, ICD10: J32.9, B96.89 (primary diagnosis) - Will begin treatment with as per antibiotic as written, see orders - The patient should also be given flonase nasal spray for the first 5-7 days of treatment. - Supportive care with plenty of fluids, rest, and analgesia prn. - AMOXICILLIN 875 MG-POTASSIUM CLAVULANATE 125 MG TABLET 2. Acute cough - ICD9: 786.2, ICD10: R05.1 - BENZONATATE 100 MG CAPSULE - Follow-up with your PCP in 3-5 days if symptoms have not improved or sooner if symptoms worsen - Discussed red flags and need for immediate medical evaluation if any occur. - Discussed supportive care treatment with fluids, rest and analgesia. - Discussed expected course of illness Lianna Oropeza APRN.WIRE BRUSH OPERATOR [facility] PATIENT INFO ACUTE SINUSITIS OVERVIEW Rhinosinusitis, or more commonly sinusitis, is the medical term for inflammation (swelling) of the lining of the sinuses and nose. The sinuses are the hollow areas within the facial bones that are connected to the nasal openings. The sinuses are lined with mucous membranes, similar to the inside ofthe nose. There are two main types of sinusitis: acute and chronic. Acute sinusitis is inflammation that lasts for less than four weeks while chronic sinusitis lasts for more than 12 weeks. Acute sinusitis is common, affecting approximately one million people per year in the [place]. ACUTE SINUSITIS CAUSES The most common cause of acute sinusitis is a viral infection associated with the common cold. Bacterial sinusitis occurs much less commonly, in only 0.5 to 2 percent of cases, usually as a complication of viral sinusitis. Because antibiotics are effective only against bacterial, and not viral, infections, most people donot need antibiotics for acute sinusitis. ACUTE SINUSITIS SYMPTOMS Symptoms of acute sinusitis include: Nasal congestion or blockage Thick, yellow to green discharge from the nose Pain in the teeth Pain or pressure in the face that is worse when bending forwards Other acute sinusitis symptoms can include fever (temperature greater than 100.4 F or 38 C), fatigue, cough, difficulty or inability to smell, ear pressure or fullness, headache, and bad breath. In most cases, these symptoms develop over the course of one day and begin to improve within seven to 10 days. DO I NEED TO BE EXAMINED? It is difficult to know if you have a viral or bacterial sinus infection initially. However, most people with a viral infection improve without treatment within seven to 10 days after symptoms begin.Bacterial sinusitis also sometimes improves without treatment, although it can also worsen and require treatment. If one or more of the following bothersome symptoms last more than seven days, an examination by a healthcare provider is recommended: Thick, yellow to green discharge from the nose Face or tooth pain, especially if it is only on one side Tenderness over the maxillary sinuses (located on the left and right side of the nose, inside the cheekbones) Symptoms that initially improve and then worsen When to seek immediate help -- If you have one or more of the following symptoms, you should seek medical attention immediately (even if symptoms have been present for less than seven days): High fever (>102.5 F or 39.2 C) Sudden, severe pain in the face or head Double vision or difficulty seeing Confusion or difficulty thinking clearly Swelling or redness around one or both eyes Stiff neck, shortness of breath ACUTE SINUSITIS TREATMENT Initial treatment of a sinus infection aims to relieve symptoms since almost everyone will improve within the first seven to 10 days. Experts recommend avoiding antibiotics during this time unless there is clear evidence of a severe bacterial infection. Initial treatment Pain relief -- Non-prescription pain medications, such as acetaminophen (eg, Tylenol ) or ibuprofen(eg, Motrin , Advil ) are recommended for pain. Nasal irrigation and saline sprays -- Rinsing the nose with a salt-water (saline) solution is called nasal irrigation or nasal lavage. Saline is also available in a standard nasal spray, although this is not as effective as using larger amounts of water in an irrigation. Nasal irrigation is particularly useful for treating drainage down the back of the throat, sneezing, nasal dryness, and congestion. The treatment helps by rinsing out allergens and irritants from thenose. Saline rinses also clean the nasal lining and can be used before applying sprays containing medications, to get a better effect from the medication. Nasal lavage with warmed saline can be performed as needed, once per day, or twice daily for increased symptoms. Nasal lavage carries few risks when performed correctly. Saline nasal sprays and irrigation kits can be purchased [id number]. Saline mixes can also be purchased or patients can make their own solution. A variety of devices, including bulb syringes, Neti pots, and bottle sprayers, may be used to perform nasal lavage; instructions for nasal lavage are provided in the table. At least 200 mL (about 3/4cup) of fluid is recommended for each nostril. Nasal decongestants -- Nasal decongestant sprays, including oxymetazoline (Afrin ) and phenylephrine (Enrique-synephrine ) can be used to temporarily treat congestion. However, these sprays should not beused for more than two to three days due to the risk of rebound congestion (when the nose is congested constantly unless the medication is used repeatedly). Other treatments -- Other treatments for congestion, such as oral antihistamines (such as diphenhydramine/Benadryl ) or zinc supplements are not proven to improve symptoms of sinusitis and can have unwanted side effects. Medications to thin secretions (such as guaifenesin) may help to clear mucus. Secondline treatment -- If symptoms have not improved in seven to ten days, you should arrange for medical evaluation. You may need further treatment. Nasal glucocorticoids -- Nasal glucocorticoids (steroids delivered by a nasal spray) can help to reduce swelling inside the nose, usually within two to three days. These drugs have few side effects and dramatically relieve symptoms in most people. There are a number of nasal glucocorticoids available by prescription. These drugs are all effective, but differ in how frequently they must be used and how much they cost. You may need to use a nasal decongestant for a few days before starting a nasal glucocorticoid to reduce nasal swelling; this will allow the nasal glucocorticoid to reach more areas of the nasal passages Do I need an antibiotic? -- If bothersome symptoms of sinusitis persist for 10 or more days, it is possible that you have bacterial sinusitis. The need for antibiotics depends upon the severity of your symptoms. Mild symptoms -- There are two possible treatment options if you have mild sinusitis symptoms: treat with antibiotics or continue to watch and wait for one week. Watching and waiting is a reasonable option because up to 75 percent of people with bacterial sinusitis improve within one month without antibiotics. During the watch and wait period, treatments to improve symptoms are recommended. If symptoms worsen or do not improve after watching and waiting, treatment with an antibiotic is usually recommended. Treatments to relieve symptoms are recommended while using antibiotics. Moderate or severe symptoms -- Most healthcare providers will prescribe an antibiotic for moderate to severe symptoms (temperature >38.3 C or 101 F and/or severe pain that interferes with usual activities). Treatments to relieve symptoms are also recommended during antibiotic treatment. One of the least expensive and most effective antibiotics for sinusitis is amoxicillin. An alternate antibiotic will be prescribed if you are allergic to penicillin. Regardless of which antibiotic isprescribed, it is important to follow the dosing instructions carefully and to finish the entire course of treatment. Taking the medication less often than prescribed or stopping the medication earlycan lead to complications, such as a recurrent infection. What if I do not improve with treatment? -- If you do not improve or worsen after a course of antibiotics, you should be re-examined. In some cases, symptoms of sinusitis improve but then recur. This is usually because the infection was not completely eliminated by the antibiotic. An alternate antibiotic, extended antibiotic treatment, and/or further testing may be recommended, depending upon your individual situation. documented [facility] NoteHNO ID: [id number] Author: LUDY FERRER PA Service: ? Author Type: Physician Laundry Tech Type: Progress Notes Filed: 07/22/2023 09:30 Note Text: This note was created using StepOneriter. Subjective Kanwal Martinez is a 53 year old female. HPI 53-year-old female presents for sinus congestion, cough., Chills. Patient states that she has had nasal congestion for a few weeks now. She was seen here 07/01 and diagnosed with sinusitis. She was treated with Augmentin. She states that she feels like the congestion never fully went away. She states that this week this congestion started getting worse. She has frontal sinus pressure and pain. She states that she has had a cough. She feels like she has some congestion in her chest. No fevers. She has had some chills. PAST MEDICAL HISTORY Diagnosis Date Migraines PAST SURGICAL HISTORY Procedure Laterality Date DELIVERY ONLY , low transverse DIVISN PLANTAR FASCIA/MUSCLE 1984 left HYSTEROSCOPY BX W/WO DANDC 11/2012 w/ polypectomy LIG/TRNSXJ FLP TUBE ABDL/VAG APPR UNI/BI Tubal ligation ALLERGIES Patient has no known allergies. MEDICATIONS doxycycline (VIBRA-TABS) 100 mg tablet Take 1 tablet by mouth two times a day for 7 days. FAMILY HISTORY Problem Relation Age of Onset Diabetes Mother Heart Father Cancer Maternal Grandfather leukemia Social History Tobacco Use Smoking status: Never Smokeless tobacco: Never Substance Use Topics Alcohol use: No Drug use: No Review of Systems Constitutional: Positive for chills. Negative for fever. HENT: Positive for congestion and sinus pressure. Negative for ear pain and sore throat. Respiratory: Positive for cough. Negative for shortness of breath. Cardiovascular: Negative for chest pain. Gastrointestinal: Negative for diarrhea and vomiting. Objective BP 114/74 Pulse 77 Temp 36.3 ?C (97.3 ?F) Resp 20 Wt 76.7 kg (169 lb) LMP 06/20/2023 (Exact Date) SpO2 98% BMI 31.93 kg/m? Physical Exam Vitals and nursing note reviewed. Constitutional: General: She is not in acute distress. Appearance: Normal appearance. She is not toxic-appearing. HENT: Right Ear: Tympanic membrane and ear canal normal. Left Ear: Tympanic membrane and ear canal normal. Nose: Congestion present. Right Sinus: Frontal sinus tenderness present. Left Sinus: Frontal sinus tenderness present. Mouth/Throat: Mouth: Mucous membranes are moist. Pharynx: No oropharyngeal exudate or posterior oropharyngeal erythema. Eyes: Conjunctiva/sclera: Conjunctivae normal. Cardiovascular: Rate and Rhythm: Normal rate and regular rhythm. Pulmonary: Effort: Pulmonary effort is normal. Breath sounds: Normal breath sounds. No wheezing, rhonchi or rales. Neurological: Mental Status: She is alert. Assessment and Plan ASSESSMENT/PLAN: 1. Frontal sinusitis, unspecified chronicity - ICD9: 473.1, ICD10: J32.1 -Treated with Augmentin 2 weeks ago. Patient states congestion never went away. Will treat with doxycycline. -Recommend using Flonase. -Follow-up with PCP in 5 to 7 days if no improvement. -Declines COVID/flu/RSV swab. - Supportive care with plenty of fluids, rest, and analgesia prn. Diagnosis and treatment plan were discussed and questions were answered to the patient's satisfaction. Pt acknowledged understanding of concepts and follow up plan. Specific signs and symptoms that would indicate the need for higher level of care were discussed in detail warranting prompt ER evaluation. Ludy Ferrer [facility]02-17-2024 History of Present illness Narrative* Ludy Ferrer, CLAUDIA - 07/22/2023 9:26 AM EST This note was created using StepOneriter. Subjective Kanwal Martinez is a 53 year old female. HPI 53-year-old female presents for sinus congestion, cough., Chills. Patient states that she has had nasal congestion for a few weeks now. She was seen here 07/01 and diagnosed with sinusitis. She was treated with Augmentin. She states that she feels like the congestion never fully went away. She states that this week this congestion started getting worse. She has frontal sinus pressure and pain.She states that she has had a cough. She feels like she has some congestion in her chest. No fevers. She has had some chills. PAST MEDICAL HISTORY Diagnosis Date Migraines PAST SURGICAL HISTORY Procedure Laterality Date DELIVERY ONLY , low transverse DIVISN PLANTAR FASCIA/MUSCLE 1984 left HYSTEROSCOPY BX W/WO D&C 11/2012 w/ polypectomy LIG/TRNSXJ FLP TUBE ABDL/VAG APPR UNI/BI Tubal ligation ALLERGIES Patient has no known allergies. MEDICATIONS doxycycline (VIBRA-TABS) 100 mg tablet Take 1 tablet by mouth two times a day for 7 days. FAMILY HISTORY Problem Relation Age of Onset Diabetes Mother Heart Father Cancer Maternal Grandfather leukemia Social History Tobacco Use Smoking status: Never Smokeless tobacco: Never Substance Use Topics Alcohol use: No Drug use: No Review of Systems Constitutional: Positive for chills. Negative for fever. HENT: Positive for congestion and sinus pressure. Negative for ear pain and sore throat. Respiratory: Positive for cough. Negative for shortness of breath. Cardiovascular: Negative for chest pain. Gastrointestinal: Negative for diarrhea and vomiting. Objective BP 114/74 Pulse 77 Temp 36.3 C (97.3 F) Resp 20 Wt 76.7 kg (169 lb) LMP 06/20/2023 (ExactDate) SpO2 98% BMI 31.93 kg/m Physical Exam Vitals and nursing note reviewed. Constitutional: General: She is not in acute distress. Appearance: Normal appearance. She is not toxic-appearing. HENT: Right Ear: Tympanic membrane and ear canal normal. Left Ear: Tympanic membrane and ear canal normal. Nose: Congestion present. Right Sinus: Frontal sinus tenderness present. Left Sinus: Frontal sinus tenderness present. Mouth/Throat: Mouth: Mucous membranes are moist. Pharynx: No oropharyngeal exudate or posterior oropharyngeal erythema. Eyes: Conjunctiva/sclera: Conjunctivae normal. Cardiovascular: Rate and Rhythm: Normal rate and regular rhythm. Pulmonary: Effort: Pulmonary effort is normal. Breath sounds: Normal breath sounds. No wheezing, rhonchi or rales. Neurological: Mental Status: She is alert. Assessment and Plan ASSESSMENT/PLAN: 1. Frontal sinusitis, unspecified chronicity - ICD9: 473.1, ICD10: J32.1 -Treated with Augmentin 2 weeks ago. Patient states congestion never went away. Will treat with doxycycline. -Recommend using Flonase. -Follow-up with PCP in 5 to 7 days if no improvement. -Declines COVID/flu/RSV swab. - Supportive care with plenty of fluids, rest, and analgesia prn. Diagnosis and treatment plan were discussed and questions were answered to the patient's satisfaction. Pt acknowledged understanding of concepts and follow up plan. Specific signs and symptoms that would indicate the need for higher level of care were discussed in detail warranting prompt ER evaluation. CLAUDIA Khan documented in this encounterProv[facility] Hospital01-27-[facility]24 NoteHNO ID: [id number] Author: LINDA LAURENT APRN.WIRE BRUSH OPERATOR Service: ? Author Type: Nurse Practitioner Type: Progress Notes Filed: 07/01/2023 13:30 Note Text: This note was created using StepOneriter. Subjective Kanwal Martinez is a 53 year old female. HPI pt states that she started with symptoms about 7 days ago. She has been using OTC cough/cold/congestion meds with no relief. She denies any fevers. Review of Systems HENT: Positive for congestion, postnasal drip, rhinorrhea, sinus pressure and sore throat. Respiratory: Positive for chest tightness. Objective BP 126/80 Pulse 72 Temp 36.4 ?C (97.5 ?F) Resp 16 Wt 76.2 kg (168 lb) LMP 05/19/2017 SpO2 97% BMI 31.74 kg/m? Physical Exam HENT: Nose: Congestion and rhinorrhea present. Mouth/Throat: Mouth: Mucous membranes are moist. Cardiovascular: Rate and Rhythm: Normal rate. Pulmonary: Effort: Pulmonary effort is normal. Skin: General: Skin is warm. Neurological: Mental Status: She is alert. Assessment and Plan ASSESSMENT/PLAN: 1. Bacterial sinusitis - ICD9: 473.9, 041.9, ICD10: J32.9, B96.89 - Will begin treatment with Augmentin 875 mg PO BID for 5 days - The patient should also be given OTC cough and cold meds as needed, behind the counter Pseudoephedrine, warm salt water gargles, throat lozenges and/or OTC throat spray as needed, and nasal saline gtts and suction prn for the first 5-7 days of treatment. - Supportive care with plenty of fluids, rest, and analgesia prn. - Follow up in 3-5 days if symptoms persist or worsen. Linda Laurent APRN.WIRE BRUSH OPERATOR Medical Decision Making: Problems: Low: Acute, uncomplicated illness or injury Risk: Moderate: Drug management Medical Decision Making Level: [facility] Miscellaneous Notes* Telephone Encounter - Jhoana Avila RN - 05/10/2023 3:51 PM EST Spoke with patient. Given message from provider's office. Patient verbalizes understanding. Jhoana Avila RN * Telephone Encounter - Rachel Kaur - 05/10/2023 8:04 AM EST Left message for patient to call back and ask to talk to a triage nurse. Rachel Kaur * Telephone Encounter - Sandra Alcazar MA - 05/10/2023 7:40 AM EST ----- Message from Lianna Oropeza APRN.WIRE BRUSH OPERATOR sent at 05/10/2023 7:18 AM EST ----- Urine culture did not show clear evidence of infection. She may continue to take antibiotic if it has been helpful. If not improving, recommend follow up with PCP. Lianna Oropeza CNP documented in this encounterProvidence Hospital12-04-2023 NoteHNO ID: [id number] Author: William Echeevrria APRN.JOANA Service: ? Author Type: Nurse Practitioner [...] times/week (Patient not taking: Reported on 10/23/2022) Pxdfymr-Unoaixpsaleqh-Voapledc 250-250-65 mg per tablet Take 1 tablet [...] symptoms lasting longer th (more content not included)...[facility]12-04-[facility] History of Present illness Narrative* William Echeverria APRN.[facility] - 05/08/2023 7:24 PM EST Subjective HPI Nontoxic-appearing female presents urgent care [...] by mouth once daily. (Patient not taking: Reportedon 02/27/2023) clobetasol (TEMOVATE) 0.05 % ointment Apply 1 application to affected area twice daily. for 2 weeksthen once a day for 1 week then 1-2 times/week (Patient not taking: Reported on 10/23/2022) Siztxfp-Ipxldkpztchar-Mskeplgu 250-250-65 mg per tablet Take 1 tablet [...] Wt 73.5 kg (162 lb) LMP 05/19/2017 AaF900% BMI 30.61 kg/m Review of Systems Constitutional: [...] of care. This note was generated using Cvergenx software. It may contain errors in wording, punctuation, or spelling. William Echeverria APRN.JOANA documented in this encounterProvidence Hospital03-31-2022 Miscellaneous Notes* Letter - Mammography Coordinator - 09/02/2021 7:52 AM EDT September 02, 2021 PID: [id number] Kanwal Martinez [address] [place] [id number] Dear Ms. Martinez, We are pleased to inform you that [...] report [facility] permanent medical record and are available for your continuing care. Thank you for allowing us to help in meeting your health care needs. Sincerely, Dr. Galdamez Interpreting Radiologist [facility] (Normal over 40) documented in this encounterProvidence Hospital03-24-2022 Miscellaneous Notes* Telephone Encounter - Linda Laurent APRN.CNP - 08/26/2021 10:20 AM EDT Order filed. Linda Laurent APRN.CNP * Telephone Encounter - Araceli Da Silva - 08/25/2021 10:45 AM EDT Patient called in to schedule her annual mammogram screening, stating she knew it had been a while.Her last screening was in June of 2017. I scheduled her for 09/01/21 and have pending the order to Linda Laurent because she order her last screening. Please contact patient is anything further is needed. Thank you Araceli Guerra Pss documented in this encounterProvidence HospitalEvaluation note* Diagnosis Encounter for screening mammogram for malignant neoplasm of breast- Primary Other screening mammogram [facility] noteNo assessment information availableWSycamore [facility] Center Work Phone: Evaluation note* Diagnosis Urinary frequency- Primary documented [facility]* Diagnosis Frontal sinusitis, unspecified chronicity- Primary documented [facility]* Diagnosis Bacterial sinusitis- Primary Unspecified sinusitis (chronic) Acute cough [facility] Diagnosis Acute cough- Primary Acute cough documented [facility]* Diagnosis Acute cough documented in this encounter [facility] note* Diagnosis Sinobronchitis- Primary Unspecified sinusitis (chronic) documented in this encounter [facility] for referral (narrative)* Diagnostic Procedure Only (Routine) - Authorized Specialty Diagnoses / Procedures Referred By Contac t Referred To Contact [facility] Diagnoses Encounter for screening mammogram for malignant neoplasm of breast Procedures YEIMY SCREENING W HYACINTH SCREENING DIGITAL BREAST TOMOSYNTHESIS BI SCREENING MAMMOGRAPHY BI 2-VIEW BREAST INC Linda Kenney APRN.CNP [address] [place] [address] [facility] [address] [place] [address] Referral ID Status Reason Start Date Expiration Date Visits Requested Visits Authorized [id number] Authorized Auto-Generat ed Referral 08/26/2021 09/24/2022 1 1 [facility] for referral (narrative)No reason for referral information availableWSycamore Medical Center Work Phone: Advance Directives Advance Directive Response Recorded Date/ Time Living Will No February 26, 2019 2:13pm Power of Globe Changer Yes February 2:13pm Advance Directive Response Recorded Date/ Time Living Will No February 26, 2019 1:13pm Power of Globe Changer Yes February 1:13pm Chief Complaint and Reason for Visit Chief Complaint EORDER Chief Complaint EORDER ARRHYTHMIAS Chief Complaint EORDER ARRHYTHMIAS ARRHYTHMIAS Chief Complaint RIGHT KNEE PAIN Chief Complaint Admit Date RIGHT KNEE May 31, 2024 7:57am RIGHT KNEE September 09, 2024 1:27 pm Room 2 September 09, 2024 1:59 pm right knee September 23, 2024 2:4 9pm Reason for Visit Admit Date Osteoarthritis of right knee May 312023 7:57am Loose body in knee, right knee September 1:27pm Osteoarthritis of right knee September 09, 2024 1:27pm Chronic pain of right knee September 23, 2 025 2:49pm Chief Complaint Admit Date RIGHT KNEE September 09, 2024 1:27 pm Room 2 September 09, 2024 1:59 pm right knee September 23, 2024 2:4 9pm TEMPLATING FOR RIGHT TKA October 01 7:54am Right Total Knee Replacement Robotic Arm Assisted, October 08, 2024 5:24am Right Total Knee Replacement Robotic Arm Assisted, October 08, 2024 7:17am Reason for Visit Admit Date Loose body in knee, right knee September 1:27pm Osteoarthritis of right knee September 09, 2024 1:27pm Chronic pain of right knee September 23, 2 025 2:49pm Chief Complaint Admit Date RIGHT KNEE September 09, 2024 1:27 pm Room 2 September 09, 2024 1:59 pm right knee September 23, 2024 2:4 9pm TEMPLATING FOR RIGHT TKA October 01 7:54am Right Total Knee Replacement Robotic Arm Assisted, October 08, 2024 5:24am Right Total Knee Replacement Robotic Arm Assisted, October 08, 2024 7:17am RIGHT KNEE October 14, 2024 2:05p m RIGHT LOWER EXT October 14, 2024 3:03p m RIGHT TOTAL KNEE. POST OP. RX HERE October 032024 10:30am Reason for Visit Admit Date Loose body in knee, right knee September 1:27pm Osteoarthritis of right knee September 09, 2024 1:27pm Chronic pain of right knee September 23, 2 025 2:49pm Other acute postprocedural pain October 2:05pm Pain and swelling of right lower leg October 14, 2024 2:05pm Status post total knee replacement, righ t October 14, 2024 2:05pm Chief Complaint Admit Date RIGHT KNEE September 09, 2024 1:27 pm Room 2 September 09, 2024 1:59 pm right knee September 23, 2024 2:4 9pm TEMPLATING FOR RIGHT TKA October 01 7:54am Right Total Knee Replacement Robotic Arm Assisted, October 08, 2024 5:24am Right Total Knee Replacement Robotic Arm Assisted, October 08, 2024 7:17am RIGHT KNEE October 14, 2024 2:05p m RIGHT LOWER EXT October 14, 2024 3:03p m RIGHT TOTAL KNEE. POST OP. RX HERE October 032024 10:00am right knee October 21, 2024 11:23 am Chief Complaint Admit Date RIGHT KNEE September 09, 2024 1:27 pm Room 2 September 09, 2024 1:59 pm right knee September 23, 2024 2:4 9pm TEMPLATING FOR RIGHT TKA October 01 7:54am Right Total Knee Replacement Robotic Arm Assisted, October 08, 2024 5:24am Right Total Knee Replacement Robotic Arm Assisted, October 08, 2024 7:17am RIGHT KNEE October 14, 2024 2:05p m RIGHT LOWER EXT October 14, 2024 3:03p m right knee October 21, 2024 11:23 am RIGHT TOTAL KNEE. POST OP. RX HERE November 18, 2024 7:00am right knee November 18, 2024 7:53 am Room 2 November 18, 2024 8:08 am Reason for Visit Admit Date Loose body in knee, right knee September 1:27pm Osteoarthritis of right knee September 09, 2024 1:27pm Chronic pain of right knee September 23, 2 025 2:49pm Other acute postprocedural pain October 2:05pm Pain and swelling of right lower leg October 14, 2024 2:05pm Status post total knee replacement, righ t October 14, 2024 2:05pm Orthopedic aftercare October 21, 2024 11:2 3am Family History Relationship Condition Age at Onset Recorded Date/T hakeem father Atrial fibrillation Unknown Cardiomegaly Unknown Cardiac disease Unknown Summary Purpose Additional Source Comments Source Comments (unrecognize d section and content) In the event this informatio n is protected by the Federal Confidentiality of Alcohol and Drug Abuse Patient Records regulations: The Federal rules restrict any use of the information to criminally investigate or prosecute any alcohol or drug abuse patient.[facility] HospitalIn the event this information is protected by the Federal Confidentiality of Alcohol and Drug Abuse Patient Records regulations: The Federal rules restrict any use of the information to criminally investigate or prosecute any alcohol or drug abuse patient.[facility] HospitalIn the event this information is protected by the Federal Confidentiality of Alcohol and Drug Abuse Patient Records regulations: The Federal rules restrict any use of the information to criminally investigate or prosecute any alcohol or drug abuse patient.[facility] HospitalIn the event this information is protected by the Federal Confidentiality of Alcohol and Drug Abuse Patient Records regulations: The Federal rules restrict any use of the information to criminally investigate or prosecute any alcohol or drug abuse patient.[facility] HospitalIn the event this information is protected by the Federal Confidentiality of Alcohol and Drug Abuse Patient Records regulations: The Federal rules restrict any use of the information to criminally investigate or prosecute any alcohol or drug abuse patient.[facility] HospitalIn the event this information is protected by the Federal Confidentiality of Alcohol and Drug Abuse Patient Records regulations: The Federal rules restrict any use of the information to criminally investigate or prosecute any alcohol or drug abuse patient.[facility] HospitalIn the event this information is protected by the Federal Confidentiality of Alcohol and Drug Abuse Patient Records regulations: The Federal rules restrict any use of the information to criminally investigate or prosecute any alcohol or drug abuse patient.[facility] HospitalIn the event this information is protected by the Federal Confidentiality of Alcohol and Drug Abuse Patient Records regulations: The Federal rules restrict any use of the information to criminally investigate or prosecute any alcohol or drug abuse patient.[facility] HospitalIn the event this information is protected by the Federal Confidentiality of Alcohol and Drug Abuse Patient Records regulations: The Federal rules restrict any use of the information to criminally investigate or prosecute any alcohol or drug abuse patient.[facility] Reason for Visit (unrecogniz ed section and content) Reason Comments Orders screening mammogram order Reason Comments Urinary Frequency x 10 days, low back pain x 2 days Reason Comments Results Reason Comments Nasal Congestion Chest congestion, co ugh, fatigue, nausea, body aches, chills x 3 days Reason Comments Chest Congestion Nasal congestion, he adache, sinus pain and pressure, cough non productive, fatigue, tightness in chest x 1 week Reason Comments Cough treated last week wi th augmentin for sinus infection still has cough Reason Comments Cough sinus congestion, le ft ear pain x1 week with sore throat x1 day Care Teams (unrecognized sec tion and content) Direct Support Professional Relationship Specialty Start Date End Date Reilly Elena MD PCP - General 12/31/04 Direct Support Professional Relationship Specialty Start Date End Date Reilly Elena MD PCP - General 12/31/04 Team Status: Active Member Role Status Dates Dr. Reilly Elena MD Family Provider Active Hang Ryan DO Primary Care Provider Active Team Status: Inactive Member Role Status Dates Hang Ryan DO Primary Care Provi robi, Attending Provider, Referring Provider Active Team Status: Active Member Role Status Dates Hang Ryan DO Primary Care Provider Active Scarlett Stathopouljenyn , RESIDENTIAL REAL ESTATE SALES MANAGER-C Attending Provider Active Team Status: Inactive Member Role Status Dates Hang Ryan DO Primary Care Provider Active Scarlett Stathopoulos , RESIDENTIAL REAL ESTATE SALES MANAGER-C Attending Provider Active Team Status: Active Member Role Status Dates Hang Ryan DO Primary Care Provider Active Dr. Sung Frias MD Attending Provider Active Team Status: Inactive Member Role Status Dates Hang Ryan DO Primary Care Provider Active Scarlett Stathopoulos , RESIDENTIAL REAL ESTATE SALES MANAGER-C Attending Provider, Referr ing Provider Active Direct Support Professional Relationship Specialty Start Date End Date Hang Ryan DO [address] [place] [address] PCP - General Family Medicine 10/23/22 Direct Support Professional Relationship Specialty Start Date End Date Connor Hang Aden DO [address] [place] [address] PCP - General Family Medicine 10/23/22 Team Status: Inactive Member Role Status Dates Hang Ryan DO Primary Care Provider Active Dr. Ambrose Hirsch MD Attending Provider, Referri Provider Active Direct Support Professional Relationship Specialty Start Date End Date ConnorHang hernandez DO [address] [place] [address] PCP - General Family Medicine 10/23/22 Direct Support Professional Relationship Specialty Start Date End Date Connor Hang Aden DO [address] [facility] [address] [place] [address] PCP - General Family Medicine 10/23/22 Direct Support Professional Relationship Specialty Start Date End Date Connor Hang Aden DO [address] [place] [address] PCP - General Family Medicine 10/23/22 Direct Support Professional Relationship Specialty Start Date End Date Hang Ryan Markie DO [address] [facility] [address] [place] [address] PCP - General Family Medicine 10/23/22 Direct Support Professional Relationship Specialty Start Date End Date Hang Ryan DO PCP - General Family Medicine 10/23/22 Team Status: Active Member Role Status Dates Adelina Torres MD Primary Care Provider Active Team Status: Inactive Member Role Status Dates No Primary Care Physician Primary Care Provider Active Start: May 31, 2024 End: May 31, 2024 No Primary Care Physician Referring Provider Active Start: May 31, 2024 End: May 31, 2024 Dr. Jose J Murphy DO Attending Provider Active Start: May 31, 2024 End: May 31, 2024 Team Status: Inactive Member Role Status Dates No Primary Care Physician Primary Care Provider Active Start: September 09, 2024 End: September 09, 2024 No Primary Care Physician Referring Provider Active Start: September 09, 2024 End: September 09, 2024 Dr. Jose J Murphy DO Attending Provider Active Start: September 09, 2024 End: September 09, 2024 Team Status: Inactive Member Role Status Dates No Primary Care Physician Primary Care Provider Active Start: September 09, 2024 End: September 09, 2024 Dr. Tad Ceja MD Attending Provider Active S tart: September 09, 2024 End: September 09, 2024 Team Status: Inactive Member Role Status Dates Adelina Torres MD Primary Care Provider Active St art: September 23, 2024 End: September 23, 2024 Adelina Torres MD Attending Provider Active Start : September 23, 2024 End: September 23, 2024 Adelina Torres MD Referring Provider Active Start : September 23, 2024 End: September 23, 2024 Team Status: Inactive Member Role Status Dates Adelina Torres MD Primary Care Provider Active St art: September 23, 2024 End: September 23, 2024 Adelina Torres MD Referring Provider Active Start : September 23, 2024 End: September 23, 2024 Dr. Jose J Murphy DO Attending Provider Active Start: September 23, 2024 End: September 23, 2024 Team Status: Active Member Role Status Dates Adelina Torres MD Primary Care Provider Active St art: September 26, 2024 Dr. Jose J Murphy DO Attending Provider Active Start: September 26, 2024 Dr. Jose J Murphy DO Referring Provider Active Start: September 26, 2024 Team Status: Inactive Member Role Status Dates Adelina Torres MD Primary Care Provider Active St art: September 26, 2024 End: September 26, 2024 Dr. Jose J Murphy DO Attending Provider Active Start: September 26, 2024 End: September 26, 2024 Dr. Jose J Murphy DO Referring Provider Active Start: September 26, 2024 End: September 26, 2024 Team Status: Active Member Role Status Dates Dr. Jose J Murphy DO Attending Provider Active Start: October 01, 2024 Dr. Jose J Murphy DO Referring Provider Active Start: October 01, 2024 Adelina Torres MD Primary Care Provider Active St art: October 01, 2024 Team Status: Inactive Member Role Status Dates Dr. Jose J Murphy DO Attending Provider Active Start: October 08, 2024 End: October 08, 2024 Dr. Jose J Murphy DO Referring Provider Active Start: October 08, 2024 End: October 08, 2024 Adelina Torres MD Primary Care Provider Active St art: October 08, 2024 End: October 08, 2024 Team Status: Active Member Role Status Dates Dr. Jose J Murphy DO Attending Provider Active Start: October 08, 2024 Dr. Jose J Murphy DO Referring Provider Active Start: October 08, 2024 Dr. Jose J Murphy DO Other Provider Active St art: October 08, 2024 Adelina Torres MD Primary Care Provider Active St art: October 08, 2024 Team Status: Inactive Member Role Status Dates Dr. Jose J Murphy DO Attending Provider Active Start: October 01, 2024 End: October 01, 2024 Dr. Jose J Murphy DO Referring Provider Active Start: October 01, 2024 End: October 01, 2024 Adelina Torres MD Primary Care Provider Active St art: October 01, 2024 End: October 01, 2024 Team Status: Inactive Member Role Status Jesse Torres MD Primary Care Provider Active St art: October 14, 2024 End: October 14, 2024 Adelina Torres MD Referring Provider Active Start : October 14, 2024 End: October 14, 2024 MEGHAN Stone Attending Provider Active Start: October 14, 2024 End: October 14, 2024 Team Status: Inactive Member Role Status Jesse Torres MD Primary Care Provider Active St art: October 14, 2024 End: October 14, 2024 MEGHAN Stone Attending Provider Active Start: October 14, 2024 End: October 14, 2024 MEGHAN Stone Referring Provider Active Start: October 14, 2024 End: October 14, 2024 Team Status: Active Member Role Status Jesse Torres MD Primary Care Provider Active St art: October 14, 2024 Dr. Rk Johnson MD Attending Provider Active S tart: October 14, 2024 Team Status: Active Member Role Status Jesse Torres MD Primary Care Provider Active St art: October 18, 2024 Dr. Jose J Murphy DO Attending Provider Active Start: October 18, 2024 Dr. Jose J Murphy DO Referring Provider Active Start: October 18, 2024 Team Status: Active Member Role Status Jesse Torres MD Primary Care Provider Active St art: October 21, 2024 Dr. Jose J Murphy DO Attending Provider Active Start: October 21, 2024 Dr. Jose J Murphy DO Referring Provider Active Start: October 21, 2024 Team Status: Inactive Member Role Status Jesse Torres MD Primary Care Provider Active St art: October 21, 2024 End: October 21, 2024 Adelina Torres MD Referring Provider Active Start : October 21, 2024 End: October 21, 2024 Dr. Jose J Murphy DO Attending Provider Active Start: October 21, 2024 End: October 21, 2024 Team Status: Active Member Role Status Jesse Torres MD Primary Care Provider Active St art: October 14, 2024 Dr. Rk Johnson MD Attending Provider Active S tart: October 14, 2024 MEGHAN Stone Referring Provider Active Start: October 14, 2024 Team Status: Active Member Role Status Jesse Torres MD Primary Care Provider Active St art: November 18, 2024 Dr. Jose J Murphy DO Attending Provider Active Start: November 18, 2024 Dr. Jose J Murphy DO Referring Provider Active Start: November 18, 2024 Team Status: Active Member Role Status Jesse Torres MD Primary Care Provider Active St art: November 18, 2024 Adelina Torres MD Referring Provider Active Start : November 18, 2024 Dr. Jose J Murphy DO Attending Provider Active Start: November 18, 2024 Team Status: Inactive Member Role Status Jesse Torres MD Primary Care Provider Active St art: November 18, 2024 End: November 18, 2024 Dr. Tad Ceja MD Attending Provider Active S tart: November 18, 2024 End: November 18, 2024 Team Status: Inactive Member Role Status Jesse Torres , MD Primary Care Provider Active St art: November 18, 2024 End: November 18, 2024 Adelina Torres MD Referring Provider Active Start : November 18, 2024 End: November 18, 2024 Dr. Jose J Murphy , DO Attending Provider Active Start: November 18, 2024 End: November 18, 2024 Goals (unrecognized section and content) Goals may be documented in a n alternate sectionGoals may be documented in an alternate sectionGoals may be documented in an alternate sectionGoals may be documented in an alternate sectionGoals may be documented in an alternate sectionGoals may be documented in an alternate sectionGoals may be documented in an alternate section INFORMATION SOURCE (unrecogn ized section and content) DATE CREATED AUTHOR 04/22/2024 [facility] DATE CREATED AUTHOR EDWIN SMITH 11/15/2024 [facility] FOR RECORDS PERTAINING TO PATIENTS WHO ARE [...] BE BASED ON THE PRIMARY CLINICAL RECORDS. [email or web address] provides no warranty or guarantee of the accuracy or completeness of information in this document.
[2024-11-19] MEDS: Lactated Ringers 1,000 ML 15 ML IV (06:30)
--- NOTE | 2024-11-19 06:52 | PCM.PRE.AN2 ---
ASA Classification* ASA Classification ASA Classification: 2 Assessment & Plan Anesthesia* Anesthesia Assessment Anesthesia Assessment: Discussed sedation and/or anesthesia options, risks, benefits, and alternatives with patient/parents/legal guardian/POA. Questions invited. The patient/parents/legal guardian/POA seems to understand and agrees to proceed with anesthesia plan. Reviewed the physical assessment, medical history, allergy history and patient home medications list prior to surgery/procedure/anesthetic and documented any changes. Performed airway and anesthesia risk assessments. Anesthesia Type Anesthesia Type: MAC and Block (ACB, Right. Informed consent obtained for block. Risks/benefits/alternatives explained. patient verbalized understanding and agreed ) History Source History Obtained from:: Patient Anesthesia Focused Assessment* Temperature: 98.5 F Pulse Rate: 75 Blood Pressure: 115/65 Respiratory Rate: 16 Pulse Ox: 97 Oxygen Delivery Method: Room Air Airway Assessment Mouth opens: >3 cm Mallampati Score: II Teeth Condition: Intact Neck Range of motion (ROM): Full ROM Labs Anesthesia Preop lab: CBC WBC 8.4 K/mm3 (4.4-11.0) 09/23/24 10:37 09/23/24 RBC 4.70 M/mm3 (4.2-5.4) 09/23/24 10:37 09/23/24 Hgb 13.8 g/dL (12.0-15.0) 09/23/24 10:37 09/23/24 Hct 41.5 % (37-47) 09/23/24 10:37 09/23/24 Plt Count 270 K/mm3 (150-450) 09/23/24 10:37 09/23/24 CHEMISTRY Potassium 3.9 mmol/L (3.3-5.1) 09/23/24 10:37 09/23/24 Sodium 141 mmol/L (133-145) 09/23/24 10:37 09/23/24 Magnesium 2.2 mg/dL (1.5-2.2) 09/26/24 08:09 09/26/24 BUN 13 mg/dL (4-19) 09/23/24 10:37 09/23/24 Creatinine 0.67 mg/dL (0.70-1.20) L 09/23/24 10:37 09/23/24 Glucose 88 mg/dL (70-99) 09/23/24 10:37 09/23/24 POC Glucose 81 mg/dL (74-106) 10/08/24 06:08 10/08/24 TSH 3.43 uIU/mL (0.358-3.74) 06/14/22 07:36 06/14/22 COAG PT 12.4 SECONDS (11.7-14.9) 09/26/24 08:09 09/26/24 Pre-Assessment Diagnosis/Proposed Procedure Planned Operative Procedure(s): MANIPULATION KNEE UNDER ANERSTHESIA Anesthesia History 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 When Was Last Pacemaker Check QUESTION #4 FULL TEXT: You/Your Family Experience fever (hyperthermia) with Anesthesia Last Oral Intake Last Oral intake: Last Oral Intake NPO since 20:30 11/19/24 06:20 Meds taken in AM with sips of water? Meds patient instructed to take am of surgery PONV PONV - weigh tank operator: PONV - weigh tank operator Female Yes 11/18/24 12:16 HX of Motion Sickness Yes 11/18/24 12:16 HX of N/V After Surgery No 11/18/24 12:16 Non-Smoker Yes 11/18/24 12:16 Duration of Surgery greater No 11/18/24 12:16 than 60 minutes Number of Risk Factors 3 11/18/24 12:16 PONV Score Moderate Risk 11/18/24 12:16 Height & Weight Height & Weight: Anesthesia: Height & Weight Height 5 ft 2 in 11/19/24 06:20 Weight: 79 kg 11/19/24 06:20 Body Mass Index (BMI) 31.8 11/19/24 06:20 Respiratory Assessment Respiratory Assessment - weigh tank operator: Respiratory Tract Infection Hx - weigh tank operator Hx Respiratory Tract Infection No 11/18/24 12:16 STOP Sleep Apnea STOP Sleep Apnea - weigh tank operator: STOP Sleep Apnea - weigh tank operator Hx Hypertension No 11/18/24 12:16 Hx Sleep Apnea No 11/18/24 12:16 CPAP BIPAP Do you snore loudly (louder No 11/18/24 12:16 than talking or can be heard Do you often feel tired/ No 11/18/24 12:16 fatigued/ sleepy during daytime? Has anyone observed you stop No 11/18/24 12:16 breathing during sleep? STOP Results Negative 11/18/24 12:16 QUESTION #5 FULL TEXT : Do you snore loudly (louder than talking or can be heard through closed doors)? 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 Specify any problems Hx of Preganancy in last 3 No 11/18/24 12:16 Months Nurse Filling Out Transfusion VCHRISTIN 11/18/24 12:16 & Questions: Date: 11/18/24 11/18/24 12:16 Time: 12:17 11/18/24 12:16 Patient unable to answer at this time (ie. confused, unrespo /Reproduction History /Reproductive History - weigh tank operator: /Reproductive Hx- weigh tank operator Hx Now No 11/18/24 12:16 Gestational Age (in weeks): EDC: Hx Hx Para Hx Section SAB No 11/18/24 12:16 Active Medications Active Medications: Current Medications Generic Name Dose Route Start Last Admin Trade Name Freq PRN Reason Stop Dose Admin Cefazolin Sodium 2 gm/ Sodium 110 mls @ 150 mls/hr 11/19/24 07:30 Chloride IV 11/19/24 08:13 INTRAOP ONE Lactated Ringer's 1,000 mls @ 15 mls/hr 11/19/24 06:15 11/19/24 06:30 IV 15 mls/hr .Q48H BRONSON Administration PFSH Medical History (Updated 11/18/24 @ 08:[address] Jose J Murphy, DO) Wears glasses Cancer Arthritis High cholesterol Migraine headache Non-smoker History of echocardiogram Cardiology follow-up encounter Sinus arrhythmia Palpitations Home Medications ?Medication ?Instructions ?Recorded ?Last Taken ?Type cholecalciferol (vitamin D3) 1,250 1,250 mcg PO QMONTH 10/08/24 10/03/24 History mcg (50,000 unit) tablet oxycodone 5 mg tablet 5 - 10 mg (1 - 2 x 5 mg) PO Q4H 10/08/24 Unknown Rx PRN pain 7 days #60 tabs acetaminophen 500 mg tablet 1,000 mg PO Q6H PRN pain 11/18/24 Unknown History Allergy/AdvReac Type Severity Reaction Status Date / Time No Known Allergies Allergy Verified 11/19/24 06:19 Family History Father Atrial fibrillation Cardiomegaly Heart disease Surgical History (Updated 11/18/24 @ 12:16 by Annamaria Freeman) History of total knee replacement (TKR) History of ankle surgery History of tubal ligation History of Social History Smoking Status: Never smoker alcohol intake: never substance use type: does not use Review of Systems (Anesthesia) ROS Narrative System reviewed and no additional complaints, except as documented. Physical Exam Const alert, oriented x3 and average body habitus Resp normal respiratory effort, normal air movement and clear to auscultation bilaterally Cardio regular rate, regular rhythm, no murmurs and diaphoretic
--- NOTE | 2024-11-19 07:23 | HP.PCM_ITS ---
History and Physical Date of Admission: 11/19/24 [facility] [address] [place] [address] OFFICE VISIT Date of Service: 11/18/24 MR#: [id number] Acct: [id number] Name: VINH MARTINEZ Rep #: [id number] : 1970 Provider: Dr. Jose J Murphy DO Age/Sex: 54/F Location: [facility] [place] [facility] [place] Status: Signed with Addenda ADDENDUM by Dr. Jose J Murphy DO on 11/18/24 at 1025 Assessment and Plan Assessment and Plan (1) Arthrofibrosis of knee joint: Status: Acute Qualifiers: Laterality: right Qualified Code(s): M24.661 - Ankylosis, right knee Orders: Orders Knee 3 Views Today Z96.651 - Presence of right artificial knee joint Plan Any further delay will increase risk of complications including rupture to her quad or patellar tendon and risk of fracture periprosthetic which can be life- threatening. 11/18/24 1025 <Electronically signed by Jose J Murphy DO> Date Jose J Murphy DO cc: ~* Signed ADDENDUM by Dr. Jose J Murphy DO on 11/18/24 at 1024 Assessment and Plan Assessment and Plan (1) Arthrofibrosis of knee joint: Status: Acute Qualifiers: Laterality: right Qualified Code(s): M24.661 - Ankylosis, right knee Orders: Orders Knee 3 Views Today Z96.651 - Presence of right artificial knee joint Plan It is very important to have this done as soon as possible we are now 6 weeks from her surgery and she has significant stiffness I did explain that without getting range of motion she could be left with permanent disability and stiffness of her knee which could affect her function as we are likely unable to obtain fast increases in her knee flexion after this point. Therefore we are going to add her onto the schedule for tomorrow. 11/18/24 1024 <Electronically signed by Jose J Murphy DO> Date Jose J Murphy DO cc: ~* Signed Intake Vital Signs 09/09/2512:36 10/21/2510:25 Height 5 ft 2 in 5 ft 2 in Intake Visit Reasons: right knee Chief Complaint: 6 week post op right knee Accompanied by: Self Is patient in pain?: Yes Pain scale (1-10): 3 Allergies No Known Allergies Allergy (Verified 11/18/24 08:04) Medications ?Medication ?Instructions ?Recorded ?Confirmed ?Type acetaminophen 500 mg tablet 1,000 mg (2 x 500 mg) PO Q6H #100 11/18/24 Rx tabs cholecalciferol (vitamin D3) 1,250 1,250 mcg PO QMONTH 10/08/24 11/18/24 Hi story mcg (50,000 unit) tablet oxycodone 5 mg tablet 5 - 10 mg (1 - 2 x 5 mg) PO Q4H 10/08/24 11/18/24 Rx PRN pain 7 days #60 tabs PFSH Medical History Wears glasses Cancer Arthritis High cholesterol Migraine headache Non-smoker History of echocardiogram Cardiology follow-up encounter Sinus arrhythmia Palpitations Surgical History History of ankle surgery History of tubal ligation History of Family History Father Atrial fibrillation Cardiomegaly Heart disease Social History Smoking Status: Never smoker alcohol intake: never substance use type: does not use HPI right knee Details: This documentation accurately reflects the service provided and the decisions made by me, Dr. Jose J Murphy, 11/18/24 9020. Part of today?s visit was documented by Marisol Herman ATC, acting as scribe. VINH MARTINEZ is a 54 year old F here today for s/p right total knee arthroplasty DOS 10/08/2024. Patient states she continues with physical therapy and they seem happy with her progress but she is not happy. She states her range of motion is not the best that she would like. She states it is not bending like she would want it to be at this point. She denies any concerns following the surgery. She states a week ago at PT she had flexion to 113 but feels like she is regressing in range of motion. Ortho Exam General General: Yes no acute distress and Yes well groomed Neurologic: Yes alert and Yes oriented x3 Psychologic: Yes reasonable and appropriate Right Knee Date of Surgery: 10/08/24 Skin/Wound: Yes CDI, Yes healed, No erythema, No ecchymosis and No swelling Homans Sign: No Knee ROM: No ROM-Extension -20 to 0 (15) and No ROM-Flexion 0-140 (80) Stability: NML: Valgus 0, NML: Valgus 30, NML: Varus 0 and NML: Varus 30 Patella Translation: 1 KNEE: Incision well-approximated and healed no signs of infection or DVT she is complaining of numbness on her medial calf Left Knee Patella Translation: 1 Constitutional: Well-developed; well-nourished; in no acute distress Eyes: No jaundice ENT: Nares patent; no obvious deformity Cardiovascular: No cyanosis; clubbing; or edema Lymphatic: No adenopathy in area of examination Skin: No rashes or lesions in the area of examination and intact Neurologic: Alert and oriented x 3 Psychiatric: Mood and affect appropriate Supplemental Info 10/08/2024 right total knee arthroplasty: Dr. Murphy 09/09/2024 x-ray right knee:advanced medial compartment narrowing [id number], moderate patellofemoral spurring 06/21/2023 x-ray right knee: advanced medial compartment narrowing [id number], moderate patellofemoral spurring Coding Level of Care Code Global Post Op Diagnoses Fibrosis of right knee joint M24.661 Laterality: right Assessment and Plan Assessment and Plan (1) Arthrofibrosis of knee joint: Status: Acute Qualifiers: Laterality: right Qualified Code(s): M24.661 - Ankylosis, right knee Orders: Orders Knee 3 Views Today Z96.651 - Presence of right artificial knee joint Plan Obtained right knee x-rays today in the clinic. Reviewed imaging findings in detail today with the patient and her hardware maintains good positioning. After evaluation of the knee today her knee range of motion is not great and should be more than what it is. Highly recommend we do a manipulation under anesthesia with intra-articular steroid injection She should not take any NSAIDs today prior to the procedure tomorrow but i would like her to start one on monday.. We will get the procedure on the schedule for 11/19/2024 . Recommend she try Melatonin to try and get some better quality sleep. It is not uncommon to have difficulty sleeping after surgery due to stiffness and pain in the knee. I explained the numbness on the medial side of her calf is most likely from the anesthesia block and not from the surgery itself. I would however expect it to likely return in 3 to 6 months. Follow up in 1 month following manipulation procedure or sooner if pain, swelling, numbness or associated symptoms, or concerns develop. All questions answered. Patient in agreement of plan. 11/18/24 0852 <Electronically signed by Jose J Murphy DO> Date Jose J Murphy DO I have examined the patient and the H&P has been reviewed. There are no clinical changes since date of exam.
[2024-11-19] MEDS: Cefazolin 2 GM in 0.9% Normal Saline (100mL Bag) 100 ML IV (07:25)
--- NOTE | 2024-11-19 07:25 | DCINST_ITS ---
Discharge Instructions Diet Discharge Diet: No restrictions Dressing / Incision Call your doctor if you observe: Shortness of breath and Chest pain Additional Dressing/Incision Instructions:: Encourage full knee flexion and extension regularly. Start physical therapy immediately. May shower and return to activities as normal. Keep pain controlled with medications as discussed with Dr. Murphy in order to keep full range of motion. Ice and elevate next 72 hours. Follow-up with Dr. Murphy and call with any questions or concerns. Follow Up Care When: 4 weeks Test Results: Test results from this visit will be discussed in further detail at your follow- up appointment, if applicable. Discharge Plan Admission Primary Reason for Your Visit: Right knee manipulation under anesthesia with intra-articular steroid injec Attending Provider: Jose J Murphy Primary Care Provider: Adelina Torres Instructions Print Language: Nepalese Discharge Orders/Prescriptions Prescriptions: New oxycodone 5 mg tablet 5 - 10 mg PO Q4H PRN (Reason: pain) 7 Days Qty: 40 0RF No Action acetaminophen 500 mg tablet 1,000 mg PO Q6H PRN (Reason: pain) cholecalciferol (vitamin D3) 1,250 mcg (50,000 unit) tablet 1,250 mcg PO QMONTH oxycodone 5 mg tablet 5 - 10 mg PO Q4H PRN (Reason: pain) 7 Days Qty: 60 0RF Referrals / Follow Up: Adelina Torres MD [Primary Care Provider] - Disposition Disposition (needs filled in before D/C Order can be placed): Home, Self Care
[2024-11-19] MEDS: MethylPREDNISolone Acetate 40 MG/ML Vial (07:28)
[2024-11-19] MEDS: Bupiv/Epi 0.25% 30 ML Vial (07:28)
--- NOTE | 2024-11-19 07:33 | OP.PCM_ITS ---
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 teacher: No Type of Anesthesia: MAC RN Documented Start/Stop Times: Operation Date: 11/19/24 07:30 Case Time Into Pre-Op 11/19/24 06:04 Anesthesia Start 11/19/24 07:23 Into Room 11/19/24 07:23 Procedure Start Time: 07:23 Procedure Stop Time: 07:33 Select all DRAINS/GRAFTS/IMPLANTS that apply: None Estimated Blood Loss: 0 Specimen collected: No Description of surgery: Preoperative diagnosis: Arthrofibrosis right knee Postoperative diagnosis: Same Procedure: Manipulation under anesthesia with intra-articular steroid injection Anesthesia: General EBL: None Complications: None Condition: Able to PACU Indication for procedure: This is a 54-year-old female who underwent total knee arthroplasty approximately 6 weeks ago who is failed to gain her range of motion wish to undergo an elective manipulation under anesthesia to increase range of motion. risk benefits and alternatives were reviewed including risk of bleeding infection nerve, artery, bone, tissue damage, blood clot need for further surgery and continued pain. Procedure: Patient was met in the preoperative holding area once again the operative extremity was identified by both patient and physician and was marked. Patient was brought back to the operating room anesthesia was started. A timeout was called into the proper patient procedure and extremity were being contemplated. The pre-operative range of motion was lacking 15 extension and achieving 90 degrees flexion. After patient was adequately anesthetized extension manipulation was performed followed by patellar mobilization followed by gradual flexion scar tissue was palpated being released with no concerning signs for tendon rupture or fracture. Postoperative range of motion was much improved with near full extension and 130 degrees of flexion. Following the manipulation using sterile technique from the superior lateral position an intra-articular injection with 40 mg of depomedrol and 8 cc 0.25%marcaine with epi was injected. bandaid applied Surgical Findings: Arthrofibrosis adhesions Complications Complications: No
--- NOTE | 2024-11-19 07:43 | PCM.POST.ANE ---
Anesthesia: Postop Eval I Current Vital Signs Temperature: 98.4 F Pulse Rate: 82 Blood Pressure: 112/61 Respiratory Rate: 16 Pulse Ox: 93 Assessment Airway patent: Yes Spontaneous unlabored respirations: Yes nausea: No Vomiting: No Anesthesia Complication: No Fluid Hydration Crystalloid volume administer (ml): 300 Total IV fluid infused: 300 Progress Note Anesthesia document: Postop Eval 1 completed: Yes
[2024-11-19] MEDS: Ketorolac 15 MG/ML Vial IV (08:04)
--- NOTE | 2024-11-19 10:11 | POSTOPAN2_ITS ---
Anesthesia Postop Eval I Sum Postop Eval Completion status Anesthesia document: Postop Eval 1 completed: Yes Anesthesia Postop Eval I Summary Anesthesia Postop Eval I Summary: Anesthesia Postop Eval I: Assessment Summary Airway patent Yes 11/19/24 07:43 [email or web address] Spontaneous unlabored Yes 11/19/24 07:43 [email or web address] [email or web address] respirations Mental status nausea No 11/19/24 07:43 [email or web address] [email or web address] Vomiting No 11/19/24 07:43 [email or web address] [email or web address] Anesthesia Postop Eval I: Fluid Summary Crystalloid volume administer 300 11/19/24 07:43 [email or web address] (ml) Colloids volume administered ( ml) Blood Product volume administered (ml) Total IV fluid infused 300 11/19/24 07:43 [email or web address] Anesthesia Postop Eval I: Summary Notes Anesthesia Complication No 11/19/24 07:43 [email or web address] Anesthesia Complication Comment: Post-operative progress note Anesthesia: Postop Eval II Evaluation Mental status: Awake Pain Level: 0 nausea: No Vomiting: No Complications Anesthesia Complication: No
--- NOTE | 2024-11-19 10:11 | PCM.POSTANE2 ---
Anesthesia Postop Eval I Sum Postop Eval Completion status Anesthesia document: Postop Eval 1 completed: Yes Anesthesia Postop Eval I Summary Anesthesia Postop Eval I Summary: Anesthesia Postop Eval I: Assessment Summary Airway patent Yes 11/19/24 07:43 [email or web address] Spontaneous unlabored Yes 11/19/24 07:43 [email or web address] respirations Mental status nausea No 11/19/24 07:43 [email or web address] Vomiting No 11/19/24 07:43 [email or web address] Anesthesia Postop Eval I: Fluid Summary Crystalloid volume administer 300 11/19/24 07:43 [email or web address] (ml) Colloids volume administered ( ml) Blood Product volume administered (ml) Total IV fluid infused 300 11/19/24 07:43 [email or web address] Anesthesia Postop Eval I: Summary Notes Anesthesia Complication No 11/19/24 07:43 [email or web address] Anesthesia Complication Comment: Post-operative progress note Anesthesia: Postop Eval II Evaluation Mental status: Awake Pain Level: 0 nausea: No Vomiting: No Complications Anesthesia Complication: No
== END 2024-11-19 09:34 | disposition home or self-care (01) ==
LOC: SDC 05:47 → AC 05:49
PROVIDERS: PCP Family Medicine; Referring Provider Orthopaedic Surgery; Visit Provider Orthopaedic Surgery
PROC: (CPT 27570; principal; 2024-11-19 07:25)
DX: M24.661 Ankylosis, right knee (principal); Z96.651 Presence of right artificial knee joint
CPT/HCPCS: 20610; 27599; 01390; 64447; J2405

== ENCOUNTER 2024-12-04 10:00 | Outpatient (RCR) | payer BC, SELFPAY ==
--- NOTE | 2024-10-14 11:30 | HP.PTEVAL_ITS ---
Patient's Visit Information Visit Information Visit Information: VINH MARTINEZ is a 54 year old F referred to Physical Therapy by Dr. Jose J Murphy DO with a diagnosis of R TKA DOS: 10/08/24. Date of Evaluation: 10/11/24 Physical Therapist: Reji Browning DPT Visit Plan Frequency: 2x /Week Duration: 6 Weeks Plan: 1) R knee ROM progressing towards end ranges 2) vaso and ice for edema control. 3) quad and glute strengthening 4) functional mobility, stair negotiation Subjective Subjective: Pt. is here today for her initial evaluation with diagnosis of R TKA, DOS: 10/08/24. Pt. reports tolerating the surgery well. No major issues currently. 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 Pt. reports no N/T, no calf pain and no chest pain. Pt. has been doing her HEP as prescribed, but is having issues iwth SLR. Pt. is sleeping okay. Icing frequently. I saw a picture of her knee with good healing, no signs of infection. Knee was bandaged up today. Pt. is hopeful to increase her ROM and strenght in order to get back to all work and recreational activiteis without limitations. Pain R knee: Pain Intensity (Out of 10): 4 Pain Intensity Range: 2 and 6 Objective Objective: POSTURE: Pt. has increased wt. shift to L side in stance. Off loading RLE. PALPATUON: Pt. has marked swelling, ~3 cm difference at mid patella. NEURO: normal achilles DTR. Normal sensation throughout. ROM: R knee: 0-5-91deg. Pt. has empty end feel, pain as limiting factor. Tightness noted in B HS. MMT: RLE: ankle 5/5 throughout; knee: ext 3#, flexion 7#; hip: 0#. GAIT: pt. is able to ambulate with FWW with good tolerance. She does lack TKE during stance phase and limited swing phase noted. Balance/Special Test Scores Lower Extremity Functional Score: 22 TUG Test Time Seconds: 28.3 30 Second Chair Rise Test Seconds: 10 Goals Goal 1:: LTG: Pt. to be I with HEP. Goal Time Frame: 4-6 Weeks Goal 2:: STG: Pt. to have increased R knee ROM to 0-0-120deg. Goal Time Frame: 2-4 Weeks Goal 3:: LTG: Pt. to ambulate without AD with normal gait pattern and no increase in R knee pain. Goal Time Frame: 6-8 Weeks Goal 4:: LTG: pt. to have symmetrical strength of BLEs. Goal Time Frame: 4-6 Weeks Goal 5:: LTG: Pt. to have TUG time less than 10seconds. Goal Time Frame: 4-6 Weeks Goal 6:: LTG: Pt. to negotiate 1 flight of stairs with 1 HR with reciprocal pattern. Goal Time Frame: 4-6 Weeks Rehabilitation Potential Physical Therapy Diagnosis: Pt. has signs and symptoms consistent with R TKA, DOS: 10/08/24. Pt. has marked hypomobility, weakness, increased swelling, difficulty walking and increased pain. Pt. would benefit from PT to address the above limitations progressing back to all previous levels of function. Rehabilitation Potential: Excellent Anticipated Interventions Patient/Client Instruction: Educate patient on: Condition, Plan of Care, Risk Factors and Benefits of Fitness Program For the Purpose of:: To facilitate caregiver knowledge, To improve self management, To prevent re-injury, To improve ability to perform tasks related to life management and To improve tolerance to ADL's Therapeutic Exercise to Include: Strength training, Power training, Endurance training, Passive ROM and Active ROM For the Purpose of:: To foster healthy habits, To improve decision making, To facilitate caregiver knowledge, To improve self management, To prevent re-injury and To improve ability to perform tasks related to life management Manual Therapy Techniques to Include: Mobilization and Soft tissue mobilization For the Purpose of:: To decrease pain, To decrease swelling/inflammation, To increase ROM, To improve nutrient delivery to tissue and To increase oxygenation perfusion Cryotherapy (ice pack, ice massage): Yes Vasopneumatic device: Yes For the Purpose of:: To decrease pain, To decrease swelling/inflammation and To increase ROM Text: Thank you for the opportunity to evaluate your patient. For Medicare and Medicare HMO plans, please review the plan of care and approve it. It will need to be FAXED BACK to us at [phone] for Medicare purposes. For Medicare only, by signing this I certify the plan of care. Please let me know if there are questions or concerns regarding this plan of ca re. Physician Signature: Date:
--- NOTE | 2024-11-08 11:52 | HP.PTREVAL ---
Re-Evaluation Intro: Dr. Jose J Murphy, DO, It has been my pleasure to treat VINH MARTINEZ over the last 12 visits for R TKA DOS: 10/08/24. Please see the progress note below for an update on the physical therapy plan of care! Subjective Subjective: Pt. is here today for her re assessment. Pt. reports being sore after last visit during deep squats. Pt. reports have 3/10 pain currently. Pt. reports being 80% better overall. Objective Objective/Function: ROM: PROM: 0-0-113deg, AROM; 0-3-105 MMT: R knee: ext 13.1#, flex 17.8#. L knee: ext 36.7#, flex 27.3# GAIT: Pt. ambulates with out AD. Pt. has lack TKE during stance phase with RLE. STAIRS: Pt. does well with reciprocal pattern with 2 HR TU.1 sec Functionally she is doing well. I would like her to have better knee flexion and extension during her gait pattern as well as better ROM both into extension and flexion. Once we have improved her ROM progress strengthening. Plan Plan Plan: I am extending her POC for another 4 weeks. Work on restoring ROM to 0-0-120deg then progress strengthening as able. Balance/Gait/Functional tests Balance/Special Test Scores Lower Extremity Functional Score: 22 TUG Test Time Seconds: 28.3 Tug Test: 20-30sec.=variable mobility 30 Second Chair Rise Test Seconds: 10 Goals Goals Goal 1:: LTG: Pt. to be I with HEP. Goal Time Frame: 4-6 Weeks Goal Progress: Progressing Goal 2:: STG: Pt. to have increased R knee ROM to 0-0-120deg. Goal Time Frame: 2-4 Weeks Goal Progress: Progressing Goal 3:: LTG: Pt. to ambulate without AD with normal gait pattern and no increase in R knee pain. Goal Time Frame: 6-8 Weeks Goal Progress: Progressing Goal 4:: LTG: pt. to have symmetrical strength of BLEs. Goal Time Frame: 4-6 Weeks Goal Progress: Progressing Goal 5:: LTG: Pt. to have TUG time less than 10seconds. Goal Time Frame: 4-6 Weeks Goal Progress: Goal Met Goal 6:: LTG: Pt. to negotiate 1 flight of stairs with 1 HR with reciprocal pattern. Goal Time Frame: 4-6 Weeks Goal Progress: Progressing Anticipated Interventions Anticipated Interventions Patient/Client Instruction: Educate patient on: Condition, Plan of Care, Risk Factors and Benefits of Fitness Program For the Purpose of:: To facilitate caregiver knowledge, To improve self management, To prevent re-injury, To improve ability to perform tasks related to life management and To improve tolerance to ADL's Therapeutic Exercise to Include: Strength training, Power training, Endurance training, Passive ROM and Active ROM For the Purpose of:: To foster healthy habits, To improve decision making, To facilitate caregiver knowledge, To improve self management, To prevent re-injury and To improve ability to perform tasks related to life management Manual Therapy Techniques to Include: Mobilization and Soft tissue mobilization For the Purpose of:: To decrease pain, To decrease swelling/inflammation, To increase ROM, To improve nutrient delivery to tissue and To increase oxygenation perfusion Cryotherapy (ice pack, ice massage): Yes Vasopneumatic device: Yes For the Purpose of:: To decrease pain, To decrease swelling/inflammation and To increase ROM Re-Evaluation Ending Re-evaluation ending: Please do not hesitate to contact me at [phone] by phone or if you have questions or concerns regarding this new plan of care! Sincerely, Reji Browning DPT
--- NOTE | 2024-12-04 10:39 | HP.PTDCSUM ---
Discharge Summary D/C summary: It has been my pleasure to treat VINH MARTINEZ referred by Dr. Jose J Murphy DO, with the diagnosis of R TKA DOS: 10/08/24 for a total of 26 visit(s). Discharge Date: 12/04/24 Please see the following information for a summary of their discharge status. Subjective Subjective: Pt. reports overall doing well. Pt. reports being 90% better overall. Pt. pleased. Pt. is back to all working without much issues. Pt. reports some mild discomfort, but not much. Pain R knee: Pain Intensity (Out of 10): 1 R LE M's: Pain Intensity (Out of 10): 0 Overall Improvement % Improvement: 90 Objective Objective/Function: PROM 0-0-120deg. AROM 0-2-116deg. MMT: RLE: knee: ext 22.6#, flex 21.7# LLE: Knee: ext 31.7#, flex 28.3# STAIRS: Pt. did well with ascending and better with descending. Pt. did have slight trunk rotation to R side during descending and with R stance phase. Compensation due to slight R knee tightness and discomfort. Overall vinh is doing well. She will be DC from PT at this point in time. She is to continue with stretching and strengthening. She has a stationary bike at home and plans on using this frequently to work on her ROM. Goals Goal 1:: LTG: Pt. to be I with HEP. Goal Progress: Goal Met Goal 2:: STG: Pt. to have increased R knee ROM to 0-0-120deg. Goal Progress: Progressing Goal 3:: LTG: Pt. to ambulate without AD with normal gait pattern and no increase in R knee pain. Goal Progress: Goal Met Goal 4:: LTG: pt. to have symmetrical strength of BLEs. Goal Progress: Progressing Goal 5:: LTG: Pt. to have TUG time less than 10seconds. Goal Progress: Goal Met Goal 6:: LTG: Pt. to negotiate 1 flight of stairs with 1 HR with reciprocal pattern. Goal Progress: Goal Met Plan Plan: Pt. to be DC to HEP. Focus on knee ROM and quad strengthening. D/C Information d/c sentence: If there are questions or concerns regarding this patient's physical therapy, please feel free to call me at [phone]. Thank you for the referral of this patient. Sincerely, Reji Browning, DPT Balance/Gait/Functional tests Balance/Special Test Scores Lower Extremity Functional Score: 64 TUG Test Time Seconds: 7.41 Tug Test: <10 sec.=free mobile 30 Second Chair Rise Test Seconds: 21 Improvement % Improvement: 90
== END 2024-12-04 19:00 | disposition home or self-care (01) ==
LOC: PT 10:00
PROVIDERS: PCP Family Medicine; Referring Provider Orthopaedic Surgery; Visit Provider Orthopaedic Surgery
DX: Z96.651 Presence of right artificial knee joint (principal); M17.11 Unilateral primary osteoarthritis, right knee
CPT/HCPCS: 97016; 97110; 97140; 97161; 97530